=== PATIENT | female | born 1985 | race African-American/Black ===

== ENCOUNTER 2020-01-21 15:28 | Outpatient (CLI) | payer OTHER, SELFPAY ==
--- NOTE | ~2020-01-21 | US_ITS ---
EXAMINATION: US soft tissue chest DATE: 01/21/2020 16:19 INDICATION: Localized bowing, mass and lump at the trunk. TECHNIQUE: Multiple grayscale and Doppler ultrasound images were obtained of the region of concern at the anterior left chest wall inferior to the left breast. COMPARISON: None FINDINGS: Normal ultrasound appearance to the RIBS, intercostal musculature and overlying subcutaneous soft tis sues at the anterior left chest wall region of concern. No abnormal masses or fluid collections ident ified. IMPRESSION: 1. Unremarkable study. Reviewed, dictated and finalized at location A. ERWARE BUFFER IMPRESSION: 1. Unremarkable study.
== END 2020-01-21 15:29 | disposition home or self-care (01) ==
LOC: ANHIMG 15:33
PROVIDERS: PCP Family Medicine; Visit Provider Family Medicine
DX: R22.2 Localized swelling, mass and lump, trunk (principal)
CPT/HCPCS: 76604

== ENCOUNTER 2020-08-11 17:49 | Emergency (ER) | payer OTHER, SELFPAY ==
[2020-08-11 17:58] VITALS: BP 146/91; PULSE 84; RESP 18; TEMP 36.1; O2SAT 100
--- NOTE | 2020-08-11 18:17 | ED.BACK ---
HPI - Back Pain/Injury General Chief Complaint: Back Pain/Injury Stated Complaint: Fell Neck/Back pain Time Seen by Provider: 08/11/20 18:07 Source: patient and RN notes reviewed Mode of arrival: ambulatory Limitations: no limitations History of Present Illness HPI Narrative: Patient presents today complaining of neck pain extending to the mid back for the past 2 weeks. She was at home and fell off the back of a bench, striking her neck and upper back against the side of her home at that time. Since the injury she has had pain to her neck and upper back. Denies radiation of the pain. Denies numbness or tingling in the extremities. Denies weakness. She has been taking Tylenol and ibuprofen at home without relief. Pain increases with movement of the neck or with any lifting. This makes it difficult as she is a [employer]. She currently rates her pain 8/10. Patient had a similar injury approximately 2 years ago when she fell and hit her head. States she was out of work for 2 to 3 months before her symptoms improved. States these symptoms are similar. She does have a PCP, but could not get in for 2 to 3 weeks. MD elicited complaint: back injury and fall Related Data Home Medications Medication Instructions Recorded Confirmed sertraline [Zoloft] 50 mg PO BID 11/12/19 08/11/20 Allergies Allergy/AdvReac Type Severity Reaction Status Date / Time No Known Allergies Allergy Verified 11/12/19 19:09 Review of Systems Review of Systems: Narrative: CONSTITUTIONAL: Denies body aches, fever, chills, or sweats. EYES: Denies visual changes, redness, or discharge. ENT: Denies rhinorrhea, congestion, sore throat, or otalgia. CARDIOVASCULAR: Denies chest pain, palpitations, or edema. RESPIRATORY: Denies cough or dyspnea. GASTROINTESTINAL: Denies abdominal pain, nausea, vomiting, or diarrhea. GENITOURINARY: Denies dysuria or hematuria. SKIN: Denies rash, itching, or wounds. MUSCULOSKELETAL: Denies joint pain, or myalgia.+ Back pain, neck pain NEUROLOGIC: Denies headache, numbness, tingling, or weakness. PSYCH: Denies depression or anxiety. [facility] Past Medical History Medical History (Updated 08/11/20 @ 18:22 by Lashonda Valencia, [facility], ) Anxiety Depression Social History Social History Gender identity (if verbalized by the patient): Female Comments At time of signature, I have reviewed and agree with nursing past medical, surgical, social and family history unless otherwise noted. Please see nursing chart for further information. There is no relevant family history pertinent to the presenting complaint Exam Narrative: Exam Narrative: GENERAL: Well-appearing, well-nourished, and in moderate pain distress. Holding her neck very still sitting in chair. HEAD: Normocephalic, atraumatic. EYES: EOMI. No redness or drainage. Conjunctivae normal. ENT: Mucous membranes pink and moist. Nares clear. No rhinorrhea. TMs normal bilaterally. Throat normal. Uvula midline. NECK: Supple. No lymphadenopathy. Decreased AROM due to pain. Most painful with chin to chest and ear to shoulders bilaterally. No spine or tenderness of the cervical spine, but bilateral paraspinal muscle tenderness extending to the mid trapezius. CHEST: No respiratory distress. Clear to auscultation. HEART: Regular rate and rhythm. No murmur appreciated. Normal peripheral pulses. ABDOMEN: Soft, nontender, nondistended, normal active bowel sounds. MUSCULOSKELETAL: No bony tenderness of the spine. Bilateral thoracic paraspinal muscle tenderness extending to the lower thoracic area. No edema or step-off noted. EXTREMITIES: Normal range of motion. No edema. Handgrips normal. Foot push and pulls equal and strong. Full range of motion of the shoulders noted. SKIN: Warm, dry, no rash. Capillary refill normal. Normal skin turgor. NEURO: No focal deficits. Alert and oriented x3. Gait steady. PSYCH: Normal affect.
== END 2020-08-11 18:23 | disposition home or self-care (01) ==
PROVIDERS: Emergency Provider Nurse Practitioner; PCP Family Medicine
DX: S29.012A Strain of muscle and tendon of back wall of thorax, initial encounter (principal); S16.1XXA Strain of muscle, fascia and tendon at neck level, initial encounter; W17.89XA Other fall from one level to another, initial encounter; F41.9 Anxiety disorder, unspecified; F32.9 Major depressive disorder, single episode, unspecified
CPT/HCPCS: 99213; G0463

== ENCOUNTER 2021-03-30 11:41 | Observation (INO) | payer OTHER, SELFPAY ==
[2021-03-30] VITALS (34 sets, daily range): BP systolic 109–120; BP diastolic 64–76; PULSE 68–86; TEMP 36.4; O2SAT 95–100; BMI 26.5
--- NOTE | ~2021-03-30 | US_ITS ---
EXAMINATION: US OB BPP wo non-stress EXAM DATE: 03/30/2021 15:39 INDICATION: Failed BPP in office. 3rd trimester. TECHNIQUE: Pelvic obstetrical transabdominal sonogram was performed by a technologist. There are mu ltiple grayscale and Doppler images available for interpretation. There are no earlier studies of th is gestation for comparison. FINDINGS: There is a single fetus identified in vertex presentation with a heart rate of 131 beats pe r minute. The placenta is located in the fundal position. There is no sonographic evidence of retrop lacental hemorrhage identified. There is subjectively expected amount of amniotic fluid. BIOPHYSICAL PROFILE (performed by the technologist) breathing (30 sec sustained breathing in 30 minutes): 2 out of 2 movement (3 gross body movements in 30 minutes): 2 out of 2 tone (one episode of ihwhvaw-plrlcilqz-qfdffnh limb movement): 2 out of 2 Amniotic fluid pocket (2 cm): 2 out of 2 Total score: 8 out of 8 IMPRESSION: 1. Single fetus with heart rate of 131 bpm. 2. Normal biophysical profile score of 8 out of 8. Reviewed, dictated and finalized at location B.
--- NOTE | 2021-03-30 13:55 | OBADM ---
This patient, Macarena Rios, admitted to the OB room OB Post 112 for observation. Patient/family oriented to hospital policies and general routines including ID bracelet, bed and alarms, visiting hours, pain management, procedures, bathroom and other care routines, personal items, smoking policy, room service/diet, and visiting hours. Patient/Family are encouraged to report perceived risks to care and to ask questions if they do not understand what they are told or what they should do. Pt. presents from office with orders for monitoring X2 hours then BPP.
[2021-03-30] MEDS: SERTRALINE HCL 50 MG TABLET 100 MG PO (22:08)
[2021-03-31] MEDS: ONDANSETRON HCL ODT 4 MG TABLET PO (02:59)
[2021-03-31 07:06] VITALS: BP 96/59; PULSE 76; RESP 16; TEMP 36.7
[2021-03-31] MEDS: FAMOTIDINE 20 MG TABLET PO (09:22)
[2021-03-31] MEDS: MULTIVIT/MIN/PREN/FOL AC/IRON TABLET 1 TAB PO (09:22)
--- NOTE | 2021-03-31 10:35 | PC.NURSE ---
Dr. Pollock on unit. Overnight tracing reviewed. Orders to discharge to home.
--- NOTE | 2021-03-31 10:50 | PM.IMHP ---
H&P: HPI History of Present Illness Date/Time: 03/31/21 10:50 this patient is a 36-year-old female, multiparous, 33 weeks gestation who presented with contractions and unusual heart tones. She denies any loss of fluid or vaginal bleeding. She denies any nausea, vomiting, fever, chills. She reports good movement. She denies any chest pain or shortness of breath. Chief Complaint: heart tone concerns Review of Systems Constitutional: Constitutional: Reports no additional constitutional complaints, Denies fatigue, Denies headache(s), Denies lethargy and Denies weakness Eyes: Eyes: Reports no additional eye complaints, Denies blurry vision and Denies photophobia ENT: Reports as per HPI, Denies headache(s) and Denies neck pain Cardiovascular: Cardiovascular: Denies chest pain, Denies diaphoresis, Denies leg edema, Denies palpitations and Denies dyspnea Respiratory: Respiratory: Denies hemoptysis, Denies dyspnea and Denies wheezing Gastrointestinal: Gastrointestinal: Denies abdominal pain, Denies melena, Denies bloating, Denies hematochezia, Denies nausea and Denies vomiting Genitourinary: Genitourinary: Reports no additional female genitourinary complaints Musculoskeletal: Musculoskeletal: Denies joint swelling, Denies neck pain, Denies numbness and Denies stiffness Neurologic: Denies Abnormal speech present, Denies confusion, Denies headache(s), Denies numbness and Denies weakness Psychiatric: Psychiatric: Denies anxiety, Denies confusion, Denies depression, Denies homicidal ideation and Denies suicidal ideation Endocrine: Endocrine: Denies fatigue and Denies palpitations Allergic/Immunologic: Allergic/Immunologic: Denies wheezing [facility] Past Medical History Medical History (Updated 03/31/21 @ 10:51 by Ibeth Pollock MD) Anxiety Depression Social History Social History Gender identity (if verbalized by the patient): Female Meds Home Medications and Allergies Home Medications Medication Instructions Recorded Confirmed Type sertraline [Zoloft] 100 mg PO HS 11/12/19 03/30/21 History 1 tablet PO DAILY 03/30/21 03/30/21 History famotidine [Pepcid] 20 mg PO BID 03/30/21 03/30/21 History ferrous sulfate 143 mg PO DAILY 03/30/21 03/30/21 History ondansetron HCl [Zofran] 4 mg PO Q6H PRN 03/30/21 03/30/21 History Allergies Allergy/AdvReac Type Severity Reaction Status Date / Time No Known Allergies Allergy Verified 11/12/19 19:09 Vital Signs Vital Signs - 24 hr 03/30/21 11:53 03/30/21 12:00 03/30/21 12:15 Temperature Pulse Rate 79 86 81 Respiratory Rate Blood Pressure 117/71 112/72 111/73 Pulse Oximetry 03/30/21 12:30 03/30/21 12:34 03/30/21 12:45 Temperature Pulse Rate 83 83 83 Respiratory Rate Blood Pressure 110/66 110/66 109/71 Pulse Oximetry 03/30/21 13:02 03/30/21 13:07 03/30/21 13:12 Temperature Pulse Rate Respiratory Rate Blood Pressure Pulse Oximetry 95 99 97 03/30/21 13:17 03/30/21 13:22 03/30/21 13:27 Temperature Pulse Rate Respiratory Rate Blood Pressure Pulse Oximetry 95 100 100 03/30/21 13:32 03/30/21 13:37 03/30/21 13:42 Temperature Pulse Rate Respiratory Rate Blood Pressure Pulse Oximetry 100 100 100 03/30/21 13:47 03/30/21 13:52 03/30/21 13:57 Temperature Pulse Rate Respiratory Rate Blood Pressure Pulse Oximetry 99 98 98 03/30/21 14:02 03/30/21 14:07 03/30/21 14:12 Temperature Pulse Rate Respiratory Rate Blood Pressure Pulse Oximetry 97 99 100 03/30/21 14:17 03/30/21 14:22 03/30/21 14:27 Temperature Pulse Rate Respiratory Rate Blood Pressure Pulse Oximetry 100 98 100 03/30/21 14:32 03/30/21 14:37 03/30/21 14:42 Temperature Pulse Rate Respiratory Rate Blood Pressure Pulse Oximetry 99 100 100 03/30/21 14:47 03/30/21 16:11
== END 2021-03-31 11:15 | disposition home or self-care (01) ==
PROVIDERS: Admitting Provider Obstetrics & Gynecology; PCP Family Medicine; Visit Provider Obstetrics & Gynecology
DX: O36.8330 Maternal care for abnormalities of the fetal heart rate or rhythm, third trimester, not applicable or unspecified (principal); Z3A.33 33 weeks gestation of pregnancy
CPT/HCPCS: 76819; A9270; G0378; G0379

== ENCOUNTER 2021-05-01 13:35 | Inpatient (IN) | payer OTHER, SELFPAY ==
--- NOTE | 2021-04-27 14:09 | PC.NURSE ---
VERIFIED WITH WA SCHEDULE AND PATIENT--C/S ON 05/07/21 AT 1330 PATIENT GIVEN REQUISITION FOR LAB DRAW ON 05/05/21
[2021-05-01] VITALS (10 sets, daily range): BP systolic 112–131; BP diastolic 68–84; PULSE 67–85; RESP 16–18; TEMP 36.5–36.7; BMI 26.6
[2021-05-01] MEDS: LACTATED RINGERS 1,000 ML 125 ML IV CONT ×2 (15:48→23:20)
--- NOTE | 2021-05-01 16:36 | LDADM ---
This patient, Macarena Rios, was admitted to OB Post 113 on 05/01/21 at 13:35. Plans for section, pain management and were discussed with patient. Patient/family oriented to hospital policies and general routines including ID bracelet, bed and alarms, visiting hours, pain management, procedures, bathroom and other care routines, personal items, smoking policy, room service/diet and guest tray routines, security routines, and visiting hours. Patient/Family are encouraged to report perceived risks to care and to ask questions if they do not understand what they are told or what they should do. See OBIX for further documentation.
[2021-05-01 16:58] LABS: Basophils Percent Auto 0.3 % (0.2-1.2); Eosinophils Absolute Auto 0.1 K/mm3 (0-0.3); Eosinophils Percent Auto 0.7 % (0-4.4); Hematocrit 37.3 % (37.0-47.0); Immature Granulocyte Percent A 0.9 % (0-0.5); Lymphocytes Absolute Auto 2.03 K/mm3 (0.9-3.2); Lymphocytes Percent Auto 17.8 % (18.3-44.2); Mean Corpuscular HGB Conc 32.2 g/dl (32-36); Mean Corpuscular Hemoglobin 31.2 pg (26-34); Mean Corpuscular Volume 96.9 fl (80-100); Mean Platelet Volume 11.8 fl (7.4-10.4); Monocytes Absolute Auto 0.8 K/mm3 (0.1-0.6); Monocytes Percent Auto 6.9 % (2.6-8.5); Neutrophils Absolute Auto 8.4 K/mm3 (1.3-6.7); Neutrophils Percent Auto 73.4 % (45.5-73.1); Platelet Count Result 186 k/mm3 (150-375); Red Blood Count 3.85 M/mm3 (4.2-5.4); White Blood Count 11.4 K/mm3 (4.5-10.0)
[2021-05-01 18:23] LABS: Amphetamine Screen Urine Negative (Negative); Barbiturate Screen Urine Negative (Negative); Benzodiazepines Screen Urine Negative (Negative); Cannabinoid Screen Urine Positive (Negative); Cocaine Screen Urine Negative (Negative); Methadone Screen Urine Negative (Negative); Opiate Screen Urine Negative (Negative); Phencyclidine Screen Urine Negative (Negative)
[2021-05-01] MEDS: SERTRALINE HCL 50 MG TABLET 100 MG PO (21:38)
[2021-05-01] MEDS: ONDANSETRON INJ 4 MG/2 ML VIAL IV PUSH (23:28)
[2021-05-02] VITALS (49 sets, daily range): BP systolic 113–137; BP diastolic 57–79; PULSE 57–73; RESP 12–21; TEMP 36.4–37.2; O2SAT 98–100
[2021-05-02] MEDS: LACTATED RINGERS 1,000 ML 125 ML IV CONT (06:52)
--- NOTE | 2021-05-02 07:09 | WPDANESEPPF ---
Anes - Initial Pre Proc Eval Procedure: Operation Date: 05/02/21 07:30 Proposed Procedures p Primary Section - Ibeth Pollock MD Date/Time: 05/02/21 07:09 Surgeon: Ibeth Pollock MD Pre Op Diagnosis: ext monitoring Patient Data Age: 36 Gender: F Height: 5 ft 7 in Weight: 77 kg Last Vital Signs Temp 36.4 C 05/02/21 04:00 Pulse 70 05/02/21 04:11 Resp 16 05/02/21 04:00 BP 115/74 05/02/21 04:11 Allergies Allergy/AdvReac Type Severity Reaction Status Date / Time No Known Allergies Allergy Verified 05/01/21 16:39 Home Medications Medication Instructions Recorded Confirmed Type sertraline [Zoloft] 100 mg PO HS 11/12/19 05/01/21 History 1 tablet PO DAILY 03/30/21 05/01/21 History famotidine [Pepcid] 20 mg PO BID 03/30/21 05/01/21 History ferrous sulfate 143 mg PO DAILY 03/30/21 05/01/21 History ondansetron HCl [Zofran] 4 mg PO Q6H PRN 03/30/21 05/01/21 History Laboratory Tests 05/01/21 05/01/21 05/01/21 16:44 16:44 16:44 WBC 11.4 K/mm3 H K/mm3 (4.5-10.0) RBC 3.85 M/mm3 L M/mm3 (4.2-5.4) Hgb 12.0 g/dL g/dL (12.0-15.0) Hct 37.3 % % (37.0-47.0) MCV 96.9 fl fl (80-100) MCH 31.2 pg pg (26-34) MCHC 32.2 g/dl g/dl (32-36) RDW 15.0 % H % (11.5-14.5) Plt Count 186 k/mm3 k/mm3 (150-375) MPV 11.8 fl H fl (7.4-10.4) Immature Gran % (Auto) 0.9 % H % (0-0.5) Neut % (Auto) 73.4 % H % (45.5-73.1) Lymph % (Auto) 17.8 % L % (18.3-44.2) [place] % (Auto) 6.9 % % (2.6-8.5) Eos % (Auto) 0.7 % % (0-4.4) Baso % (Auto) 0.3 % % (0.2-1.2) Lymph # (Auto) 2.03 K/mm3 K/mm3 (0.9-3.2) [place] # (Auto) 0.8 K/mm3 H K/mm3 (0.1-0.6) Eos # (Auto) 0.1 K/mm3 K/mm3 (0-0.3) Baso # (Auto) 0.0 K/mm3 K/mm3 (0.0-0.1) Abs Immat Gran (auto) 0.10 K/mm3 H K/mm3 (0.00-0.031) Absolute Neuts (auto) 8.4 K/mm3 H K/mm3 (1.3-6.7) Absolute Nucleated RBC 0.0 K/mm3 K/mm3 (0.0-0.012) Nucleated RBC % 0.0 % % (0.0-0.2) Urine Opiates Screen Urine Methadone Screen Ur Barbiturates Screen Ur Phencyclidine Scrn Ur Amphetamine Screen U Benzodiazepines Scrn Urine Cocaine Screen U Cannabinoids Screen RPR Pending Blood Type O Positive Antibody Screen Negative 05/01/21 16:44 WBC RBC Hgb Hct MCV MCH MCHC RDW Plt Count MPV Immature Gran % (Auto) Neut % (Auto) Lymph % (Auto) [place] % (Auto) Eos % (Auto) Baso % (Auto) Lymph # (Auto) [place] # (Auto) Eos # (Auto) Baso # (Auto) Abs Immat Gran (auto) Absolute Neuts (auto) Absolute Nucleated RBC Nucleated RBC % Urine Opiates Screen Negative (Negative) Urine Methadone Screen Negative (Negative) Ur Barbiturates Screen Negative (Negative) Ur Phencyclidine Scrn Negative (Negative) Ur Amphetamine Screen Negative (Negative) U Benzodiazepines Scrn Negative (Negative) Urine Cocaine Screen Negative (Negative) U Cannabinoids Screen Positive A (Negative) RPR Blood Type Antibody Screen Patient hx anesthesia problems: none Family hx anesthesia problems: none PMFSH Past Medical History Medical History Anxiety Depression Pulmonary arteriovenous malformation Family History Family History Mother Chronic obstructive pulmonary disease Hypertension Grandparent Kidney failure Chronic obstructive pulmonary disease Hypertension Diabetes mellitus
--- NOTE | 2021-05-02 07:21 | WPDHPUPDATE1 ---
History and Physical Update Update Date/Time: 05/02/21 07:21 History and Physical has been reviewed, including an updated exam of the patient. There are NO changes in the patient's condition. Risks, benefits, and alternatives have been discussed and questions answered. Patient agrees to proceed with procedure.
--- NOTE | 2021-05-02 07:22 | PM.IMHP ---
H&P: HPI History of Present Illness Date/Time: 05/02/21 07:22 this patient is a 36-year-old multiparous female at 38 weeks gestation with a breech presentation and severe growth restriction in the 1st percentile. She had nonreassuring heart tones yesterday. We have agreed to perform delivery today. She understands the risks. She understands injuries may occur that result in hospitalization, more surgery, and severe illness. She understands the risk of hemorrhage and infection. She denies any chest pain, shortness of breath. She denies any nausea, vomiting, fever, chills. She denies any contractions, loss of fluid vaginal bleeding. Reports good movement. Chief Complaint: Term gestation Review of Systems Constitutional: Constitutional: Reports no additional constitutional complaints, Denies fatigue, Denies headache(s), Denies lethargy and Denies weakness Eyes: Eyes: Reports no additional eye complaints, Denies blurry vision and Denies photophobia ENT: Reports as per HPI, Denies headache(s) and Denies neck pain Cardiovascular: Cardiovascular: Denies chest pain, Denies diaphoresis, Denies leg edema, Denies palpitations and Denies dyspnea Respiratory: Respiratory: Denies hemoptysis, Denies dyspnea and Denies wheezing Gastrointestinal: Gastrointestinal: Denies abdominal pain, Denies melena, Denies bloating, Denies hematochezia, Denies nausea and Denies vomiting Genitourinary: Genitourinary: Reports no additional female genitourinary complaints Musculoskeletal: Musculoskeletal: Denies joint swelling, Denies neck pain, Denies numbness and Denies stiffness Neurologic: Denies Abnormal speech present, Denies confusion, Denies headache(s), Denies numbness and Denies weakness Psychiatric: Psychiatric: Denies anxiety, Denies confusion, Denies depression, Denies homicidal ideation and Denies suicidal ideation Endocrine: Endocrine: Denies fatigue and Denies palpitations Allergic/Immunologic: Allergic/Immunologic: Denies wheezing PMFSH Past Medical History Medical History Anxiety Depression Pulmonary arteriovenous malformation Family History Family History Mother Chronic obstructive pulmonary disease Hypertension Grandparent Kidney failure Chronic obstructive pulmonary disease Hypertension Diabetes mellitus Congestive heart failure Sibling Large cell carcinoma of lung, stage 3 Breast cancer in female Father Large cell carcinoma of lung, stage 3 Social History Social History Years smoked: 11 Smoking status: Current every day smoker Tobacco type: cigarettes and e-cigarettes/vaping Second hand tobacco smoke exposure: Yes Substance use: current Last use: 04/16/21 Gender identity (if verbalized by the patient): Female Spiritual care concerns: No Meds Home Medications and Allergies Home Medications Medication Instructions Recorded Confirmed Type sertraline [Zoloft] 100 mg PO HS 11/12/19 05/01/21 History 1 tablet PO DAILY 03/30/21 05/01/21 History famotidine [Pepcid] 20 mg PO BID 03/30/21 05/01/21 History ferrous sulfate 143 mg PO DAILY 03/30/21 05/01/21 History ondansetron HCl [Zofran] 4 mg PO Q6H PRN 03/30/21 05/01/21 History Allergies Allergy/AdvReac Type Severity Reaction Status Date / Time No Known Allergies Allergy Verified 05/01/21 16:39 Vital Signs Vital Signs - 24 hr 05/01/21 16:00 05/01/21 16:31 05/01/21 16:45 Temperature 98.1 F Pulse Rate 79 85 Respiratory Rate 16 Blood Pressure 119/79 112/76 05/01/21 17:40 05/01/21 18:30 05/01/21 18:31 Temperature 97.9 F Pulse Rate Respiratory Rate 18 18 Blood Pressure 05/01/21 18:38 05/01/21 21:19 05/01/21 21:30 Temperature 97.7 F Pulse Rate 74 Respiratory Rate 16 16 Blood Pressure 131/84 06
--- NOTE | 2021-05-02 07:25 | WPDHPUPDATE1 ---
History and Physical Update Update Date/Time: 05/02/21 07:25 History and Physical has been reviewed, including an updated exam of the patient. There are NO changes in the patient's condition. Risks, benefits, and alternatives have been discussed and questions answered. Patient agrees to proceed with procedure.
--- NOTE | 2021-05-02 08:23 | P.OP_ITS ---
Procedure Note - Detailed Date of Procedure 05/02/21 Pre-op Diagnosis growth restriction, breech, nonreassuring heart tones. Post-op Diagnosis same Procedure Performed Low-transverse section Surgeon Ibeth Pollock MD Anesthesia spinal Indications Thirty weeks gestation with severe growth restriction, nonreassuring heart tones, breech presentation. Findings Normal gestational maternal anatomy, small infant, normal Apgars. Breech presen tation Description of Procedure The patient was taken the operating room. She was prepped and draped in dorsal supine position with a leftward tilt. This was done after spinal anesthetic was applied. A low-transverse skin incision was made and carried down till of the fascia with the knife. The fascial incision was made with the knife. The fasc ial incision was extended laterally with Aaron scissors. The fascia was tented upward superiorly and inferiorly the rectus muscles were dissected off bluntly. The rectus muscles were the midline. The preperitoneal fat and peritoneum were dissected open bluntly at the superior aspect of the rectus muscles. The peritoneal incision was extended superior and inferior with good position of bladder. The uterine incision was made with a scalpel down to the level of the amniotic cavity. The amniotic cavity was entered bluntly. The was delivered. The cord was clamped and cut and the infant was handed off to waiting pediatric staff. Cord bloods were obtained. The placenta was removed manually. The uterus was exteriorized. The uterus was cleared of all clots, debris and membranes. The uterus was closed in 0 Vicryl running lock fashion. An imbricating over a was placed along the incision line as well. The uterus was returned to the abdomen. The gutters were cleared of all clots and debris. The fascia was closed with 0 Vicryl running fashion. The subcutaneous tissue was irrigated pinpoint bleeders were cauterized. The skin was closed with subcuticular absorbable ne. The skin incision line was covered with glue. The patient tolerated the procedure well. She has taken recovery room in stable condition. Sponge lap and needle counts were correct x2. Estimated Blood Loss 400 Complications No immediate complications Condition stable Disposition PACU
[2021-05-02] MEDS: OXYTOCIN 30 UNITS/NS 500 ML 30 UNITS/500 ML BAG 125 UNITS IV CONT (09:10)
[2021-05-02 09:48] LABS: Rapid Plasma Reagin Non-Reactive (NonReactive)
--- NOTE | 2021-05-02 11:27 | OBPPTRN ---
1053-Patient transferred to post room #288 via stretcher. Support person present. Oriented to unit, room, information board, rooming in, admission packet and security measures. Patient verbalizes understanding.
[2021-05-02] MEDS: KETOROLAC 30 MG/ML VIAL (*BKC) IV PUSH (11:39)
[2021-05-02] MEDS: HYDROcodone/acetaminophen (*CRX) 10-325 MG TABLET 1 TAB PO (14:31)
[2021-05-02] MEDS: DEXTROSE 5%/0.45% SOD CHL 1,000 ML 125 ML IV CONT (14:36)
[2021-05-02] MEDS: DOCUSATE SODIUM 100 MG CAPSULE PO (17:58)
[2021-05-02] MEDS: IBUPROFEN 600 MG TABLET PO (19:43)
[2021-05-02] MEDS: HYDROcodone/acetaminophen (*CRX) 5-325 MG TABLET 1 TAB PO (19:44)
[2021-05-03] MEDS: SERTRALINE HCL 50 MG TABLET 100 MG PO ×2 (00:28→21:55)
[2021-05-03] MEDS: HYDROcodone/acetaminophen (*CRX) 10-325 MG TABLET 1 TAB PO ×3 (00:28→21:55)
[2021-05-03 00:30] VITALS: BP 112/74; PULSE 74; RESP 16; TEMP 36.6; O2SAT 100
[2021-05-03 03:25] VITALS: BP 104/62; PULSE 64; RESP 14; TEMP 36.5; O2SAT 100
[2021-05-03] MEDS: IBUPROFEN 600 MG TABLET PO ×3 (03:35→21:55)
[2021-05-03] MEDS: HYDROcodone/acetaminophen (*CRX) 5-325 MG TABLET 1 TAB PO ×3 (03:36→11:08)
[2021-05-03 05:45] LABS: Basophils Absolute Auto 0.1 K/mm3 (0.0-0.1); Basophils Percent Auto 0.4 % (0.2-1.2); Eosinophils Absolute Auto 0.2 K/mm3 (0-0.3); Eosinophils Percent Auto 1.3 % (0-4.4); Hematocrit 29.1 % (37.0-47.0); Hemoglobin 9.8 g/dL (12.0-15.0); Immature Granulocyte Absolute 0.12 K/mm3 (0.00-0.031); Immature Granulocyte Percent A 0.8 % (0-0.5); Lymphocytes Absolute Auto 2.27 K/mm3 (0.9-3.2); Lymphocytes Percent Auto 15.9 % (18.3-44.2); Mean Corpuscular HGB Conc 33.7 g/dl (32-36); Mean Corpuscular Hemoglobin 31.7 pg (26-34); Mean Corpuscular Volume 94.2 fl (80-100); Mean Platelet Volume 11.7 fl (7.4-10.4); Monocytes Absolute Auto 1.2 K/mm3 (0.1-0.6); Monocytes Percent Auto 8.3 % (2.6-8.5); Neutrophils Absolute Auto 10.5 K/mm3 (1.3-6.7); Neutrophils Percent Auto 73.3 % (45.5-73.1); Platelet Count Result 170 k/mm3 (150-375); Red Blood Count 3.09 M/mm3 (4.2-5.4); Red Cell Distribution Width 14.5 % (11.5-14.5); White Blood Count 14.3 K/mm3 (4.5-10.0)
[2021-05-03] MEDS: LANOLIN (LANSINOH) 7.5 GM CREAM 1 APPLIC TOPICAL (07:26)
[2021-05-03] MEDS: POLYSACCHARIDE IRON COMPLEX 150 MG CAPSULE PO ×2 (07:28→16:14)
[2021-05-03] MEDS: SIMETHICONE 80 MG TAB.CHEW PO ×2 (07:29→16:14)
[2021-05-03] MEDS: DOCUSATE SODIUM 100 MG CAPSULE PO ×2 (07:29→16:13)
[2021-05-03] MEDS: MULTIVIT/MIN/PREN/FOL AC/IRON TABLET 1 TAB PO (07:29)
--- NOTE | 2021-05-03 07:36 | P.PNAN_ITS ---
Anes-Prog Note L&D Date/Time: 05/03/21 07:36 Comfortable throughout: section Neuraxial method: spinal Epidural/Spinal procedure site: clean & non-tender Neuro status: Neuro function grossly intact. Cardiovascular status: normal Respiratory status: normal Airway patency: baseline Mental status: baseline Post-Op hydration status: normal Vital Signs: Last Vital Signs Temp 97.7 F 05/03/21 03:25 Pulse 64 05/03/21 03:25 Resp 14 05/03/21 03:25 BP 104/62 05/03/21 03:25 Pulse Ox 100 05/03/21 03:25 Pain score (VAS): 01/31 I/O: Intake & Output 05/02/21 05/02/21 05/03/21 15:59 23:59 07:59 Intake Total 130 1161 Output Total [phone] [facility] [phone] Post-procedural complaints: none Patient feedback: Patient satisfied with anesthetic care.
--- NOTE | 2021-05-03 07:36 | WPDANLDNPN2 ---
Anes-Prog Note L&D-Neuraxial Date/Time: 05/03/21 07:36 Neuraxial medications: intrathecal PF morphine Opiod-related complaints: none Patient feedback: Patient satisfied with post-operative pain management.
[2021-05-03 08:00] VITALS: BP 116/79; PULSE 71; RESP 18; TEMP 36.1
--- NOTE | 2021-05-03 08:16 | P.PNOB_ITS ---
OB - PN: Subj Subjective Date/time seen: 05/03/21 08:16 Patient comments: no complaints, pain well controlled, tolerating diet and flatus present OB - PN: Obj Data Labs CBC & Chem 7: 05/03/21 03:32 Labs: Laboratory Results - last 24 hr 05/01/21 05/03/21 16:44 03:32 WBC 14.3 H RBC 3.09 L Hgb 9.8 L Hct 29.1 L MCV 94.2 MCH 31.7 MCHC 33.7 RDW 14.5 Plt Count 170 MPV 11.7 H Immature Gran % (Auto) 0.8 H Neut % (Auto) 73.3 H Lymph % (Auto) 15.9 L [place] % (Auto) 8.3 Eos % (Auto) 1.3 Baso % (Auto) 0.4 Lymph # (Auto) 2.27 [place] # (Auto) 1.2 H Eos # (Auto) 0.2 Baso # (Auto) 0.1 Abs Immat Gran (auto) 0.12 H Absolute Neuts (auto) 10.5 H Absolute Nucleated RBC 0.0 Nucleated RBC % 0.0 RPR Non-reactive OB - PN A/P Plan day: 1 Comments: Post Op LTCS - no problems, routine recovery Time Spent With Patient Time: Total time spent is greater than 50% in coordination of care (as documented) at patient's floor/unit and/or counseling patient: Exam Const: General: cooperative, healthy appearing, comfortable and no acute distress Resp: Auscultation: no crackles, no rales, no rhonchi and no wheezes Cardio: Rhythm: regular rhythm Heart sounds: no click and no murmurs GI: Inspection: non-distended Auscultation: normal bowel sounds Extrem: General: normal to inspection, no pedal edema and no calf tenderness
--- NOTE | 2021-05-03 10:30 | PC.NURSE ---
Consult with pt., mother reports other children. Mother states infant is eagerly latching without difficulties or discomfort. Reviewed infant feeding cues, frequencies, duration of feedings, feeding elimination flow sheet, and signs of adequate intake. Demonstrated stimulation techniques to wake for feeding. Nipple care reviewed. Requested mother to call out next feeding. Instructed feeding should be initiated three hours from start of last feeding or if feeding cues are noted before. Mother voiced understanding of information shared.
[2021-05-03 20:48] VITALS: BP 113/77; PULSE 87; RESP 16; TEMP 36.6
[2021-05-04] MEDS: HYDROcodone/acetaminophen (*CRX) 10-325 MG TABLET 1 TAB PO ×2 (05:40→14:16)
[2021-05-04] MEDS: IBUPROFEN 600 MG TABLET PO ×2 (05:40→14:16)
--- NOTE | 2021-05-04 07:29 | P.PNOB_ITS ---
OB - PN: Subj Subjective Date/time seen: 05/04/21 07:29 Patient comments: no complaints baby status: doing well OB - PN: Obj Data Labs CBC & Chem 7: 05/03/21 03:32 OB - PN A/P Plan day: 2 Plan: routine care and discharge home Time Spent With Patient Time: Total time spent is greater than 50% in coordination of care (as documented) at patient's floor/unit and/or counseling patient: Review of Systems Review of Systems: All systems reviewed & are unremarkable except as noted in HPI and below Constitutional: Constitutional: Reports as per HPI Exam 2 Narrative: Exam Narrative: incision CDI Const: General: cooperative
--- NOTE | 2021-05-04 07:32 | PM.OBDSVD ---
DS: Admitting Diagnosis Admitting Diagnosis Admitting Diagnosis: breech, iugr OB - DS: Summary OB Procedures : None OB Procedures Intrapartum: OB Procedures: : None Peripartum Data Procedures: Procedures Operation Date: 05/02/21 07:30 Actual Procedure Side Surgeon p Primary Section Bilateral Ibeth Pollock MD Time Spent with Patient Time attestation: Total time spent providing and/or coordinating discharge services: DS: Data Data Completed and Pending Pending studies at discharge: Pending at discharge 05/02/21 07:48 Surgical [PTH] Routine Discharge Plan Discharge Attending physician on discharge: Ibeth Pollock Discharging Clinician: Neeta Rubi Patient Disposition: Home, Self-Care Activity: pelvic rest Diet: regular Patient Instructions: Antibiotic Form Stand Alone Forms: General Discharge Information Follow-up/Referrals: Ibeth Pollock MD [Physician] - 1 Week Discharge Medications: New hydrocodone-acetaminophen 5-325 mg Tablet 1 tablet PO Q3H PRN (Reason: Moderate Pain (4-6)) Qty: 20 RF: 0 simethicone 80 mg Tablet,Chewable 80 mg PO Q2H PRN (Reason: Gas) Qty: 30 RF: 0 Continued sertraline [Zoloft] 50 mg Tablet 100 mg PO HS RF: 0 ferrous sulfate 47.5 mg iron Tablet Extended Release 143 mg PO DAILY RF: 0 28-800 mg-mcg Tablet 1 tablet PO DAILY RF: 0 Discontinued ondansetron HCl [Zofran] 4 mg Tablet 4 mg PO Q6H PRN (Reason: Nausea) RF: 0 famotidine [Pepcid] 20 mg Tablet 20 mg PO BID RF: 0 Date of admission: 05/01/21 13:35 Primary Care Provider: Cely,Rebeca Antunez Admitting Provider: Ibeth Pollock Attending physician on admission: Ibeth Pollock Condition: Stable
[2021-05-04 08:00] VITALS: BP 123/83; PULSE 77; RESP 16; RESP 18; TEMP 36.6; O2SAT 100
[2021-05-04] MEDS: MULTIVIT/MIN/PREN/FOL AC/IRON TABLET 1 TAB PO (08:43)
[2021-05-04] MEDS: POLYSACCHARIDE IRON COMPLEX 150 MG CAPSULE PO ×2 (08:43→17:32)
[2021-05-04] MEDS: SIMETHICONE 80 MG TAB.CHEW PO ×2 (08:43→17:32)
[2021-05-04] MEDS: DOCUSATE SODIUM 100 MG CAPSULE PO ×2 (08:43→17:32)
--- NOTE | 2021-05-04 09:00 | PC.NURSE ---
Patient was given the opportunity to view the discharge video Mother & Baby Care, The First Two Weeks and to ask questions. Patient declined viewing the video and has been given the mother/baby guide for home reference.
--- NOTE | 2021-05-04 10:09 | PC.NURSE ---
Self care and infant care discharge instructions given including follow up visit date and time. Mother verbalized understanding. No questions or concerns voiced. Very pleasant and cooperative. FOB at side.
--- NOTE | 2021-05-04 14:01 | PCCCNOTE ---
Addendum entered by DOMO Cervantes 05/04/21 16:01: 1600: Received email from [facility] that states: Your information has been reviewed and assessed by a Reception Agent and was also approved by a grounds supervisor. The information you provided did not meet one of the criteria for an investigation (eligible victim, eligible perpetrator, eligible event, or jurisdiction). The information as been documented and will be kept on file. Should you learn of further information or have additional concerns, please feel free to contact us. The final intake ID number for this report is [id number]. Original Note: Care Coordination: Seen patient due to pt. testing positive for THC upon urine drug screen. Baby girl's meconium is pending from 05/02. Pt. reports using THC for her anxiety, nausea, pain, and migraines. NAHOMY Locke at bedside. Pt. reports she, baby girl, 12 year old son, and 2 year old daughter will be living in [place]. Pt. reports she has support from both her and NAHOMY Locke's family. Pt. reports having all necessary baby supplies. Pt. reports being in process of setting up WIC and already set up with [employer]. Pt. denies prior DCFS involvement. resources provided to pt. Pt. reports she is hopeful to discharge today. Made [facility] report online: #[id number]. Updates given to YESENIA Dawson.
[2021-05-04] MEDS: TETANUS,DIPHTHERIA,AC PERTUSSIS ADULT (0.5 ML) BOOSTRIX IM (17:33)
[2021-05-05 09:42] VITALS: BP 128/80; PULSE 81; RESP 20; TEMP 36.8; O2SAT 100
== END 2021-05-04 19:15 | disposition home or self-care (01) | DRG 540 ==
LOC: ANHOBPP 15:12 → ANHOB2 05-02 11:01
PROVIDERS: Admitting Provider Obstetrics & Gynecology; PCP Family Medicine; Visit Provider Obstetrics & Gynecology
DX: O36.5930 Maternal care for other known or suspected poor fetal growth, third trimester, not applicable or unspecified (principal); Z37.0 Single live birth; Z3A.38 38 weeks gestation of pregnancy; O99.824 Streptococcus B carrier state complicating childbirth; O32.1XX0 Maternal care for breech presentation, not applicable or unspecified; O36.8330 Maternal care for abnormalities of the fetal heart rate or rhythm, third trimester, not applicable or unspecified; O99.344 Other mental disorders complicating childbirth; F41.9 Anxiety disorder, unspecified; F32.9 Major depressive disorder, single episode, unspecified; Q25 Congenital malformations of great arteries; O99.334 Smoking (tobacco) complicating childbirth; F17.210 Nicotine dependence, cigarettes, uncomplicated
CPT/HCPCS: 36415; 80307; 85025; 86592; 86850; 86900; 86901; 88307; 90715; A9270; J0131; J1200; J1885; J2274; J2405; J2590; J7120

== ENCOUNTER 2021-05-09 15:51 | Outpatient (CLI) | payer OTHER, SELFPAY ==
[2021-05-09 16:14] LABS: Basophils Percent Auto 0.4 % (0.2-1.2); Eosinophils Absolute Auto 0.1 K/mm3 (0-0.3); Eosinophils Percent Auto 1.2 % (0-4.4); Hematocrit 33.6 % (37.0-47.0); Hemoglobin 10.8 g/dL (12.0-15.0); Immature Granulocyte Absolute 0.05 K/mm3 (0.00-0.031); Immature Granulocyte Percent A 0.5 % (0-0.5); Lymphocytes Absolute Auto 2.43 K/mm3 (0.9-3.2); Lymphocytes Percent Auto 24.1 % (18.3-44.2); Mean Corpuscular HGB Conc 32.1 g/dl (32-36); Mean Corpuscular Hemoglobin 30.6 pg (26-34); Mean Corpuscular Volume 95.2 fl (80-100); Monocytes Absolute Auto 0.6 K/mm3 (0.1-0.6); Monocytes Percent Auto 5.5 % (2.6-8.5); Neutrophils Absolute Auto 6.9 K/mm3 (1.3-6.7); Neutrophils Percent Auto 68.3 % (45.5-73.1); Platelet Count Result 335 k/mm3 (150-375); Red Blood Count 3.53 M/mm3 (4.2-5.4); White Blood Count 10.1 K/mm3 (4.5-10.0)
[2021-05-09 16:16] VITALS: BP 130/88; PULSE 73
[2021-05-09 16:22] LABS: Alanine Aminotransferase 11 U/L (4-35); Albumin Level 3.4 g/dL (3.5-5.1); Alkaline Phosphatase 97 U/L (38-126); Anion Gap 8 mmol/L (8-16); Aspartate Amino Transferase 24 U/L (14-36); Bilirubin,Total 0.2 mg/dL (0.2-1.3); Blood Urea Nitrogen 7 mg/dL (7-17); Calcium 8.9 mg/dL (8.4-10.2); Carbon Dioxide 23 mmol/L (22-30); Chloride 108 mmol/L (98-107); Estimated Glomerular Filt Rate > 60; Glucose 77 mg/dL (65-105); Potassium 3.5 mmol/L (3.4-5.0); Sodium 139 mmol/L (137-145); Uric Acid 5.4 mg/dL (2.5-7.5)
[2021-05-09 16:31] VITALS: BP 143/90; PULSE 68
[2021-05-09 16:46] VITALS: BP 137/84; PULSE 67
--- NOTE | 2021-05-09 16:47 | PC.NURSE ---
Called Valentine Rubi CNM with lab results and BPs. March D/C home.
== END 2021-05-09 16:55 | disposition home or self-care (01) ==
LOC: ANHOBOP 15:56 → ANHOBPP 15:57
PROVIDERS: PCP Family Medicine; Visit Provider Obstetrics & Gynecology
DX: O13.9 Gestational [pregnancy-induced] hypertension without significant proteinuria, unspecified trimester (principal); Z3A.00 Weeks of gestation of pregnancy not specified
CPT/HCPCS: 36415; 80053; 84550; 85025; 99199

== ENCOUNTER 2023-04-07 06:30 | Emergency (ER) | payer OTHER, SELFPAY ==
--- NOTE | ~2023-04-07 | XR_ITS ---
Clinical Indication: Chest pain PA and lateral views of the chest: Comparison: None Findings: The lungs are clear, without evidence of focal consolidation or pleural effusion. Cardiome diastinal silhouette is within normal limits. Bones and soft tissues are unremarkable. Impression: Normal chest. Reviewed, dictated and finalized at location . Impression: Normal chest.
--- NOTE | 2023-04-07 06:32 | ECG_ITS ---
Measurements Intervals [place] Rate: 71 P: 74 OR: 189 QRS: 75 QRSD: 101 T: 64 QT: 391 QTc: 425 Interpretive Statements SINUS RHYTHM NORMAL ECG NO PREVIOUS ECG AVAILABLE FOR COMPARISON Electronically Signed On 04-07-2023 7:42:16 CDT by Sukhdeep Chopra D.O.
[2023-04-07 06:35] VITALS: PULSE 82; RESP 16; O2SAT 100
[2023-04-07] MEDS: ASPIRIN 81 MG CHEWABLE TABLET 324 MG PO (06:41)
[2023-04-07 06:43] VITALS: BP 158/94; PULSE 74; RESP 14; O2SAT 100
--- NOTE | 2023-04-07 06:43 | ED.CHESTPAIN ---
HPI - Chest Pain General Chief Complaint: Chest Pain <Oracio Mann MD - Last Filed: 04/07/23 06:49> Stated Complaint: Right sided Chest pain <Oracio Mann MD - Last Filed: 04/07/23 06:49> Time Seen by Provider: 04/07/23 06:36 <Oracio Mann MD - Last Filed: 04/07/23 06:49> History of Present Illness HPI narrative: This is a 38-year-old female with recent history of upper respiratory tract infection, who presents to the emergency department complaining of 1 weeks worth of right-sided chest pain. The pain is described as sharp, rated 8/10, primarily located in the right lower anterior chest wall, but does also appear in the left. The patient states is aggravated by cough, movement, lifting and exertion; its intermittently associated with nausea. <Oracio Mann MD - Last Filed: 04/07/23 06:49> Related Data Home Medications: Home Medications Medication Instructions Recorded Confirmed sertraline 50 mg tablet (Zoloft) 100 mg PO HS 11/12/19 05/01/21 ferrous sulfate 143 mg PO DAILY 03/30/21 05/01/21 vit no.133-ferrous 1 tablet PO DAILY 03/30/21 05/01/21 fumarate 28 mg-folic acid 800 mcg tablet () <Oracio Mann MD - Last Filed: 04/07/23 06:49> Allergies/Adverse Reactions: Allergies Allergy/AdvReac Type Severity Reaction Status Date / Time No Known Allergies Allergy Verified 04/07/23 06:45 <Oracio Mann MD - Last Filed: 04/07/23 06:49> Review of Systems Review of Systems: CONSTITUTIONAL: Denies fever, chills, or sweats. ENT: Denies rhinorrhea, congestion, sore throat, or otalgia. CARDIOVASCULAR: Chest pain denies palpitations, or edema. RESPIRATORY: Cough productive of white, nonbloody sputum denies dyspnea. GASTROINTESTINAL: Denies abdominal pain, nausea, vomiting, or diarrhea. GENITOURINARY: Denies dysuria or hematuria. SKIN: Denies rash or itching. MUSCULOSKELETAL: Denies back pain, joint pain, or myalgia. NEUROLOGIC: Denies headache, numbness, dizziness, or weakness. PSYCHIATRIC: Denies anxiety or depression. <Oracio Mann MD - Last Filed: 04/07/23 06:49> PMFSH Past Medical History Medical History: Medical History Anxiety Depression Pulmonary arteriovenous malformation <Oracio Mann MD - Last Filed: 04/07/23 06:49> Family History Family History: Family History Mother Chronic obstructive pulmonary disease Hypertension Grandparent Kidney failure Chronic obstructive pulmonary disease Hypertension Diabetes mellitus Congestive heart failure Sibling Large cell carcinoma of lung, stage 3 Breast cancer in female Father Large cell carcinoma of lung, stage 3 <Oracio Mann MD - Last Filed: 04/07/23 06:49> Social History Social History: Social History Years smoked: 11 Smoking status: Current every day smoker Tobacco type: cigarettes and e-cigarettes/vaping Second hand tobacco smoke exposure: Yes Substance use: current Last use: 04/16/21 Gender identity (if verbalized by the patient): Female Spiritual care concerns: No <Oracio Mann MD - Last Filed: 04/07/23 06:49> Exam Narrative: GENERAL: Well-developed, well-nourished, and in no acute distress. HEAD: Normocephalic, atraumatic. EYES: PERRLA and EOMI. ENT: Nares clear, no rhinorrhea or epistaxis. Mucous membranes moist. Oropharynx without tonsillar hypertrophy exudate or other lesions. CHEST: Clear to auscultation. No respiratory distress. No wheezes rales or rhonchi. Tender to palpation over the right anterior chest wall, in the midclavicular line and ribs T8-T9. HEART: Regular rate and rhythm. No murmur heard. Normal peripheral pulses. ABDOMEN: Soft, nontender, nondistended, normal active bowel sounds. EXTREMITIES:
[2023-04-07 06:50] LABS: Basophils Absolute Auto 0.1 K/mm3 (0.0-0.1); Basophils Percent Auto 0.7 % (0.2-1.2); Eosinophils Absolute Auto 0.2 K/mm3 (0-0.3); Eosinophils Percent Auto 1.6 % (0-4.4); Hemoglobin 11.7 g/dL (12.0-15.0); Immature Granulocyte Absolute 0.04 K/mm3 (0.00-0.031); Immature Granulocyte Percent A 0.3 % (0-0.5); Lymphocytes Absolute Auto 4.34 K/mm3 (0.9-3.2); Lymphocytes Percent Auto 35.5 % (18.3-44.2); Mean Corpuscular HGB Conc 32.5 g/dl (32-36); Mean Corpuscular Hemoglobin 30.9 pg (26-34); Mean Platelet Volume 9.7 fl (7.4-10.4); Monocytes Absolute Auto 0.9 K/mm3 (0.1-0.6); Monocytes Percent Auto 7.1 % (2.6-8.5); Neutrophils Absolute Auto 6.7 K/mm3 (1.3-6.7); Neutrophils Percent Auto 54.8 % (45.5-73.1); Platelet Count Result 316 k/mm3 (150-375); Red Blood Count 3.79 M/mm3 (4.2-5.4); Red Cell Distribution Width 14.7 % (11.5-14.5); White Blood Count 12.2 K/mm3 (4.5-10.0)
[2023-04-07] MEDS: LIDOCAINE 5% PATCH 1 PATCH TRANSDERM (06:54)
[2023-04-07] MEDS: ACETAMINOPHEN 500 MG TABLET 1000 MG PO (06:54)
[2023-04-07 06:58] LABS: Partial Thromboplastin Time 27.2 SECONDS (22.3-36.8); Prothrombin Time 13.7 Seconds (11.1-14.7)
[2023-04-07 06:59] LABS: Alanine Aminotransferase 17 U/L (6-35); Albumin Level 4.1 g/dL (3.5-5.1); Alkaline Phosphatase 66 U/L (38-126); Anion Gap 8 mmol/L (8-16); Aspartate Amino Transferase 22 U/L (14-36); Bilirubin,Total 0.3 mg/dL (0.2-1.3); Blood Urea Nitrogen 11 mg/dL (7-17); Calcium 8.4 mg/dL (8.4-10.2); Carbon Dioxide 25 mmol/L (22-30); Chloride 104 mmol/L (98-107); Estimated CRCL calculation 89 ml/min; Estimated Glomerular Filt Rate > 60; Glucose 113 mg/dL (65-110); Lipase 60 U/L (23-300); Potassium 3.4 mmol/L (3.4-5.0); Sodium 137 mmol/L (137-145)
[2023-04-07 07:10] LABS: Troponin I < 0.012 ng/mL (0.000-0.034)
== END 2023-04-07 09:06 | disposition home or self-care (01) ==
PROVIDERS: Emergency Provider Preventive Medicine Aerospace Medicine
DX: R07.89 Other chest pain (principal); F41.9 Anxiety disorder, unspecified; F32.A Depression, unspecified
CPT/HCPCS: 36415; 71046; 80053; 83690; 84484; 85025; 85610; 85730; 93005; 99284; A9270

== ENCOUNTER 2023-09-08 19:22 | Emergency (ER) | payer OTHER, SELFPAY ==
--- NOTE | ~2023-09-08 | XR_ITS ---
EXAMINATION: XR chest 1V portable DATE: 09/08/2023 21:30 INDICATION: Cough and fever. Nausea and vomiting. TECHNIQUE: A single frontal view of the chest was obtained. COMPARISON: Chest 2 views 04/07/2023 FINDINGS: There is no pneumonia, pleural effusion, or pneumothorax. The heart size is normal. IMPRESSION: 1. No acute cardiopulmonary disease. Reviewed, dictated and finalized at location E.
[2023-09-08 19:23] VITALS: BP 134/96; PULSE 83; RESP 16; TEMP 36.8; O2SAT 98
[2023-09-08 19:54] LABS: Basophils Percent Auto 0.2 % (0.2-1.2); Hematocrit 37.6 % (37.0-47.0); Hemoglobin 12.7 g/dL (12.0-15.0); Lymphocytes Absolute Auto 0.99 K/mm3 (0.9-3.2); Lymphocytes Percent Auto 23.3 % (18.3-44.2); Mean Corpuscular HGB Conc 33.8 g/dl (32-36); Mean Corpuscular Hemoglobin 31.6 pg (26-34); Mean Corpuscular Volume 93.5 fl (80-100); Mean Platelet Volume 9.7 fl (7.4-10.4); Monocytes Absolute Auto 0.6 K/mm3 (0.1-0.6); Monocytes Percent Auto 14.2 % (2.6-8.5); Neutrophils Absolute Auto 2.6 K/mm3 (1.3-6.7); Neutrophils Percent Auto 62.3 % (45.5-73.1); Platelet Count Result 219 k/mm3 (150-375); Red Blood Count 4.02 M/mm3 (4.2-5.4); Red Cell Distribution Width 14.6 % (11.5-14.5); White Blood Count 4.2 K/mm3 (4.5-10.0)
[2023-09-08 20:06] LABS: Alanine Aminotransferase 14 U/L (6-35); Albumin Level 3.9 g/dL (3.5-5.1); Alkaline Phosphatase 62 U/L (38-126); Anion Gap 6 mmol/L (8-16); Aspartate Amino Transferase 32 U/L (14-36); Bilirubin,Total 0.3 mg/dL (0.2-1.3); Blood Urea Nitrogen 8 mg/dL (7-17); Calcium 8.4 mg/dL (8.4-10.2); Carbon Dioxide 22 mmol/L (22-30); Chloride 105 mmol/L (98-107); Estimated CRCL calculation 71 ml/min; Estimated Glomerular Filt Rate > 60; Glucose 87 mg/dL (65-110); Lipase 48 U/L (23-300); Potassium 3.6 mmol/L (3.4-5.0); Sodium 133 mmol/L (137-145)
--- NOTE | 2023-09-08 21:34 | ED.GENADULT ---
HPI - General Adult General Chief complaint: Fever Stated complaint: Body aches fever Time Seen by Provider: 09/08/23 20:54 Source: patient Mode of arrival: ambulatory Limitations: no limitations History of Present Illness HPI narrative: This is a 30-year-old female who presents to the ED with chief complaint of URI symptoms for the past 3 days. Patient reports that this started with subjective fevers, body aches, rhinorrhea, sore throat. She reports a little bit of epigastric abdominal pain and occasional dry heaves. She also reports she has had occasional cough that is nonproductive. Denies shortness of breath, chest pain. 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 Related Data Home Medications Medication Instructions Recorded Confirmed sertraline 50 mg tablet (Zoloft) 100 mg PO HS 11/12/19 05/01/21 ferrous sulfate 143 mg PO DAILY 03/30/21 05/01/21 vit no.133-ferrous 1 tablet PO DAILY 03/30/21 05/01/21 fumarate 28 mg-folic acid 800 mcg tablet () Allergies Allergy/AdvReac Type Severity Reaction Status Date / Time No Known Allergies Allergy Verified 04/07/23 06:45 Review of Systems Review of Systems: All systems as dictated in HPI [facility] Past Medical History Medical History Anxiety Depression Pulmonary arteriovenous malformation Family History Family History Mother Chronic obstructive pulmonary disease Hypertension Grandparent Kidney failure Chronic obstructive pulmonary disease Hypertension Diabetes mellitus Congestive heart failure Sibling Large cell carcinoma of lung, stage 3 Breast cancer in female Father Large cell carcinoma of lung, stage 3 Social History Social History Years smoked: 11 Smoking status: Current every day smoker Tobacco type: cigarettes and e-cigarettes/vaping Second hand tobacco smoke exposure: Yes Substance use: current Last use: 04/16/21 Gender identity (if verbalized by the patient): Female Spiritual care concerns: No Exam Narrative: GENERAL: Well-appearing, well-nourished, and in no acute distress. HEAD: Normocephalic, atraumatic. EYES: PERRLA and EOMI. ENT: Nares clear, no rhinorrhea or epistaxis. Mucous membranes moist. Oropharynx without tonsillar hypertrophy exudate or other lesions. NECK: Supple. No adenopathy or masses. CHEST: No respiratory distress. Clear to auscultation. No wheezes rales or rhonchi HEART: Regular rate and rhythm. No murmur heard. Normal peripheral pulses. ABDOMEN: Soft, nontender, nondistended, normal active bowel sounds. MSK: Normal range of motion. No edema. SKIN: Warm, dry, no rash. NEURO: Alert and oriented x3. No focal deficits. PSYCH: Normal mood and affect. Course Vital Signs Vital signs: Vital Signs Temperature 98.2 F 09/08/23 19:23 Pulse Rate 83 09/08/23 19:23 Respiratory Rate 16 09/08/23 19:23 Blood Pressure 134/96 H 09/08/23 19:23 Pulse Oximetry 98 09/08/23 19:23 Oxygen Delivery Room Air 09/08/23 19:23 Temperature 98.2 F 09/08/23 19:23 Pulse Rate 83 09/08/23 19:23 Respiratory Rate 16 09/08/23 19:23 Blood Pressure 134/96 H 09/08/23 19:23 Pulse Oximetry 98 09/08/23 19:23 Oxygen Delivery Room Air 09/08/23 19:23 Medical Decision Making MDM Narrative Medical decision making narrative: This is a 38-year-old female with chief complaint of URI symptoms for the past 3 days. 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 Vitals are normal. Exam is overall benign. Viral swabs show evidence of positive COVID PCR. It is unclear whether this is reinfection or still positive from her previously having it a few months ago. 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 Lab work-up unremarkable otherwise. Chest x-ray negative.
[2023-09-08 21:45] LABS: Influenza A QL RT-PCR Negative (Negative); Influenza B QL RT-PCR Negative (Negative); RSV RNA, RT-PCR Negative (Negative); SARS-CoV-2 RNA PCR Positive (Negative)
[2023-09-08 21:51] LABS: Appearance Urine Clear (Clear); Bacteria Urine None Seen /hpf; Bilirubin Urine Negative (Negative); Blood Urine 3+ (Negative); Color Urine Yellow (Yellow); Glucose Urine UA Negative (Negative); Ketones Urine Trace mg/dL (Negative); Leukocyte Esterase Ur Negative LEU/UL (Negative); Nitrate Urine Negative (Negative); Non Pathogenic Casts 0-2; Protein Urine 2+ mg/dL (Negative); Specific Grav Ur 1.015 (1.001-1.035); Squamous Epithelial Cell Urine Occasional /hpf (Few); Urobilinogen Urine 0.2 mg/dL (<2.0); WBC Urine 0-5 /hpf; pH Urine 5.5 (5.0-9.0)
[2023-09-08 21:55] LABS: Add Urine Microscopic? YES
== END 2023-09-08 22:14 | disposition home or self-care (01) ==
PROVIDERS: Emergency Medicine; Emergency Provider Physician Assistant; PCP Physician Assistant
DX: B34.9 Viral infection, unspecified (principal); Z86.16 Personal history of COVID-19; F32.A Depression, unspecified; F41.9 Anxiety disorder, unspecified; F17.210 Nicotine dependence, cigarettes, uncomplicated; F17.290 Nicotine dependence, other tobacco product, uncomplicated
CPT/HCPCS: 36415; 71045; 80053; 81001; 81025; 83690; 85025; 87637; 99283

== ENCOUNTER 2024-01-23 18:06 | Emergency (ER) | payer OTHER, SELFPAY ==
--- NOTE | ~2024-01-23 | CT_ITS ---
EXAMINATION: CT abdomen pelvis w con INDICATION: Lower abdominal pain TECHNIQUE: Computed tomographic images of the abdomen and pelvis were obtained after the administrati on of 100 cc of Omnipaque 350 intravenous contrast. The dose-length product (DLP) was 201.17 mGy-cm. Automated exposure control and iterative reconstruction technique were employed. COMPARISON: None available FINDINGS: The lung bases are clear. The heart size is normal. The liver, spleen, pancreas, gallbladde r, and adrenal glands are normal. There is a 7 mm cyst of the right kidney. The left kidney is unrema rkable. No pathologically enlarged abdominal or pelvic lymph nodes are identified. No free intraperit samaniego gas or evidence of bowel obstruction. The appendix is normal. IMPRESSION: 1. No CT correlate for the patient's symptoms. Reviewed, dictated and finalized at location F. NET WORKER
[2024-01-23 18:43] VITALS: BP 152/98; PULSE 94; RESP 16; TEMP 36.6; O2SAT 100
--- NOTE | 2024-01-23 19:56 | ED.ABDPAIN ---
HPI - Abdominal Pain General Chief Complaint: Abdominal Pain Stated Complaint: abd pain Time Seen by Provider: 01/23/24 19:50 History of Present Illness HPI narrative: Patient is a 30-year-old female who presents ER with lower abdominal pain. Beginning over last day. Cramping. Worse with bending and moving and walking. No diarrhea. No urinary frequency urgency or dysuria. She has found no alleviating factors other than sitting stone. Related Data Home Medications Medication Instructions Recorded Confirmed sertraline 50 mg tablet (Zoloft) 100 mg PO HS 11/12/19 05/01/21 ferrous sulfate 143 mg PO DAILY 03/30/21 05/01/21 vit no.133-ferrous 1 tablet PO DAILY 03/30/21 05/01/21 fumarate 28 mg-folic acid 800 mcg tablet () Allergies Allergy/AdvReac Type Severity Reaction Status Date / Time No Known Allergies Allergy Verified 01/23/24 20:05 Review of Systems Review of Systems: All systems reviewed & are unremarkable except as noted in HPI and below Constitutional: Constitutional: Reports no additional constitutional complaints ENT: Reports system reviewed and no additional complaints, except as documented Cardiovascular: Cardiovascular: Reports no additional cardiovascular complaints Respiratory: Respiratory: Reports no additional respiratory complaints Gastrointestinal: Gastrointestinal: Reports abdominal pain, Denies diarrhea, Denies nausea and Denies vomiting Genitourinary: Genitourinary: Reports no additional female genitourinary complaints PMFSH Past Medical History Medical History Anxiety Depression Pulmonary arteriovenous malformation Family History Family History Mother Chronic obstructive pulmonary disease Hypertension Grandparent Kidney failure Chronic obstructive pulmonary disease Hypertension Diabetes mellitus Congestive heart failure Sibling Large cell carcinoma of lung, stage 3 Breast cancer in female Father Large cell carcinoma of lung, stage 3 Social History Social History Years smoked: 11 Smoking status: Current every day smoker Tobacco type: cigarettes and e-cigarettes/vaping Second hand tobacco smoke exposure: Yes Substance use: current Last use: 04/16/21 Gender identity (if verbalized by the patient): Female Spiritual care concerns: No Exam Narrative: GENERAL: Well-appearing, well-nourished, and in no acute distress. HEAD: Normocephalic, atraumatic. ENT: Mucous membranes moist. NECK: Supple. CHEST: Clear to auscultation. No respiratory distress. HEART: Regular rate and rhythm. No murmur heard. Normal peripheral pulses. ABDOMEN: Soft, Moderate discomfort with palpation bilateral lower quadrants the abdomen, nondistended. EXTREMITIES: Normal range of motion. No edema. SKIN: Warm, dry, no rash. NEURO: Alert and oriented x3. PSYCH: Normal mood and affect. Course Course Emergency Course: patient informed of results. Pain-free at this time. Discharge home with dicyclomine for crampy abdominal pain. Vital Signs Vital signs: Vital Signs Temperature 97.9 F 01/23/24 18:43 Pulse Rate 94 01/23/24 18:43 Respiratory Rate 16 01/23/24 18:43 Blood Pressure 152/98 H 01/23/24 18:43 Pulse Oximetry 100 01/23/24 18:43 Oxygen Delivery Room Air 01/23/24 18:43 Temperature 97.9 F 01/23/24 18:43 Pulse Rate 94 01/23/24 18:43 Respiratory Rate 16 01/23/24 18:43 Blood Pressure 152/98 H 01/23/24 18:43 Pulse Oximetry 100 01/23/24 18:43 Oxygen Delivery Room Air 01/23/24 18:43 MDM - Abdominal Pain Lab Data 01/23/24 20:12 01/23/24 20:16 Labs: Lab Results 01/23/24 01/23/24 Range/Units 20:12 20:16 WBC 10.0 (4.5-10.0) K/mm3 RBC 4.45 (4.2-5.4) M/mm3 Hgb 13.9 (12.0-15.0) g
[2024-01-23 20:18] LABS: Estimated CRCL calculation 99 ml/min; Estimated Glomerular Filt Rate > 60
[2024-01-23 20:25] LABS: Basophils Absolute Auto 0.1 K/mm3 (0.0-0.1); Basophils Percent Auto 0.6 % (0.2-1.2); Eosinophils Absolute Auto 0.1 K/mm3 (0-0.3); Eosinophils Percent Auto 1.1 % (0-4.4); Hematocrit 42.1 % (37.0-47.0); Hemoglobin 13.9 g/dL (12.0-15.0); Immature Granulocyte Absolute 0.03 K/mm3 (0.00-0.031); Immature Granulocyte Percent A 0.3 % (0-0.5); Lymphocytes Absolute Auto 3.49 K/mm3 (0.9-3.2); Lymphocytes Percent Auto 35.1 % (18.3-44.2); Mean Corpuscular Hemoglobin 31.2 pg (26-34); Mean Corpuscular Volume 94.6 fl (80-100); Mean Platelet Volume 10.2 fl (7.4-10.4); Monocytes Absolute Auto 0.6 K/mm3 (0.1-0.6); Monocytes Percent Auto 6.1 % (2.6-8.5); Neutrophils Absolute Auto 5.7 K/mm3 (1.3-6.7); Neutrophils Percent Auto 56.8 % (45.5-73.1); Platelet Count Result 294 k/mm3 (150-375); Red Blood Count 4.45 M/mm3 (4.2-5.4); Red Cell Distribution Width 13.9 % (11.5-14.5)
[2024-01-23 20:31] LABS: Appearance Urine Clear (Clear); Bacteria Urine None Seen /hpf; Bilirubin Urine Negative (Negative); Blood Urine 2+ (Negative); Color Urine Yellow (Yellow); Glucose Urine UA Negative (Negative); Ketones Urine Negative (Negative); Leukocyte Esterase Ur Negative LEU/UL (Negative); Nitrate Urine Negative (Negative); Non Pathogenic Casts 0-2; Protein Urine Negative (Negative); RBC Urine 0-2 /hpf (0-2); Specific Grav Ur 1.005 (1.001-1.035); Squamous Epithelial Cell Urine None seen /hpf (Few); Urobilinogen Urine 0.2 mg/dL (<2.0); WBC Urine 0-5 /hpf; pH Urine 5.5 (5.0-9.0)
[2024-01-23 20:37] LABS: Add Urine Microscopic? YES
[2024-01-23 20:39] LABS: Alanine Aminotransferase 17 U/L (6-35); Albumin Level 4.3 g/dL (3.5-5.1); Alkaline Phosphatase 83 U/L (38-126); Anion Gap 5 mmol/L (8-16); Aspartate Amino Transferase 33 U/L (14-36); Bilirubin,Total 0.3 mg/dL (0.2-1.3); Blood Urea Nitrogen 9 mg/dL (7-17); Calcium 9.4 mg/dL (8.4-10.2); Carbon Dioxide 27 mmol/L (22-30); Chloride 106 mmol/L (98-107); Estimated CRCL calculation 86 ml/min; Estimated Glomerular Filt Rate > 60; Glucose 87 mg/dL (65-110); Potassium 3.8 mmol/L (3.4-5.0); Sodium 138 mmol/L (137-145)
[2024-01-23 21:48] VITALS: BP 140/97; PULSE 84; RESP 16; O2SAT 98
== END 2024-01-23 21:57 | disposition home or self-care (01) ==
PROVIDERS: Emergency Provider Emergency Medicine; PCP Physician Assistant
DX: R10.30 Lower abdominal pain, unspecified (principal); F41.9 Anxiety disorder, unspecified; F32.A Depression, unspecified; F17.210 Nicotine dependence, cigarettes, uncomplicated; F17.290 Nicotine dependence, other tobacco product, uncomplicated
CPT/HCPCS: 74177; 80053; 81001; 81025; 85025; 99284; Q9967

== ENCOUNTER 2024-11-02 09:12 | Outpatient (CLI) | payer OTHER, SELFPAY ==
--- NOTE | ~2024-11-02 | XR_ITS ---
EXAMINATION: XR chest 2V 11/02/2024 09:29 INDICATION: Upper respiratory infection. Fever. PROCEDURE: 2 view chest COMPARISON: 04/07/2023 FINDINGS: The lungs are clear. The cardiomediastinal silhouette is within normal limits. There are no pleural effusions. There is no pneumothorax suspected. IMPRESSION: 1: NO ACUTE CARDIOPULMONARY DISEASE. Reviewed, dictated and finalized at location B. T TIRE REPAIRER
== END 2024-11-02 09:13 | disposition home or self-care (01) ==
PROVIDERS: PCP Physician Assistant
DX: J06.9 Acute upper respiratory infection, unspecified (principal)
CPT/HCPCS: 71046

== ENCOUNTER 2024-12-24 12:19 | Outpatient (CLI) | payer OTHER, SELFPAY ==
--- NOTE | ~2024-12-24 | MMUS_ITS ---
EXAMINATION: US breast LT complete, MM diagnostic vikki BI w dutch HISTORY: Left breast lump TECHNIQUE: Additional 3-D tomosynthesis images of the breasts were performed and synthetic 2-D images were generated. CAD analysis was submitted and interpreted. High resolution complete left breast ult rasound was performed. COMPARISON: No prior studies for comparison. BREAST PARENCHYMAL COMPOSITION: Dense: The breasts are heterogeneously dense, which may obscure small masses FINDINGS: MAMMOGRAPHIC FINDINGS: The right breast is stable without evidence for malignancy. There are no suspicious masses, calcifica tions or architectural distortion to suggest malignancy. In the left breast there are 3 new masses in volving the mid lateral aspect of the left breast posteriorly, upper outer quadrant of the left breas t, middle third in the lower inner quadrant of the left breast, middle third. ULTRASOUND: Complete US of all 4 quadrants of the left breast/s and retroareolar region was reviewed. At 1:00, 1 cm from the nipple there is a 4 mm cyst. At 3:00, 3 cm from the nipple there is a cluster of cyst or septated cyst measuring 11 mm maximum dimension, likely benign. At 3:00, 1 cm from the nipple there i s a 1.4 cm simple cyst. At 7:00, 3 cm from the nipple there is a cluster of microcysts measuring 9 mm , likely benign. IMPRESSION: 1. Multiple new left breast masses likely corresponding to simple and complicated cystic masses seen on ultrasound. These are likely benign. 2. Recommend 6 month follow-up diagnostic left mammogram and left breast ultrasound recommended. BI-RADS category 3, probably benign findings. Reviewed, dictated and finalized at location A. E ASSISTANT IMPRESSION: 1. Multiple new left breast masses likely corresponding to simple and complicat ed cystic masses seen on ultrasound. These are likely benign. 2. Recommend 6 month follow-up diagnostic left mammogram and left breast ultras ound recommended. BI-RADS category 3, probably benign findings.
--- OUTSIDE RECORDS SUMMARY | 2024-12-24 12:22 | XMS_ITS | Clinical Summary ---
Author Organization [facility] Address [address] [place] [address] Care Team Providers Care Mortgage Advisor Name Role Phone Tory Plata APRN-ENRICHMENT DIRECTOR Unavailable Unavailable Nell Ray PA-C Primary Care Provider [phone] Source Comments [facility],non-owned Affiliates and Associated Physician Practices is amultiple site organization consisting of ambulatory clinics and hospital sitesin [place], [place], [place] and [place]. This disclosure is being madepursuant to the Care Everywhere program and may not contain all information available regarding this patient. Last updated 18.[facility] Allergies No known active allergies Medications * Be aware that medications may not be up to date on this document. Alwaysverify current medications with the patient. Medication Sig Dispensed Refills Start Date End Date Status Vit-Fe Fumarate-FA ( PLUS) 27-1 MG tablet Take 1 tablet by mouth once daily 30 tablet 09/30/2018 Active labetalol (NORMODYNE; TRANDATE) 200 MG tablet Take 1 tablet by mouth 2 times daily 60 tablet 09/30/2018 Active sertraline (ZOLOFT) 50 MG tablet Take 50 mg by mouth 2 times daily Active labetalol (NORMODYNE; TRANDATE) 100 MG tablet Take 1 tablet by mouth 2 times daily 60 tablet 08/06/2019 Active Active Problems Problem Noted Date Diagnosed Date Encounter for supervision of multigravida with advanced maternal age 0302/08/2021 Small for gestational age fe tus affecting management of mother in lugo in second trimester 02/08/2021 AVM (arteriovenous malformation) 11/10/2017 Chest pain 11/10/2017 Family history of malignant neoplasm of breast 0 04/21/2015 Overview (04/21/2015): MGM Migraine 01/25/2015 HTN (hypertension) 01/25/2015 Resolved Problems Problem Noted Date Diagnosed Date Resolved Date Cigar smoker motivated to quit 04/19/2014 01/25/2015 Swelling, mass, or lump in head and neck 04/16/2013 04/19/2014 Immunizations Name Administration Dates Next Due INFLUENZA VACCINE 09/07/2017 Family History Medical History Relation Name Comments Cancer - Other Father lung Cancer - Breast Maternal Grandmother age unknown Hypertension Mother Cancer - Other Paternal Uncle lung Cancer - Prostate Paternal Uncle Cancer - Ovarian Neg Hx Relation Name Status Comments Father Maternal Grandmother Mother Paternal Uncle Social History Tobacco Use Types Packs/Day Years Used Date Smoking Tobacco: Every Day Cigarettes 0.5 10 Started: 2005; Last attempted to quit: 2015 Smokeless Tobacco: Never Tobacco Cessation:Ready to Q uit: Yes; Counseling Given: Yes Alcohol Use Standard Drinks/Week Comments No 0 (1 standard drink = 0.6 oz pur e alcohol) Sex and Gender Information Value Date Recorded Sex Assigned at Not on file Gender Identity Not on file Sexual Orientation Not on file Last Filed Vital Signs Vital Sign Reading Time Taken Comments Blood Pressure 132/94 08/06/2019 1:57 PM CDT Pulse 74 08/06/2019 1:57 PM CDT Temperature 36.2 ??C (97.2 ??F) 03/20/2021 9:07 AM CD T Respiratory Rate 17 08/06/2019 1:57 PM CDT Oxygen Saturation 99% 08/06/2019 1:57 PM CDT Inhaled Oxygen Concentration - - Weight 64.5 kg (142 lb 1.6 oz) 08/06/2019 8:12 A M CDT Height 170.2 cm (5' 7 ) 08/06/2019 8:12 AM CDT Body Mass Index 22.26 08/06/2019 8:12 AM CDT Plan of Treatment Health Maintenance Due Date Last Done Comments HIV SCREENING 2000 HEPATITIS C SCREENING 03/14/2003 DTAP/TDAP/TD VACCINES (1 - Tdap) 2004 HEPATITIS B VACCINE (1 of 3 - 19+ 3-dose series) 2004 PNEUMOCOCCAL VACCINE (1 of 2 - PCV) 2004 PAP with HPV 04/29/2022 04/29/2017 COVID-19 VACCINE (1 - 2023-2 5 season) 2024 INFLUENZA VACCINE (#1) 2024 09/07/2017 DEPRESSION SCREENING 11/24/2024 ZOSTER VACCINE (1 of 2) 2035 HIB VACCINE Aged Out No longer eligi ble based on patient's age to complete this topic HPV VACCINE Aged Out No longer eligi ble based on patient's age to complete this topic MENINGOCOCCAL (Group B) VACCINE Aged Out No longer eligible based on patient's age to complete this topic MENINGOCOCCAL VACCINE Aged Out No luis reinaldo eligible based on patient's age to complete this topic Procedures Procedure Name Priority Date/Time Associated Diagnosis Comments PAP LB CT+GC JUAN +HPV HR DNA Routine 04/29/2017 3:28 PM CDT Special screening examination for human papillomavirus (HPV) Routine gynecological examination from Last 3 Months or Most Recently Relevant to Health Maintenance Results * PAP LB CT+GC JUAN +HPV HR DNA (04/29/2017 3:28 PM CDT) Diagnosis [facility] INSURANCE BILL Comment:NEGATIVE FOR INTRAEP ITHELIAL LESION AND MALIGNANCY. Specimen Adequacy [facility] INSURANCE BILL Comment: Satisfactory for evaluation. ??Endocervical and/or squamous metaplastic cells (endocervical component) are present. Clinician Provided ICD10 [facility] INSURANCE BILL Comment: Z11.51 Z01.419 Performed by [facility] INSURANCE BILL Comment:Carmen Jackson [facility] [place] [facility] otechnologist (ASCP) Comment . [facility] INSURANCE BILL Note [facility] INSURANCE BILL Comment: The Pap smear is a screening test designed to aid in the detection of premalignant and malignant conditions of the uterine cervix. ??It is not a diagnostic procedure and should not be used as the sole means of detecting cervical cancer. ??Both false-positive and false-negative reports do occur. ? . Human papillomavirus High Risk NOT NEEDED [facility] INSURANCE BILL Comment: The quantity of specimen remaining in the vial after Pap slide preparation was less than the 4 mL minimum cell suspension required. Low sample cellularity may be the cause. ??See HPV, low volume rfx test result. This high-risk HPV test detects thirteen high-risk types (16/18/31/33/35/39/45/51/52/56/58/59/68) without differentiation. ?. Ancillary determined the test is not needed Chlamydia JUAN Thin Prep Negative Negative [facility] INSURANCE BILL GC DNA Probe Negative Negative [facility] INSURANCE BILL PART OF UTERINE CERVIX / Unknown 04/29/2017 3:28 PM CDT 04/30/2017 Narrative [facility] INSURANCE BILL - 05/07/2017 9:07 PM CDT Source.............Cervix LMP / Prev Treat...[id number] Other..............Oral Contraceptives No. of containers..01 CYTYC Thin Prep Vial Resulting Agency Comment [facility] ??Mook DIOP [phone] Tory Plata GROCERY CASHIER-ENRICHMENT DIRECTOR LAB - PATHOLOGY/CYTO LOGY ORDERABLES [facility] INSURANCE BILL [address] [place] [address] from Last 3 Months or Most Recently Relevant to Health Maintenance Advance Directives * Full Code (Latest Code Status on File) Date Activated Date Inactivated Comments 11/10/2017 10:01 PM 11/12/2017 4:26 PM Care Teams Mortgage Advisor Relationship Specialty Start Date End Date Nell Ray PA-C [address] [place] [address] PCP - General 08/13/19 Tory Plata APRN-ENRICHMENT DIRECTOR Nurse Practitioner 04/16/13
--- OUTSIDE RECORDS SUMMARY | 2024-12-24 12:22 | XMS_ITS | Clinical Summary ---
Author Organization [facility] Address [address] [place] [address]. [place], [place] [id number] [place] [id number] Care Team Providers Care Stitchdown Toe Former Name Role Phone Nell Ray PA-C Primary Care Provider [phone] Allergies No known active allergies Medications labetalol 200 MG tablet Take 1 tablet (200 mg total) by mouth 2 (two) times daily. 60 tablet 09/28/2018 Active Social History Tobacco Use Types Packs/Day Years Used Date Smoking Tobacco: Every Day Cigarettes Smokeless Tobacco: Current Alcohol Use Standard Drinks/Week Comments No 0 (1 standard drink = 0.6 oz pur e alcohol) AUDIT-C Answer Date Recorded Frequency of Alcohol Consumption Never 09/01/2018 Average Number of Drinks Not on file 018 Frequency of Binge Drinking Not on file 07/2018 Estimated Date of Delivery Comme nts Yes 06/06/2019 Sex and Gender Information Value Date Recorded Sex Assigned at Not on file Legal Sex Female 6:52 PM CDT Gender Identity Not on file Sexual Orientation Not on file Last Filed Vital Signs Vital Sign Reading Time Taken Comments Blood Pressure 129/86 09/28/2018 9:34 AM CARE TRANSITIONS NURSE Pulse 100 09/28/2018 9:34 AM CARE TRANSITIONS NURSE Temperature 36.9 ??C (98.5 ??F) 09/28/2018 9:34 AM CS T Respiratory Rate 16 09/28/2018 9:34 AM CARE TRANSITIONS NURSE Oxygen Saturation 100% 09/28/2018 9:34 AM CARE TRANSITIONS NURSE Inhaled Oxygen Concentration - - Weight 67.6 kg (149 lb) 09/28/2018 9:34 AM CARE TRANSITIONS NURSE Height 172.7 cm (5' 8 ) 09/28/2018 9:34 AM CARE TRANSITIONS NURSE Body Mass Index 22.66 09/28/2018 9:34 AM CARE TRANSITIONS NURSE Plan of Treatment Health Maintenance Due Date Last Done Comments Cervical Cancer Screening Pa p Smear (Age 30 to 64) Every 3 Years 1985 Annual Physical 1988 DTaP, Tdap and Td Vaccines ( 2 - Tdap) 03/08/2000 03/07/2000 Hepatitis C 2003 Cervical Cancer Screening Pa p with HPV Testing (Age 30 to 64) Every 5 Years 2015 Cervical Cancer Screening wi th HPV 2015 COVID-19 Vaccine (2023-2 5 season) 2024 Influenza Adult (#1) 2024 09/07/2017 RSV Immunization or 60+ Years (1 - 1-dose 75+ series) 2060 Hepatitis B Vaccines Completed 03/07/2000, 10/11/1999, 09/07/1999 HPV Vaccines Aged Out No longer eligi ble based on patient's age to complete this topic Meningococcal B Vaccine Aged Out No l onger eligible based on patient's age to complete this topic Meningococcal Vaccine Aged Out No ulis reinaldo eligible based on patient's age to complete this topic Pneumococcal Vaccine: Pediatrics (0 to 5 Years) and At-Risk Patients (6 to 64 Years) Aged Out No longer eligible b ased on patient's age to complete this topic RSV Immunizations Under 20 Months Aged Out No longer eligible b ased on patient's age to complete this topic Insurance JACKIE Care Teams Stitchdown Toe Former Relationship Specialty Start Date End Date RayNell han PA-C [address] [place] [address] PCP - General PHYSICIAN PULP OPERATOR 09/28/18
--- OUTSIDE RECORDS SUMMARY | 2024-12-24 12:23 | XMS_ITS | Referral Summary ---
Author Organization [facility] Address [address] [place] [address] Care Team Providers Care Lead Informatica Developer Name Role Phone Tory Plata APRN-BLOCK PLACER Unavailable Unavailable Nell Ray PA-C Primary Care Provider [phone] Source Comments [facility],non-owned Affiliates and Associated Physician Practices is amultiple site organization consisting of ambulatory clinics and hospital sitesin [place], [place], [place]. This disclosure is being madepursuant to the Care Everywhere program and may not contain all information available regarding this patient. Last updated 18.[facility] Allergies No known active allergies Medications [...] Administration Dates Next Due INFLUENZA VACCINE 09/07/2017 Social History Tobacco Use Types Packs/Day Years [...] Mass Index 22.26 08/06/2019 8:12 AM CDT Functional Status Functional Status Response Date of Assess ment Is person deaf or have serious hearing difficult y? No 11/12/2017 Is person blind or have serious difficulty seein g? No 11/12/2017 Does person have serious dif ficulty walking/climbing stairs? No 11/12/2017 Does person have difficulty dressing/bathing? No 11/12/2017 Does person have difficulty doing errands alone? No 11/12/2017 Cognitive Status Response Date of Assessm ent Does person have difficulty concentrating/remembering/making decisions? No 11/12/2017 Plan of Treatment Not on file Procedures Procedure Name Priority Date/Time Associated Diagnosis [...] ITHELIAL LESION AND MALIGNANCY. Specimen Adequacy [facility] INSURANCE BILL Comment: Satisfactory for evaluation. ??Endocervical and/or squamous metaplastic cells (endocervical component) are present. Clinician Provided ICD10 [facility] INSURANCE BILL Comment: Z11.51 Z01.419 Performed by [facility] INSURANCE BILL Comment:Carmen Jackson [facility] otechnologist (ASCP) Comment . [facility] INSURANCE BILL Note [facility] INSURANCE BILL Comment: The Pap smear is a screening test designed to aid in the detection of premalignant and malignant conditions of the uterine cervix. ??It is not a diagnostic procedure and should not be used as the sole means of detecting cervical cancer. ??Both false-positive and false-negative reports do occur. ? . Human papillomavirus High Risk NOT NEEDED [facility] INSURANCE BILL Comment: The quantity of specimen [...] 9:07 PM CDT Source.............Cervix LMP / Prev Treat...[id number] Other..............Oral Contraceptives No. of containers..01 CYTYC Thin Prep Vial Resulting Agency Comment [facility] [place] [address] [facility] ??[place] W [phone] Tory Plata APRN-GEGE LAB - PATHOLOGY/CYTO LOGY ORDERABLES [facility] INSURANCE BILL [address] [place] [address] from Last 3 Months or Most Recently Relevant to Health Maintenance Advance Directives * Full Code (Latest Code Status on File) Date Activated Date Inactivated Comments 11/10/2017 10:01 PM 11/12/2017 4:26 PM Care Teams Lead Informatica Developer Relationship Specialty Start Date End Date Nell Ray PA-C [address] [place] [address] PCP - General 08/13/19 Tory Plata APRN-BLOCK PLACER Nurse Practitioner 04/16/13
--- OUTSIDE RECORDS SUMMARY | 2024-12-24 12:23 | XMS_ITS | Patient Health Summary ---
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,non-owned Affiliates and Associated Physician Practices is amultiple site organization consisting of ambulatory clinics and hospital sitesin [place], [place], [place] and [place]. This disclosure is being madepursuant to the Care Everywhere program and may not contain all information available regarding this patient. Last updated 18.[facility] Allergies No known active allergies Medications * Be aware that medications may not be up to date on this document. Alwaysverify current medications with the patient. * Vit-Fe Fumarate-FA ( PLUS) 27-1 MG tablet(Started 09/30/2018) Take 1 tablet by mouth once daily * labetalol (NORMODYNE; TRANDATE) 200 MG tablet(Started 09/30/2018) Take 1 tablet by mouth 2 times daily * sertraline (ZOLOFT) 50 MG tablet Take 50 mg by mouth 2 times daily * labetalol (NORMODYNE; TRANDATE) 100 MG tablet(Started 08/06/2019) Take 1 tablet by mouth 2 times daily Active Problems Problem Noted Date Diagnosed Date Encounter for supervision of multigravida with advanced maternal age 0302/08/2021 Small for gestational age fe tus affecting management of mother in lugo in second trimester 02/08/2021 AVM (arteriovenous malformation) 11/10/2017 Chest pain 11/10/2017 Family history of malignant neoplasm of breast 0 04/21/2015 Migraine 01/25/2015 HTN (hypertension) 01/25/2015 Resolved Problems Problem Noted Date Diagnosed Date Resolved Date Cigar smoker motivated to quit 04/19/2014 01/25/2015 Swelling, mass, or lump in head and neck 04/16/2013 04/19/2014 Immunizations * INFLUENZA VACCINE(Given 09/07/2017) Social History Tobacco Use Types Packs/Day Years [...] Mass Index 22.26 08/06/2019 8:12 AM CDT Procedures * BIOPHYSICAL PROFILE W NST(Performed 03/20/2021) Performed for Encounter for supervision of multigravida with advanced maternal age (HCC), Small forgestational age fetus affecting management of mother in lugo in second trimester ([facility]LY [facility]) * SONOGRAM - COMPLETE(Performed 03/06/2021) Performed for Hypertension, unspecified type, Encounter for supervision of multigravida with advanced maternal age (HCC), Small for gestational age fetus affecting management of mother in lugo in second trimester ([facility]) * SONOGRAM - COMPLETE(Performed 02/13/2021) Performed for Hypertension, unspecified type, Encounter for supervision of multigravida with advanced maternal age (HCC), Small for gestational age fetus affecting management of mother in lugo in second trimester ([facility]) * CARDIAC EKG ORDER(Performed 08/10/2019) * URINE MICROSCOPIC ONLY REFLEX TO CULTURE(Performed 08/06/2019) * URINALYSIS REFLEX MICROSCOPIC REFLEX CULTURE(Performed 08/06/2019) * EKG 12-LEAD(Performed 08/06/2019) Performed for Hypertension, unspecified type * COMPREHENSIVE METABOLIC PANEL(Performed 08/06/2019) * CBC W AUTO DIFFERENTIAL(Performed 08/06/2019) * HCG BETA BLOOD QUANTITATIVE(Performed 09/30/2018) Performed for Missed menses * CARDIAC EKG ORDER(Performed 09/10/2018) * EKG 12-LEAD(Performed 09/09/2018) Performed for Chest pain at rest * XR CHEST 2VW(Performed 09/09/2018) Performed for Chest pain at rest * PTH INTACT+CALCIUM(Performed 09/09/2018) Performed for Hypercalcemia * MAGNESIUM BLOOD(Performed 09/09/2018) Performed for Chest pain at rest * TROPONIN I(Performed 09/09/2018) Performed for Chest pain at rest * TSH(Performed 09/09/2018) Performed for Chest pain at rest * CBC W AUTO DIFFERENTIAL(Performed 09/09/2018) Performed for Chest pain at rest * COMPREHENSIVE METABOLIC PANEL(Performed 09/09/2018) Performed for Essential hypertension, Chest pain at rest * BASIC METABOLIC PANEL (CALCIUM TOTAL)(Performed 06/04/2018) Performed for Hypokalemia * CARDIAC RHYTHM STRIP ORDER(Performed 04/28/2018) * CT HEAD WO CONTRAST(Performed 04/26/2018) Performed for Fall, initial encounter, Recent head trauma, initial encounter * CT CERVICAL SPINE WO CONTRAST(Performed 04/26/2018) Performed for Fall, initial encounter, Recent head trauma, initial encounter * URINE MICROSCOPIC ONLY REFLEX TO CULTURE(Performed 04/26/2018) * URINALYSIS REFLEX MICROSCOPIC REFLEX CULTURE(Performed 04/26/2018) * DIFFERENTIAL MANUAL(Performed 04/26/2018) * HCG BLOOD QUALITATIVE(Performed 04/26/2018) * COMPREHENSIVE METABOLIC PANEL(Performed 04/26/2018) * CBC W AUTO DIFFERENTIAL(Performed 04/26/2018) * URINE MICROSCOPIC ONLY(Performed 03/20/2018) Performed for Other microscopic hematuria * CULTURE MYCOPLASMA HOMINIS+UREAPLASMA CULTURE(Performed 03/20/2018) Performed for Other microscopic hematuria * URINALYSIS NO MICROSCOPIC NO CULTURE(Performed 02/20/2018) Performed for Other microscopic hematuria * CULTURE URINE(Performed 02/20/2018) Performed for Other microscopic hematuria * FL IVP INTRAVENOUS PYELOGRAM(Performed 02/04/2018) Performed for Hematuria, unspecified type * CT ABDOMEN PELVIS WWO CONTRAST(Performed 02/04/2018) Performed for Hematuria, unspecified type * URINALYSIS AUTO - POINT OF CARE (AMB) SMGS(Performed 01/26/2018) Performed for Hematuria, unspecified type * URINE MICROSCOPIC ONLY(Performed 01/26/2018) Performed for Hematuria, unspecified type * CULTURE MYCOPLASMA HOMINIS+UREAPLASMA CULTURE(Performed 01/26/2018) Performed for Hematuria, unspecified type * URINE MICROSCOPIC ONLY(Performed 01/19/2018) Performed for Abnormal urinalysis * CULTURE URINE(Performed 12/24/2017) Performed for Abnormal urinalysis * URINE MICROSCOPIC ONLY(Performed 12/24/2017) Performed for Hematuria, unspecified type * TYPE + SCREEN PANEL(Performed 11/20/2017) * EKG 12-LEAD(Performed 11/19/2017) Performed for Facial numbness * CT BRAIN STROKE(Performed 11/19/2017) Performed for Facial numbness * CBC W AUTO DIFFERENTIAL(Performed 11/19/2017) * PT-INR(Performed 11/19/2017) * COMPREHENSIVE METABOLIC PANEL(Performed 11/19/2017) * CARDIAC RHYTHM STRIP ORDER(Performed 11/13/2017) * EKG 12-LEAD(Performed 11/11/2017) Performed for Chest pain, unspecified type * TROPONIN I(Performed 11/11/2017) * CK + CKMB PANEL(Performed 11/11/2017) * COMPREHENSIVE METABOLIC PANEL(Performed 11/11/2017) * CBC W AUTO DIFFERENTIAL(Performed 11/11/2017) * ECHOCARDIOGRAM 2D WITH DOPPLER(Performed 11/11/2017) Performed for AVM (arteriovenous malformation) (HCC), Chest pain, unspecified type * CK + CKMB PANEL(Performed 11/10/2017) * TROPONIN I(Performed 11/10/2017) * TROPONIN I(Performed 11/10/2017) * CT ANGIO CHEST(Performed 11/10/2017) Performed for Chest pain, unspecified type * XR CHEST 2VW(Performed 11/10/2017) Performed for Chest pain, unspecified type * HCG BLOOD QUALITATIVE(Performed 11/10/2017) * COMPREHENSIVE METABOLIC PANEL(Performed 11/10/2017) * CBC W AUTO DIFFERENTIAL(Performed 11/10/2017) * TROPONIN I(Performed 11/10/2017) * EKG 12-LEAD(Performed 11/10/2017) Performed for Chest pain, unspecified type * URINE MICROSCOPIC ONLY(Performed 11/10/2017) Performed for Hematuria, unspecified type * CT ABDOMEN WO CONTRAST(Performed 11/06/2017) Performed for Idiopathic hematuria, unspecified whether glomerular morphologic changes present * URINE MICROSCOPIC ONLY(Performed 10/31/2017) Performed for Abnormal urinalysis * CULTURE URINE(Performed 10/22/2017) Performed for Abnormal urinalysis * URINALYSIS NO MICROSCOPIC NO CULTURE(Performed 10/22/2017) Performed for Essential hypertension, Increased frequency of urination * TSH(Performed 10/22/2017) Performed for Essential hypertension, Increased frequency of urination * CBC W AUTO DIFFERENTIAL(Performed 10/22/2017) Performed for Essential hypertension, Increased frequency of urination * HEMOGLOBIN A1C(Performed 10/22/2017) Performed for Essential hypertension, Increased frequency of urination * LIPID PROFILE(Performed 10/22/2017) Performed for Essential hypertension, Increased frequency of urination * COMPREHENSIVE METABOLIC PANEL(Performed 10/22/2017) Performed for Essential hypertension, Increased frequency of urination * CARDIAC RHYTHM STRIP ORDER(Performed 09/15/2017) * TROPONIN I(Performed 09/13/2017) * XR CHEST 2VW(Performed 09/13/2017) Performed for Chest pain, unspecified type * COMPREHENSIVE METABOLIC PANEL(Performed 09/13/2017) * CBC W AUTO DIFFERENTIAL(Performed 09/13/2017) * TROPONIN I(Performed 09/13/2017) * EKG 12-LEAD(Performed 09/13/2017) Performed for Chest pain, unspecified type * HCG URINE QUALITATIVE - POINT OF CARE (AMB) SMGS(Performed 06/25/2017) Performed for Missed period * REF LAB-REQUEST PROBLEM(Performed 04/29/2017) Performed for Special screening examination for human papillomavirus (HPV), Routine gynecological examination * PAP LB CT+GC JUAN +HPV HR DNA(Performed 04/29/2017) Performed for Special screening examination for human papillomavirus (HPV), Routine gynecological examination * HCG URINE QUALITATIVE - POINT OF CARE (AMB) SMGS(Performed 04/29/2017) Performed for Special screening examination for human papillomavirus (HPV), Routine gynecological examination * INFLUENZA A+B ANTIGEN RAPID(Performed 01/24/2017) * XR CHEST 2VW(Performed 01/24/2017) Performed for Chest pain, unspecified type * EKG 12-LEAD(Performed 01/24/2017) Performed for Chest pain, unspecified type * COMPREHENSIVE METABOLIC PANEL(Performed 01/24/2017) * CBC W AUTO DIFFERENTIAL(Performed 01/24/2017) * TROPONIN I(Performed 01/24/2017) * CULTURE URINE(Performed 07/09/2016) Performed for Abnormal urinalysis * URINALYSIS AUTO - POINT OF CARE (AMB) SMGS(Performed 07/09/2016) Performed for Dysuria * PAP IG RFLX HPV ASCU(Performed 04/26/2016) Performed for Well woman exam with routine gynecological exam * HEMOGLOBIN A1C(Performed 04/08/2016) Performed for Abnormal laboratory test result * COMPREHENSIVE METABOLIC PANEL(Performed 04/08/2016) Performed for Essential hypertension with goal blood pressure less than 130/80 * TSH(Performed 04/08/2016) Performed for Essential hypertension with goal blood pressure less than 130/80 * CBC W AUTO DIFFERENTIAL(Performed 04/08/2016) Performed for Essential hypertension with goal blood pressure less than 130/80 * LIPID PROFILE(Performed 04/08/2016) Performed for Essential hypertension with goal blood pressure less than 130/80 * US BREAST LEFT LTD(Performed 12/28/2015) Performed for Lump or mass in breast * MAMMO BILAT DIAGNOSTIC(Performed 12/28/2015) Performed for Lump or mass in breast * PAP IG RFLX HPV ASCU(Performed 04/21/2015) Performed for Routine gynecological examination * CT HEAD WO CONTRAST(Performed 01/20/2015) Performed for Headache(784.0) * EKG 12-LEAD(Performed 01/20/2015) * HCG BLOOD QUALITATIVE(Performed 01/20/2015) * BASIC METABOLIC PANEL (CALCIUM TOTAL)(Performed 01/20/2015) * CBC W AUTO DIFFERENTIAL(Performed 01/20/2015) * HEMOGLOBIN A1C(Performed 04/21/2014) Performed for Labile blood pressure * TSH(Performed 04/21/2014) Performed for Labile blood pressure * CBC W AUTO DIFFERENTIAL(Performed 04/21/2014) Performed for Labile blood pressure * COMPREHENSIVE METABOLIC PANEL(Performed 04/21/2014) Performed for Labile blood pressure * LIPID PROFILE(Performed 04/21/2014) Performed for Labile blood pressure * PAP IG RFLX HPV ASCU(Performed 04/19/2014) Performed for Routine gynecological examination * XR WRIST LEFT 3VW OR MORE(Performed 09/03/2013) Performed for Sprain * XR HAND LEFT 3VW OR MORE(Performed 09/03/2013) Performed for Sprain * PAP IG LB CT+GC RFLX HPV HR ASCU(Performed 04/16/2013) Performed for Surveillance of previously prescribed contraceptive pill Results * BIOPHYSICAL PROFILE W NST (03/20/2021 9:01 AM CDT) Anatomical Region Laterality Modality Other 03/20/2021 9:01 AM CDT Narrative 03/20/2021 9:58 AM CDT ? [facility] ? [facility] ?PHONE: ??FAX: Pat. Name: ?STEPHEN RIOS Pat. No: ?[id number] Study Date: ?? 03/20/2021 ??9:01am , Age: ? 1985, 36 Pregnancies: ?? 4, Para 2 Height: ? 65 in Weight: ? 150 lb LMP: ?Unknown GA by Base: ?? 32w2d ?? JASMEET: 05/13/2021 GA by US: ? 30w3d ?? JASMEET: 05/26/2021 GA Selected: ??32w2d (From [facility]) JASMEET: ?05/13/2021 Referring MD: Nando Pollock MD Circuit Designer: ??Krystyna Vides RDMS CPT4: ? 75279,[id number] BMI: ?24.96 Hist/Ind: ? 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 GROWTH EVALUATION Measurement ??GA ? Range ? Srce %for GA Ratios ----- ---- ------- BPD ??7.7 cm 30w6d ([id number]) Hadl BPD 8% FL/BPD 0.75 (0.71 - 0.87) HC ??29.4 cm 32w3d (60s4l-79t6z) Hadl HC ??17% FL/AC ??0.22 (0.20 - 0.24) AC ??25.8 cm 30w0d (63n6r-40o5z) Hadl AC ??3% HC/AC ??1.14 (0.95 - 1.14) FL ?? 5.8 cm 30w1d (33i9b-30q6z) Hadl FL ??2% CI ? 0.72 (0.70 - 0.86) HL ?? 5.2 cm 30w1d (02y6g-98d5d) Sj HL ??15% GA for sonogram 30w3d (56b3q-87e9u) ?? Weight Estimate: based on (BPD,HC,AC,FL) Hadlock ?Weight: 1556 gm (1329-1784gm) Had ? : 3lbs, 6oz ? Normal: 2013 gm (1510- 2516gm) Had ? Wt% ? 4% for 32w2d Heart Rate: 128 bpm Amniotic Fluid Index: 15.9cm (08.5-24.3) Q1: 2.9cm ??Q2: 3.0cm ??Q3: 4.7cm ??Q4: 5.3cm ?? Biophysical Profile: 09/02 Breathin ?? Tone: 2 ?? NST: 2 Movement: ??2 ?? AFV: ??2 EVAL, PLACENTA Presentation: breech Umbilical Cord: 3 Vessels Placenta: posterior Heart Rate: 128 bpm Amniotic Fluid Volume: normal DOPPLER Umbilical - Mid Cord S/D ??2.83(1.83 - 3.84) ? PI ?? 0.96 (0.65 - 1.24) ? Anatomy!Normal!Abnormal!Suboptimal!Prev. Seen!Comments Cranium ?! ?! ?! ?! ? x ?! Mdl (CSP/Thal! ?! ?! ?! ? x ?! Ventricles ?? ! ?! ?! ?! ? x ?! Choroid Plexu! ?! ?! ?! ? x ?! Cerebellum ?? ! ?! ?! ?! ? x ?! Cerebellar Ve! ?! ?! ?! ? x ?! Cisterna M. ??! ?! ?! ?! ? x ?! Orbits ? ! ?! ?! ?! ? x ?! Profile ?! ?! ?! ?! ? x ?! Nasal Bone ?? ! ?! ?! ?! ? x ?! Lip ?! ?! ?! ?! ? x ?! Maxilla ?! ?! ?! ?! ? x ?! Mandible ? ! ?! ?! ?! ? x ?! Spine ?! ?! ?! ? x ?! ?!Prior sagittal ?imaging, ?transaxial ?imaging is ?suboptimal Lungs ?! ?! ?! ?! ? x ?! 4 Chamber Hea! ?! ?! ?! ? x ?! LVOT ? ! ?! ?! ?! ? x ?! RVOT ? ! ?? x ??! ?! ?! ? x ?! 3 Vessel View! ?! ?! ?! ? x ?! 3 Vessel Trac! ?! ?! ?! ? x ?! Cross-over ?? ! ?! ?! ?! ? x ?! Ductal Arch ??! ?? x ??! ?! ?! ? x ?! Aortic Arch ??! ?! ?! ?! ? x ?! Caval View ?? ! ?! ?! ?! ? x ?! Situs ?! ?? x ??! ?! ?! ? x ?! Diaphragm ?! ?! ?! ?! ? x ?! Stomach ?! ?? x ??! ?! ?! ? x ?! Liver ?! ?? x ??! ?! ?! ?! Bowel ?! ?! ?! ?! ? x ?! Kidneys ?! ?! ?! ?! ? x ?! Bladder ?! ?? x ??! ?! ?! ? x ?! 3 Vessel Cord! ?? x ??! ?! ?! ? x ?! Cord In! ?! ?! ?! ? x ?! Upper Extremi! ?! ?! ?! ? x ?! Hands ?! ?! ?! ?! ? x ?! Lower Extremi! ?! ?! ?! ? x ?! Feet ? ! ?! ?! ?! ? x ?! External Nora! ?! ?! ?! ? x ?! Placental Cor! ?! ?! ?! ? x ?! CLINICAL SUMMARY Study Number: 3 ?? The FHR baseline ranged from 110 to 120 bpm during today's reactive NST. The FHR variability was moderate and no decelerations were detected. IMPRESSION: ?? 1) Lugo gestation, 32w2d 2) Today? s biometry (AC 3.4 centile, EFW 4th centile) is again consistent with a SGA growth pattern 3) The amniotic fluid volume is within normal limits 4) Umbilical Doppler waveforms reveal no evidence of increased arterial resistance 5) Reassuring biophysical profile (performed prior to review of today's growth assessment) 6) No abnormalities have been detected on anatomic survey 7) Transaxial imaging of the spine was again suboptimal, secondary to positioning NOTE: The patient was advised that ultrasound does not allow detection of all structural or chromosomal abnormalities. ?? RECOMMEND: ?? Follow up ultrasound in 2 weeks to reevaluate growth, with additional testing (Dopplers, BPP, etc.) at that time only if / as clinically indicated, based on that assessment. Given lack of evidence of pathologic growth restriction (EFW & AC at or above the 3rd %ile with normal Dopplers and AFV), no additional surveillance (other than routine maternal movement monitoring) is indicated in the interim. Thank you for allowing us the opportunity to care for your patient. China Cochran MD <Electronic Signature> ??03/20/2021 09:58am Adam Garcia MD [facility] ORDERABLES * SONOGRAM - COMPLETE (03/06/2021 9:19 AM CDT) Only the most recent of2 resultswithin the time period is included. Anatomical Region Laterality Modality Other 03/06/2021 9:19 AM CDT Narrative 03/06/2021 10:38 AM CDT ? [facility] ? [facility] ?PHONE: ??FAX: Pat. Name: ?STEPHEN RIOS Pat. No: ?[id number] Study Date: ?? 03/06/2021 ??9:19am , Age: ? 1985, 35 Pregnancies: ?? 4, Para 2 Height: ? 65 in Weight: ? 150 lb LMP: ?Unknown GA by Base: ?? 30w2d ?? JASMEET: 05/13/2021 GA by US: ? 28w6d ?? JASMEET: 05/23/2021 GA Selected: ??30w2d (From [facility]) JASMEET: ?05/13/2021 Referring MD: Nando Pollock MD Circuit Designer: ??Krystyna Vides RDMS CPT4: ? 50777,[id number] BMI: ?24.96 Hist/Ind: ? SGA ?Uterine Synechiae ?AMA, LR NIPT MEASUREMENTS & AGE ? GROWTH EVALUATION Measurement ??GA ? Range ? Srce %for GA Ratios ----- ---- ------- BPD ??7.4 cm 29w5d (03a4r-53p5d) Hadl BPD 21% FL/BPD 0.72 (0.71 - 0.87) HC ??27.8 cm 30w3d (33b6a-02x6f) Hadl HC ??17% FL/AC ??0.22 (0.20 - 0.24) AC ??24.4 cm 28w5d (45y6o-97a9u) Hadl AC ??7% HC/AC ??1.14 (0.97 - 1.16) FL ?? 5.3 cm 28w2d (10i9i-60p2j) Hadl FL ??2% CI ? 0.74 (0.70 - 0.86) HL ?? 4.9 cm 28w3d (11c8d-88f6g) Sj HL ??20% GA for sonogram 28w6d (33c2m-79e0p) ?? Weight Estimate: based on (BPD,HC,AC,FL) Hadlock ?Weight: 1281 gm (1094-1469gm) Had ? : 2lbs, 13oz ? Normal: 1614 gm (1210- 2018gm) Had ? Wt% ? 6% for 30w2d Heart Rate: 115 bpm Amniotic Fluid Index: 13.8cm (08.9-23.5) Q1: 2.5cm ??Q2: 3.9cm ??Q3: 4.7cm ??Q4: 2.8cm ?? Biophysical Profile: 07/01 Breathin ?? Tone: 2 ?? Movement: ??2 ?? AFV: ??2 EVAL, PLACENTA Presentation: cephalic Umbilical Cord: 3 Vessels Placenta: posterior Heart Rate: 115 bpm Amniotic Fluid Volume: normal DOPPLER Umbilical - Mid Cord S/D ??2.50(1.94 - 4.07) ? PI ?? 0.87 (0.69 - 1.28) ? Anatomy!Normal!Abnormal!Suboptimal!Prev. Seen!Comments Cranium ?! ?? x ??! ?! ?! ? x ?! Mdl (CSP/Thal! ?! ?! ?! ? x ?! Ventricles ?? ! ?! ?! ?! ? x ?! Choroid Plexu! ?! ?! ?! ? x ?! Cerebellum ?? ! ?! ?! ?! ? x ?! Cerebellar Ve! ?! ?! ?! ? x ?! Cisterna M. ??! ?! ?! ?! ? x ?! Orbits ? ! ?! ?! ?! ? x ?! Profile ?! ?? x ??! ?! ?! ?! Nasal Bone ?? ! ?? x ??! ?! ?! ?! Lip ?! ?! ?! ?! ? x ?! Maxilla ?! ?! ?! ?! ? x ?! Mandible ? ! ?! ?! ?! ? x ?! Neck ? ! ?! ?! ? x ?! ?! Spine ?! ?! ?! ? x ?! ?!unremarkable ?sagital spine, ?suboptimal ?transverse spine Lungs ?! ?! ?! ?! ? x ?! 4 Chamber Hea! ?! ?! ?! ? x ?! LVOT ? ! ?! ?! ?! ? x ?! RVOT ? ! ?! ?! ?! ? x ?! 3 Vessel View! ?! ?! ?! ? x ?! 3 Vessel Trac! ?! ?! ?! ? x ?! Cross-over ?? ! ?! ?! ?! ? x ?! Ductal Arch ??! ?! ?! ?! ? x ?! Aortic Arch ??! ?! ?! ?! ? x ?! Caval View ?? ! ?! ?! ?! ? x ?! Situs ?! ?! ?! ?! ? x ?! Diaphragm ?! ?! ?! ?! ? x ?! Stomach ?! ?! ?! ?! ? x ?! Liver ?! ?! ?! ? x ?! ?! Bowel ?! ?! ?! ?! ? x ?! Kidneys ?! ?! ?! ?! ? x ?! Bladder ?! ?! ?! ?! ? x ?! 3 Vessel Cord! ?! ?! ?! ? x ?! Cord In! ?! ?! ?! ? x ?! Upper Extremi! ?? x ??! ?! ?! ? x ?!left, right ?previously seen Hands ?! ?? x ??! ?! ?! ?!left, right ?previously seen Lower Extremi! ?! ?! ?! ? x ?! Feet ? ! ?! ?! ?! ? x ?! External Nora! ?? x ??! ?! ?! ?!Female Placental Cor! ?! ?! ?! ? x ?! CLINICAL SUMMARY Study Number: 2 ?? A single fetus is seen in cephalic presentation. ??The measurements today are consistent with appropriate interval growth. ??The JASMEET selected is based on a prior ultrasound. ??The amniotic fluid volume is within normal limits. ?? IMPRESSION: Single, live intrauterine at 30w2d ?? Amniotic fluid volume: Normal ?? size is less than expected ?? Biophysical profile: 07/01 Doppler studies: reveals no evidence of arterial reisitance ?? Uterine Synechia was not seen today. RECOMMEND: Continue twice weekly ??and weekly BPP, Doppler and DAMIAN with daily kick counts. Repeat growth in 2 weeks ?? Thank you for allowing us the opportunity to care for your patient. ?? Adam Garcia MD <Electronic Signature> ??03/06/2021 09:52am R Vickey Pollock MD [facility] ORDERABLES * CARDIAC EKG ORDER (08/10/2019 6:32 PM CDT) Only the most recent of2 resultswithin the time period is included. Narrative 08/10/2019 6:32 PM CDT Ordered by an unspecified provider. Scanned Document CARDIAC SERVICES ORD ERABLES * URINE MICROSCOPIC ONLY REFLEX TO CULTURE (08/06/2019 1:02 PM CDT) Only the most recent of2 resultswithin the time period is included. Reflex Status Culture not indicated 08/06/2019 1:32 PM CDT [facility] RBC UA 3-5 None Seen, 0-2, 3-5 # /hpf 08/06/2019 1:32 PM CDT [facility] WBC UA 0-5 None Seen, 0-5 # /hpf 08/06/2019 1:32 PM CDT [facility] Bacteria UA None Seen None Seen 08/06/2019 1:32 PM CDT [facility] Squamous Epithelial Cells 0-2 None Seen, 0-2, 3-5 /hpf 08/06/2019 1:32 PM [facility] Urine URINE SPECIMEN OBTAINED BY CLEAN CATCH PROCEDURE / Unknown Collection / Unknown 08/06/2019 1:02 PM CDT 08/06/2019 1:05 PM CDT Narrative [facility] - 08/06/2019 1:32 PM CDT Fabián Tejeda DO LAB - URINALYSIS ORD ERABLES [facility] [address] [address] * (ABNORMAL) URINALYSIS REFLEX MICROSCOPIC REFLEX CULTURE (08/06/2019 1:02 PM CDT) Only the most recent of2 resultswithin the time period is included. Color UA Straw Straw, Yellow 08/06/2019 1:23 PM [facility] Clarity UA Clear Clear 08/06/2019 1:23 PM [facility] Glucose UA Negative Negative 08/06/2019 1:23 PM [facility] Bilirubin UA Negative Negative 08/06/2019 1:23 PM [facility] Ketone UA Negative Negative 08/06/2019 1:23 PM [facility] Specific [place] UA 1.006 1.005 - 1.030 08/06/2019 1:23 PM [facility] Blood UA 2+(A) Negative 08/06/2019 1:23 PM [facility] pH UA 6.0 5.0 - 8.0 pH 08/06/2019 1:23 PM [facility] Protein UA Negative Negative 08/06/2019 1:23 PM [facility] Urobilinogen UA Negative Negative mg/dL 08/06/2019 1:23 PM [facility] Nitrite UA Negative Negative 08/06/2019 1:23 PM [facility] Leukocyte UA Negative Negative 08/06/2019 1:23 PM [facility] Urine Microscopy Urine microscopy to follow 08/06/2019 1:23 PM [facility] Reflex Status Culture not indicated 08/06/2019 1:23 PM [facility] Urine URINE SPECIMEN OBTAINED BY CLEAN CATCH PROCEDURE / Unknown Collection / Unknown 08/06/2019 1:02 PM CDT 08/06/2019 1:05 PM CDT Narrative [facility] - 08/06/2019 1:23 PM CDT Fabián Tejeda DO LAB - URINALYSIS ORD ERABLES Performing Organization Address City/[facility]/ZIP Co de Phone Number [facility] [address] [address] * EKG 12-LEAD (08/06/2019 10:16 AM CDT) Only the most recent of8 resultswithin the time period is included. Ventricular Rate 69 BPM [facility]USE Atrial Rate 69 BPM [facility] P-R Interval 174 ms [facility] QRS Duration ms 86 ms [facility] Q-T Interval ms 412 ms [facility] QTC Calculation (Bezet) 441 ms [facility] MUSE Calculated P [place] 70 degrees [facility] MUSE Calculated R [place] 64 degrees [facility] MUSE Calculated T [place] 63 degrees [facility] MUSE Interpretation EKG Normal sinus rhythm Possible Left atrial enlargement Borderline ECG No previous ECGs available Confirmed by MD MAYKEL, ELIZABETH Rivas ([id number]) on 08/07/2019 10:15:44 AM [facility] [facility] M[facility] 08/06/2019 10:1 6 AM CDT 08/07/2019 10:15 AM CDT Fabián Tejeda DO ECG ORDERABLES Performing Organization Address [facility] Co de Phone Number [facility] * (ABNORMAL) CBC W AUTO DIFFERENTIAL (08/06/2019 8:29 AM CDT) Only the most recent of12 resultswithin the time period is included. WBC 11.7(H) 4.4 - 10.7 x10E9/L 08/06/2019 8:39 AM CDT [facility] WBC Corrected 08/06/2019 8:39 AM CDT [facility] RBC 4.32 3.80 - 5.20 x10E12/L 08/06/2019 8:39 AM CDT [facility] Hemoglobin 13.5 12.0 - 15.6 gm/dL 08/06/2019 8:39 AM CDT [facility] Hematocrit 39.3 35.9 - 45.5 % 08/06/2019 8:39 AM [facility] MCV 91.0 80.7 - 98.3 fl 08/06/2019 8:39 AM [facility] MCH 31.3 26.7 - 34.0 pg 08/06/2019 8:39 AM [facility] MCHC 34.4 30.8 - 35.9 gm/dL 08/06/2019 8:39 AM [facility] Platelet Count 295 153 - 416 x10E9/L 08/06/2019 8:39 AM [facility] RDW-CV 13.7 12.1 - 14.9 % 08/06/2019 8:39 AM [facility] MPV 9.4 9.4 - 12.9 fl 08/06/2019 8:39 AM [facility] Neutrophils % 67.3 44.0 - 73.0 % 08/06/2019 8:39 AM [facility] Lymphocytes % 21.7 20.0 - 43.0 % 08/06/2019 8:39 AM [facility] Monocytes % 8.0 5.0 - 13.0 % 08/06/2019 8:39 AM [facility] Eosinophils % 2.1 0.0 - 6.0 % 08/06/2019 8:39 AM [facility] Basophils % 0.6 0.0 - 2.0 % 08/06/2019 8:39 AM [facility] Immature Granulocytes 0.3 0 - 1 % 08/06/2019 8:39 AM [facility] Neutrophil Absolute 7.87(H) 2.01 - 7.14 x10E9/L 08/06/2019 8:39 AM [facility] Lymphocytes Absolute 2.53 1.07 - 3.94 x10E9/L 08/06/2019 8:39 AM [facility] Monocytes Absolute 0.93 0.26 - 1.07 x10E9/L 08/06/2019 8:39 AM [facility] Eosinophils Absolute 0.24 0 - 0.47 x10E9/L 08/06/2019 8:39 AM [facility] Basophils Absolute 0.07 0 - 0.08 x10E9/L 08/06/2019 8:39 AM [facility] Immature Granulocytes Absolute 0.03 0.00 - 0.06 x10E9/L 08/06/2019 8:39 AM T [facility] nRBC Auto 0 /100 WBC 08/06/2019 8:39 AM [facility] Blood BLOOD SPECIMEN / Unknown Venipuncture / Unknown 08/06/2019 8:29 AM CDT 08/06/2019 8:33 AM CDT Fabián Tejeda DO LAB - HEMATOLOGY ORD ERABLES [facility] [address] [place] [address] * COMPREHENSIVE METABOLIC PANEL (08/06/2019 8:29 AM CDT) Only the most recent of11 resultswithin the time period is included. Glucose 82 74 - 106 mg/dL 08/06/2019 8:52 AM [facility] Sodium 138 136 - 145 mmol/L 08/06/2019 8:52 AM [facility] Potassium 4.2 3.5 - 5.1 mmol/L 08/06/2019 8:52 AM [facility] Chloride 102 98 - 107 mmol/L 08/06/2019 8:52 AM [facility] CO2 23 23 - 31 mmol/L 08/06/2019 8:52 AM [facility] Calcium 9.4 8.4 - 10.2 mg/dL 08/06/2019 8:52 AM [facility] Anion Gap 13 8 - 16 mmol/L 08/06/2019 8:52 AM [facility] BUN 9 7 - 18.7 mg/dL 08/06/2019 8:52 AM [facility] Creatinine 0.74 0.55 - 1.02 mg/dL 08/06/2019 8:52 AM [facility] Alkaline Phosphatase 110 40 - 150 U/L 08/06/2019 8:52 AM [facility] ALT 14 13 - 61 U/L 08/06/2019 8:52 AM [facility] AST 22 5 - 34 U/L 08/06/2019 8:52 AM [facility] Protein Total 7.7 6.4 - 8.3 gm/dL 08/06/2019 8:52 AM T [facility] Albumin 4.3 3.5 - 5.2 gm/dL 08/06/2019 8:52 AM CDT [facility] Bilirubin Total 0.3 0.2 - 1.0 mg/dL 08/06/2019 8:52 AM T [facility] eGFR by MDRD >60 >60 mL/min/1.7 2 08/06/2019 8:52 AM T [facility] eGFR by MDRD >60 >60 mL/min/1.7 3m2 08/06/2019 8:52 AM CDT [facility] Blood BLOOD SPECIMEN / Unknown Venipuncture / Unknown 08/06/2019 8:29 AM CDT 08/06/2019 8:33 AM CDT Fabián Tejeda DO LAB - CHEMISTRY [facility] Organization Address City/State/ZIP Co de Phone Number [facility] [address] [place] [address] * (ABNORMAL) HCG BETA BLOOD QUANTITATIVE (09/30/2018 11:25 AM SOLE SCRAPER) [facility] hCG Quantitative 23,473.69 (H) 0.0 - 5 mIU/mL 09/30/2018 8:21 PM SOLE SCRAPER [facility] Blood BLOOD SPECIMEN / Unknown Venipuncture / Unknown 09/30/2018 11:25 AM SOLE SCRAPER 09/30/2018 11:25 AM SOLE SCRAPER Narrative [facility] - 09/30/2018 8:21 PM SOLE SCRAPER ?? Interpretation Comment: Non- pre-menopausal........ < 5.0 mIU/mL ? Post-menopausal........ < 9.5 mIU/mL ?HCG LEVELS IN WEEKS FROM LAST MENSTRUAL PERIOD ?(GESTATIONAL AGE) ?3 Weeks LMP: 5-50 mIU/mL ?4 Weeks LMP: 5-426 mIU/mL ?5 Weeks LMP: 18-7,340 mIU/mL ?6 Weeks LMP: 1,080-56,500 mIU/mL ?7-8 Weeks LMP: 7,650-229,000 mIU/mL ? 9-12 Weeks LMP: 25,700-288,000 mIU/mL ?13-16 Weeks LMP: 13,300-254,000 mIU/mL ?17-24 Weeks LMP: 4,060-165,400 mIU/mL ?25-40 Weeks LMP: 3,640-117,000 mIU/mL ?Non- females: <5.0 mIU/mL ?Postmenopausal females: <9.5 mIU/mL Nell Ray PA-C LAB - CHEMISTRY [facility] Organization Address [facility]/State/[facility] Co de Phone Number [facility] [address] * XR CHEST 2VW (09/09/2018 2:16 PM CDT) Only the most recent of4 resultswithin the time period is included. Anatomical Region Laterality Modality Chest Radiographic [place] ging 09/09/2018 2:19 PM CDT Impressions 09/09/2018 2:20 PM CDT Normal chest, no acute pathology. Narrative 09/09/2018 2:20 PM CDT PROCEDURE: XR CHEST 2VW ??09/09/2018 2:17 PM HISTORY: Chest pain, unspecified. FINDINGS AND IMPRESSION: COMPARISON: November 10, 2017 FINDINGS: The lungs are well expanded and clear. The cardiomediastinal silhouette is normal. No pleural effusion or pneumothorax. No significant bony abnormalities. The upper abdominal soft tissue organs are normal. Procedure Note Eugenio Raya MD - 09/09/2018 PROCEDURE: XR CHEST 2VW 09/09/2018 2:17 PM HISTORY: Chest pain, unspecified. FINDINGS AND IMPRESSION: COMPARISON: November 10, 2017 FINDINGS: The lungs are well expanded and clear. The cardiomediastinal silhouette is normal. No pleural effusion or pneumothorax. No significant bony abnormalities. The upper abdominal soft tissue organs are normal. IMPRESSION Normal chest, no acute pathology. Nell Ray PA-C DIAGNOSTIC IMAGING O RDERABLES * TROPONIN I (09/09/2018 11:42 AM CDT) Only the most recent of8 resultswithin the time period is included. [facility] Troponin I <0.012 <=0.049 ng/mL 09/09/2018 1:24 PM CDT [facility] Blood BLOOD SPECIMEN / Unknown Venipuncture / Unknown 09/09/2018 11:42 AM CDT 09/09/2018 11:42 AM CDT Narrative [facility] - 09/09/2018 1:24 PM CDT Note: Diagnosis of myocardial infarction requires symptoms of ischemia or EKG changes of ischemia and Troponin I >99th percentile of normal with <10% coefficient of variation (CV) (0.05 ng/mL) Troponin should be drawn on initial assessment and 3-6 hours later as clinically indicated. Any condition resulting in myocardial cell damage can increase cardiac troponin levels. In addition to myocardial infarction, these include but are not limited to congestive heart failure, arrhythmia, myocarditis, and non-cardiac related causes such as pulmonary embolism, renal failure and sepsis. Nell Ray PA-C LAB - CHEMISTRY [facility] [place] Organization Address City/State/ZIP Co de Phone Number [facility] [address] * (ABNORMAL) PTH INTACT PANEL (09/09/2018 11:42 AM CDT) [facility] PTH Intact 23 15 - 65 pg/mL 09/12/2018 3:33 AM CDT [facility] ([facility]) Comment: ?+-------+-------+-------+-------+--------+ P ?? 400 + ??. . . . . . S ?P. . . . . + T ? + . . . . . . .S ? P. . . . . .+ H ?? 300 + ??. . . . . . S ?P. . . . . .P+ ?+ . . . . . . .S ? P. . . . . .P + I ?? 200 +. . . . . . . S ?P. . . . . ??P ??+ N ? + . . . . . . .S ?P . . . . P ?+ T ?? 100 +. . . . . . . S ? P . . . . P ? + A ? + . . . . . . .S ? P. . . .P ? + C ?75 +. . . . . . . SDDDDDDDDDDP . .P ? + T ? +S S S S S Q-I-W +P.P ? + ? 50 + ?+ ?? NORMAL ? + ?+ p ? + ?+ ?? Ca/PTH ? + ?+ g ?23 + + <*> ? + / ? +H H H H H H M!M M M M M M M + m ?10 +. . . . . .H H ?M!. . . . . . . + L ? + . . . . . . ??H ? M! . . . . . . .+ ?+. . . . . . . H ? M!. . . . . . . + ?0 ++---/--+-------+-------+-------+---/---++ ? 4 ?8 ? 9 ?10 ?11 ?15 ? Total Calcium (mg/dL) ?Box = Reference Interval ?<*> = Patient Result ?P = Primary Hyperparathyroidism ?S = Secondary Hyperparathyroidism ?D = Renal Insufficiency or ?Vitamin D Deficiency ?H = Hypoparathyroidism ?M = Hypercalcemia of Malignancy Calcium 10.3(H) 8.4 - 10.2 mg/dL 09/12/2018 3:33 AM CDT [facility] ([facility]) Comment: Performed by [facility], [address] [place] [address] [email or web address], Riley Orellana MD, Lab. Director Blood BLOOD SPECIMEN / Unknown Lab Venipuncture / Unknown 09/09/2018 11:42 AM CDT 09/09/2018 2:02 PM CDT Nell Ray PA-C LAB - CHEMISTRY BLOSSOM [facility] Performing Organization Address City/[facility]/ZIP Co de Phone Number [facility] ([facility]) [address], [place] [address] * MAGNESIUM BLOOD (09/09/2018 11:42 AM CDT) Magnesium 2.2 1.6 - 2.6 mg/dL 09/09/2018 1:29 PM CDT [facility] Blood BLOOD SPECIMEN / Unknown Venipuncture / Unknown 09/09/2018 11:42 AM CDT 09/09/2018 11:42 AM CDT Nell Ray PA-C LAB - CHEMISTRY [facility] [address] * TSH (09/09/2018 11:42 AM CDT) Only the most recent of4 resultswithin the time period is included. TSH 0.729 0.35 - 4.94 uIU/mL 09/09/2018 1:29 PM CDT [facility] Blood BLOOD SPECIMEN / Unknown Venipuncture / Unknown 09/09/2018 11:42 AM CDT 09/09/2018 11:42 AM CDT Nell Ray PA-C LAB - CHEMISTRY [facility]OSSOM [facility] Performing Organization Address [facility]/ZIP Co de Phone Number [facility] [address] * (ABNORMAL) BASIC METABOLIC PANEL (CALCIUM TOTAL) (06/04/2018 3:06 PM CDT) Only the most recent of2 resultswithin the time period is included. [facility] Glucose 106 70 - 125 mg/dL 06/04/2018 5:46 PM CDT [facility] Sodium 142 136 - 145 mmol/L 06/04/2018 5:46 PM CDT [facility] Potassium 3.4 3.4 - 4.5 mmol/L 06/04/2018 5:46 PM CDT [facility] Chloride 108(H) 98 - 107 mmol/L 06/04/2018 5:46 PM CDT [facility] CO2 23 22 - 29 mmol/L 06/04/2018 5:46 PM CDT [facility] Calcium 9.3 8.4 - 10.2 mg/dL 06/04/2018 5:46 PM CDT [facility] Anion Gap 14 10 - 20 mmol/L 06/04/2018 5:46 PM CDT [facility] BUN 6.5(L) 9.8 - 20.1 mg/dL 06/04/2018 5:46 PM CDT [facility] Creatinine 0.80 0.57 - 1.11 mg/dL 06/04/2018 5:46 PM CDT [facility] eGFR by MDRD >60 >60 mL/min/1.7 3m2 06/04/2018 5:46 PM CDT [facility] eGFR by MDRD >60 >60 mL/min/1.7 3m2 06/04/2018 5:46 PM CDT [facility] Blood BLOOD SPECIMEN / Unknown Venipuncture / Unknown 06/04/2018 3:06 PM CDT 06/04/2018 3:06 PM CDT Nell Ray PA-C LAB - CHEMISTRY BLOSSOM [facility] Performing Organization Address [facility]/ZIP Co de Phone Number [facility] [address] * CARDIAC RHYTHM STRIP ORDER (04/28/2018 1:03 PM CDT) Only the most recent of3 resultswithin the time period is included. Narrative 04/28/2018 1:03 PM CDT Ordered by an unspecified provider. Scanned Document CARDIAC SERVICES ORD ERABLES * CT BRAIN WO CONTRAST [id number] (04/26/2018 11:26 PM CDT) Only the most recent of2 resultswithin the time period is included. Anatomical Region Laterality Modality Head Computed Tomogra phy 04/27/2018 5:36 AM CDT Impressions 04/27/2018 5:[address] of brain without contrast. Narrative 04/27/2018 5:36 AM CDT PROCEDURE: CT HEAD WO CONTRAST ??04/26/2018 11:26 PM HISTORY: Unspecified fall, initial encounter. FINDINGS AND IMPRESSION: Radiation dose reduction technique was utilized. COMPARISON: No comparison. FINDINGS: There is no evidence of acute intracranial hemorrhage. There is no evidence of mass effect, edema, or midline shift. ??The ventricular system is unremarkable. There is no evidence of acute infarction. Procedure Note Eugenio Raya MD - 04/27/2018 PROCEDURE: CT HEAD WO CONTRAST 04/26/2018 11:26 PM HISTORY: Unspecified fall, initial encounter. FINDINGS AND IMPRESSION: Radiation dose reduction technique was utilized. COMPARISON: No comparison. FINDINGS: There is no evidence of acute intracranial hemorrhage. There is no evidence of mass effect, edema, or midline shift. The ventricular system is unremarkable. There is no evidence of acute infarction. IMPRESSION Unremarkable CT of brain without contrast. Leodan E Long DO CT ORDERABLES * CT CERVICAL SPINE WO CONTRAST [id number] (04/26/2018 11:26 PM CDT) Anatomical Region Laterality Modality Spine Computed Tomogra phy 04/27/2018 5:36 AM CDT Impressions 04/27/2018 5:37 AM CDT 1. ??No acute traumatic injury. Reversal of normal lordotic curvature. Narrative 04/27/2018 5:37 AM CDT PROCEDURE: CT CERVICAL SPINE WO CONTRAST ??04/26/2018 11:26 PM HISTORY: Unspecified fall, initial encounter. FINDINGS AND IMPRESSION: Radiation dose reduction technique was utilized. COMPARISON: No comparison. FINDINGS: The skull base is intact. Reversal of normal lordotic curvature.. The ring of C1 and C2 is intact. Disc spaces are well-preserved. The facets align anatomically There is no evidence of fracture. Prevertebral soft tissues are unremarkable as seen. Paracervical and anterior cervical soft tissues are normal. Procedure Note Eugenio Raya MD - 04/27/2018 PROCEDURE: CT CERVICAL SPINE WO CONTRAST 04/26/2018 11:26 PM HISTORY: Unspecified fall, initial encounter. FINDINGS AND IMPRESSION: Radiation dose reduction technique was utilized. COMPARISON: No comparison. FINDINGS: The skull base is intact. Reversal of normal lordotic curvature.. The ring of C1 and C2 is intact. Disc spaces are well-preserved. The facets align anatomically There is no evidence of fracture. Prevertebral soft tissues are unremarkable as seen. Paracervical and anterior cervical soft tissues are normal. IMPRESSION 1. No acute traumatic injury. Reversal of normal lordotic curvature. Leodan Donnelly DO CT ORDERABLES * (ABNORMAL) DIFFERENTIAL MANUAL (04/26/2018 8:39 PM CDT) WBC Auto 12.7(H) 4.0 - 10.0 x10E9/L 04/26/2018 10:21 PM CDT [facility] Neutrophils % Manual 56 40 - 75 % 04/26/2018 10:21 PM CDT [facility] Lymphocytes % Manual 32 19 - 53 % 04/26/2018 10:21 PM CDT [facility] Monocytes % Manual 10 5 - 13 % 04/26/2018 10:21 PM CDT [facility] Eosinophils % Manual 2 1 - 7 % 04/26/2018 10:21 PM CDT [facility] Neutrophils Absolute Manual 7.1(H) 1.6 - 6.1 x10E3/uL 04/26/2018 10:21 PM CDT [facility] Lymphocytes Absolute Manual 4.1(H) 1.2 - 3.7 x10E3/uL 04/26/2018 10:21 PM T [facility] Monocytes Absolute Manual 1.3(H) 0.2 - 0.9 x10E3/uL 04/26/2018 10:21 PM CDT [facility] Eosinophils Absolute Manual 0.3 0.0 - 0.5 x10E3/uL 04/26/2018 10:21 PM CDT [facility] Cells Counted 100 # cells 04/26/2018 10:21 PM CDT [facility] Platelet Estimation Adequate platelets Normal, Adequate platelets 04/26/2018 10:21 PM CDT [facility] RBC Morphology Normal 04/26/2018 10:21 PM CDT [facility] WBC Morph Normal 04/26/2018 10:21 PM CDT [facility] Blood BLOOD SPECIMEN / Unknown Lab Venipuncture / Unknown 04/26/2018 8:39 PM CDT 04/26/2018 8:43 PM CDT Leodan Donnelly DO LAB - HEMATOLOGY ORD ERABLES Performing Organization Address [facility] Co de Phone Number [facility] [address] [place] [address] * HCG BLOOD QUALITATIVE (04/26/2018 8:39 PM CDT) Only the most recent of3 resultswithin the time period is included. Pathologist [facility] HCG Qual Serum Negative Negative 04/26/2018 9:01 PM CDT [facility] Blood BLOOD SPECIMEN / Unknown Lab Venipuncture / Unknown 04/26/2018 8:39 PM CDT 04/26/2018 8:43 PM CDT Leodan Donnelly DO LAB - CHEMISTRY ORDE RABLES Performing Organization Address City/[facility]/ZIP Co de Phone Number [facility] [address] * CULTURE MYCOPLASMA HOMINIS+UREAPLASMA CULTURE (03/20/2018 9:00 AM CDT) Only the most recent of2 resultswithin the time period is included. Pathologist [facility] Prelim Report SEE NOTE 03/26/2018 3:[address] [facility] ([facility]) Comment: Specimen received and in progress. Performed by [facility], [address] [place] [address],[place] [address] [email or web address], Riley Orellana MD, Lab. Director Final Report SEE NOTE 03/26/2018 3:00 PM CDT [facility] [employer] ([facility]) Comment: Culture negative for Mycoplasma hominis Culture negative for Ureaplasma spp Performed by [facility], [address] [place] [address] [email or web address], Riley Orellana MD, Lab. Director Microbiology URINE / Unknown Collection / Unknown 03/20/2018 9:00 AM CDT 03/21/2018 3:21 PM CDT Escobar Nolan MD LAB - MICROBIOLOGY O RDERABLES [facility]) [address] [place], [place] [id number] [place] [address] * URINE MICROSCOPIC ONLY (03/20/2018 9:00 AM CDT) Only the most recent of6 resultswithin the time period is included. RBC UA 0-5 0-5, None Seen # /hpf 03/21/2018 3:32 PM CDT [facility] WBC UA 0-5 0-5, None Seen # /hpf 03/21/2018 3:32 PM CDT [facility] Bacteria UA None Seen None Seen 03/21/2018 3:32 PM CDT [facility] Squamous Epithelial Cells 0-2 None Seen, 0-2, 3-5 /hpf 03/21/2018 3:32 PM CDT [facility] Urine URINE SPECIMEN OBTAINED BY CLEAN CATCH PROCEDURE / Unknown Collection / Unknown 03/20/2018 9:00 AM CDT 03/21/2018 3:21 PM CDT Escobar Nolan MD LAB - URINALYSIS ORD ERABLES [facility] [address] [place] [address], [facility] * (ABNORMAL) URINALYSIS DIPSTICK AUTO (02/20/2018 2:29 PM CDT) Only the most recent of2 resultswithin the time period is included. Color UA Straw Straw, Yellow 02/20/2018 5:34 PM CDT [facility] Clarity UA Clear Clear 02/20/2018 5:34 PM CDT [facility] Glucose UA Negative Negative 02/20/2018 5:34 PM CDT [facility] Bilirubin UA Negative Negative 02/20/2018 5:34 PM CDT [facility] Ketone UA Negative Negative 02/20/2018 5:34 PM CDT [facility] Specific [place] UA 1.005 1.005 - 1.030 02/20/2018 5:34 PM CDT [facility] Blood UA 2+(A) Negative 02/20/2018 5:34 PM CDT [facility] pH UA 5.0 5.0 - 8.0 pH 02/20/2018 5:34 PM CDT [facility] Protein UA Negative Negative 02/20/2018 5:34 PM CDT [facility] Urobilinogen UA Negative Negative mg/dL 02/20/2018 5:34 PM CDT [facility] Nitrite UA Negative Negative 02/20/2018 5:34 PM CDT [facility] Leukocyte UA Trace(A) Negative 02/20/2018 5:34 PM CDT [facility] Urine URINE SPECIMEN OBTAINED BY CLEAN CATCH PROCEDURE / Unknown Collection / Unknown 02/20/2018 2:29 PM CDT 02/20/2018 2:29 PM CDT Narrative [facility] - 02/20/2018 5:34 PM CDT Kelly Trent [facility] LAB - URINALYSIS ORDERABLES Performing Organization Address [facility] Co de Phone Number [facility] [address] * CULTURE URINE (02/20/2018 2:29 PM CDT) Only the most recent of4 resultswithin the time period is included. Culture Urine Light growth normal skin/urogen ital fox DAVIAN 02/22/2018 6:13 AM CDT [facility] Urine URINE SPECIMEN OBTAINED BY CLEAN CATCH PROCEDURE / Unknown Collection / Unknown 02/20/2018 2:29 PM CDT 02/20/2018 2:29 PM CDT Kelly Trent LINER MACHINE OPERATORGROTON [facility] LAB - MICROBIOLOG Y ORDERABLES Performing Organization Address [facility] Co de Phone Number [facility] [address] [place], [place] [address] * [place] IVP [id number] (02/04/2018 3:16 PM CDT) Anatomical Region Laterality Modality Abdomen Radiographic [place] ging 02/04/2018 3:19 PM CDT Impressions 02/04/2018 3:24 PM CDT 1. Constipation. 2. Negative intravenous urogram. Edited by Karen Alexander on 02/04/2018 3:22 PM Narrative 02/04/2018 3:24 PM CDT PROCEDURE: FL IVP INTRAVENOUS PYELOGRAM ??02/04/2018 3:19 PM HISTORY: Hematuria, unspecified. FINDINGS AND IMPRESSION: COMPARISON: None. Moderate retained colonic stool. Unremarkable intestinal gas pattern. Normally functioning both kidneys. No evidence of hydronephrosis. Ureters are nondilated. Bladder is unremarkable. Postvoid study is normal. Procedure Note Charles Zavala MD - 02/04/2018 PROCEDURE: FL IVP INTRAVENOUS PYELOGRAM 02/04/2018 3:19 PM HISTORY: Hematuria, unspecified. FINDINGS AND IMPRESSION: COMPARISON: None. Moderate retained colonic stool. Unremarkable intestinal gas pattern. Normally functioning both kidneys. No evidence of hydronephrosis. Ureters are nondilated. Bladder is unremarkable. Postvoid study is normal. IMPRESSION 1. Constipation. 2. Negative intravenous urogram. Edited by Karen Alexander on 02/04/2018 3:22 PM Kelly Trent LINER MACHINE OPERATOR-[employer] DRILLING MACHINE OPERATOR FLUOROSCOPY ORDER MARK * CT ABDOMEN [place] PELVIS [place] IV CONT [id number] (02/04/2018 3:03 PM CDT) Anatomical Region Laterality Modality Abdomen, Pelvis Computed Tomogra phy 02/04/2018 3:06 PM CDT Impressions 02/04/2018 3:12 PM CDT No urologic lesion seen to explain hematuria. No acute surgical abnormality. Small amount of free fluid in the lower pelvis may be physiologic. Moderate amount of stool and minimal left basilar atelectatic changes incidentally noted. Narrative 02/04/2018 3:12 PM CDT PROCEDURE: CT ABDOMEN PELVIS WWO CONTRAST 02/04/2018 3:06 PM HISTORY: Hematuria, unspecified. Radiation dose reduction technique was utilized. TECHNIQUE: 95 cc Omnipaque 300 IV contrast. For dynamic phase imaging of the kidneys. COMPARISON: 11/06/2017 INDICATION: Hematuria Report: Minimal left basilar atelectatic appearing changes present. The remainder the lower chest appears normal. Bones appear intact. Anteflexed uterus appears normal in size and attenuation. A small amount of fluid is present in the lower pelvis. The adnexal regions appear normal. Adrenal glands kidneys visualized ureters and urinary bladder appear normal. No lesion seen to explain hematuria. A small amount of free fluid is present in the lower pelvis, borderline for physiologic amount. The bowel gas pattern is nonobstructive. No free air seen. Appendix is medial and inferior to the cecum and appears normal. Moderate amount of stool present extends to the cecum. The liver spleen pancreas gallbladder aorta and extraperitoneal soft tissues as well as bones appear normal. No suspicious lymphadenopathy or masses. Procedure Note Jonathan Negron MD - 02/04/2018 PROCEDURE: CT ABDOMEN PELVIS WWO CONTRAST 02/04/2018 3:06 PM HISTORY: Hematuria, unspecified. Radiation dose reduction technique was utilized. TECHNIQUE: 95 cc Omnipaque 300 IV contrast. For dynamic phase imaging of the kidneys. COMPARISON: 11/06/2017 INDICATION: Hematuria Report: Minimal left basilar atelectatic appearing changes present. The remainder the lower chest appears normal. Bones appear intact. Anteflexed uterus appears normal in size and attenuation. A small amount of fluid is present in the lower pelvis. The adnexal regions appear normal. Adrenal glands kidneys visualized ureters and urinary bladder appear normal. No lesion seen to explain hematuria. A small amount of free fluid is present in the lower pelvis, borderline for physiologic amount. The bowel gas pattern is nonobstructive. No free air seen. Appendix is medial and inferior to the cecum and appears normal. Moderate amount of stool present extends to the cecum. The liver spleen pancreas gallbladder aorta and extraperitoneal soft tissues as well as bones appear normal. No suspicious lymphadenopathy or masses. IMPRESSION No urologic lesion seen to explain hematuria. No acute surgical abnormality. Small amount of free fluid in the lower pelvis may be physiologic. Moderate amount of stool and minimal left basilar atelectatic changes incidentally noted. Kelly Trent LINER MACHINE OPERATOR-[employer] DRILLING MACHINE OPERATOR CT ORDERABLES * (ABNORMAL) URINALYSIS AUTO - POINT OF CARE (AMB) SMGS (01/26/2018 9:42 AM SOLE SCRAPER) Only the most recent of2 resultswithin the time period is included. Clarity UA POCT ----- Color UA POCT ----- Glucose UA Negative Negative Bilirubin UA POCT Negative Negative Ketone UA Negative Negative Specific [place] UA POCT <=1.005 1.002 - 1.030 Blood UA POCT Small(A) Negative pH UA 6.0 5.0 - 8.0 pH units Protein UA POCT Negative Negative Urobilinogen UA 0.2 0.1 - 1.0 Nitrite UA POCT Negative Negative Leukocyte UA Negative Negative QC Verified Yes Yes Urine URINE / Unknown 01/26/2018 9 :42 AM SOLE SCRAPER Kelly Trent APRN-[employer] GOODS DRILLING MACHINE OPERATOR LAB - POINT OF CA RE ORDERABLES * TYPE + SCREEN PANEL (11/20/2017 12:08 AM SOLE SCRAPER) ABO O 11/20/2017 1:06 AM SOLE SCRAPER [facility] Rh Type Positive 11/20/2017 1:06 AM SOLE SCRAPER [facility] Antibody Screen Negative 11/20/2017 1:06 AM SOLE SCRAPER [facility] Blood Bank BLOOD SPECIMEN / Unknown Lab Venipuncture / Unknown 11/20/2017 12:08 AM SOLE SCRAPER 11/20/2017 12:11 AM SOLE SCRAPER Leodan Donnelly DO LAB - BLOOD BANK ORD ERABLES Performing Organization Address City/State/[facility] Co de Phone Number [facility] [address] * CT BRAIN STROKE PROTOCOL (11/19/2017 11:45 PM SOLE SCRAPER) Anatomical Region Laterality Modality Head Computed Tomogra phy 11/20/2017 7:57 AM SOLE SCRAPER Impressions 11/20/2017 8:01 AM SOLE SCRAPER 1.No CT signs suggestive of acute intracranial bleed. 2.If an acute infarct is suspected and documentation is needed, or if symptoms persist, consider evaluation with MRI to further characterize. Preliminary report rendered by Dr. Guy Barber immediately after the examination was completed. Narrative 11/20/2017 8:01 AM SOLE SCRAPER IMAGING STUDIES: CT BRAIN STROKE PROTOCOL EXAM DATE/TIME: 11/19/2017 11:45 PM COMPARISON STUDIES: 01/20/2015 HISTORY: Anesthesia of skin. Acute stroke suspected TECHNIQUE: Thin axial sections were acquired from the base to the vertex of the skull. IV contrast was not administered. Radiation dose reduction technique was utilized. FINDINGS: Visualized paranasal sinuses are clear. Mastoids appear well-aerated. No obvious acute depressed skull fracture. No obvious intraorbital lesions. Intracranially, ventricles and cisterns demonstrate normal shape and configuration for the patient's age without evidence of lesions. Similar in appearance to the previous exam No evidence of edema, mass effect, midline shift, extra-axial fluid collection or intracranial bleed. CT signs of acute ischemia might not be visible or obvious during the initial hours. Procedure Note Mitul Wei MD - 11/20/2017 IMAGING STUDIES: CT BRAIN STROKE PROTOCOL EXAM DATE/TIME: 11/19/2017 11:45 PM COMPARISON STUDIES: 01/20/2015 HISTORY: Anesthesia of skin. Acute stroke suspected TECHNIQUE: Thin axial sections were acquired from the base to the vertex of the skull. IV contrast was not administered. Radiation dose reduction technique was utilized. FINDINGS: Visualized paranasal sinuses are clear. Mastoids appear well-aerated. No obvious acute depressed skull fracture. No obvious intraorbital lesions. Intracranially, ventricles and cisterns demonstrate normal shape and configuration for the patient's age without evidence of lesions. Similar in appearance to the previous exam No evidence of edema, mass effect, midline shift, extra-axial fluid collection or intracranial bleed. CT signs of acute ischemia might not be visible or obvious during the initial hours. IMPRESSION 1.No CT signs suggestive of acute intracranial bleed. 2.If an acute infarct is suspected and documentation is needed, or if symptoms persist, consider evaluation with MRI to further characterize. Preliminary report rendered by Dr. Guy Barber immediately after the examination was completed. Leodan E Long DO CT ORDERABLES * (ABNORMAL) PT-INR (11/19/2017 11:39 PM SOLE SCRAPER) PT 9.4(L) 9.6 - 11.5 sec 11/20/2017 12:06 AM [facility] INR 0.91(L) 2 - 3 11/20/2017 12:06 AM [facility] Blood BLOOD SPECIMEN / Unknown Lab Venipuncture / Unknown 11/19/2017 11:39 PM SOLE SCRAPER 11/19/2017 11:45 PM SOLE SCRAPER Narrative [facility] - 11/20/2017 12:06 AM [facility] Recommended therapeutic INR ranges for Oral Anticoagulant Therapy: ??2.0-3.0 For prevention of Thrombosis or Embolism and treatment of Venous Thrombosis. 2.5- 3.5 for prevention of Recurrent Embolism or treatment of patients with Mechanical Prosthetic Heart Valves. Leodan Donnelly DO LAB - COAGULATION OR DERABLES Performing Organization Address [facility] Co de Phone Number [facility] [address] [place] [address] * (ABNORMAL) CK + CKMB PANEL (11/11/2017 7:21 AM [facility]) Only the most recent of2 resultswithin the time period is included. CK 188(H) 29 - 168 U/L 11/11/2017 8:22 AM [facility] CK-MB 1.2 0.0 - 6.6 ng/mL 11/11/2017 8:22 AM [facility] CK Index % 0.6 0.0 - 4.9 % 11/11/2017 8:22 AM [facility] Blood BLOOD SPECIMEN / Unknown Lab Venipuncture / Unknown 11/11/2017 7:21 AM SOLE SCRAPER 11/11/2017 7:46 AM [facility] Rizwan Rhoades MD LAB - CHEMISTRY BLOSSOM EDWARDS Performing Organization Address City/[facility]/ZIP Co de Phone Number [facility] [address] [place] [address] * ECHOCARDIOGRAM 2D WITH DOPPLER (11/11/2017 12:00 AM SOLE SCRAPER) 11/11/2017 Narrative [facility] - 11/11/2017 10:38 [place] [address] Transthoracic Echocardiogram 2D, M-mode, Doppler, and Color Doppler Patient: STEPHEN RIOS MR #: [id number] : 1985 Age: 32 years Gender: Female Study date: 11-Nov-2017 Status: Inpatient Room: [facility] Height: 68 in Weight: 159.3 lb BSA: 1.86 m-sq Referring Physician: ??PAM Mast Ordering Physician: ??Karin Sanders MD Car Runner: ??Antonio Osorio MD, [facility] Circuit Designer: ??Iliana Rodriguez [facility] Car Runner: ??Donal Porter DO, ALFREDOE Summary: - ??Clinical question: R07.9 Chest Pain, Unspecified Type - ??Left ventricle: Systolic function was normal. Ejection fraction was estimated to be 65 %. There were no regional wall motion abnormalities. Left ventricular diastolic function parameters were normal. - ??Aortic valve: The valve was trileaflet. Leaflets exhibited normal thickness and normal cuspal separation. There was no stenosis. There was no aortic valve regurgitation. - ??Mitral valve: Valve structure was normal. There was no evidence for stenosis. There was no regurgitation. - ??Left atrium: The atrium was mildly dilated. - ??Atrial septum: There were a few bubles appeared late on the left atrium with buble study. There is no evidence of ASD, PFO or VSD. 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 - ??Right ventricle: The size was normal. Systolic pressure was within the normal range. Estimated peak pressure was 18.7 mmHg. - ??Pulmonic valve: There was mild regurgitation. - ??Tricuspid valve: The valve structure was normal. There was no evidence for tricuspid stenosis. There was trace regurgitation. - ??Right atrium: Size was normal. - ??Pericardium: There was no pericardial effusion. Clinical question: R07.9 Chest Pain, Unspecified Type History: Cardiovascular history: Hypertension, Shortness of Breath, Pulmonary Arteriovenous Malformation Procedure: The procedure was performed at the bedside. This was a routine study. The transthoracic approach was used. The study included complete 2D imaging, M-mode, complete spectral Doppler, and color Doppler. The heart rate was 70 bpm, at the start of the study. Systolic blood pressure was 124 mmHg, at the start of the study. Diastolic blood pressure was 80 mmHg, at the start of the study. Images were obtained from the parasternal, apical, subcostal, and suprasternal notch acoustic windows. Intravenous contrast (agitated saline) was administered to evaluate pulmonary arteriovenous malformation shunting. Image quality was good. Left ventricle: Size was normal. Systolic function was normal. Ejection fraction was estimated to be 65 %. There were no regional wall motion abnormalities. Wall thickness was normal. Doppler: Left ventricular diastolic function parameters were normal. Aortic valve: The valve was trileaflet. Leaflets exhibited normal thickness and normal cuspal separation. Doppler: Transaortic velocity was within the normal range. There was no stenosis. There was no aortic valve regurgitation. Aorta: The root exhibited normal size. The ascending aorta was normal in size. The aortic arch was normal in size. Mitral valve: Valve structure was normal. There was normal leaflet separation. Doppler: The transmitral velocity was within the normal range. There was no evidence for stenosis. There was no regurgitation. Left atrium: The atrium was mildly dilated. Atrial septum: There were a few bubles appeared late on the left atrium with buble study. There is no evidence of ASD, PFO or VSD. 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 Pulmonary veins: The pulmonary veins were normal sized. Doppler: Doppler flow pattern was normal in the pulmonary vein(s). Right ventricle: The size was normal. Systolic function was normal. Doppler: Systolic pressure was within the normal range. Estimated peak pressure was 18.7 mmHg. Pulmonic valve: Leaflets exhibited normal thickness, no calcification, and normal cuspal separation. Doppler: The transpulmonic velocity was within the normal range. There was mild regurgitation. Tricuspid valve: The valve structure was normal. There was normal leaflet separation. Doppler: The transtricuspid velocity was within the normal range. There was no evidence for tricuspid stenosis. There was trace regurgitation. Right atrium: Size was normal. Systemic veins: IVC: The inferior vena cava was normal in size and course. Respirophasic changes were normal. Pericardium: There was no pericardial effusion. The pericardium was normal in appearance. System measurement tables 2D EF(Cube): 76.5 % ESV(Cube): 20.4 ml LVEF MOD A4C: 66.5 % SV(Cube): 66.4 ml SV(Teich): 61.1 ml IVSd: 0.9 cm LVEDV MOD A4C: 79.8 ml LVESV MOD A4C: 26.7 ml LVIDd: 4.4 cm LVIDs: 2.7 cm LVOT Diam: 2 cm LVPWd: 1 cm RVIDd: 2.7 cm EF Biplane: 63.8 % LAAs A2C: 19.1 cm2 LAAs A4C: 21.7 cm2 LAESV A-L A2C: 61.4 ml LAESV A-L A4C: 71.4 ml LAESV Index (A-L): 37.5 ml/m2 LAESV MOD A2C: 60.8 ml LAESV MOD A4C: 64.2 ml LAESV(A-L): 69.7 ml LALs A2C: 5.1 cm LALs A4C: 5.6 cm LVEDV MOD A2C: 67.5 ml LVEDV MOD BP: 78 ml LVEF MOD A2C: 56.7 % LVESV MOD A2C: 29.2 ml LVESV MOD BP: 28.2 ml LVLd A2C: 6.8 cm LVLs A2C: 6 cm SV MOD A2C: 38.2 ml CW AV VTI: 24 cm AV Vmax: 1.2 m/s AV maxP.6 mmHg AV meanP.9 mmHg PV Vmax: 0.8 m/s PV maxP.7 mmHg TR Vmax: 1.9 m/s TR maxP.7 mmHg PRend P.7 mmHg PRend Vmax: 1 m/s PW JAYLEN (VTI): 2.8 cm2 JAYLEN Vmax: 2.6 cm2 LVCI Dopp: 2.5 l/minm2 LVCO Dopp: 4.6 L/min LVOT VTI: 22.2 cm LVOT Vmax: 1 m/s LVOT Vmean: 0.7 m/s LVOT maxP.3 mmHg LVOT meanP.4 mmHg LVSI Dopp: 36.1 ml/m2 LVSV Dopp: 67.2 ml MV A Favian: 0.5 m/s MV Dec Wharton: 3.2 m/s2 MV DecT: 264.6 ms MV E Favian: 0.8 m/s MV E/A Ratio: 1.5 MV PHT: 77.4 ms MVA By PHT: 2.8 cm2 RAP: 5 mmHg RVSP: 18.7 mmHg HR: 67.9 BPM PAEDP: 8.7 mmHg All images and data generated for this procedure were personally reviewed by me. Prepared and Electronically Authenticated Donal Porter DO, MSEE 11-Nov-2017 22:38:05 Procedure Note Unknown, Provider, MD - 11/11/[address] [address] Transthoracic Echocardiogram 2D, M-mode, Doppler, and Color Doppler Patient: STEPHEN RIOS MR #: [id number] : 1985 Age: 32 years Gender: Female Study date: 11-Nov-2017 Status: Inpatient Room: [facility] Height: 68 in Weight: 159.3 lb BSA: 1.86 m-sq Referring Physician: PAM Mast Ordering Physician: Karin Sanders MD Car Runner: Antonio Osorio MD, [facility] Circuit Designer: Iliana Rodriguez RDCS Car Runner: Donal Porter DO, MSEE Summary: - Clinical question: R07.9 Chest Pain, Unspecified Type - Left ventricle: Systolic function was normal. Ejection fraction was estimated to be 65 %. There were no regional wall motion abnormalities.Left ventricular diastolic function parameters were normal. - Aortic valve: The valve was trileaflet. Leaflets exhibited normalthickness and normal cuspal separation. There was no stenosis. There was no aorticvalve regurgitation. - Mitral valve: Valve structure was normal. There was no evidence for stenosis. There was no regurgitation. - Left atrium: The atrium was mildly dilated. - Atrial septum: There were a few bubles appeared late on the left atrium with buble study. There is no evidence of ASD, PFO or VSD. Therefore, thesebubles must have came from the pulmonary AV malformation. - Right ventricle: The size was normal. Systolic pressure was withinthe normal range. Estimated peak pressure was 18.7 mmHg. - Pulmonic valve: There was mild regurgitation. - Tricuspid valve: The valve structure was normal. There was no evidencefor tricuspid stenosis. There was trace regurgitation. - Right atrium: Size was normal. - Pericardium: There was no pericardial effusion. Clinical question: R07.9 Chest Pain, Unspecified Type History: Cardiovascular history: Hypertension, Shortness of Breath,Pulmonary Arteriovenous Malformation Procedure: The procedure was performed at the bedside. This was aroutine study. The transthoracic approach was used. The study included [id number] imaging, M-mode, complete spectral Doppler, and color Doppler. The heartrate was 70 bpm, at the start of the study. Systolic blood pressure was 124mmHg, at the start of the study. Diastolic blood pressure was 80 mmHg, at the startof the study. Images were obtained from the parasternal, apical, subcostal,and suprasternal notch acoustic windows. Intravenous contrast (agitatedsaline) was administered to evaluate pulmonary arteriovenous malformation shunting.Image quality was good. Left ventricle: Size was normal. Systolic function was normal. Ejection fraction was estimated to be 65 %. There were no regional wall motion abnormalities. Wall thickness was normal. Doppler: Left ventriculardiastolic function parameters were normal. Aortic valve: The valve was trileaflet. Leaflets exhibited normalthickness and normal cuspal separation. Doppler: Transaortic velocity was within thenormal range. There was no stenosis. There was no aortic valve regurgitation. Aorta: The root exhibited normal size. The ascending aorta was normal insize. The aortic arch was normal in size. Mitral valve: Valve structure was normal. There was normal leafletseparation. Doppler: The transmitral velocity was within the normal range. There wasno evidence for stenosis. There was no regurgitation. Left atrium: The atrium was mildly dilated. Atrial septum: There were a few bubles appeared late on the left atriumwith buble study. There is no evidence of ASD, PFO or VSD. Therefore, thesebubles must have came from the pulmonary AV malformation. Pulmonary veins: The pulmonary veins were normal sized. Doppler: Dopplerflow pattern was normal in the pulmonary vein(s). Right ventricle: The size was normal. Systolic function was normal.Doppler: Systolic pressure was within the normal range. Estimated peak pressure was 18.7 mmHg. Pulmonic valve: Leaflets exhibited normal thickness, no calcification,and normal cuspal separation. Doppler: The transpulmonic velocity was withinthe normal range. There was mild regurgitation. Tricuspid valve: The valve structure was normal. There was normalleaflet separation. Doppler: The transtricuspid velocity was within the normalrange. There was no evidence for tricuspid stenosis. There was traceregurgitation. Right atrium: Size was normal. Systemic veins: IVC: The inferior vena cava was normal in size andcourse. Respirophasic changes were normal. Pericardium: There was no pericardial effusion. The pericardium was normalin appearance. System measurement tables 2D EF(Cube): 76.5 % ESV(Cube): 20.4 ml LVEF MOD A4C: 66.5 % SV(Cube): 66.4 ml SV(Teich): 61.1 ml IVSd: 0.9 cm LVEDV MOD A4C: 79.8 ml LVESV MOD A4C: 26.7 ml LVIDd: 4.4 cm LVIDs: 2.7 cm LVOT Diam: 2 cm LVPWd: 1 cm RVIDd: 2.7 cm EF Biplane: 63.8 % LAAs A2C: 19.1 cm2 LAAs A4C: 21.7 cm2 LAESV A-L A2C: 61.4 ml LAESV A-L A4C: 71.4 ml LAESV Index (A-L): 37.5 ml/m2 LAESV MOD A2C: 60.8 ml LAESV MOD A4C: 64.2 ml LAESV(A-L): 69.7 ml LALs A2C: 5.1 cm LALs A4C: 5.6 cm LVEDV MOD A2C: 67.5 ml LVEDV MOD BP: 78 ml LVEF MOD A2C: 56.7 % LVESV MOD A2C: 29.2 ml LVESV MOD BP: 28.2 ml LVLd A2C: 6.8 cm LVLs A2C: 6 cm SV MOD A2C: 38.2 ml CW AV VTI: 24 cm AV Vmax: 1.2 m/s AV maxP.6 mmHg AV meanP.9 mmHg PV Vmax: 0.8 m/s PV maxP.7 mmHg TR Vmax: 1.9 m/s TR maxP.7 mmHg PRend P.7 mmHg PRend Vmax: 1 m/s PW JAYLEN (VTI): 2.8 cm2 JAYLEN Vmax: 2.6 cm2 LVCI Dopp: 2.5 l/minm2 LVCO Dopp: 4.6 L/min LVOT VTI: 22.2 cm LVOT Vmax: 1 m/s LVOT Vmean: 0.7 m/s LVOT maxP.3 mmHg LVOT meanP.4 mmHg LVSI Dopp: 36.1 ml/m2 LVSV Dopp: 67.2 ml MV A Favian: 0.5 m/s MV Dec Wharton: 3.2 m/s2 MV DecT: 264.6 ms MV E Favian: 0.8 m/s MV E/A Ratio: 1.5 MV PHT: 77.4 ms MVA By PHT: 2.8 cm2 RAP: 5 mmHg RVSP: 18.7 mmHg HR: 67.9 BPM PAEDP: 8.7 mmHg All images and data generated for this procedure were personally reviewedby me. Prepared and Electronically Authenticated Donal PorterDO markos, OSBALDO 11-Nov-2017 22:38:05 Karin Sanders MD ECHO ORDERABLES [facility] * CT ANGIO CHEST [id number] (11/10/2017 6:08 PM SOLE SCRAPER) Anatomical Region Laterality Modality Chest Computed Tomogra phy 11/10/2017 6:24 PM SOLE SCRAPER Narrative 11/10/2017 6:28 PM SOLE SCRAPER IMAGING STUDIES: CT ANGIO CHEST DATE: 11/10/2017 6:11 PM COMPARISON STUDIES: No previous available . CLINICAL HISTORY: Chest pain, unspecified. Hypertension TECHNIQUE: Axial images were acquired from the thoracic inlet to the upper abdomen after the administration of intravenous contrast. Also, thin sections of the pulmonary arterial tree, sagittal and coronal reconstructions were evaluated. Radiation dose reduction technique was utilized. CONTRAST: 95 mL Omnipaque 300 IV. FINDINGS AND IMPRESSION: 1.Trachea and airway: No endotracheal lesions. 2.Pleural space: No pleural effusion or pneumothorax. 3.Lung parenchyma: Lungs are clear, no airspace disease. 4.Pulmonary AVM: Left lower lobe pulmonary nodule, superior segment, image 48, appears to communicate with an artery and vein, lucent center, diameter of 8.4 mm. Correlate clinically. Consider contrast-enhanced cardiac echocardiogram to further characterize. 5.Mediastinum: Residual thymus. Borderline left hilar lymphadenopathy 6.Axillary and supraclavicular soft tissues: No obvious lymphadenopathy. 7.Great vessels: No aneurysmal dilation. 8.Cardiac configuration: No cardiomegaly. 9.Pulmonary arterial tree: No obvious endoluminal filling defects are identified to suggest the presence of acute pulmonary embolism. 10.Within the partially visualized upper abdomen: No obvious focal lesions. 11.Bones: No significant bony abnormalities. Procedure Note Mitul Wei MD - 11/10/2017 IMAGING STUDIES: CT ANGIO CHEST DATE: 11/10/2017 6:11 PM COMPARISON STUDIES: No previous available . CLINICAL HISTORY: Chest pain, unspecified. Hypertension TECHNIQUE: Axial images were acquired from the thoracic inlet to the upper abdomen after the administration of intravenous contrast. Also, thin sections of the pulmonary arterial tree, sagittal and coronal reconstructions were evaluated. Radiation dose reduction technique was utilized. CONTRAST: 95 mL Omnipaque 300 IV. FINDINGS AND IMPRESSION: 1.Trachea and airway: No endotracheal lesions. 2.Pleural space: No pleural effusion or pneumothorax. 3.Lung parenchyma: Lungs are clear, no airspace disease. 4.Pulmonary AVM: Left lower lobe pulmonary nodule, superior segment, image 48, appears to communicate with an artery and vein, lucent center, diameter of 8.4 mm. Correlate clinically. Consider contrast-enhanced cardiac echocardiogram to further characterize. 5.Mediastinum: Residual thymus. Borderline left hilar lymphadenopathy 6.Axillary and supraclavicular soft tissues: No obvious lymphadenopathy. 7.Great vessels: No aneurysmal dilation. 8.Cardiac configuration: No cardiomegaly. 9.Pulmonary arterial tree: No obvious endoluminal filling defects are identified to suggest the presence of acute pulmonary embolism. 10.Within the partially visualized upper abdomen: No obvious focal lesions. 11.Bones: No significant bony abnormalities. Rizwan Rhoades MD CT ORDERABLES * CT ABDOMEN WO IV CONTRAST [id number] (11/06/2017 8:27 PM SOLE SCRAPER) Anatomical Region Laterality Modality Abdomen Computed Tomogra phy 11/07/2017 6:52 AM SOLE SCRAPER Narrative 11/07/2017 6:54 AM SOLE SCRAPER PROCEDURE: CT ABDOMEN NON IV CONTRAST ??11/07/2017 6:52 AM HISTORY: Recurrent and persistent hematuria with unspecified morphologic changes. FINDINGS AND IMPRESSION: Radiation dose reduction technique was utilized. COMPARISON: None. Clear lung bases. No intrahepatic ductal consolidation or mass lesions. Unremarkable spleen. Adrenal glands are normal. No solid or cystic pancreatic mass lesion. No gallstones. No evidence of nephrolithiasis or hydronephrosis or obstruction. Constipation. Normal appendix. Uterus is unremarkable. Bladder is normal. No free fluid or lymphadenopathy. Unremarkable osseous structures. Procedure Note Charles Zavala MD - 11/07/2017 PROCEDURE: CT ABDOMEN NON IV CONTRAST 11/07/2017 6:52 AM HISTORY: Recurrent and persistent hematuria with unspecified morphologic changes. FINDINGS AND IMPRESSION: Radiation dose reduction technique was utilized. COMPARISON: None. Clear lung bases. No intrahepatic ductal consolidation or mass lesions. Unremarkable spleen. Adrenal glands are normal. No solid or cystic pancreatic mass lesion. No gallstones. No evidence of nephrolithiasis or hydronephrosis or obstruction. Constipation. Normal appendix. Uterus is unremarkable. Bladder is normal. No free fluid or lymphadenopathy. Unremarkable osseous structures. Nell Ray PA-C CT ORDERABLES * HEMOGLOBIN A1C (10/22/2017 8:32 AM [facility]) Only the most recent of3 resultswithin the time period is included. Hemoglobin A1c 5.3 4.2 - 5.6 % 10/22/2017 1:04 PM [facility] Estimated Average Glucose 105 mg/dL 10/22/2017 1:04 PM [facility] Whole Blood BLOOD SPECIMEN WITH EDTA / Unknown Venipuncture / Unknown 10/22/2017 8:32 AM SOLE SCRAPER 10/22/2017 8:32 AM [facility] Narrative [facility] - 10/22/2017 1:04 PM [facility] The following cutoff levels are recommended by [place] [employer]. ?? A1c ??> 6.5% : considered as diabetes if two separate tests >6.5% or in an appropriate clinical setting. A1c ??5.7% - 6.4% : considered as prediabetes (suggest increased risk for diabetes and cardiovascular disease) Control target level: ??Should be individualized. ??< 7 ??for general (non- ) , ??< 8% less stringent goal, ??< 6.5 ??more stringent goal. Hemoglobin A1c measurements are used as an aid in the diagnosis of diabetic mellitus, as an aid to identify patients who may be at the risk for developing diabetic mellitus, and for the monitoring long-term blood glucose control in individuals with diabetes mellitus. ??This test should not replace glucose testing for patients with Type 1 diabetes, pediatric patients, or women. ??Falsely low HbA1c results may be observed in patients with clinical conditions that shorten erythrocyte life span or decrease mean erythrocyte age such as the presence of unstable hemoglobin variants, elevated hemoglobin F level ??or other causes of hemolytic anemia . ??HbA1c may not accurately reflect glycemic control when clinical conditions that affect erythrocyte survival are present. ??Severe Iron deficiency anemia may yield falsely high results. ??Hemoglobin A1c assay should not be used to diagnose or monitor diabetes in patients with malignancy, recent blood transfusion, chronic kidney or liver disease and interpretation. ?? This method may yield falsely low results when hemoglobin (HbF) exceeds 5% in the specimen. Nell Ray PA-C LAB - CHEMISTRY BLOSSOM EDWARDS Performing Organization Address [facility] de Phone Number [facility] [address] * (ABNORMAL) LIPID PROFILE (10/22/2017 8:32 AM SOLE SCRAPER) Only the most recent of3 resultswithin the time period is included. Cholesterol 206(H) <200 mg/dL 10/22/2017 1:49 PM [facility] Triglycerides 103 <150 mg/dL 10/22/2017 1:49 PM [facility] HDL Cholesterol 57 >40 mg/dL 7 1:49 PM [facility] Chol HDL Ratio 3.6 1.0 - 6.0 10/22/2017 1:49 PM [facility] LDL Calculated 128 65 - 130 mg/dL 10/22/2017 1:49 PM [facility] VLDL Calculated 21 10 - 40 mg/dL 10/22/2017 1:49 PM [facility] Blood BLOOD SPECIMEN / Unknown Venipuncture / Unknown 10/22/2017 8:32 AM SOLE SCRAPER 10/22/2017 8:32 AM [facility] - 10/22/2017 1:49 PM [facility] Lipid Profile Comment: CHOLESTEROL LEVEL..................CLINICAL INTERPRETATION LESS THAN 200 MG/DL..............................DESIRABLE 200-239 MG/DL..............................BORDERLINE HIGH GREATER THAN 240 MG/DL................................HIGH LDL-CHOLESTEROL LEVEL..............CLINICAL INTERPRETATION LESS THAN 100 MG/DL................................OPTIMAL 100-129 MG/DL.................................NEAR OPTIMAL GREATER THAN 160 MG/DL...........................HIGH RISK HDL RISK LEVEL GREATER THEN 60 MG/DL............................DECREASED 40-60 MG/DL........................................AVERAGE LESS THAN 40 MG/DL...............................INCREASED TRIGLYCERIDE LEVEL..................CLINICAL INTERPRETATION LESS THAN 150 MG/DL...............................DESIRABLE 150-199 MG/DL...............................BORDERLINE HIGH 200-499 MG/DL..........................................HIGH GREATER THAN 500..................................VERY HIGH THE NATIONAL CHOLESTEROL EDUCATION PROGRAM HAS SET THE ABOVE GUIDELINES (REFERANCE VALUES) FOR CHOLESTEROL AND HDL. RISK ASSOCIATED WITH CHOLESTEROL/HDL RATIOS RISK....................MALE RATIO.............FEMALE RATIO 1/2 AVERAGE.................<3.4.......................<3.3 LOW RISK.................... 4.0 ...................... 3.8 AVERAGE..................... 5.0 ...................... 4.5 2X AVERAGE.................. 9.5 ...................... 7.0 3X AVERAGE...................>23........................>11 Nell Ray PA-C LAB - CHEMISTRY BLOSSOM EDWARDS [facility] Organization Address City/State/[facility] Co de Phone Number [facility] [address] * HCG URINE QUALITATIVE - POINT OF CARE (AMB) SMGS (06/25/2017 2:49 PM CDT) Only the most recent of2 resultswithin the time period is included. HCG Qual Urine Negative HCG Urine Internal Control Present Urine URINE / Unknown 06/25/2017 2 :49 PM CDT Tory ALEGRE LAB - POINT OF CARE ORDERABLES * REF LAB-REQUEST PROBLEM (04/29/2017 3:28 PM CDT) Human papillomavirus Low Volume Rfx Negative Negative [facility] INSURANCE BILL Comment: This test detects fourteen high-risk HPV types (16,18,31,33,35,39,45, 51,52,56,58,59,66,68) without differentiation. 04/29/2017 3:28 PM CDT 04/30/2017 Narrative [facility] INSURANCE BILL - 05/07/2017 9:07 PM CDT Source.............Cervix LMP / Prev Treat...[id number] Other..............Oral Contraceptives No. of containers..01 CYTYC Thin Prep Vial Resulting Agency Comment [facility] [address] ??[facility] [phone] Tory ALEGRE LAB - CHEMISTRY BLOSSOM EDWARDS [facility] INSURANCE BILL [address] [place] [address] * PAP LB CT+GC JUAN +HPV HR DNA (04/29/2017 3:28 PM CDT) Diagnosis [facility] INSURANCE BILL Comment:NEGATIVE FOR INTRAEP ITHELIAL LESION AND MALIGNANCY. Specimen Adequacy [facility] INSURANCE BILL Comment: Satisfactory for evaluation. ??Endocervical and/or squamous metaplastic cells (endocervical component) are present. Clinician Provided ICD10 [facility] INSURANCE BILL Comment: Z11.51 Z01.419 Performed by [facility] INSURANCE BILL Comment:Azam Leung otechnologist (ASCP) Comment . [facility] INSURANCE BILL [...] 9:07 PM CDT Source.............Cervix LMP / Prev Treat...[id number] Other..............Oral Contraceptives No. of containers..01 CYTYC Thin Prep Vial Resulting Agency Comment [facility] [place] [address] [facility] ??[place] [phone] Tory Plata APRN-[employer]ICAL GOODS DRILLING MACHINE OPERATOR LAB - PATHOLOGY/CYTO LOGY ORDERABLES [facility] INSURANCE BILL [address] [place] [address] * INFLUENZA A+B ANTIGEN RAPID (01/24/2017 7:24 PM SOLE SCRAPER) Influenza A Antigen Negative Negative 01/24/2017 8:06 PM SOLE SCRAPER [facility] Influenza B Antigen Negative Negative 01/24/2017 8:06 PM SOLE SCRAPER [facility] Microbiology NASOPHARYNGEAL SWAB / Unknown 01/24/2017 7:24 PM SOLE SCRAPER 01/24/2017 7:33 PM SOLE SCRAPER Zahira Almonte Lainez LINER MACHINE OPERATOR-OPTICAL GOODS DRILLING MACHINE OPERATOR LAB - MICROBIO LOGY ORDERABLES Performing Organization Address [facility]/State/[facility] Co de Phone Number [facility] [address] * PAP SMEAR IG RFLX HPV ASCU (PO REF LAB) (04/26/2016 4:45 PM CDT) Only the most recent of3 resultswithin the time period is included. Diagnosis [facility] INSURANCE BILL Comment:NEGATIVE FOR INTRAEP ITHELIAL LESION AND MALIGNANCY. Specimen Adequacy [facility] INSURANCE BILL Comment: Satisfactory for evaluation. ??Endocervical and/or squamous metaplastic cells (endocervical component) are present. Clinician Provided ICD10 [facility] INSURANCE BILL Comment: Z01.419 Z30.41 Performed by [id number] INSURANCE BILL Comment:Daria Conde, Cytot echnologist (ASCP) Comment . [facility] INSURANCE BILL Note [id number] INSURANCE BILL Comment: The Pap smear is a screening test designed to aid in the detection of premalignant and malignant conditions of the uterine cervix. ??It is not a diagnostic procedure and should not be used as the sole means of detecting cervical cancer. ??Both false-positive and false-negative reports do occur. ? . IGLBP CPT Code Automation [facility] INSURANCE BILL Comment: This liquid based ThinPrep(R) pap test was screened with the use of an image guided system. Note [facility] INSURANCE BILL Comment: The HPV DNA reflex criteria were not met with this specimen result therefore, no HPV testing was performed. ? . Miscellaneous samples (specimen) PART OF UTERINE CERVIX / Unknown 04/26/2016 4:45 PM CDT 04/30/2016 12:17 AM CDT Narrative [facility] INSURANCE BILL - 05/01/2016 3:18 PM CDT Source.............Cervical;Endocervical LMP / Prev Treat...[id number];None Other..............Oral Contraceptives No. of containers..01 CYTYC Thin Prep Vial Resulting Agency Comment [facility] [place] [address] [facility] [place] [phone] Tory Plata LINER MACHINE OPERATOR-OPTICAL GOODS DRILLING MACHINE OPERATOR LAB - PATHOLOGY/CYTO LOGY ORDERABLES Performing Organization Address City/State/[facility] Co de Phone Number [facility] INSURANCE BILL [address] [place] [address] * BREAST LEFT LTD (12/28/2015 10:28 AM SOLE SCRAPER) Anatomical Region Laterality Modality Breast Left Ultrasound 12/28/2015 10:5 0 AM SOLE SCRAPER Narrative 12/28/2015 12:37 PM SOLE SCRAPER ULTRASOUND LEFT BREAST (12/28/2015) FINDINGS AND IMPRESSION: Left breast axilla shows a 2 x 7 mm lymph node of indeterminate nature. Left breast at 3 o'clock location 8 cm from the nipple, there is a 5 mm cyst. Left breast at 3 o'clock location 6 cm from the nipple, there is a 13 mm complex cyst with fluid level. There is also a second septated compartment posterior or deep to that larger cystic component that measures 7 mm. Left breast at 4 to 5 o'clock location, there is an additional cyst measuring 5 x 5 mm. None have concerning features. I would continue surveillance. If the symptoms persist unexplained, then the patient may benefit from seeing a breast surgeon to have the cyst aspirated or the lymph node biopsied. By ultrasound today, none of those areas have any concerning features. Procedure Note Eugenio Raya MD - 12/28/2015 ULTRASOUND LEFT BREAST (12/28/2015) FINDINGS AND IMPRESSION: Left breast axilla shows a 2 x 7 mm lymph node of indeterminate nature. Left breast at 3 o'clock location 8 cm from the nipple, there is a 5 mm cyst. Left breast at 3 o'clock location 6 cm from the nipple, there is a 13 mm complex cyst with fluid level. There is also a second septated compartment posterior or deep to that larger cystic component that measures 7 mm. Left breast at 4 to 5 o'clock location, there is an additional cyst measuring 5 x 5 mm. None have concerning features. I would continue surveillance. If the symptoms persist unexplained, then the patient may benefit from seeing a breast surgeon to have the cyst aspirated or the lymph node biopsied. By ultrasound today, none of those areas have any concerning features. Tory Plata LINER MACHINE OPERATOR-OPTICAL GOODS DRILLING MACHINE OPERATOR US ORDERABLES * [facility] DI[facility]NOST[facility] BILATERAL DIGITAL [id number] (12/28/2015 9:57 AM SOLE SCRAPER) Anatomical Region Laterality Modality Bilateral Mammography 12/28/2015 11:1 4 AM SOLE SCRAPER Impressions 12/28/2015 12:36 PM SOLE SCRAPER 1. Three separate left breast masses most suggestive of complex cysts. 2. Left axillary nodes. 3. Continued clinical surveillance advised of both areas. If the nodes fail to resolve, then breast surgical opinion is advised. 4. Normal right breast. RECOMMENDATION: 1. Continued clinical surveillance. The patient can come back for a mammogram in 1 year or at the discretion of a breast surgeon. 2. BI-RADS category 2. Continued followup advised of the palpable areas and the left axillary lymph node. A) ??A negative report should not delay a biopsy if a dominant or clinically suspicious mass is present. B) Adenosis and dense breasts may obscure an underlying neoplasm. C) Study interpreted with computer aided detection. MQSA BI-RADS Categories: Category 0 - needs additional imaging evaluation. Category 1 - negative. Category 2 - benign findings. Category 3 - probably benign findings, but short interval follow-up is recommended. Category 4 - suspicious abnormality and biopsy should be considered though the lesion may well be benign. Category 5 - highly suggestive of malignancy and appropriate action should be taken. ? Narrative 12/28/2015 12:36 PM SOLE SCRAPER DIGITAL BILATERAL SCREENING MAMMOGRAM WITH COMPUTER AIDED DETECTION AND 3-D TOMOSYNTHESIS (12/28/2015) COMPARISON: Baseline. ?? FINDINGS: Digital breast tomosynthesis was performed of right and left breast in the MLO projection with review of slab and plain images. Right breast shows no masses or abnormal calcifications. The left breast shows mass densities, at least 3; one of them is palpable and marked with a marker. These conform to complex cysts, especially the large one on the left. Incidental note is made of some axillary nodes on the left of indeterminate nature. Sonographically, the lymph node is indeterminate and the cysts are complex but simple appearing. No dominant solid mass with color flow. Tory Plata APRN-OPTICAL GOODS DRILLING MACHINE OPERATOR MAMMO ORDERABLES * XR HAND 3+ VW LEFT (09/03/2013 1:54 PM CDT) Anatomical Region Laterality Modality Wrist / Hand Radiographic [place] ging 09/03/2013 1:56 PM CDT Narrative 09/03/2013 2:00 PM CDT LEFT HAND 09/03/2013 INDICATION: Injury and pain. FINDINGS: Three views of the left hand are normal. Procedure Note Kirill Zaldivar MD - 09/03/2013 LEFT HAND 09/03/2013 INDICATION: Injury and pain. FINDINGS: Three views of the left hand are normal. Karin Sanders MD DIAGNOSTIC IMAGING O RDERABLES * XR WRIST 3 VIEWS LEFT (09/03/2013 1:54 PM CDT) Anatomical Region Laterality Modality Wrist / Hand Radiographic [place] ging 09/03/2013 2:10 PM CDT Narrative 09/03/2013 3:31 PM CDT LEFT WRIST: (THREE VIEWS) 09/03/2013 INDICATION: Trauma, pain. Three views are normal. Procedure Note Kirill Zaldivar MD - 09/03/2013 LEFT WRIST: (THREE VIEWS) 09/03/2013 INDICATION: Trauma, pain. Three views are normal. Karin Sanders MD DIAGNOSTIC IMAGING O RDERABLES * PAP IG CT+GC RFLX HPV ASCU (PO REF LAB) (04/16/2013 10:29 AM CDT) Diagnosis [facility] INSURANCE BILL Comment:NEGATIVE FOR INTRAEP ITHELIAL LESION AND MALIGNANCY. Specimen Adequacy [facility] INSURANCE BILL Comment:Satisfactory for juan luation. No endocervical component is identified. Clinician Provided ICD9 [facility] INSURANCE BILL Comment: V25.41 ; Surveillance of previously prescribed contraceptive pill 784.2 ; Swelling, mass, or lump in head and neck V72.31 ; Routine gynecological examination V74.5 ; Screening examination for venereal disease Performed by [id number] INSURANCE BILL Comment:Saniya Brooks, Cyto technologist (ASCP) Comment . [id number] INSURANCE BILL Note [facility] INSURANCE BILL Comment: The Pap smear is a screening test designed to aid in the detection of premalignant and malignant conditions of the uterine cervix. ??It is not a diagnostic procedure and should not be used as the sole means of detecting cervical cancer. ??Both false-positive and false-negative reports do occur. ? . IGLBP CPT Code Automation [facility] INSURANCE BILL Comment: This liquid based ThinPrep(R) pap test was screened with the use of an image guided system. Note [id number] INSURANCE BILL Comment: The HPV DNA reflex criteria were not met with this specimen result therefore, no HPV testing was performed. ? . Chlamydia trachomatis JUAN Negative Negative [facility] INSURANCE BILL GC DNA Probe Negative Negative [facility] INSURANCE BILL MICROSCOPIC CYTOLOGIC EXAMINATION OF SMEAR OF SPECIMEN FROM FEMALE GENITAL TRACT PREPARED USING PAPANICOLAOU TECHNIQUE / Unknown 04/16/2013 10:29 AM CDT 04/17/2013 3:54 AM CDT Narrative [facility] INSURANCE BILL - 04/21/2013 10:37 AM CDT Source.............Cervical;Endocervical LMP / Prev Treat...[id number] No. of containers..01 CYTYC Thin Prep Vial Resulting Agency Comment [facility] [place] [address] [facility] ??[place] [phone] Tory ALEGRE LAB - PATHOLOGY/CYTO LOGY ORDERABLES [facility] INSURANCE BILL Care Teams Painter Set Relationship Specialty Start Date End Date Nell Ray PA-C [facility] [place] [address] PCP - General 08/13/19 Tory Plata APRN-CNP Nurse Practitioner 04/16/13
--- OUTSIDE RECORDS SUMMARY | 2024-12-24 12:23 | XMS_ITS | Data Portability ---
Author Organization [facility] [place] Address [address] [place] [address] [place] [address] Care Team Providers Care Rn Psychiatric Name Role Phone SACHIN BARRONSEY Primary Care Provider Assessment Encounter Date Assessment Date Assessment LastModified by Organization Details LastModified Time 12/09/2024 12/09/2024 Annual gynecological exam performed. Patient will come back in a year unless there are new symptoms. Not available 12/09/2024 15:56:55 Plan of Treatment Reminders Order Date Submit Date Provider Last Modified By Organization Details Last Modified Time Details Appointments None recorded. Lab prolactin, serum 2024 025 [facility] (Lab), [address] [facility], [place], [address], 5 06:44:00 Referral None recorded. Procedures None recorded. Surgeries None recorded. Imaging MAMMO, diagnostic, digital, bilateral 2024 025 [facility], [address], [place], [address], 5 06:44:00 US, breast, unilateral - left breast lump around 4 oclock 2024 025 [facility], [address], [place], [address], 5 06:44:00 Medication Orders labetalol 200 mg tablet 2020 021 [facility], [address] [place], [address], 12:47:52 labetalol 200 mg tablet 2020 021 [facility], [address] [place] [address], [address], 5 15:59:06 Zoloft 100 mg tablet 2020 021 [facility], [address] [place] [address], [address], 14:34:44 Zoloft 50 mg tablet 2020 021 [facility], [facility] [place], [address], 14:34:48 Patient TargetsNo targets recorded. Patient InstructionsNo instructions recorded. Reason for Referral None Reported. Results Created Date Observation Date Name Description Value Unit Range Abnormal Flag Note LastModifiedBy Organization Detail LastModifiedTime 12/09/1912/09/2024 IMAGE GUIDE D PAP AND HPV REGAR DLESS image guided Pap, HPV regardless of Pap result SEE RESULT S BELOW CASE REPOR T: Cytol ogy Gynec ologi alina Repor t Case: [id number] Autho maria del rosario g Provi claudio: Marry Sena, PATRICK Colle cted: 12/09 1717 Order ing Locat ion: [place] [facility] Recei louie: 12/10 0255 First Scree n: Strut z, Willi am, CT Speci men: Scree rosalba Pap - Image d, Cervi x STATE MENT OF ADEQU ACY: Satis facto ry for evalu ation Trans forma tion zone compo nent prese nt ----- ----- ----- ----- ----- ----- ----- ----- ----- ----- ----- ----- ----- ----- ----- ----- ----- ---- FINAL DIAGN OSIS: Negat sherin for Intra epith elial Lesio primitivo or Marcos collins (NIL) . 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 COMME NT: This speci men was revie wed by a Cytot echno logis t and/o r Patho logis t (as indic ated in this repor t) after evalu ation using the Thinp rep Imagi ng Syste m. CLINI ALINA INFOR MATIO N: Menst rual Statu s: LMP (if appli cable ): Clini alina Histo ry/Pr eviou s Pap: Type of Neopl charito (if appli cable ): Signi fican t Clini alina Findi ngs: Other Histo ry: Hormo karan (if appli cable ): PAP EDUCA NILSON L NOTE: The Pap Test is a scree rosalba test with an inher ent false negat sherin rate. Liqui d-bas ed sampl ing may decre ase, but will not elimi jefferson, false negat sherin resul ts. A negat sherin resul t does not precl ude the prese nce and/o r devel opmen t of disea se, since the prese nce of abnor mal cells in the sampl e depen ds on the locat ion of the lesio n and sampl ing techn ique. Kong nued regul ar scree rosalba is the best metho d of cance r preve ntion . If repor miguelangel cytol ogic findi ng do not corre late with physi alina and/o r histo rical findi ngs, furth er inves tigat ion is recom jessi d, as clini tiffanie brenner nted. Not Available [facility] (Lab) [address], [place], [address], 12/16/2024 09:27:59 Result Notes None recorded. Problems Name Problem SNOMED Code Status Onset Date Resolution Date Notes Provider Name and Address Organization Details Recorded Time Pregnanc y 97910474 Completed 201912/08/2020 Linnea hernández, [facility] 16:54:00 Transien t hyperten nimisha of pregnanc y - delivere d 266779183 Completed h/o pih Linnea hernández, [facility] 16:53:54 History of depressi on 262631324 Completed Depressi on/Anx. - zoloft Linnea hernández, [facility] 16:53:54 Past pregnanc y history of gestatio nal diabetes mellitus 641390767 Completed Linnea hernández, [facility] 16:53:54 Marginal insertio n of umbilica l cord 66313974 Completed Serial growth LII u/s 03/20 9am Linnea hernández, [facility] 16:53:54 Intraute rine synechia e 535554239 Completed SSM Level II U/S 03/20 9AM Linnea hernández, [facility] 16:53:54 Pregnanc y 30059084 Completed 202005/10/2021 Linnea hernández, [facility] 16:54:00 growth restrict ion 17605598 Completed no f/u w/ mfm - in house ante testing Linnea hernández, [facility] 16:53:54 Footling breech presenta tion 597811719 Completed 202004/20/2021 Jagruti Kingston MD [address], [place], [address], [facility] 11:24:36 Footling breech presenta tion 901804501 Completed 2020 will schedule CS for 39 weeks Linnea hernández, [facility] 16:53:53 Normal pregnanc y in multigra siobhan 8563826095 86399 Completed 201812/08/2020 Encounte r for suprvsn of normal pregnanc y, third trimeste r;Practi ce ID: 0001 Glenda hernández, [facility] 14:07:50 Gestatio nal diabetes mellitus 95550268 Completed 201812/08/2020 Gestatio nal diabetes mellitus in pregnanc y, diet controll ed;Pract ice ID: 0001 Glenda hernández, [facility] 14:07:45 Gestatio n period, 36 weeks 01593416 Completed 201812/08/2020 36 weeks gestatio n of pregnanc y;Practi ce ID: 0001 Glenda hernández, [facility] 14:07:39 Gestatio n period, 37 weeks 59314992 Completed 201812/08/2020 37 weeks gestatio n of pregnanc y;Practi ce ID: 0001 Glenda hernández, [facility] 14:07:40 finding Completed 201812/08/2020 Matern care for oth or susp poor fetl grth, third tri, unsp;Pra ctice ID: 0001 Glenda hernández, [facility] 14:07:19 Complica tion of pregnanc y, childbir th and/or puerperi 301962259 Completed 201812/08/2020 Oth diseases and conditio ns compl preg/chl dbrth;Pr actice ID: 0001 Glenda hernández, [facility] 14:08:06 Gestatio n period, 25 weeks 90619838 Completed 201812/08/2020 25 weeks gestatio n of pregnanc y;Practi ce ID: 0001 Glenda hernández [facility] 14:07:20 Gestatio n period, 30 weeks 79536032 Completed 201812/08/2020 30 weeks gestatio n of pregnanc y;Practi ce ID: 0001 Glenda hernández, [facility] 14:07:31 Diet educatio n Completed 201812/08/2020 Dietary counseli ng and surveill ance;Pra ctice ID: 0001 Glenda hernández [facility] 14:07:13 Dietary manageme nt surveill ance Completed 201812/08/2020 Dietary counseli ng and surveill ance;Pra ctice ID: 0001 Glenda hernández [facility] 14:07:15 Gestatio n period, 31 weeks 18855573 Completed 201812/08/2020 31 weeks gestatio n of pregnanc y;Practi ce ID: 0001 Glenda hernández, [facility] 14:07:[address] Concept Completed 201812/08/2020 Matern care for abnlt fetl hrt rate or rhym, 3rd tri, unsp;Pra ctice ID: 0001 Glenda hernández, [facility] 14:08:03 Gestatio n period, 32 weeks 5802076 Completed 201812/08/2020 32 weeks gestatio n of pregnanc y;Practi ce ID: 0001 Glenda hernández, [facility] 14:07:34 Antenata l screenin g for malforma tion Completed 201812/08/2020 Encounte r for antenata l screenin g for malforma tions;Pr actice ID: 0001 Glenda Combs betty, [facility] 14:07:10 Finding of pharynx Completed 201812/08/2020 Acute pharyngi tis, unspecif ied;Prac kyile ID: 0001 Glenda Narvaez betty, [facility] 14:07:51 Gestatio n period, 33 weeks 40552406 Completed 201812/08/2020 33 weeks gestatio n of pregnanc y;Practi ce ID: 0001 Glenda Narvaez betty, [facility] 14:07:35 Gestatio n period, 34 weeks [id number] Completed 201812/08/2020 34 weeks gestatio n of pregnanc y;Practi ce ID: 0001 Glenda Brice betty, [facility] 14:07:37 Pregnanc y, childbir th and puerperi um finding Completed 201812/08/2020 Encntr for suprvsn of normal first preg, third trimeste r;Practi ce ID: 0001 Glenda hernández [facility] 14:07:54 Gestatio n period, 35 weeks 04241222 Completed 201812/08/2020 35 weeks gestatio n of pregnanc y;Practi ce ID: 0001 Glenda hernández [facility] 14:07:38 Antenata l screenin g Completed 201812/08/2020 Encounte r for antenata l screenin g for nuchal transluc ency;Pra ctice ID: 0001 Glenda hernández [facility] 14:07:06 Pregnanc y detectio n examinat ion Completed 201712/08/2020 Encounte r for pregnanc y test, result positive ;Practic e ID: 0001 Glenda hernández [facility] 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 14:08:05 Gestatio n period, 38 weeks [id number] Completed 201812/08/2020 38 weeks gestatio n of pregnanc y;Record ed Elsewher e: No Locat ion: [facility] S ource: [address] Cutter tristen: N Practi ce ID: 0001 Kye lable Time: 03:00:00 PM Glenda hernández [facility] 14:07:42 Elevated blood-pr essure reading without diagnosi s of hyperten nimisha 797378872 Completed 201812/08/2020 Elevated blood-pr essure reading w/o diagnosi s of hyperten nimisha;Rec orded Elsewher e: No Locat ion: [facility] S ource: [address] Cutter tristen: N Practi ce ID: 0001 Kye lable Time: 11:00:00 AM Glenda hernández, [facility] 14:07:16 Cantrell's palsy 897667410 Completed 201812/08/2020 Cantrell's palsy;Re corded Elsewher e: No Locat ion: [facility] S ource: [address] Cutter tristen: N Practi ce ID: 0001 Kye lable Time: 02:00:00 PM Glenda hernández, [facility] 14:07:[address] Concept Completed 201812/08/2020 Anxiety; Recorded Elsewher e: No Locat ion: [facility] S ource: [address] Cutter tristen: N Practi ce ID: 0001 Kye lable Time: 10:00:00 AM Glenda ehrnández, [facility] 14:08:02 Infectio n screenin g Completed 201712/08/2020 Encounte r for screenin g for oth infec/pa rastc diseases ;Recorde d Elsewher e: No Locat ion: [facility] S ource: [address] Cutter tristen: N Practi ce ID: 0001 Kye lable Time: 02:00:00 PM Glenda hernández [facility] 14:07:47 Gestatio nal diabetes mellitus in [facility] [id number] Completed 201812/08/2020 Gestatio nal diabetes in [facility], insulin controll ed;Pract ice ID: 0001 Glenda hernández, [facility] 14:07:46 Single live [id number] Completed 201812/08/2020 Single live ;Pr actice ID: 0001 Glenda hernández, [facility] 14:08:01 Gestatio n period, 39 weeks [id number] Completed 201812/08/2020 39 weeks gestatio n of pregnanc y;Practi ce ID: 0001 Glenda hernández, [facility] 14:07:43 Lochia finding Completed 201812/08/2020 Encounte r for routine postpart um follow-u p;Practi ce ID: 0001 Glenda hernández, [facility] 14:07:49 Pregnanc y-induce d hyperten nimisha Completed 201812/08/2020 Gestatio nal hyperten nimisha w/o signific ant proteinu vikki;Jozef rded Elsewher e: No Locat ion: [facility] S ource: [address] Cutter tristen: N Belindati ce ID: 0001 Kye lable Time: 10:00:00 AM [facility] 14:07:55 Antenata l screenin g for growth retardat ion Completed 201812/08/2020 Intraute rine growth restrict ion (IUGR)/s mall-for -dates;R ecorded Elsewher e: No Locat ion: [facility] S ource: [address] Cutter tristen: N Practi ce ID: 0001 Kye lable Time: 02:00:00 PM Glenda hernández [facility] 14:07:08 Rubella screenin g status [id number] Completed 201712/08/2020 Encounte r for antenata l screenin g, unspecif ied;Jozef rded Elsewher e: No Locat ion: [facility] S ource: [address] Cutter tristen: N Practi ce ID: 0001 Kye lable Time: 02:00:00 PM Glenda hernández [facility] 14:07:59 Problem Notes None recorded. Procedures Surgical History Date Name Laterality Status Provider Name and Address Organization Details Recorded Time 1 section completed Gracy Russell [facility] 12/09/2024 16:04:33 1 NST completed Jagruti Kingston MD [address], [place], [address], [facility] 04/13/2021 11:48:20 1 NST completed Jagruti Kingston MD [address], [place], [address], [facility] 03/30/2021 12:14:04 0 Date of Last Pap Smear completed Emily Pickering [facility] 12/20/2020 17:38:59 3 Dilation and Curettage completed [facility] 12/09/2024 16:05:04 Imaging Results None recorded. Procedure Notes None recorded. Medical Equipment None Reported. Allergies No known drug allergies Medications Name Sig Start Date Stop Date Status Note LastModified by Organization Details LastModified Time cyclobenz aprine 10 mg tablet TAKE 1 TABLET BY MOUTH THREE TIMES DAILY NEEDED FOR MUSCLE SPASM 10/11 completed Not Available Not Available Not Available buspirone 5 mg tablet take 1 tablet by oral route 2 times every day 06/15 completed Prescrib ed Elsewher e: No Locat ion: [facility] M odify By: taylery Celsa hui DateTime : 12/18/19 04:08:50 PM Not Available Not Available Not Available neomycin- polymyxin -hydrocor t 3.5 mg/mL-10, 000 unit/mL-1 % ear solution INSTILL 3 DROPS INTO LEFT EAR THREE TIMES DAILY FOR 10 DAYS 10/11 completed Not Available Not Available Not Available labetalol 200 mg tablet Take 1 tablet twice a day by oral route. 12/09 completed Not Available Not Available Not Available cetirizin e 10 mg tablet TAKE 1 TABLET BY MOUTH ONCE DAILY 10/11 completed Not Available Not Available Not Available azithromy jerome 250 mg tablet TAKE 2 TABLETS BY MOUTH ON DAY 1, AND THEN TAKE 1 TABLET BY MOUTH ONCE A DAY ON DAY 2 THROUGH DAY 5 12/09 completed Not Available Not Available Not Available ibuprofen 800 mg tablet 12/09 completed Not Available Not Available Not Available valacyclo vir 1 gram tablet take 1 tablet by oral route every 12 hours 04/26 completed Prescrib ed Elsewher e: No Locat ion: [facility] odify By: ike juan DateTime : 04/23/20 02:00:00 PM Not Available Not Available Not Available hydrocodo ne 5 mg-acetam inophen 325 mg tablet 12/09 completed Not Available Not Available Not Available ondansetr on HCl 4 mg tablet TAKE 1 TABLET BY MOUTH EVERY 6 TO 8 HOURS 05/09 completed Not Available Not Available Not Available sertralin e 100 mg tablet TAKE 1 & 1/2 (ONE & ONE-HALF ) TABLETS BY MOUTH ONCE DAILY active Not Available Not Available No t Available acyclovir 400 mg tablet take 1 tablet by oral route every 12 hours 06/15 completed Prescrib ed Elsewher e: No Locat ion: [facility] odify By: cecily Steen r DateTime : 04/26/20 09:58:50 AM Not Available Not Available Not Available tretinoin 0.05 % topical cream APPLY CREAM TOPICALL Y ONCE DAILY AT BEDTIME FOR ACNE 12/09 completed Not Available Not Available Not Available amoxicill in 500 mg tablet 12/09 completed Not Available Not Available Not Available dicyclomi ne 20 mg tablet TAKE 1 TABLET BY MOUTH 4 TIMES DAILY 12/09 completed Not Available Not Available Not Available Flagyl 500 mg tablet take 4 tablets by oral route all at once 06/15 completed Prescrib ed Elsewher e: No Locat ion: [facility] odify By: cecily Steen r DateTime : 11/05/20 18 01:00:00 PM Not Available Not Available Not Available amlodipin e 10 mg tablet TAKE 1 TABLET BY MOUTH ONCE DAILY IN THE MORNING 12/09 completed Not Available Not Available Not Available benzonata te 100 mg capsule TAKE 1 CAPSULE BY MOUTH THREE TIMES DAILY NEEDED 12/09 completed Not Available Not Available Not Available prednison e 50 mg tablet TAKE 1 TABLET BY MOUTH ONCE DAILY FOR 5 DAYS 10/11 completed Not Available Not Available Not Available ibuprofen 600 mg tablet TAKE 1 TABLET BY MOUTH 4 TIMES DAILY NEEDED FOR PAIN 10/11 completed Not Available Not Available Not Available methylpre dnisolone 4 mg tablets in a dose pack per pack directio ns 06/15 completed Prescrib ed Elsewher e: No Locat ion: [facility] odify By: [email or web address] Encounte r DateTime : 04/23/20 02:00:00 PM Not Available Not Available Not Available albuterol sulfate HFA 90 mcg/actua tion aerosol inhaler INHALE 2 PUFFS BY MOUTH EVERY 4 TO 6 HOURS NEEDED 12/09 completed Not Available Not Available Not Available fluticaso ne propionat e 50 mcg/actua tion nasal spray,renzo pension USE 2 SPRAY(S) IN EACH NOSTRIL TWICE DAILY 10/11 completed Not Available Not Available Not Available sertralin e 50 mg tablet TAKE 1 TABLET BY MOUTH ONCE DAILY active Not Available Not Available No t Available loratadin e 10 mg tablet TAKE 1 TABLET BY MOUTH ONCE DAILY 10/11 completed Not Available Not Available Not Available amoxicill in 875 mg-potass ium clavulana te 125 mg tablet TAKE 1 TABLET BY MOUTH EVERY 12 HOURS 10/11 completed Not Available Not Available Not Available cyclobenz aprine 5 mg tablet TAKE 1 TABLET BY MOUTH TWICE DAILY NEEDED FOR 14 DAYS 12/09 completed Not Available Not Available Not Available 12/20 completed Not Available Not Available Not Available One A Day [facility] 12/09 completed Not Available Not Available Not Available 28 mg-800 mcg tablet 01/31 completed Prescrib ed Elsewher e: Yes Loca tion: [facility] odify By: Encount er DateTime : 07/30/20 11:00:00 AM Not Available Not Available Not Available ID NOW COVID-19 Test Kit USE DIRECTED 12/09 completed Not Available Not Available Not Available Vitals Date Recorded Body height Body mass index (BMI) Body weight Systolic blood pressure Diastolic blood pressure Systolic blood pressure Diastolic blood pressure Systolic blood pressure Diastolic blood pressure Systolic blood pressure Diastolic blood pressure Provider Name and Address Organization Details Last Updated DateTime 1 165.1 cm 23.8 kg/m2 59717.7 1 g 163 mm[Hg] 113 mm[Hg] 175 mm[Hg] 107 mm[Hg] 160 mm[Hg] 110 mm[Hg] 150 mm[Hg] 90 mm[Hg] [facility] 12:46:14 Date Recorded Body height Body mass index (BMI) Body weight Systolic blood pressure Diastolic blood pressure Systolic blood pressure Diastolic blood pressure Provider Name and Address Organization Details Last Updated DateTime 1 165.1 cm 23.8 kg/m2 61264.7 1 g 124 mm[Hg] 85 mm[Hg] 120 mm[Hg] 86 mm[Hg] [facility] 12:33:39 Date Recorded Body height Body mass index (BMI) Body weight Systolic blood pressure Diastolic blood pressure Systolic blood pressure Diastolic blood pressure Systolic blood pressure Diastolic blood pressure Provider Name and Address Organization Details Last Updated DateTime 1 165.1 cm 23.8 kg/m2 94274.7 1 g 164 mm[Hg] 109 mm[Hg] 171 mm[Hg] 112 mm[Hg] 150 mm[Hg] 100 mm[Hg] [facility] 14:16:44 Date Recorded Body height Body mass index (BMI) Body weight Systolic blood pressure Diastolic blood pressure Systolic blood pressure Diastolic blood pressure Provider Name and Address Organization Details Last Updated DateTime 1 165.1 cm 23.8 kg/m2 79871.7 1 g 147 mm[Hg] 89 mm[Hg] 140 mm[Hg] 90 mm[Hg] [facility] 14:18:00 Date Recorded Body height Body mass index (BMI) Body weight Systolic blood pressure Diastolic blood pressure Provider Name and Address Organization Details Last Updated DateTime 12/09/2024 165.1 cm 20.4 kg/m2 99492.42 g 127 mm[Hg] 85 mm[Hg] Gracy Russell [facility] 15:58:59 Social History Question Answer Notes LastModified by Organizat ion Details LastModified Time Tobacco Smoking Status Current Every Day Smoker Albert Callejas betty [facility] 03/16/2021 10:32:08 What Is Your Level Of Alcohol Consumption? Occasional [email or web address] Information not available 12/20/2020 If You Are , What Was Your Level Of Alcohol Consumption Prior To ? Occasional [email or web address] Information not available 03/16/2021 Are You Blind Or Do You Have Difficulty Seeing? No [email or web address] Information not available 03/16/2021 What Is Your Level Of Caffeine Consumption? Moderate [email or web address] Information not available 01/31/2021 In The 14 Days Before Symptom Onset, Have You Had Close Contact With A Laboratory-confir med COVID-19 While That Case Was Ill? No [email or web address] Information not available 03/16/2021 In The 14 Days Before Symptom Onset, Have You Had Close Contact With A Person Who Is Under Investigation For COVID-19 While That Person Was Ill? No [email or web address] Information not available 03/16/2021 Have You Been To An Area Known To Be High Risk For COVID-19? No [email or web address] Information not available 03/16/2021 Are You Deaf Or Do You Have Serious Difficulty Hearing? No [email or web address] Information not available 03/16/2021 What Type Of Diet Are You Following? REGULAR [email or web address] Information not available 03/16/2021 Do You Or Have You Ever Used E-cigarettes Or Vape? Never Used Electronic Cigarettes [email or web address] Information not available 03/16/2021 How Many Days Of Moderate To Strenuous Exercise, Like A Brisk Walk, Did You Do In The Last 7 Days? 2 [email or web address] Information not available 03/16/2021 On Those Days That You Engage In Moderate To Strenuous Exercise, How Many Minutes, On Average, Do You Exercise? 25 [email or web address] Information not available 03/16/2021 What Is Your Current Pack Years? [email or web address] ars [email or web address] Information not available 03/16/2021 Have You Ever Been Counseled For Unhealthy Alcohol Use? No Information not available 03/16/2021 Do You Use Your Seat Belt Or Car Seat Routinely? Yes [email or web address] Information not available 03/16/2021 Do You Have Smoke And Carbon Monoxide Detectors In Your Home? Yes [email or web address] Information not available 03/16/2021 At What Age Did You Start Smoking Tobacco? 21 [email or web address] Information not available 12/20/2020 How Much Tobacco Do You Smoke? 0.25 PPD [email or web address] Information not available 12/20/2020 Do You Feel Stressed (tense, Restless, Nervous, Or Anxious, Or Unable To Sleep At Night)? [id number] Information not available 03/16/2021 Do You Use Any Illicit Or Recreational Drugs? No [email or web address] Information not available 12/20/2020 Do You Use Sunscreen Routinely? Yes [email or web address] Information not available 03/16/2021 Has Tobacco Cessation Counseling Been Provided? No Information not available 03/16/2021 How Many Years Have You Smoked Tobacco? 14 [email or web address] Information not available 12/20/2020 Do You Or Have You Ever Used Any Other Forms Of Tobacco Or Nicotine? No [email or web address] Information not available 03/16/2021 Sex: Unknown Functional Status Question Answer Note LastModified by Organization D etails LastModified Time Are you able to walk? YESWOREST [email or web address] Information not available 03/16/2021 What is your exercise level? Moderate [email or web address] Information not available 12/20/2020 Mental Status None recorded. Family History Relationship Description Onset Age of this Age Resolved Age Notes LastModified by Organization Details LastModified Time Sister Malignant tumor of breast half sister [email or web address] Not available 12/09/2024 16:46:43 Medical History Condition Response Other N Blood Transfusion N Dermatologic Disorders N Gestational Diabetes N Anxiety Disorder N Autoimmune disease N Arthritis N Polyps N Infertility N Acid Reflux (GERD) N Cancer N Varicosities N Stroke N Neurologic/Epilepsy N Fibromyalgia N Headaches N Kidney Disease N Heart Problems N Kidney or Bladder Problems N Eating Disorder N Art (IVF or FET) N Hepatitis/Liver Disease N No Past Medical History N Urinary Tract Infection N Asthma N Trauma/Violence N Thrombophilias N Allergies (Food, seasonal, environmental ) N Breast Cancer N Drug/Latex Allergies/Reactions N Lung Disease N Defects or Inherited Disease N Breast Problem N Hematologic disorders N Anesthesia Complications N History of STI N Deep Vein Thrombosis N Polycystic ovary syndrome N History of abnormal pap N Endometriosis N High Cholesterol Y Thyroid Problems N GI Problems N Anemia N Psychiatric Illness N Ovarian Cancer N Diabetes N Pulmonary (TB, Asthma) N Eczema N Abuse/Domestic Violence N Depression/ depression N Heart Disease N Pre-Eclampsia N Hypertension Y Osteoporosis N Gynecological History Statement/Question Response Abnormal Pap N Date of Last Mammogram Flow Moderate Date of LMP 11/23/2024 Was last menstrual period normal Y STIs/STDs Y HPV Vaccine N Duration of Flow (days) 4 Current Control Method Condoms Age at First Child 23 Are cycles usually normal Y Date of Last Colonoscopy Frequency of Cycle (Q days) 28 Sexually Active? Y Menses Monthly Y Age of first menstrual cycle 11 Date of Last Pap Smear 10/11/2020 Sexual Problems? N Desired Control Method None LMP Approximate Obstetrics History GPAL:G 4 P 3 0 1 3 Type Value Full Term 3 Spontaneous 1 Living 3 Total 4 Past Encounters Encounter ID Performer Location Encounter Start Date Encounter Closed Date Diagnosis/Indication Diagnosis SNOMED-CT Code Diagnosis ICD10 Code Diagnosis Note [id number] Angelique Hamlin [facility] [address] [address] 10/11/2020 11:33:30 10/12/2020 16:01:32 Amenorrhea 34908350 N91.2 Gynecologi c examination 46070459 Z01.419 test positive 058379114 Z32.01 Risk factors addressed: Tobacco Cessation, Safe Sexual Practices, environmen coy, work hazards, travel restrictio ns, seat belt use. Pt is working on decreasing tobacco use. Very occasional mj use. Discussed risks and encouraged discontinu ation. Pt verbalized understand ing. Eat a health well balanced diet, avoid alcohol, tobacco, and street drugs. Engage in daily low impact exercise, avoid temperatur e extremes, and cat, rodent, and bird feces.Avoi d travel to areas where zika virus is a concern.Fi rst look offered to patient. Pt desires NIPT. Will do at 12 week visit. Sequential Screen handout given and discussed with patient. ildbirth classes recommende d.New OB sheet given. Will start baby aspirin daily d/t history of ghtn. Plan 1 hour gtt at 24 weeks d/t history of gdm. If previous , counseling .Pt verbalizes that she understand s the importance of above instructio ns.All questions were answered. Patient reminded to have annual well woman examinatio n and address [facility] . [id number] [facility] [address],[place] [address] 10/11/2020 11:33:58 10/12/2020 10:32:[id number] [facility] [address],[place] [address] 11/08/2020 14:29:25 11/08/2020 15:02:54 screening [id number] Z36.82 Z36.89 Z36.0 [id number] Nando Pollock MD [facility] [address],[place] [address] 11/09/2020 10:05:38 11/09/2020 11:15:26 Routine care 971183461 Z34.81 [id number] Neeta Rubi [facility] [address],[place] [address] 12/20/2020 17:01:58 12/20/2020 18:06:56 Routine care 564691907 Z34.92 [id number] [facility] [address],[place] [address] 12/22/2020 10:09:26 12/22/2020 11:33:09 screening for malformation 492705903 Z36.[id number] [facility] [address],[place] [address] 01/29/2021 14:05:21 01/29/2021 15:10:18 screening 382756396 Z36.2 O99.891 Z3A.25 [id number] Angelique Hamlin [facility] [address],[place] [address] 01/31/2021 15:19:30 01/31/2021 17:01:23 Routine care 208022077 Z34.92 [id number] Angelique Hamlin [facility] [address],[place] [address] 02/21/2021 09:49:06 02/21/2021 10:25:04 Routine care 059973049 Z34.92 [id number] Nando Pollock MD [facility] [address],[place] [address] 03/08/2021 15:40:34 03/08/2021 16:22:35 Routine care 302515860 Z34.81 [id number] Neeta Rubi [facility] [address],[place] [address] 03/16/2021 10:32:37 03/16/2021 12:20:25 Routine care 938972073 Z34.92 Anxiety 12126576 F41.9 Nausea 184484557 R11.0 [id number] Linnea Lima [facility] [address],[place] [address] 03/16/2021 10:31:56 03/16/2021 11:26:42 growth restriction 53997640 O35.8XX9 [id number] [facility] [address],[place] [address] 03/16/2021 10:32:18 03/16/2021 11:44:35 Small for gestational age fetus 942602561 O36.5930 Z3A.31 [id number] Linnea Lima [facility] [address],[place] [address] 03/23/2021 10:30:06 03/23/2021 11:46:03 growth restriction 82217020 O35.8XX9 [id number] Nando Pollock MD [facility] [address],[place] [address] 03/23/2021 10:30:40 03/23/2021 12:32:50 Routine care 335993722 Z34.81 [id number] [facility] [address],[place] [address] 03/27/2021 10:47:13 03/27/2021 12:05:25 Small for gestational age fetus 044112680 O36.5930 Z3A.33 [id number] [facility] [address],[place] [address] 03/27/2021 10:47:34 03/27/2021 11:50:21 growth restriction 02550260 O35.8XX9 [id number] [facility] [address],[place] [address] 03/30/2021 10:30:45 03/30/2021 11:34:46 growth restriction 81090312 O35.8XX9 [id number] Jagruti Kingston MD [facility] [address],[place] [address] 03/30/2021 10:31:05 03/30/2021 12:14:33 growth restriction 04944416 O35.8XX9 Reduced fe coy movement 190298173 O36.8199 [id number] Selina [facility] [address],[place] [address] 03/30/2021 11:16:52 03/30/2021 12:13:54 condition affecting obstetrical care of mother 157307352 O36.8330 [id number] [facility] [address],[place] [address] 04/03/2021 11:30:24 04/03/2021 15:35:12 growth restriction 36832424 O35.8XX9 [id number] Minerva Mccray [facility] [address],[place] [address] 04/03/2021 11:31:04 04/03/2021 14:40:23 Poor growth affecting management 122253922 O36.5930 Z3A.34 [id number] Nando Pollock MD [facility] [address],[place] [address] 04/03/2021 11:31:23 04/03/2021 14:39:31 Routine care 865105693 Z34.81 [id number] [facility] [address],[place] [address] 04/06/2021 10:26:06 04/06/2021 11:22:18 growth restriction 53430318 O35.8XX9 [id number] Minerva Mccray [facility] [address],[place] [address] 04/10/2021 10:43:16 04/10/2021 11:35:12 Poor growth affecting management 792507508 O36.5930 Z3A.35 [id number] [facility] [address],[place] [address] 04/10/2021 10:43:31 04/10/2021 12:48:00 growth restriction 32997861 O35.8XX9 [id number] Jagruti Kingston MD [facility] [address],[place] [address] 04/13/2021 10:46:27 04/13/2021 12:00:59 growth restriction 92145016 O35.8XX9 [id number] [facility] [address],[place] [address] 04/13/2021 10:47:10 04/13/2021 11:34:06 growth restriction 29781875 O35.8XX9 [id number] Jessica [facility] [address],[place] [address] 04/17/2021 11:12:50 04/17/2021 12:17:03 Small for gestational age fetus 002855626 O36.5930 Z3A.36 [id number] [facility] [address],[place] [address] 04/17/2021 11:13:06 04/17/2021 12:40:13 growth restriction 58235460 O35.8XX9 [id number] Nando Pollock MD [facility] [address],[place] [address] 04/17/2021 11:13:33 04/17/2021 17:23:10 Routine care 049992915 Z34.81 [id number] [facility] [address],[place] [address] 04/20/2021 10:09:30 04/20/2021 11:00:53 growth restriction 41306205 O35.8XX9 [id number] [facility] [address],[place] [address] 04/20/2021 10:10:20 04/20/2021 11:35:31 Small for gestational age fetus 790859189 O36.5930 Z3A.36 [id number] [facility] [address],[place] [address] 04/24/2021 11:44:14 04/24/2021 13:27:47 growth restriction 98871174 O35.8XX9 [id number] [facility] [address],[place] [address] 04/27/2021 10:45:46 04/27/2021 11:38:16 growth restriction [id number] O35.8XX9 [id number] Jagruti Kingston MD [facility] [address],[place] [address] 04/27/2021 10:46:22 04/27/2021 12:11:14 growth restriction 65468398 O35.8XX9 Footling b reech presentation [id number] O32.8XX9 [id number] [facility] [address],[place] [address] 04/27/2021 10:46:33 04/27/2021 12:10:52 Poor growth affecting management 635821551 O36.5930 Z3A.37 [id number] [facility] [address],[place] [address] 05/01/2021 10:44:30 05/01/2021 15:31:22 growth restriction 05226120 O35.8XX9 [id number] [facility] [address],[place] [address] 05/01/2021 10:44:59 05/01/2021 12:21:25 Small for gestational age fetus 917160765 O36.5930 Z3A.38 [id number] Nando Pollock MD [facility] [address],[place] [address] 05/01/2021 12:00:59 05/01/2021 13:18:57 Routine care 883763007 Z34.81 [id number] Nando Pollock MD [facility] [address],[place] [address] 05/03/2021 09:47:18 05/03/2021 09:51:04 [id number] Nando Pollock MD [facility] [address],[place] [address] 05/09/2021 16:05:50 05/09/2021 16:46:13 -induced hypertension 50201117 O13.9 This patient is a 36-year-ol d female presents for postop follow-up. She is 1 week postop from a delivery. Patient has headache. Is a throbbing unilateral headache. She has elevated blood pressures. We have agreed to send her to Labor and delivery for monitoring . She has an incision that is clean dry and intact. That has some numbness. She denies any nausea, vomiting, fever, chills. She denies any vision changes or epigastric pain. She denied worsening swelling. [id number] MD Magaly Duran [address],[place] [address] 05/16/2021 15:09:58 05/16/2021 16:33:47 care 678279601 Z39.2 This patient is a 36-year-ol d female who presents for postop follow-up. She is 1 week postop from a delivery. Her incision is clean dry and intact. She has no complaints . Her bleeding is minimal. She denies any nausea, vomiting, fever, chills. She denies any chest pain or shortness of breath. Her baby is doing well. Her mood is good. [id number] MD Magaly Duran [address],[place] [address] 06/07/2021 12:02:46 06/07/2021 12:48:39 care 544988103 Z39.2 This patient is a 36-year-ol d who presents for post follow-up. She is 4 weeks from a delivery. She is breast feeding, she has not had sex, she is still bleeding, her baby is doing well. Patient's mood is of a little concern. She does have some anxiety. She was asked to contact us if it persists or worsens. Blood pressure is elevated. Considerin g treatment. -induced hypertension [id number] 9100 O13.9 [id number] Nando Pollock MD [facility] [address],[place] [address] 06/15/2021 12:23:45 06/15/2021 14:41:49 -induced hypertension 40611506 O13.9 This patient is a 36-year-ol d female presents for follow-up on blood pressure. Her blood pressures were well controlled . She follows that at home. She is on 200 of labetalol t.i.d.. We agreed to change that to 100 mg b.i.d.. She will follow her blood pressures and if they persist in being normal she will discontinu e the 100 mg of labetalol. She is going to check in with her primary care doctor . [id number] Nando Pollock MD [facility] [address],[place] [address] 07/05/2021 14:10:06 07/05/2021 14:46:53 Mixed anxiety and depressive disorder 994300310 F41.8 this patient is a 36-year-ol d female who presents for follow-up on blood pressure concerns and depression . She continues to have problems with anxiety and depression . She scored highly on her E PDS. She states that anxiety is become more of a problem. She feels overwhelme d. Talked about medication s and breast-fee ding. She has been taking sertraline . Is not recommende d at a 2nd agent breast-fee ding. We agreed to increase sertraline to 150. we are going to increase her labetalol back to to are mg with. We spent more than 15 minutes face-to-fa ce discussing various aspects of the treatment of anxiety and - induced hypertensi on. She will follow-up in 1 month. - induced hypertension 45225241 O13.9 [id number] Nando Pollock MD [facility] [address] [address] 08/24/2021 14:10:25 08/24/2021 14:39:36 Mixed anxiety and depressive disorder 021724592 F41.8 This is a 36-year-ol d female with anxiety depression . She is being treated with 150 of Zoloft daily. She was not taking the Zoloft as instructed . She discontinu ed while she was sick with COVID. And then she was taking it twice a day. She was instructed to take Zoloft only 1 today. She feels like she is doing well. Despite her scoring on the EDPS survey she states she is doing very well. She was to continue on the current dose of medication . She denies any side effects. She reports significan t improvemen t in her mood and her coping. She will return in 3 months. [id number] RAMO Darnell [facility] [address] [address] 12/09/2024 15:46:34 12/09/2024 17:05:45 Gynecologic examination 00563440 Z01.419 [facility] - condomsPap - done todaySTI screen - declinedRo utine labs - UTD/PCPsmo swati cessation encouraged RTC in 1 yr or sooner if needed It is strongly advised to have an annual flu shot and up can obtain at most pharmacies . If you have not had a TDap shot in the last 10 years you should obtain one as well. Discussed with patient & provided with informatio n regarding the HPV vaccine if applicable . Encourage safe sexual practices, to use condoms and limit partners if not already in a monogamous relationsh ip. Do monthly self breast exams. BRCA testing is now available for patients with strong genetic history of female cancer. If interested contact the office. Engage in regular exercise. Avoid tobacco and illicit drugs. This lifestyle behavior pattern will lead to less health conditions and longer life span. If BMI greater than 25 dietary consult advised. Questions answered. Breast lump 13535219 N63 .0 bilateral diagnostic mammogram with left breast u/s orderedenc ouraged to schedulege netic testing discussed , handout given [facility] 135262 N64.52 Health Concerns Section Related Observation LastModified by Organization Detai ls LastModified Time None Recorded Concern Status LastModified by Organization Details LastModified Time None Recorded Advance Directives Directive None Recorded Payers Encounter Date Sequence Insurance Name Policy Number Policy Ennis Covered Member ID Ennis Member ID Guarantor Name 06/07/2021 1 [facility] ON OR AFTER 05/24/21 (MEDICAID REPLACEMENT - HMO) Macarena Lawsonnes [id number] 06/15/2021 1 [facility] ON OR AFTER 05/24/21 (MEDICAID REPLACEMENT - HMO) Macarena Blanca [id number] 07/05/2021 1 [facility] ON OR AFTER 05/24/21 (MEDICAID REPLACEMENT - HMO) Macarena Blanca [id number] 08/24/2021 1 [facility] ON OR AFTER 05/24/21 (MEDICAID REPLACEMENT - HMO) Macarena Blanca [id number] 12/09/2024 1 [facility] ON OR AFTER 05/24/21 (MEDICAID REPLACEMENT - HMO) Macarena Blanca [id number] Notes Date Note Type Note Provider Name and Address Organization Details Recorded Time 06/07/2021 text/html VisitReported bypatient.Quality:pr imary C/S Context:feeding choice: breast Associated Symptoms:no mastitis;abnormal bleeding Contraception Plan:declines contraception Nando Pollock MD [address], [place], [address], [facility] 06/07/2021 12:48:04 06/15/2021 text/html This patient is a 36-year-old female presents for follow-up on blood pressure. Her blood pressures were well controlled. She follows that at home. She is on 200 of labetalol t.i.d.. We agreed to change that to 100 mg b.i.d.. She will follow her blood pressures and if they persist in being normal she will discontinue the 100 mg of labetalol. She is going to check in with her primary care doctor . Nando Pollock MD [address], [place], [address], [facility] 06/15/2021 14:35:20 07/05/2021 text/html this patient is a 36-year-old female who presents for follow-up on blood pressure concerns and depression. She continues to have problems with anxiety and depression. She scored highly on her E PDS. She states that anxiety is become more of a problem. She feels overwhelmed. Talked about medications and breast-feeding. She has been taking sertraline. Is not recommended at a 2nd agent breast-feeding. We agreed to increase sertraline to 150. we are going to increase her labetalol back to to are mg with. We spent more than 15 minutes [id number] discussing various aspects of the treatment of anxiety and -induced hypertension. She will follow-up in 1 month. Nando Pollock MD [address], [place], [address], [facility] 07/05/2021 14:41:39 08/24/2021 text/html This is a 36-year-old female with anxiety depression. She is being treated with 150 of Zoloft daily. She was not taking the Zoloft as instructed. She discontinued while she was sick with COVID. And then she was taking it twice a day. She was instructed to take Zoloft only 1 today. She feels like she is doing well. Despite her scoring on the EDPS survey she states she is doing very well. She was to continue on the current dose of medication. She denies any side effects. She reports significant improvement in her mood and her coping. She will return in 3 months. Nando Pollock MD [address], [place], [address], [facility] 08/24/2021 14:32:52 12/09/2024 text/html Annual GYNReport ed bypatient.Menstrual cycle:Normal menses Urinary symptoms:No hematuria; No incontinence Vulva:No genital lesion Vagina:Normal vaginal discharge Breast:Breast pain;Breast lump;Nipple discharge Current Contraception:Satisf ied with current contraception; Condoms Sexual complaints:No sexual complaints; No pain during intercourse; Normal libido Menopausal Symptoms:No menopausal symptoms; Normal vaginal lubrication Psychological symptoms:No depression; No anxiety; No PMDD Preventive measures:Encourage self breast examination; Encourage regular exercise; Encourage no tobacco use; Encourage regular mammograms starting age 40Notes:39yo wweno h/o abnormal papslast pap 2020BC - condomstobacco smokerleft breast lump, noticed 2-3 weeks ago. Tender at times. Nipple discharge clear/milky with breast expression since last breastfed 2 yrs ago.half sister with BC diagnosed at age 46 Marry Sena, [facility] [address], [place], [address], [facility] 12/09/2024 16:46:48 OBGyn Episode Ob Episode Information Episode Created Date Number of Fetuses Patient Bloodtype Patient rh Status Prepregnancy Weight lbs Domestic Partner Domestic Partner Phone Father Name Fuel Operator Status 10/11/20 20 1 CLOSED Fetus Data First Name Last Name Admitted to NICU Weight (g) Sex Living Outcome Pediatric Complications Fetus ID Race Codes Race Delivery Type 3288.54 [id number] Vaginal Delivery Dank Calculation Initial Dank Date Initial Exam Date Initial Exam Provider Initial Ultrasound Date Last Menstrual Period Date Ultra Sound Weeks Gestation 0 Eighteen To Twenty Week Dank Update Ultra Sound Date Fundal Height At Umbil Quickening Date Ultra Sound Latest Weeks Gestation Final Dank Confirmed By Final Dank Confirmed Date Final Dank Date Ultra Sound Latest Days Gestation 0 0 Menstrual History Last Menstrual Date Menses Monthly On Bcp Conception Prior Menses Frequency Hcg Plus Date Menarche Onset Age Delivery Information Delivery Date Delivery Type Labor Anesthesia Weeks Gestation Incision Type Labor Labor Length Hrs Delivered By Post Complications Tubal Sterilization Discharge Date Comments 9 40 Greg Discharge Information Feeding Method Contraceptive Method Maternal HG B and HCT Levels Ob Episode Information Episode Created Date Number of Fetuses Patient Bloodtype Patient rh Status Prepregnancy Weight lbs Domestic Partner Domestic Partner Phone Father Name Fuel Operator Status 10/11/20 20 1 CLOSED Fetus Data First Name Last Name Admitted to NICU Weight (g) Sex Living Outcome Pediatric Complications Fetus ID Race Codes Race Delivery Type 2778.25 [id number] Vaginal Delivery Dank Calculation Initial Dank Date Initial Exam Date Initial Exam Provider Initial Ultrasound Date Last Menstrual Period Date Ultra Sound Weeks Gestation 0 Eighteen To Twenty Week Dank Update Ultra Sound Date Fundal Height At Umbil Quickening Date Ultra Sound Latest Weeks Gestation Final Dank Confirmed By Final Dank Confirmed Date Final Dank Date Ultra Sound Latest Days Gestation 0 0 Menstrual History Last Menstrual Date Menses Monthly On Bcp Conception Prior Menses Frequency Hcg Plus Date Menarche Onset Age Delivery Information Delivery Date Delivery Type Labor Anesthesia Weeks Gestation Incision Type Labor Labor Length Hrs Delivered By Post Complications Tubal Sterilization Discharge Date Comments 9 39 GDM, GHT N Discharge Information Feeding Method Contraceptive Method Maternal HG B and HCT Levels Ob Episode Information Episode Created Date Number of Fetuses Patient Bloodtype Patient rh Status Prepregnancy Weight lbs Domestic Partner Domestic Partner Phone Father Name Fuel Operator Status 11/09/20 20 1 CLOSED Fetus Data First Name Last Name Admitted to NICU Weight (g) Sex Living Outcome Pediatric Complications Fetus ID Race Codes Race Delivery Type , Spontane ous [id number] Dank Calculation Initial Dank Date Initial Exam Date Initial Exam Provider Initial Ultrasound Date Last Menstrual Period Date Ultra Sound Weeks Gestation 0 Eighteen To Twenty Week Dank Update Ultra Sound Date Fundal Height At Umbil Quickening Date Ultra Sound Latest Weeks Gestation Final Dank Confirmed By Final Dank Confirmed Date Final Dank Date Ultra Sound Latest Days Gestation 0 0 Menstrual History Last Menstrual Date Menses Monthly On Bcp Conception Prior Menses Frequency Hcg Plus Date Menarche Onset Age Delivery Information Delivery Date Delivery Type Labor Anesthesia Weeks Gestation Incision Type Labor Labor Length Hrs Delivered By Post Complications Tubal Sterilization Discharge Date Comments 3 Discharge Information Feeding Method Contraceptive Method Maternal HG B and HCT Levels Ob Episode Information Episode Created Date Number of Fetuses Patient Bloodtype Patient rh Status Prepregnancy Weight lbs Domestic Partner Domestic Partner Phone Father Name Fuel Operator Status 11/09/20 20 1 O Positive 150 CLOSED Fetus Data First Name Last Name Admitted to NICU Weight (g) Sex Living Outcome Pediatric Complications Fetus ID Race Codes Race Delivery Type 2353.00 85 F true Full Term Breech Presentation [id number] Primary Problems Problem 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 SSM Level II U/S 03/20 9AM Marginal insertion of umbilical cord [id number] Serial growth LII u/s 03/20 9am Footling breech presentation 04/27/2021 [id number] will schedule C S for 39 weeks growth restriction [id number] no f/u w/ mfm - in house ante testing Dank Calculation Initial Dank Date Initial Exam Date Initial Exam Provider Initial Ultrasound Date Last Menstrual Period Date Ultra Sound Weeks Gestation 05/08/2021 11/09/2020 10/11/2020 08/01/2020 9 Eighteen To Twenty Week Dank Update Ultra Sound Date Fundal Height At Umbil Quickening Date Ultra Sound Latest Weeks Gestation Final Dank Confirmed By Final Dank Confirmed Date Final Dank Date Ultra Sound Latest Days Gestation 0 [email or web address] 11/09/2020 05/13/20 21 0 Pre-patrick Flowsheet Flowsheet Date 10/11/2020 Lewis Score Blood Edema Fundus Height Fundus Units Glucose Ketones Leukocytes Nitrite Labor Signs Protein Cervic Dilation Cervic Effacement Cervic Station Type Weight in lbs Pre/Post Dialysis Refused BP Diastolic BP Location Tested BP Systolic BP Type Fetus Heart Rate Present Fetus Movement Comments Flowsheet Date 11/09/2020 Lewis Score Blood Edema Fundus Height Fundus Units Glucose Ketones Leukocytes Nitrite Labor Signs Protein Cervic Dilation Cervic Effacement Cervic Station Type Weight in lbs Pre/Post Dialysis Refused Weight 155.88623549341 BP Diastolic BP Location Tested BP Systolic BP Type 80 R arm 115 sitting Fetus Heart Rate Present Fetus Movement Comments this patient is a 4 para 2011 at 13 weeks gestation who presents for initial care. She has a history of gestational hypertension and gestational diabetes. She may actually be a chronic hypertension patient. She was recently taken off her blood pressure medication. we will begin routine care. She will have early diabetes screening. She had niPS. Flowsheet Date 12/20/2020 Lewis Score Blood Edema Fundus Height Fundus Units Glucose Ketones Leukocytes Nitrite Labor Signs Protein Cervic Dilation Cervic Effacement Cervic Station neg none trace Type Weight in lbs Pre/Post Dialysis Refused Weight 158.465722092835 BP Diastolic BP Location Tested BP Systolic BP Type 73 112 Fetus Heart Rate Present A 150 Present Fetus Movement A Yes Comments patient states that having B HB contractions, swelling, nausea and vomiting, plan anatomy scan amadeo, afp order given, reviewed precautions Flowsheet Date 12/22/2020 Lewis Score Blood Edema Fundus Height Fundus Units Glucose Ketones Leukocytes Nitrite Labor Signs Protein Cervic Dilation Cervic Effacement Cervic Station Type Weight in lbs Pre/Post Dialysis Refused BP Diastolic BP Location Tested BP Systolic BP Type Fetus Heart Rate Present Fetus Movement Comments Flowsheet Date 01/29/2021 Lewis Score Blood Edema Fundus Height Fundus Units Glucose Ketones Leukocytes Nitrite Labor Signs Protein Cervic Dilation Cervic Effacement Cervic Station Type Weight in lbs Pre/Post Dialysis Refused BP Diastolic BP Location Tested BP Systolic BP Type Fetus Heart Rate Present Fetus Movement Comments Flowsheet Date 01/31/2021 Lewis Score Blood Edema Fundus Height Fundus Units Glucose Ketones Leukocytes Nitrite Labor Signs Protein Cervic Dilation Cervic Effacement Cervic Station none 25 trace Type Weight in lbs Pre/Post Dialysis Refused Weight 160.122896684238 BP Diastolic BP Location Tested BP Systolic BP Type 86 132 Fetus Heart Rate Present A 145 Fetus Movement A Yes Comments Doing well. Informed of u/s and that she would need mfm consult & u/s. Pt verbalized understanding. RTC in 3 weeks for routine visit and 1 hour gtt. Flowsheet Date 02/21/2021 Lewis Score Blood Edema Fundus Height Fundus Units Glucose Ketones Leukocytes Nitrite Labor Signs Protein Cervic Dilation Cervic Effacement Cervic Station none 26 trace Type Weight in lbs Pre/Post Dialysis Refused Weight 164.38026877380 BP Diastolic BP Location Tested BP Systolic BP Type 86 122 Fetus Heart Rate Present A 148 Fetus Movement A Yes Comments Doing well. Did have some lo wer abdominal discomfort yesterday but has resolved today. Normal movement. Happy with zoloft and feels it is working well for her. MFM follow up scheduled next week. Having a girl Winter . Flowsheet Date 03/08/2021 Lewis Score Blood Edema Fundus Height Fundus Units Glucose Ketones Leukocytes Nitrite Labor Signs Protein Cervic Dilation Cervic Effacement Cervic Station 30 1+ Type Weight in lbs Pre/Post Dialysis Refused Weight 159.189161476250 BP Diastolic BP Location Tested BP Systolic BP Type 74 R arm 111 sitting Fetus Heart Rate Present A 145 Fetus Movement A Yes Comments Patient has weekly follow-up with MFM, is not currently able appointment, patient was strongly encouraged to follow-up next week, she is aware of the growth concern Flowsheet Date 03/16/2021 Lewis Score Blood Edema Fundus Height Fundus Units Glucose Ketones Leukocytes Nitrite Labor Signs Protein Cervic Dilation Cervic Effacement Cervic Station Type Weight in lbs Pre/Post Dialysis Refused BP Diastolic BP Location Tested BP Systolic BP Type Fetus Heart Rate Present Fetus Movement Comments Flowsheet Date 03/16/2021 Lewis Score Blood Edema Fundus Height Fundus Units Glucose Ketones Leukocytes Nitrite Labor Signs Protein Cervic Dilation Cervic Effacement Cervic Station Type Weight in lbs Pre/Post Dialysis Refused BP Diastolic BP Location Tested BP Systolic BP Type Fetus Heart Rate Present Fetus Movement Comments Flowsheet Date 03/16/2021 Lweis Score Blood Edema Fundus Height Fundus Units Glucose Ketones Leukocytes Nitrite Labor Signs Protein Cervic Dilation Cervic Effacement Cervic Station neg trace trace Type Weight in lbs Pre/Post Dialysis Refused Weight 162.113369613469 BP Diastolic BP Location Tested BP Systolic BP Type 80 113 Fetus Heart Rate Present Fetus Movement A Yes Comments patient is having contractio ns, discharge, swelling, nausea and vomiting, NST NS bpp 8/8, nausea and vomiting still bothersome taking pepcid, will try zofran, also needs rf on zoloft working well f/u as scheduled Flowsheet Date 03/23/2021 Lewis Score Blood Edema Fundus Height Fundus Units Glucose Ketones Leukocytes Nitrite Labor Signs Protein Cervic Dilation Cervic Effacement Cervic Station Type Weight in lbs Pre/Post Dialysis Refused BP Diastolic BP Location Tested BP Systolic BP Type Fetus Heart Rate Present Fetus Movement Comments Flowsheet Date 03/23/2021 Lewis Score Blood Edema Fundus Height Fundus Units Glucose Ketones Leukocytes Nitrite Labor Signs Protein Cervic Dilation Cervic Effacement Cervic Station 33 trace Type Weight in lbs Pre/Post Dialysis Refused Weight 164.31534734971 BP Diastolic BP Location Tested BP Systolic BP Type 81 R arm 130 sitting Fetus Heart Rate Present A 145 Fetus Movement Comments Patient has IUGR. MFM sugges miguelangel that this Dopplers and BPP is not required for the next 2 weeks. The patient feels more comfortable with Dopplers and BPP is a testing. Growth is in the 3rd percentile. We agreed to continue testing Flowsheet Date 03/27/2021 Lewis Score Blood Edema Fundus Height Fundus Units Glucose Ketones Leukocytes Nitrite Labor Signs Protein Cervic Dilation Cervic Effacement Cervic Station Type Weight in lbs Pre/Post Dialysis Refused BP Diastolic BP Location Tested BP Systolic BP Type Fetus Heart Rate Present Fetus Movement Comments Flowsheet Date 03/27/2021 Lewis Score Blood Edema Fundus Height Fundus Units Glucose Ketones Leukocytes Nitrite Labor Signs Protein Cervic Dilation Cervic Effacement Cervic Station Type Weight in lbs Pre/Post Dialysis Refused BP Diastolic BP Location Tested BP Systolic BP Type Fetus Heart Rate Present Fetus Movement Comments Flowsheet Date 03/30/2021 Lewis Score Blood Edema Fundus Height Fundus Units Glucose Ketones Leukocytes Nitrite Labor Signs Protein Cervic Dilation Cervic Effacement Cervic Station Type Weight in lbs Pre/Post Dialysis Refused BP Diastolic BP Location Tested BP Systolic BP Type Fetus Heart Rate Present Fetus Movement Comments Flowsheet Date 03/30/2021 Lewis Score Blood Edema Fundus Height Fundus Units Glucose Ketones Leukocytes Nitrite Labor Signs Protein Cervic Dilation Cervic Effacement Cervic Station Type Weight in lbs Pre/Post Dialysis Refused BP Diastolic BP Location Tested BP Systolic BP Type Fetus Heart Rate Present Fetus Movement Comments Flowsheet Date 03/30/2021 Lewis Score Blood Edema Fundus Height Fundus Units Glucose Ketones Leukocytes Nitrite Labor Signs Protein Cervic Dilation Cervic Effacement Cervic Station neg trace trace Type Weight in lbs Pre/Post Dialysis Refused Weight 164.70316779233 BP Diastolic BP Location Tested BP Systolic BP Type 68 100 Fetus Heart Rate Present A 140 Fetus Movement A Decreased Comments Decreased FM today, a few li ttle movements. NST nonreactive, no decels. BPP /8 for total of 05/03. Will send to [facility] for extended monitoring and repeat BPP. Discussed with pt and SO. Flowsheet Date 04/03/2021 Lewis Score Blood Edema Fundus Height Fundus Units Glucose Ketones Leukocytes Nitrite Labor Signs Protein Cervic Dilation Cervic Effacement Cervic Station Type Weight in lbs Pre/Post Dialysis Refused BP Diastolic BP Location Tested BP Systolic BP Type Fetus Heart Rate Present Fetus Movement Comments Flowsheet Date 04/03/2021 Lewis Score Blood Edema Fundus Height Fundus Units Glucose Ketones Leukocytes Nitrite Labor Signs Protein Cervic Dilation Cervic Effacement Cervic Station Type Weight in lbs Pre/Post Dialysis Refused BP Diastolic BP Location Tested BP Systolic BP Type Fetus Heart Rate Present Fetus Movement Comments Flowsheet Date 04/03/2021 Lewis Score Blood Edema Fundus Height Fundus Units Glucose Ketones Leukocytes Nitrite Labor Signs Protein Cervic Dilation Cervic Effacement Cervic Station 32 trace Type Weight in lbs Pre/Post Dialysis Refused Weight 167.813223469243 BP Diastolic BP Location Tested BP Systolic BP Type 72 R arm 112 sitting Fetus Heart Rate Present A 140 Fetus Movement A Yes Comments BPP of 8/8, growth ultrasoun d 2 weeks ago in the 4th percentile, repeat growth next week. Flowsheet Date 04/06/2021 Lewis Score Blood Edema Fundus Height Fundus Units Glucose Ketones Leukocytes Nitrite Labor Signs Protein Cervic Dilation Cervic Effacement Cervic Station Type Weight in lbs Pre/Post Dialysis Refused BP Diastolic BP Location Tested BP Systolic BP Type Fetus Heart Rate Present Fetus Movement Comments Flowsheet Date 04/10/2021 Lewis Score Blood Edema Fundus Height Fundus Units Glucose Ketones Leukocytes Nitrite Labor Signs Protein Cervic Dilation Cervic Effacement Cervic Station Type Weight in lbs Pre/Post Dialysis Refused BP Diastolic BP Location Tested BP Systolic BP Type Fetus Heart Rate Present Fetus Movement Comments Flowsheet Date 04/10/2021 Lewis Score Blood Edema Fundus Height Fundus Units Glucose Ketones Leukocytes Nitrite Labor Signs Protein Cervic Dilation Cervic Effacement Cervic Station Type Weight in lbs Pre/Post Dialysis Refused BP Diastolic BP Location Tested BP Systolic BP Type Fetus Heart Rate Present Fetus Movement Comments Flowsheet Date 04/13/2021 Lewis Score Blood Edema Fundus Height Fundus Units Glucose Ketones Leukocytes Nitrite Labor Signs Protein Cervic Dilation Cervic Effacement Cervic Station Type Weight in lbs Pre/Post Dialysis Refused BP Diastolic BP Location Tested BP Systolic BP Type Fetus Heart Rate Present Fetus Movement Comments Flowsheet Date 04/13/2021 Lewis Score Blood Edema Fundus Height Fundus Units Glucose Ketones Leukocytes Nitrite Labor Signs Protein Cervic Dilation Cervic Effacement Cervic Station neg none 33 trace Type Weight in lbs Pre/Post Dialysis Refused Weight 162.743065493194 BP Diastolic BP Location Tested BP Systolic BP Type 75 111 Fetus Heart Rate Present A 130 Fetus Movement A Yes Comments Doing well. Good FM. Nst dontrell ctive. US this week EFW 2.8%. Discussed delivery at 39 weeks or before if indicated by testing. GBS next week. Precautions given. Flowsheet Date 04/17/2021 Lewis Score Blood Edema Fundus Height Fundus Units Glucose Ketones Leukocytes Nitrite Labor Signs Protein Cervic Dilation Cervic Effacement Cervic Station Type Weight in lbs Pre/Post Dialysis Refused BP Diastolic BP Location Tested BP Systolic BP Type Fetus Heart Rate Present Fetus Movement Comments Flowsheet Date 04/17/2021 Lewis Score Blood Edema Fundus Height Fundus Units Glucose Ketones Leukocytes Nitrite Labor Signs Protein Cervic Dilation Cervic Effacement Cervic Station Type Weight in lbs Pre/Post Dialysis Refused BP Diastolic BP Location Tested BP Systolic BP Type Fetus Heart Rate Present Fetus Movement Comments Flowsheet Date 04/17/2021 Lewis Score Blood Edema Fundus Height Fundus Units Glucose Ketones Leukocytes Nitrite Labor Signs Protein Cervic Dilation Cervic Effacement Cervic Station 37 trace Type Weight in lbs Pre/Post Dialysis Refused Weight 165.894835571045 BP Diastolic BP Location Tested BP Systolic BP Type 73 R arm 109 sitting Fetus Heart Rate Present A 145 Fetus Movement A Yes Comments Reactive NST, normal BPP, no rmal Doppler flow study Flowsheet Date 04/20/2021 Lewis Score Blood Edema Fundus Height Fundus Units Glucose Ketones Leukocytes Nitrite Labor Signs Protein Cervic Dilation Cervic Effacement Cervic Station Type Weight in lbs Pre/Post Dialysis Refused BP Diastolic BP Location Tested BP Systolic BP Type Fetus Heart Rate Present Fetus Movement Comments Flowsheet Date 04/20/2021 Lewis Score Blood Edema Fundus Height Fundus Units Glucose Ketones Leukocytes Nitrite Labor Signs Protein Cervic Dilation Cervic Effacement Cervic Station Type Weight in lbs Pre/Post Dialysis Refused BP Diastolic BP Location Tested BP Systolic BP Type 68 R arm 100 sitting Fetus Heart Rate Present Fetus Movement Comments Flowsheet Date 04/24/2021 Lewis Score Blood Edema Fundus Height Fundus Units Glucose Ketones Leukocytes Nitrite Labor Signs Protein Cervic Dilation Cervic Effacement Cervic Station Type Weight in lbs Pre/Post Dialysis Refused BP Diastolic BP Location Tested BP Systolic BP Type 73 111 Fetus Heart Rate Present Fetus Movement Comments Flowsheet Date 04/27/2021 Lewis Score Blood Edema Fundus Height Fundus Units Glucose Ketones Leukocytes Nitrite Labor Signs Protein Cervic Dilation Cervic Effacement Cervic Station Type Weight in lbs Pre/Post Dialysis Refused BP Diastolic BP Location Tested BP Systolic BP Type Fetus Heart Rate Present Fetus Movement Comments Flowsheet Date 04/27/2021 Lewis Score Blood Edema Fundus Height Fundus Units Glucose Ketones Leukocytes Nitrite Labor Signs Protein Cervic Dilation Cervic Effacement Cervic Station neg none trace 1cm 10% -3 Type Weight in lbs Pre/Post Dialysis Refused Weight 167.433283278935 BP Diastolic BP Location Tested BP Systolic BP Type 70 114 Fetus Heart Rate Present A 145 Fetus Movement A Decreased Comments Great FM yesterday, but decr eased this am. NSt 145 and nonreactive, but no decels. BPP 8/8 and feeling lots of movement now. GBS pos. Doing well on zoloft. Footling breech on US today- will schedule CS at 39 weeks. Flowsheet Date 04/27/2021 Lewis Score Blood Edema Fundus Height Fundus Units Glucose Ketones Leukocytes Nitrite Labor Signs Protein Cervic Dilation Cervic Effacement Cervic Station Type Weight in lbs Pre/Post Dialysis Refused BP Diastolic BP Location Tested BP Systolic BP Type Fetus Heart Rate Present Fetus Movement Comments Flowsheet Date 05/01/2021 Lewis Score Blood Edema Fundus Height Fundus Units Glucose Ketones Leukocytes Nitrite Labor Signs Protein Cervic Dilation Cervic Effacement Cervic Station Type Weight in lbs Pre/Post Dialysis Refused BP Diastolic BP Location Tested BP Systolic BP Type Fetus Heart Rate Present Fetus Movement Comments Flowsheet Date 05/01/2021 Lewis Score Blood Edema Fundus Height Fundus Units Glucose Ketones Leukocytes Nitrite Labor Signs Protein Cervic Dilation Cervic Effacement Cervic Station Type Weight in lbs Pre/Post Dialysis Refused BP Diastolic BP Location Tested BP Systolic BP Type Fetus Heart Rate Present Fetus Movement Comments Flowsheet Date 05/01/2021 Lewis Score Blood Edema Fundus Height Fundus Units Glucose Ketones Leukocytes Nitrite Labor Signs Protein Cervic Dilation Cervic Effacement Cervic Station 34 trace Type Weight in lbs Pre/Post Dialysis Refused Weight 168.783629593266 BP Diastolic BP Location Tested BP Systolic BP Type 78 R arm 116 sitting Fetus Heart Rate Present A 100 Fetus Movement Comments Patient had ultrasound today . Her growth restriction appears to be worse. BPP was 8/8 on ultrasound, Doppler flow studies of the umbilical artery appear normal. She has a an unusual NST, in that the baseline had times is around 100 and it is reactive with good long and short-term variability. She was sent to Labor and delivery for some prolonged monitoring. We are definitely going to deliver her tomorrow and possibly today. Flowsheet Date 05/02/2021 Lewis Score Blood Edema Fundus Height Fundus Units Glucose Ketones Leukocytes Nitrite Labor Signs Protein Cervic Dilation Cervic Effacement Cervic Station Type Weight in lbs Pre/Post Dialysis Refused BP Diastolic BP Location Tested BP Systolic BP Type Fetus Heart Rate Present Fetus Movement Comments Flowsheet Date 05/09/2021 Lewis Score Blood Edema Fundus Height Fundus Units Glucose Ketones Leukocytes Nitrite Labor Signs Protein Cervic Dilation Cervic Effacement Cervic Station Type Weight in lbs Pre/Post Dialysis Refused Weight 153.481156136640 BP Diastolic BP Location Tested BP Systolic BP Type 92 R arm 146 sitting 98 L arm 150 sitting 90 R arm 130 sitting Fetus Heart Rate Present Fetus Movement Comments Menstrual History Last Menstrual Date Menses Monthly On Bcp Conception Prior Menses Frequency Hcg Plus Date Menarche Onset Age 0908/01/2020 Genetic Screening And Infection History Question Response Note Mental Retardation/Autism false Patient's Age Will Be 35 Years Or Older At Estim ated Date of Delivery false Thalassemia (Egyptian, Armenian, Mediterranean, Or Background): MCV < 80 false Neural Tube Defect (Meningomyelocele, Spina Bifi da, Or Anencephaly) false Congenital Heart Defect false Down Syndrome false Bill-Sachs (eg, Hinduism, Cajun, Afghan-B[place]) f alse Pauline Disease false Sickle Cell Disease Or Trait () false Hemophilia Or Other Blood Disorders false Muscular Dystrophy false Cystic Fibrosis false Exline's Chorea false Intellectual Disability/Autism false If Yes, Was Person Tested For Fragile X? false Other Inherited Genetic Or Chromosomal Disorder false Maternal Metabolic Disorder (eg, Type 1 Diabetes , PKU) false Patient Or Baby's Father Had A Child With Defects Not Listed Above false Recurrent Loss, Or A Stillbirth false Medications (including Suppl ements, Vitamins, Herbs, OTC Drugs), Illicit/Recreational Drugs, Alcohol false If Yes, Agent(s) And Strength/Dosage false Any Other Genetic History false Live With Someone With TB Or Exposed To TB false Patient Or Partner Has History Of Genital Herpes false Rash Or Viral Illness Since Last Menstrual Perio d false History Of STD, Gonorrhea, Chlamydia, HPV, Syphi lis false Other Infection History false History of HIV false History of Hepatitis false Prior GBS-infected child false Hemoglobinopathy Or Carrier false Other Structural Defect false Recent Travel History Outside of Country false Delivery Information Delivery Date Delivery Type Labor Anesthesia Weeks Gestation Incision Type Labor Labor Length Hrs Delivered By Post Complications Tubal Sterilization Discharge Date Comments 1 None [facility] in[facility] 38.3 Low Transvers e false Nando Pollock MD IUGR & Gbs+ Discharge Information Feeding Method Contraceptive Method Maternal HG B and HCT Levels
--- OUTSIDE RECORDS SUMMARY | 2024-12-24 12:23 | XMS_ITS | Data Portability ---
Author Organization 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 Plan of Treatment Reminders Order Date Submit Date Provider Last Modified By Organization Details Last Modified Time Details Appointments None recorded. Lab urinalysis, dipstick 2023 024 OKAY In-Office Order, Internal Use Only DO Not Attach Compendium DO Not Attach Compendium, Do Not Delete/merge, [id number] 11:41:37 influenza virus A + B + SARS-CoV-2 (COVID19) Ag panel, rapid IA, upper respiratory specimen 2023 024 [email or web address] In-Office Order, Internal Use Only DO Not Attach Compendium DO Not Attach Compendium, Do Not Delete/merge, [id number] 4 15:00:54 Referral None recorded. Procedures None recorded. Surgeries None recorded. Imaging XR, chest, 2 view 2023 024 [facility], [address] [place] [address] [address], [address], [place], [address], 4 16:38:49 Medication Orders ondansetron HCl 4 mg tablet 2022 023 [facility], [address] [facility], [place], [address], 4 12:36:26 albuterol sulfate HFA 90 mcg/actuati on aerosol inhaler 2022 023 [facility], [address] [place], [address], 3 13:09:24 cyclobenzap rine 5 mg tablet 2023 024 [facility], [address] [place] [address], [address], 4 14:30:40 amlodipine 10 mg tablet 2023 024 [facility], [address] [place] [address], [address], 4 11:26:37 tretinoin 0.05 % topical cream 2023 024 [email or web address] [facility] [address], [address] [place] [address], [address], 4 16:56:34 Zithromax Z-Marvin 250 mg tablet 2023 024 [facility] [address], [address] [place] [address], [address], 4 15:01:05 benzonatate 100 mg capsule 2023 024 [facility] [address], [address] [place] [address], [address], 4 15:01:03 Patient TargetsNo targets recorded. Patient Instructions Encounter Date Encounter Id Patient Instructions Last Modified By Organization Details Last Modified Time 09/17/2023 [id number] Reviewed the following recommendations: -Stay home and separate from others as much as possible. -Monitor your symptoms and seek medical attention for trouble breathing, persistent chest pain, confusion, or bluish lips or face. -Wear a mask if you must be around other people. -Wash your hands often for 20 seconds with soap and water and clean high-touch surfaces daily -You may discontinue home isolation if your symptoms are improving and it has been 10 days since symptoms started. [email or web address] Not available 09/17/2023 15:21:26 09/22/2023 [id number] Reviewed the following recommendations: -Stay home and separate from others as much as possible. -Monitor your symptoms and seek medical attention for trouble breathing, persistent chest pain, confusion, or bluish lips or face. -Wear a mask if you must be around other people. -Wash your hands often for 20 seconds with soap and water and clean high-touch surfaces daily -You may discontinue home isolation if your symptoms are improving and it has been 10 days since symptoms started. [email or web address] Not available 09/22/2023 22:02:52 Reason for Referral None Reported. Results Created Date Observation Date Name Description Value Unit Range Abnormal Flag Note LastModifiedBy Organization Detail LastModifiedTime 01/28/2001/28/2024 urina lysis , dipst ick Leukocytes Negati ve Not Available In-Office Order Internal Use Only DO Not Attach Compendium DO Not Attach Compendium, Do Not Delete/merge, 01/28/2024 11:27:33 01/28/20 24 01/28/2024 urina lysis , dipst ick Nitrite negati ve Not Available In-Office Order Internal Use Only DO Not Attach Compendium DO Not Attach Compendium, Do Not Delete/merge, 01/28/2024 11:27:33 01/28/20 24 01/28/2024 urina lysis , dipst ick Urobilinogen .2 Not Available In-Of fice Order Internal Use Only DO Not Attach Compendium DO Not Attach Compendium, Do Not Delete/merge, 01/28/2024 11:27:33 01/28/20 24 01/28/2024 urina lysis , dipst ick Protein Negati ve Not Available In-Office Order Internal Use Only DO Not Attach Compendium DO Not Attach Compendium, Do Not Delete/merge, 01/28/2024 11:27:33 01/28/20 24 01/28/2024 urina lysis , dipst ick pH 5.0 Not Available In-Office Order Internal Use Only DO Not Attach Compendium DO Not Attach Compendium, Do Not Delete/merge, 01/28/2024 11:27:33 01/28/20 24 01/28/2024 urina lysis , dipst ick Blood Small Not Available In-Office Order Internal Use Only DO Not Attach Compendium DO Not Attach Compendium, Do Not Delete/merge, 01/28/2024 11:27:33 01/28/20 24 01/28/2024 urina lysis , dipst ick Specific [place] 1.005 Not Available In-Off ice Order Internal Use Only DO Not Attach Compendium DO Not Attach Compendium, Do Not Delete/merge, 01/28/2024 11:27:33 01/28/20 24 01/28/2024 urina lysis , dipst ick Ketone Negati ve Not Available In-Office Order Internal Use Only DO Not Attach Compendium DO Not Attach Compendium, Do Not Delete/merge, 01/28/2024 11:27:33 01/28/20 24 01/28/2024 urina lysis , dipst ick Bilirubin Negati ve Not Available In-Office Order Internal Use Only DO Not Attach Compendium DO Not Attach Compendium, Do Not Delete/merge, 01/28/2024 11:27:33 01/28/20 24 01/28/2024 urina lysis , dipst ick Glucose Negati ve Not Available In-Office Order Internal Use Only DO Not Attach Compendium DO Not Attach Compendium, Do Not Delete/merge, 01/28/2024 11:27:33 01/28/20 24 01/28/2024 urina lysis , dipst ick Appearance Clear Not Available In-Offi ce Order Internal Use Only DO Not Attach Compendium DO Not Attach Compendium, Do Not Delete/merge, 01/28/2024 11:27:33 01/28/20 24 01/28/2024 urina lysis , dipst ick Color Yellow Not Available In-Office Order Internal Use Only DO Not Attach Compendium DO Not Attach Compendium, Do Not Delete/merge, 01/28/2024 11:27:33 11/01/20 24 11/01/2024 influ lucretia virus A + B + SARS- CoV-2 (COVI D19) Ag panel , rapid IA, upper respi rator y speci men Flu A negati ve Not Available In-Office Order Internal Use Only DO Not Attach Compendium DO Not Attach Compendium, Do Not Delete/merge, [id number] 11/01/2024 15:00:40 11/01/20 24 11/01/2024 influ lucretia virus A + B + SARS- CoV-2 (COVI D19) Ag panel , rapid IA, upper respi rator y speci men Flu B negati ve Not Available In-Office Order Internal Use Only DO Not Attach Compendium DO Not Attach Compendium, Do Not Delete/merge, [id number] 11/01/2024 15:00:40 11/01/20 24 11/01/2024 influ lucretia virus A + B + SARS- CoV-2 (COVI D19) Ag panel , rapid IA, upper respi rator y speci men Rapid SARS CoV 2 Ag, QL IA, respiratory specimen negati ve Not Available In-Office Order Internal Use Only DO Not Attach Compendium DO Not Attach Compendium, Do Not Delete/merge, [id number] 11/01/2024 15:00:40 09/09/20 23 09/08/2023 XR, chest , 2 view No observ ation record ed. [address] [place] [address], [address], 09/09/2023 16:32:20 01/24/20 24 01/23/2024 CT, abdom en + pelvi s, w/ contr ast No observ ation record ed. [address], [place], [address], 01/26/2024 16:47:03 11/02/20 24 11/02/2024 XR, chest , 2 view No observ ation record ed. [address], [place], [address], 11/02/2024 16:44:35 Result Notes None recorded. Problems Name Problem SNOMED Code Status Onset Date Resolution Date Notes Provider Name and Address Organization Details Recorded Time Mixed anxiety and depressive disorder 979308221 Active 2018 PAM GANN Attn: Emil olivo,[address] [facility], [place], [address], [place] - [facility] 9 16:48:32 Essential hypertension 37422473 Active 2018 PAM RG Attn: Emil olivo,[address] [facility], [place], [address], [place] [facility] 3 12:56:28 Major depressive disorder 306314797 Active 2022 PAM RG Attn: Emil olivo,[address] [facility], [place], [address], [place] - [facility] 3 12:56:40 Generalized anxiety disorder 21325169 Active 2022 PAM RG Attn: Emil olivo,[address] [facility], [place], [address], [place] - [facility] 3 12:56:42 Smoker 71417682 Active 2022 PAM RG Attn: Emil olivo,[address] [facility], [place], [address], [place] [facility] 3 12:56:44 Family history of malignant neoplasm of breast in first degree relative 025945697 Active 2022 PAM RG Attn: Emil olivo,[address] [facility], [place], [address], [place] [facility] 3 12:56:38 Cannabis dependence 57995697 Active 2022 PAM RG Attn: Emil olivo,[address] [facility], [place], [address], [place] [facility] 3 22:02:01 Problem Notes None recorded. Procedures Surgical History Date Name Laterality Status Provider Name and Address Organization Details Recorded Time 1 section completed Jessica Hall [place] [facility] 01/03/2022 14:20:20 1 Date of Last Pap Smear completed PAM RG Attn: Accounting,[address] [facility], [place], [address], [place] - [facility] 05/13/2023 10:11:21 Imaging Results Imaging Date Name Status LastModified by Organiz ation Details LastModified Time 09/08/2023 XR, chest, 2 view completed [address], [place], [address], 09/09/2023 16:32:20 01/23/2024 CT, abdomen + pelvis, w/ contrast completed [address], [place], [address], 01/26/2024 16:47:03 11/02/2024 XR, chest, 2 view [address], [place], [address], 11/02/2024 16:44:35 Procedure Notes None recorded. Medical Equipment None Reported. Allergies No known drug allergies Medications Name Sig Start Date Stop Date Status Note LastModified by Organization Details LastModified Time nystatin 100,000 unit/mL oral suspension SWISH 5 ML IN MOUTH 4 TIMES A DAY x5 DAYS 11/22 completed Not Available Not Available Not Available labetalol 200 mg tablet Take 1 tablet twice a day by oral route for 30 days. 01/03 completed Not Available Not Available Not Available azithromyci n 250 mg tablet TAKE 2 TABLETS (500 MG) BY ORAL ROUTE ONCE DAILY FOR 1 DAY THEN 1 TABLET (250 MG) BY ORAL ROUTE ONCE DAILY FOR 4 DAYS active Not Available Not Available No t Available ibuprofen 800 mg tablet active Not Available Not Available Not Available hydrocodone 5 mg-acetamin ophen 325 mg tablet TAKE 1 TABLET BY MOUTH EVERY 3 HOURS NEEDED 01/03 completed Not Available Not Available Not Available ondansetron HCl 4 mg tablet TAKE 1 TABLET BY MOUTH ONCE DAILY NEEDED FOR 14 DAYS 04/21 completed Not Available Not Available Not Available sertraline 100 mg tablet TAKE 1 & 1/2 (ONE & ONE-HALF) TABLETS BY MOUTH ONCE DAILY 2024 active Not Available Not Available Not Avai lable tretinoin 0.05 % topical cream APPLY CREAM TOPICALLY ONCE DAILY AT BEDTIME FOR ACNE active Not Available Not Available No t Available amoxicillin 500 mg tablet active Not Available Not Available Not Available dicyclomine 20 mg tablet TAKE 1 TABLET BY MOUTH 4 TIMES DAILY 01/27 completed Not Available Not Available Not Available amlodipine 10 mg tablet TAKE 1 TABLET BY MOUTH ONCE DAILY IN THE MORNING active Not Available Not Available No t Available benzonatate 100 mg capsule Take 1 capsule 3 times a day by oral route as needed. 2023 active Not Available Not Available Not Avai lable buspirone 7.5 mg tablet TAKE 1 TABLET BY MOUTH TWICE DAILY DIRECTED 03/12 completed Not Available Not Available Not Available hydroxyzine HCl 25 mg tablet TAKE 1 TABLET BY MOUTH THREE TIMES DAILY NEEDED 04/21 completed Not Available Not Available Not Available albuterol sulfate HFA 90 mcg/actuati on aerosol inhaler Inhale 2 puffs every 4-6 hours by inhalatio n route as needed. active Not Available Not Available No t Available sertraline 50 mg tablet TAKE 1 TABLET BY MOUTH ONCE DAILY 01/03 completed Not Available Not Available Not Available loratadine 10 mg tablet Take 1 tablet every day by oral route. 01/03 completed Not Available Not Available Not Available amoxicillin 875 mg-potassiu m clavulanate 125 mg tablet Take 1 tablet every 12 hours by oral route. 01/03 completed Not Available Not Available Not Available cyclobenzap rine 5 mg tablet Take 1 tablet twice a day by oral route as needed for 14 days. 04/21 completed Not Available Not Available Not Available ID NOW COVID-19 Test Kit TEST DIRECTED TODAY 07/24 completed Not Available Not Available Not Available Vitals Date Recorded Body height Body mass index (BMI) Body weight Oxygen saturation Oxygen saturation in Arterial blood by Pulse oximetry Heart rate Respiratory rate Body temperature Provider Name and Address Organization Details Last Updated DateTime 3 172.72 cm 17.8 kg/m2 46666.3 1 g 98 % 98 % 88 /min 18 /min 98.9 [degF] Elizabeth Mcqueen CMA [place] - [facility] 3 12:59:26 Date Recorded Systolic blood pressure Diastolic blood pressure Provider Name and Address Organization Details Last Updated DateTime 09/17/2023 172 mm[Hg] 115 mm[Hg] PAM RG Attn: Accounting,[address] [place], [address], [place] - [facility] 09/17/2023 13:07:12 Date Recorded Body height Body mass index (BMI) Body weight Oxygen saturation Oxygen saturation in Arterial blood by Pulse oximetry Heart rate Respiratory rate Body temperature Systolic blood pressure Diastolic blood pressure Provider Name and Address Organization Details Last Updated DateTime 3 172.72 cm 17 kg/m2 12638.3 5 g 98 % 98 % 109 /min 16 /min 97.6 [degF] 155 mm[Hg] 103 mm[Hg] Elizabeth Mcqueen CMA [place] - [facility] 3 15:09:48 Date Recorded Body height Body mass index (BMI) Body weight Oxygen saturation Oxygen saturation in Arterial blood by Pulse oximetry Heart rate Respiratory rate Systolic blood pressure Diastolic blood pressure Provider Name and Address Organization Details Last Updated DateTime 4 172.72 cm 19.3 kg/m2 82624.2 3 g 97 % 97 % 89 /min 16 /min 140 mm[Hg] 92 mm[Hg] Charlene Healy MA [place] [facility] 4 11:18:48 Date Recorded Systolic blood pressure Diastolic blood pressure Provider Name and Address Organization Details Last Updated DateTime 01/28/2024 126 mm[Hg] 80 mm[Hg] PAM RG Attn: Accounting,[address] [place], [address], [place] [facility] 01/28/2024 11:33:21 Date Recorded Body height Body mass index (BMI) Body weight Oxygen saturation Oxygen saturation in Arterial blood by Pulse oximetry Heart rate Respiratory rate Systolic blood pressure Diastolic blood pressure Provider Name and Address Organization Details Last Updated DateTime 4 172.72 cm 19.2 kg/m2 32409.6 4 g 96 % 96 % 85 /min 16 /min 132 mm[Hg] 91 mm[Hg] Charlene Healy MA [place] - [facility] 4 12:33:45 Date Recorded Systolic blood pressure Diastolic blood pressure Provider Name and Address Organization Details Last Updated DateTime 04/21/2024 120 mm[Hg] 80 mm[Hg] PAM RG Attn: Accounting,[address] [facility] [place], [address], [facility] 04/21/2024 17:00:43 Date Recorded Body height Body mass index (BMI) Body weight Oxygen saturation Oxygen saturation in Arterial blood by Pulse oximetry Heart rate Respiratory rate Body temperature Systolic blood pressure Diastolic blood pressure Provider Name and Address Organization Details Last Updated DateTime 4 172.72 cm 18.1 kg/m2 96136.1 9 g 95 % 95 % 109 /min 17 /min 98.8 [degF] 129 mm[Hg] 96 mm[Hg] Mariely Ly MA [place] - [facility] 4 14:37:04 Social History Question Answer Notes LastModified by Organizat ion Details LastModified Time Tobacco Smoking Status Current Every Day Smoker Kelly Ocasiomichael hernández, [place] - [facility] 10/19/2019 16:36:20 Do You Have An Advance Directive? No Information not available 01/19/2020 What Is Your Level Of Alcohol Consumption? None Information not available 01/19/2020 Are You Blind Or Do You Have Difficulty Seeing? No [email or web address] Information not available 01/03/2022 What Is Your Level Of Caffeine Consumption? Moderate Information not available 01/03/2022 In The 14 Days Before Symptom Onset, Have You Had Close Contact With A Laboratory-confi rmed COVID-19 While That Case Was Ill? No [email or web address] Information not available 01/03/2022 In The 14 Days Before Symptom Onset, Have You Had Close Contact With A Person Who Is Under Investigation For COVID-19 While That Person Was Ill? No [email or web address] Information not available 01/03/2022 Have You Been To An Area Known To Be High Risk For COVID-19? No [email or web address] Information not available 01/03/2022 Are You Currently Employed? Yes [email or web address] Information not available 01/03/2022 Are You Deaf Or Do You Have Serious Difficulty Hearing? No [email or web address] Information not available 01/03/2022 What Type Of Diet Are You Following? REGULAR Information not available 01/19/2020 Do You Or Have You Ever Used E-cigarettes Or Vape? Never Used Electronic Cigarettes Information not available 01/19/2020 What Is Your Occupation? [employer] [email or web address] Information not available 01/03/2022 Are There Any Guns Present In Your Home? No Information not available 03/12/2022 Hard Of Hearing Or Deaf In One Or Both Ears? No Information not available 01/19/2020 Legally Blind In One Or Both Eyes? No Information not available 01/19/2020 Live Alone Or With Others? With Others Information not available 01/19/2020 What Was The Date Of Your Most Recent Tobacco Screening? 11/01/2024 Information not available 11/01/2024 How Many Children Do You Have? 2 Information not available 01/19/2020 Do You Use Your Seat Belt Or Car Seat Routinely? Yes [email or web address] Information not available 01/03/2022 Do You Have Smoke And Carbon Monoxide Detectors In Your Home? Yes Information not available 03/12/2022 Are You Passively Exposed To Smoke? Yes Information not available 01/19/2020 Do You Or Have You Ever Used Smokeless Tobacco? Never Used Smokeless Tobacco Information not available 01/19/2020 How Much Tobacco Do You Smoke? 1 PPD 5 Or 6 Cigarettes A Day Information not available 07/24/2022 General Stress Level Medium Information not available 01/19/2020 Do You Feel Stressed (tense, Restless, Nervous, Or Anxious, Or Unable To Sleep At Night)? [id number] [email or web address] Information not available 01/03/2022 Do You Use Any Illicit Or Recreational Drugs? No [email or web address] Information not available 01/03/2022 Do You Use Sunscreen Routinely? No Information not available 03/12/2022 On What Date Was Tobacco Cessation Counseling Provided? 11/01/2024 Information not available 11/01/2024 How Many Years Have You Smoked Tobacco? 14 Information not available 10/19/2019 Do You Or Have You Ever Used Any Other Forms Of Tobacco Or Nicotine? No [email or web address] Information not available 01/03/2022 Sex: Female Functional Status Question Answer Note LastModified by Organization D etails LastModified Time Are you able to care for yourself? Yes Information not available 01/19/2020 What is your exercise level? Moderate Information not available 01/19/2020 Mental Status None recorded. Family History Relationship Description Onset Age of this Age Resolved Age Notes LastModified by Organization Details LastModified Time Father Family history of malignant neoplasm [email or web address] Not available 2018 16:34:07 Paternal Uncle Family history of malignant neoplasm all have form of cancer Not available 10/19/2019 16:34:31 Brother Family history of malignant neoplasm [email or web address] Not available 2018 16:34:37 Brother Hypertensive disorder x 4 [email or web address] Not available 2018 16:35:45 Brother Diabetes mellitus [email or web address] Not available 2018 16:36:11 Maternal Grandmother Heart disease [email or web address] Not available 2018 16:35:00 Maternal Grandmother Hypertensive disorder [email or web address] Not available 2018 16:35:27 Maternal Grandmother Diabetes mellitus [email or web address] Not available 2018 16:36:04 Mother Heart disease [email or web address] Not available 2018 16:35:05 Mother Hypertensive disorder [email or web address] Not available 2018 16:35:19 Medical History Condition Response Coronary Artery Disease N Other N High Blood Pressure Y Atrial Fibrillation N Thyroid Problems N Kidney or Bladder Problems N GI Problems N Depression Y COPD N Blood Clots N Skin Problems N Anemia Y Heart Attack ([place]) N Anxiety Disorder Y Diabetes N Muscle, Joint, or Bone Problems N Seizures/Epilepsy N Acid Reflux (GERD) Y Cancer N Stroke N Asthma N Allergies Y ADHD N Substance Abuse N High Cholesterol N Hepatitis N Liver Disease N Schizophrenia N Headaches Y Heart Failure N Osteoporosis N Gynecological History Statement/Question Response Flow Heavy Date of LMP 10/30/2024 Frequency of Cycle (Q days) 28 Menses Monthly Y Date of Last Pap Smear 11/24/2020 Duration of Flow (days) 5 Age at Menarche 11 Current Control Method None Age at First Child 24 LMP Approximate Obstetrics History GPAL:G 3 P 2 1 0 3 Type Value Multiple Births 0 Full Term 2 Induced 0 Spontaneous 0 Premature 1 Living 3 Ectopics 0 Total 3 Past Encounters Encounter ID Performer Location Encounter Start Date Encounter Closed Date Diagnosis/Indication Diagnosis SNOMED-CT Code Diagnosis ICD10 Code Diagnosis Note [id number] PAM GANN [facility] [address] [place] [address] 10/19/2019 16:10:28 10/22/2019 14:19:46 Mixed anxiety and depressive disorder 232503655 F41.8 patient on zoloft and would like to continue on this. she is happy at current dose. Symptoms of worry and depression currently under control. Essential hypertension 42923046 I10 patient happy on labetalol, no side effects. She takes 200mg 2x day. - checking kidney function- f/u in one monthAdvis ed to check BP regularly with a goal of <140/90, if BP consistent ly >140/90, advised to contact clinic Discussed DASH diet Advised 30 minutes of exercise minimum daily Advised tobacco, alcohol, caffeine all increase BP Advised goal for BP is <140/90 Prediabetes 716494115 R7 3.03 Hypercholesterolemia 136 42556 E78.00 checking lipid panel Anemia 519665144 D64.9 patient has history of anemia. checking cbc [id number] Rebeca Mariee MD [facility] [address] [place] [address] 12/16/2019 15:16:55 12/20/2019 10:48:10 Acute sinusitis 21831711 J01.90 Pityriasis rosea 7286070 4 L42 will observe; should resolve spontaneou sly. [id number] Rebeca Mariee MD [facility] [address] [place] [address] 01/19/2020 12:02:56 01/24/2020 08:56:55 Essential hypertension 22763292 I10 Mass of chest wall 66410 4000 R22.2 Mixed anxi ety and depressive disorder 354008031 F41.8 [id number] PAM RG [facility] [address] [place] [address] 01/03/2022 14:14:02 01/04/2022 07:20:31 Temporomandibular txzop-niki-pvrwcpgliu n syndrome 479982669 M26.629 x4 monthschro tristen teeth grinding d enies tooth painPEx- nl movement of TMJ bilaterall y, non-TTPdis cussed TMJ dysfunctio n and treatment with ptdo not attribute kick to jaw cause of chronic jaw paincan trial muscle relaxer for TMJ muscle spasmshort course of steroidsma y need to be fitted for mouth guard if no relief with medication sgave Dentist contacts Generalize d anxiety disorder 38338451 F41.1 VIVI 20- severe anxietychr onic, constant, everydayre lief with buspar in the pastno relief with zoloftpt would like to have anxiety more under control before taking anxiety medication offered hydroxyzin e PRN and she is amendablet rial buspar low dose BID, advised pt of ADRDenies SI/HIf/u in 1 mo Depression screening 171 413249 Z13.31 PHQ 8 [id number] PAM RG [facility] [address] [place] [address] 03/12/2022 15:35:12 03/13/2022 10:52:02 Generalized anxiety disorder 52507306 F41.1 03/12/22: no improvemen t with buspar and hydroxyzin estates that depression has worsened and would like to re-start sertraline 01/03/22:GA D 20- severe anxietychr onic, constant, everydayre lief with buspar in the pastno relief with zoloftpt would like to have anxiety more under control before taking anxiety medication offered hydroxyzin e PRN and she is amendablet rial buspar low dose BID, advised pt of ADRDenies SI/HIf/u in 1 mo Depression screening 171 147111 Z13.31 PHQ 26depressi on previously controlled on zoloftat previous visit, pt wanted to stop zoloft and trial anxiety medsno relief with anxiety medsc/o worsening depression states she is stressed out, all over the place, can't get my mind right admi ts to suicidal ideations of driving car off the road, no plans, denies HI-re-star t zoloft 100 mg -Go to ER or call 911 for crisis (e.g., suicidal behaviors, suicidal ideations, intent or plan emerge). Additional ly, patient has suicide hotline #. - f/u in 2 wks- counseling referral Elevated blood-pressure reading without diagnosis of hypertension [id number] R03.0 BP today 152/102, 150/100pre vious visit controlled was on labetalol during pregnancyf /u in 2 wks for repeat BP check [id number] PAM RG [facility] [address] [place] [place] [address] 07/24/2022 15:16:56 07/24/2022 16:04:18 Depression screening [id number] Z13.31 07/24/22:PH Q 16mild improvemen t with depression pt states I'm not there yet taking 200 mg of zoloft made her feel weirdtrial 150 mgf/u if no improvemen t with 150, pt reluctant to try new medication sdenies SI/HI 03/08/22:PH Q 26depressi on previously controlled on zoloftat previous visit, pt wanted to stop zoloft and trial anxiety medsno relief with anxiety medsc/o worsening depression states she is stressed out, all over the place, can't get my mind right admi ts to suicidal ideations of driving car off the road, no plans, denies HI-re-star t zoloft 100 mg-Go to ER or call 911 for crisis (e.g., suicidal behaviors, suicidal ideations, intent or plan emerge). Additional ly, patient has suicide hotline #.- f/u in 2 wks- counseling referral Generalize d anxiety disorder [id number] F41.1 07/24/22:wo uld like to try hydroxyzin e to take PRNmind racing, can't shut her brain offdid not like taking hydroxyzin e with buspirone 03/12/22: no improvemen t with buspar and hydroxyzin estates that depression has worsened and would like to re-start sertraline 01/03/22:GA D 20- severe anxietychr onic, constant, everydayre lief with buspar in the pastno relief with zoloftpt would like to have anxiety more under control before taking anxiety medication offered hydroxyzin e PRN and she is amendablet rial buspar low dose BID, advised pt of ADRDenies SI/HIf/u in 1 mo Elevated blood-pressure reading without diagnosis of hypertension [id number] R03.0 07/24/22:BP 138/82 03/12/22:BP today 152/102, 150/100pre vious visit controlled was on labetalol during pregnancyf /u in 2 wks for repeat BP check Candidiasis of mouth [id number] B37.0 starting drinking juices since she had COVID 2 wks agoc/o burning sensation to tonguePEx- white coating to tonguetria l nystatin rinse [id number] PAM RG [facility] [address] [place] [facility] [place] [place] [address] 04/10/2023 12:17:46 04/10/2023 13:02:43 Generalized anxiety disorder [id number] F41.1 04/10/23:co ntrolledre fill 07/24/22:wo uld like to try hydroxyzin e to take PRNmind racing, can't shut her brain offdid not like taking hydroxyzin e with buspirone 03/12/22: no improvemen t with buspar and hydroxyzin estates that depression has worsened and would like to re-start sertraline 01/03/22:GA D 20- severe anxietychr onic, constant, everydayre lief with buspar in the pastno relief with zoloftpt would like to have anxiety more under control before taking anxiety medication offered hydroxyzin e PRN and she is amendablet rial buspar low dose BID, advised pt of ADRDenies SI/HIf/u in 1 mo Smoker [id number] F17.200 smokes 1 ppdnot amendable to quitting at this time Unintentio nal weight loss [id number] R63.4 >5% weight loss in 6-12 debptv31 lbs in 2 months per patienta/w night sweats, decreased appetiteCX R 4 days ago normalno other concerning sxPEx- nlcould be due to malnutriti oncheck labsrecord weight for 1 mof/u in 1 mo if normal, can order HIV, Hepatitis, stool hemoccult, ESR/CRP Essential hypertension [id number] I10 04/09/23:BP 140/80, 150/90BP at [place] 157/96re-s tart amlodipine 10 mgadvised to check BP at home, goal BP <130/80, f/u with BP log in 1 wkf/u in 1 mo 07/24/22:BP 138/82 03/12/22:BP today 152/102, 150/100pre vious visit controlled was on labetalol during pregnancyf /u in 2 wks for repeat BP check Family his tory of malignant neoplasm of breast in first degree relative [id number] Z80.3 sister diagnosed with stage 4 breast cancer last year, age 46ordered Mammo Major depr essive disorder [id number] F32.9 04/09/23:PH Q 3controlle drefill today 07/24/22:PH Q 16mild improvemen t with depression pt states I'm not there yet taking 200 mg of zoloft made her feel weirdtrial 150 mgf/u if no improvemen t with 150, pt reluctant to try new medication sdenies SI/HI 03/08/22:PH Q 26depressi on previously controlled on zoloftat previous visit, pt wanted to stop zoloft and trial anxiety medsno relief with anxiety medsc/o worsening depression states she is stressed out, all over the place, can't get my mind right admi ts to suicidal ideations of driving car off the road, no plans, denies HI-re-star t zoloft 100 mg-Go to ER or call 911 for crisis (e.g., suicidal behaviors, suicidal ideations, intent or plan emerge). Additional ly, patient has suicide hotline #.- f/u in 2 wks- counseling referral Rib pain [id number] R07.8 1 noticed R sided lump 1 wk agoCXR at [place] normalno h/o rib fracturesP Ex- 1 cm x 1 cm bony projection to R 8th rib, mildly TTPreassur ed pt, CXR normalmost likely noticed nodule due to weight losswill continue to monitor [id number] PAM RG [facility] [address] [place] [facility] [place] [address] 05/13/2023 10:02:35 05/13/2023 10:41:56 Unintentional weight loss [id number] R63.4 05/13/23:ga ined 4 lbs in the past month stuf fing herself but she feels goodre-archie ck CBC, CMP, lipid, add on HIV, hepatitis, ESR/CRP 04/10/23:>5 % weight loss in 6-12 [id number] lbs in 2 months per patienta/w night sweats, decreased appetiteCX R 4 days ago normalno other concerning sxPEx- nlcould be due to malnutriti oncheck labsrecord weight for 1 mof/u in 1 mo if normal, can order HIV, Hepatitis, stool hemoccult, ESR/CRP Essential hypertension [id number] I10 05/13/23:BP 134/90did not take amlodipine yet today 04/09/23:BP 140/80, 150/90BP at [place] 157/96re-s tart amlodipine 10 mgadvised to check BP at home, goal BP <130/80, f/u with BP log in 1 wkf/u in 1 mo 07/24/22:BP 138/82 03/12/22:BP today 152/102, 150/100pre vious visit controlled was on labetalol during pregnancyf /u in 2 wks for repeat BP check Family his tory of malignant neoplasm of breast in first degree relative [id number] Z80.3 05/13/23:ma mmogram nl 04/09/23:si ster diagnosed with stage 4 breast cancer last year, age 46ordered Mammo Major depr essive disorder [id number] F32.9 05/13/23:PH Q 0 04/09/23:PH Q 3controlle drefill today 07/24/22:PH Q 16mild improvemen t with depression pt states I'm not there yet taking 200 mg of zoloft made her feel weirdtrial 150 mgf/u if no improvemen t with 150, pt reluctant to try new medication sdenies SI/HI 03/08/22:PH Q 26depressi on previously controlled on zoloftat previous visit, pt wanted to stop zoloft and trial anxiety medsno relief with anxiety medsc/o worsening depression states she is stressed out, all over the place, can't get my mind right admi ts to suicidal ideations of driving car off the road, no plans, denies HI-re-star t zoloft 100 mg-Go to ER or call 911 for crisis (e.g., suicidal behaviors, suicidal ideations, intent or plan emerge). Additional ly, patient has suicide hotline #.- f/u in 2 wks- counseling referral Smoker [id number] F17.200 smokes 1 ppdnot amendable to quitting at this time [id number] PAM RG [facility] [address] [place] [address] 09/17/2023 12:48:04 09/17/2023 16:02:48 Essential hypertension [id number] I10 09/17/23:B P 172/115did not take BP meds this morning 05/13/23:BP 134/90did not take amlodipine yet today 04/09/23:BP 140/80, 150/90BP at [place] 157/96re-s tart amlodipine 10 mgadvised to check BP at home, goal BP <130/80, f/u with BP log in 1 wkf/u in 1 mo 07/24/22:BP 138/82 03/12/22:BP today 152/102, 150/100pre vious visit controlled was on labetalol during pregnancyf /u in 2 wks for repeat BP check Nausea and vomiting [id number] [id number] R11.2 trial zofran - 30 minutes after taking nausea medicine, begin with sips of clear liquids. If able to hold down 2 ? 4 ounces for 30 minutes, begin drinking more.- Increase your fluid intake to replace losses.- Clear liquids only for 24 hours (water, tea, sport drinks, clear flat bereket jyoti or cola and juices, broth, jello, popsicles, ect).- Advance to bland foods, applesauce , rice, baked or boiled chicken, ect.- Avoid milk, greasy foods and anything that doesn? t agree with you.- If vomiting persists and you are unable to hold fluids, return here or go to the ER.- If diarrhea persists more than 4 days, or becomes bloody, or if you develop high fever or abdominal pain, return here, see your doctor or go to the ER.-If symptoms worsen or do not improve seek immediate re-evaluat ion COVID-19 [id number] U07.1 diagnosed 10 days agopt is vaccinated x3CXR normal 09/08/23a/ w productive cough, nausea, vomiting, diarrhea, decreased appetiteno feversPEx- nltrial delsym/cor icidin HBPtrial anti-diarr healtrial albuterol inhaler for chest tightnessc /w increasing fluid intake, eat bland foodskeep f/u appt in 5 daysPatien t was advised to go to the ED for worsening signs or symptoms including chest pain, SOB, fever, or unable to keep down food or liquids. Depression screening [id number] Z13.31 09/17/23:P HQ 0 07/24/22:PH Q 16mild improvemen t with depression pt states I'm not there yet taking 200 mg of zoloft made her feel weirdtrial 150 mgf/u if no improvemen t with 150, pt reluctant to try new medication sdenies SI/HI 03/08/22:PH Q 26depressi on previously controlled on zoloftat previous visit, pt wanted to stop zoloft and trial anxiety medsno relief with anxiety medsc/o worsening depression states she is stressed out, all over the place, can't get my mind right admi ts to suicidal ideations of driving car off the road, no plans, denies HI-re-star t zoloft 100 mg-Go to ER or call 911 for crisis (e.g., suicidal behaviors, suicidal ideations, intent or plan emerge). Additional ly, patient has suicide hotline #.- f/u in 2 wks- counseling referral [phone] P[facility] RG [facility] [address] [place] [address] 09/22/2023 15:05:12 09/23/2023 12:58:01 COVID-19 [id number] U07.1 09/22/23:i mprovement in diarrhea, cough and congestion drinking fluidsPEx- nlc/w OTC medsRTW 09/29/23 09/17/23:d iagnosed 10 days agopt is vaccinated x3CXR normal 09/08/23a/ w productive cough, nausea, vomiting, diarrhea, decreased appetiteno feversPEx- nltrial delsym/cor icidin HBPtrial anti-diarr healtrial albuterol inhaler for chest tightnessc /w increasing fluid intake, eat bland foodskeep f/u appt in 5 daysPatien t was advised to go to the ED for worsening signs or symptoms including chest pain, SOB, fever, or unable to keep down food or liquids. Essential hypertension 58284523 I10 09/22/23:B P 155/103did not take BP meds yet 09/17/23:B P 172/115did not take BP meds this morning 05/13/23:BP 134/90did not take amlodipine yet today 04/09/23:BP 140/80, 150/90BP at [place] 157/96re-s tart amlodipine 10 mgadvised to check BP at home, goal BP <130/80, f/u with BP log in 1 wkf/u in 1 mo 07/24/22:BP 138/82 03/12/22:BP today 152/102, 150/100pre vious visit controlled was on labetalol during pregnancyf /u in 2 wks for repeat BP check Depression screening 171 [id number] Z13.31 09/17/23:P HQ 0 07/24/22:PH Q 16mild improvemen t with depression pt states I'm not there yet taking 200 mg of zoloft made her feel weirdtrial 150 mgf/u if no improvemen t with 150, pt reluctant to try new medication sdenies SI/HI 03/08/22:PH Q 26depressi on previously controlled on zoloftat previous visit, pt wanted to stop zoloft and trial anxiety medsno relief with anxiety medsc/o worsening depression states she is stressed out, all over the place, can't get my mind right admi ts to suicidal ideations of driving car off the road, no plans, denies HI-re-star t zoloft 100 mg-Go to ER or call 911 for crisis (e.g., suicidal behaviors, suicidal ideations, intent or plan emerge). Additional ly, patient has suicide hotline #.- f/u in 2 wks- counseling referral Cannabis dependence [phone] F12.20 uses marijuana vape 3-4x/day for the past 2 yrsc/o nausea and decreased appetite x3 monthsmost likely due to cannabis userec'd pt decreased cannabis to see if sx improve [id number] P[facility] RG [facility] [address] [place] [address] 01/28/2024 11:14:02 01/28/2024 11:45:57 Essential hypertension [id number] I10 01/27/24: BP 140/92, 126/80took BP med this morning 09/22/23:B P 155/103did not take BP meds yet 09/17/23:B P 172/115did not take BP meds this morning 05/13/23:BP 134/90did not take amlodipine yet today 04/09/23:BP 140/80, 150/90BP at [place] 157/96re-s tart amlodipine 10 mgadvised to check BP at home, goal BP <130/80, f/u with BP log in 1 wkf/u in 1 mo 07/24/22:BP 138/82 03/12/22:BP today 152/102, 150/100pre vious visit controlled was on labetalol during pregnancyf /u in 2 wks for repeat BP check Abdominal pain [id number] R10.9 x4 dayslower abd- cramping, achy, burning sensationc hronic nauseano other sxwent to [facility] ED 01/23/24: CT abd pelvis normalpt is eating wellimprov ement in sx with dicyclomin ec/o R flank painPEx- mild R CVATurine dip nl, pt had vaginal spotting 4 days ago (small blood on dip)reassu red ptf/u with any new or worsening sx Spasm of back muscles 20 [id number] M62.830 x2 daysR sided upper back painno trauma or injurystat es that it feels tight has been using heating padurine dip nltrial low dose flexeril x14 days [id number] P[facility] RG [facility] [address] [place] [address] 04/21/2024 12:30:19 04/21/2024 12:45:07 Cystic acne [id number] L70.0 Open comedone [id number] L70.0 x6 monthstrie d OTC treatments w/o reliefPEx- 3 mm open comedones to bilateral cheeks, nose, and foreheadtr ial tretinoin daily at bed time (sent under cystic acne for insurance to cover), rec'd cetaphil face wash and cera ve lotion for dry skin [id number] PAM BILLINGS [facility] [address] [place] [address] 11/01/2024 14:06:43 11/04/2024 10:36:14 Upper respiratory infection 26199139 J06.9 -Temp normal, however, pt is sweaty and clammy on exam. Lung sounds decreased with mild wheezing in lower law.-CO VID, flu (-)-Rx azithromyc in and benzonatat e-Chest xray ordered-re commend continued OTC medication s. Encouraged adequate fluid intake and rest.-F/u if symptoms are not improving Health Concerns Section Related Observation LastModified by Organization Detai ls LastModified Time None Recorded Concern Status LastModified by Organization Details LastModified Time None Recorded Advance Directives Directive N: Payers Encounter Date Sequence Insurance Name Policy Number Policy Ennis Covered Member ID Ennis Member ID Guarantor Name 09/17/[address] [facility] ON OR AFTER 05/24/21 (MEDICAID REPLACEMENT - HMO) Macarena Rios [id number] Macarena Blanca 09/22/[address] [facility] ON OR AFTER 05/24/21 (MEDICAID REPLACEMENT - HMO) Macarena Blanca [id number] Macarena Blanca 01/28/2024 1 [facility] ON OR AFTER 05/24/21 (MEDICAID REPLACEMENT - HMO) Macarena Blanca [id number] Macarena Blanca 04/21/2024 1 [facility] ON OR AFTER 05/24/21 (MEDICAID REPLACEMENT - HMO) Macarena Blanca [id number] Macarena Blanca 11/01/[address] [facility] ON OR AFTER 05/24/21 (MEDICAID REPLACEMENT - HMO) Macarena Rios [id number] Macarena Rios Notes Date Note Type Note Provider Name and Address Organization Details Recorded Time 09/17/2023 text/html Pt presents with COVID-19 symptoms. Diagnosed with COVID-19 ten days ago. 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 States that this is the 5th time she has been diagnosed with COVID and had COVID 1 month ago. Reports that current COVID infection is the worse I've ever had. C/o productive cough with yellow sputum, diarrhea, nausea, vomiting, poor appetite, hot flashes, back and neck pain. Pt has diarrhea 6-7x/day, describes as watery w/o blood. She is drinking water and gatorade. Pt has been taking cough and cold tablets and alternating between ibuprofen and tylenol. Endorses that her chest is sore and tight from coughing. PAM RG Attn: [address] [place], [address], [place] [facility] 09/17/2023 15:25:08 09/22/2023 text/html Pt presents for 5 day f/u and work note. States that her diarrhea subsided 4 days ago. Improvement in cough and congestion with coricidin HBP. Still c/o nausea and decreased appetite despite taking zofran. She has been drinking water and gatorade. Requesting RTW note 09/29/23. PAM RG Attn: [address] [place], [address], [place] [facility] 09/22/2023 22:04:03 01/28/2024 text/html Pt presents with abd pain f/u. Reports she developed lower abd pain 4 days ago. Describes as crampy, achy, burning sensation. C/o chronic nausea when she wakes up in the morning. Denies fevers, chills, vomiting, diarrhea, or constipation. She has daily, formed soft BMs. No new foods or medications. Pt went to ED due to symptoms. She was given dicyclomine with improvement of sx. States that she has a good appetite and has increased her fluid intake. PAM RG Attn: [address] [place], [address], [facility] 01/30/2024 14:56:36 04/21/2024 text/html Pt presents with black heads x6 months. Reports it started as small black dot on her cheek that has increased in size, very deep and is connecting with other black heads. She now has spots on both cheeks, nose, and forehead. Pt has tried cleansing acne wash, face scrubs, and fade cream w/o relief. Endorses to have oily skin, but certain products dry out her face. PAM RG Attn: Accounting[address] [facility], [place], [address], [facility] 04/21/2024 17:01:27 11/01/2024 text/html 39 yo F presents for ear pain and upper respiratory symptoms. Pt c/o L ear pain x 2 weeks. Describes pain as an intermittent stabbing sensation. Endorses difficulty hearing in that ear. Reports pain is improving. Denies R ear pain. reports onset of upper respiratory symptoms including cough, congestion, SOB, rhinorrhea, fatigue, sinus pressure, and mild sore throat starting Friday. Has been taking OTC medication with no improvement. Feels symptoms are worsening. Has not taken her temperature but has felt feverish. Denies chest pain. PAM BILLINGS Attn: Accounting[address] [facility], [place], [address], [facility] 11/01/2024 18:35:27 OBGyn Episode No OBEpisode recorded.
== END 2024-12-24 12:20 | disposition home or self-care (01) ==
PROVIDERS: PCP Physician Assistant; Visit Provider Nurse Practitioner
DX: N63.20 Unspecified lump in the left breast, unspecified quadrant (principal)
CPT/HCPCS: 76641; 77062; 77066; G0279

== ENCOUNTER 2025-03-22 12:55 | Outpatient (CLI) | payer OTHER, SELFPAY ==
--- NOTE | ~2025-03-22 | MR_ITS ---
MR breast BI wo/w con 03/23/2025 9:13 CDT INDICATION: Left breast mass TECHNIQUE: MRI of the breasts perform using standard protocol pre-and post IV contrast with the follo wing sequences: Axial T2 STIR, axial T1, axial vibrant T1 with fat suppression precontrast and multip hasic postcontrast. COMPARISON: Comparison to multiple prior studies sequentially, with oldest reviewed study dated 04/2023. FINDINGS: The breast are composed of heterogeneous fibroglandular content. Right breast: There is mild background parenchymal enhancement. There are scattered nodular enhanceme nt, likely benign background enhancement. No evidence of signal abnormalities in the axillary or inte rnal mammary node distributions. LEFT BREAST: No signal abnormalities on precontrast sequences. There is mild background parenchymal enhancement. There is scattered nodular enhancement, likely background enhancement. There are multipl e cysts of the left breast some of which appear mildly complicated, likely corresponding to the jaquan s seen on recent ultrasound. No evidence of signal abnormalities in the axillary or internal mammary node distributions.] IMPRESSION: 1: Probable benign left breast masses. Probable benign bilateral nodular enhancement, likely backgrou nd enhancement. Recommendation: Recommend 6 month follow-up diagnostic bilateral mammogram and left breast ultrasound . BI-RADS CATEGORY 3-PROBABLY BENIGN FINDING Reviewed, dictated and finalized at location A. IMPRESSION: 1: Probable benign left breast masses. Probable benign bilateral nodular enhanc ement, likely background enhancement. Recommendation: Recommend 6 month follow-up diagnostic bilateral mammogram and left breast ultrasound. BI-RADS CATEGORY 3-PROBABLY BENIGN FINDING
--- OUTSIDE RECORDS SUMMARY | 2025-03-22 14:12 | XMS_ITS | Data Portability ---
Author Organization [facility] Address [address] [place] [address] Care Team Providers Care Cyber Operator Name Role Phone JESENIA DURHAM Primary Care Provider Assessment No assessment recorded. Plan of Treatment Reminders Order Date Submit Date Provider Last Modified By Organization Details Last Modified Time Details Appointments None recorded. Lab CMP, serum or plasma 2024 025 CORRIE Henriquez, 2022 [address]ne, [address], [place], [address], 5 22:09:32 lipid panel, serum or plasma 2024 025 CORRIE Henriquez, 2022 Shameka Lynne, [address], [place], [address], 5 10:24:19 CBC w/ auto diff 2024 025 CORRIE Henriquez, 2022 Shameka Lynne, [address], [place], [address], 5 22:09:34 TSH + free T4, serum 2024 025 CORRIE Henriquez, 2022 Shameka Lynne, [address], [place], [address], 5 08:26:14 HbA1c (hemoglobin A1c), blood 2024 025 CORRIE Henriquez, 2022 Shameka Lynne, [address], [place], [address], 5 08:26:15 influenza virus A + B + SARS-CoV-2 (COVID19) Ag panel, rapid IA, upper respiratory specimen 2023 024 [email or web address] [id number] In-Office Order, Internal Use Only DO Not Attach Compendium DO Not Attach Compendium, Do Not Delete/merge, [id number] 4 15:00:54 urinalysis, dipstick 2023 024 [place] In-Office Order, Internal Use Only DO Not Attach Compendium DO Not Attach Compendium, Do Not Delete/merge, [id number] 4 11:41:37 Referral None recorded. Procedures None recorded. Surgeries None recorded. Imaging XR, chest, 2 view 2023 024 [facility], [address] [place] [address] [address], [place], [address], 4 16:38:49 Medication Orders sertraline 100 mg tablet 2024 025 [facility] [place], [address], 5 10:19:50 hydroxyzine HCl 25 mg tablet 2024 025 [facility], [address] [place], [address], 5 10:19:53 amlodipine 10 mg tablet 2024 025 [facility], [address] [place], [address], 5 10:19:52 Zithromax Z-Marvin 250 mg tablet 2023 025 [facility], [address] [place], [address], 5 10:21:04 benzonatate 100 mg capsule 2023 025 [facility], [address] [facility], [place], [address], 5 10:21:06 tretinoin 0.05 % topical cream 2023 024 [email or web address], [address] [facility], [place], [address], 4 16:56:34 cyclobenzap rine 5 mg tablet 2023 024 [facility], [address] [facility], [place], [address], 4 14:30:40 amlodipine 10 mg tablet 2023 024 [facility], [address] [facility], [place], [address], 11:26:37 Patient TargetsNo targets recorded. Patient Instructions Encounter Date Encounter Id Patient Instructions Last Modified By Organization Details Last Modified Time 09/22/2023 [id number] Reviewed the following recommendations: -Stay home and [...] DO Not Attach Compendium, Do Not Delete/merge, [id number] 01/28/2024 11:27:33 01/28/20 24 01/28/2024 urina lysis [...] 01/28/2024 urina lysis , dipst ick Specific [place] 1.005 Not Available In-Off ice Order Internal [...] DO Not Attach Compendium, Do Not Delete/merge, [id number] 01/28/2024 11:27:33 01/28/20 24 01/28/2024 urina lysis , dipst ick Appearance Clear Not Available In-Offi ce Order Internal Use Only DO Not Attach Compendium DO Not Attach Compendium, Do Not Delete/merge, [id number] 01/28/2024 11:27:33 01/28/20 24 01/28/2024 urina lysis , dipst ick Color Yellow Not Available In-Office Order Internal Use Only DO Not Attach Compendium DO Not Attach Compendium, Do Not Delete/merge, [id number] 01/28/2024 11:27:33 11/01/20 24 11/01/2024 influ lucretia virus A + B + SARS- CoV-2 (COVI D19) Ag panel , rapid IA, upper respi rator y speci men Flu A negati ve Not Available In-Office Order Internal Use Only DO Not Attach Compendium DO Not Attach Compendium, Do Not Delete/merge, [id number] 11/01/2024 15:00:40 11/01/20 24 11/01/2024 influ lucretia virus A + B + SARS- CoV-2 (COVI D19) Ag panel , rapid IA, upper respi rator y speci men Flu B negati ve Not Available In-Office Order Internal Use Only DO Not Attach Compendium DO Not Attach Compendium, Do Not Delete/merge, [id number] 11/01/2024 15:00:40 11/01/20 24 11/01/2024 influ lucretia virus A + B + SARS- CoV-2 (COVI D19) Ag panel , rapid IA, upper respi rator y speci men Rapid SARS CoV 2 Ag, QL IA, respiratory specimen negati ve Not Available In-Office Order Internal Use Only DO Not Attach Compendium DO Not Attach Compendium, Do Not Delete/merge, [id number] 11/01/2024 15:00:40 12/09/19 25 12/09/2024 pap, IG + HR HPV Pap,thinprep ,HPV negati ve Not Available Not Available 15:03:21 01/14/20 25 01/14/2025 LIPID PANEL WITH LDL/H DL RATIO cholesterol, total 198 mg/dL 100-19 9 Not Available [facility] [address] [place], [address], 01/14/2025 22:09:32 01/14/20 25 01/14/2025 LIPID PANEL WITH LDL/H DL RATIO triglyceride s 61 mg/dL 0-149 Not Available [facility] [address] [place], [address], 01/14/2025 22:09:32 01/14/20 25 01/14/2025 LIPID PANEL WITH LDL/H DL RATIO HDL cholesterol 63 mg/dL 40-999 Not Available [facility] Department [address] [place], [address], 01/14/2025 22:09:32 01/14/20 25 01/14/2025 LIPID PANEL WITH LDL/H DL RATIO VLDL cholesterol alina 12 mg/dL 5-40 Not Available [facility] [address] [place], [address], 01/14/2025 22:09:32 01/14/20 25 01/14/2025 LIPID PANEL WITH LDL/H DL RATIO LDL chol calc ([facility]) 132 mg/dL 0-99 above high normal Not Available [facility] [address] [place], [address], 01/14/2025 22:09:32 01/14/20 25 01/14/2025 LIPID PANEL WITH LDL/H DL RATIO LDL/HDL ratio 2.1 0-3.2 Not Available [facility] [address] [place], [address], 01/14/2025 22:09:32 01/14/20 25 01/14/2025 COMP. METAB OLIC PANEL (14) glucose 69 mg/dL 70-99 below low normal Not Available [facility] [address] [place], [address], 01/14/2025 22:09:32 01/14/20 25 01/14/2025 COMP. METAB OLIC PANEL (14) BUN 8 mg/dL 6-20 Not Available [facility] [address] [place] [address], [address], 01/14/2025 22:09:32 01/14/20 25 01/14/2025 COMP. METAB OLIC PANEL (14) creatinine 0.62 mg/dL 0.76-1 .27 below low normal Not Available [facility] [address] [place] [address], [address], 01/14/2025 22:09:32 01/14/20 25 01/14/2025 COMP. METAB OLIC PANEL (14) eGFR 116 >=60 Units for eGFR value s are mL/mi n/1.7 3 The eGFR Calcu latio n has not been valid ated for patie nts under the age of 18. If test resul ts are displ ayed for a patie nt under the age of 18, disre sienna that value . Not Available [facility] [address] [place] [address], [address], 01/14/2025 22:09:32 01/14/20 25 01/14/2025 COMP. METAB OLIC PANEL (14) BUN/creatini ne ratio 13 9-23 Not Available [facility] [address] [place], [address], 01/14/2025 22:09:32 01/14/20 25 01/14/2025 COMP. METAB OLIC PANEL (14) sodium 141 mmol/ L 134-14 4 Not Available [facility] [address] [place], [address], 01/14/2025 22:09:32 01/14/20 25 01/14/2025 COMP. METAB OLIC PANEL (14) potassium 4.1 mmol/ L 3.5-5. 2 Not Available [facility] [address] [place], [address], 01/14/2025 22:09:32 01/14/20 25 01/14/2025 COMP. METAB OLIC PANEL (14) chloride 103 mmol/ L 96-106 Not Available [facility] [address] [place], [address], 01/14/2025 22:09:32 01/14/20 25 01/14/2025 COMP. METAB OLIC PANEL (14) carbon dioxide, total 27 mmol/ L 20-29 Not Available [facility] [address] [place], [address], 01/14/2025 22:09:32 01/14/20 25 01/14/2025 COMP. METAB OLIC PANEL (14) calcium 9.2 mg/dL 8.7-10 .2 Not Available [facility] [address] [place], [address], 01/14/2025 22:09:32 01/14/20 25 01/14/2025 COMP. METAB OLIC PANEL (14) protein, total 6.8 g/dL 6.0-8. 5 Not Available [facility] [address] [place], [address], 01/14/2025 22:09:32 01/14/20 25 01/14/2025 COMP. METAB OLIC PANEL (14) albumin 4.2 g/dL 3.9-4. 9 Not Available [facility] [address] [place], [address], 01/14/2025 22:09:32 01/14/20 25 01/14/2025 COMP. METAB OLIC PANEL (14) globulin, total 2.6 g/dL 1.5-4. 5 Not Available [facility] [address] [place], [address], 01/14/2025 22:09:32 01/14/20 25 01/14/2025 COMP. METAB OLIC PANEL (14) A/G ratio 2.0 1.2-2. 2 Not Available [facility] [address] [place], [address], 01/14/2025 22:09:32 01/14/20 25 01/14/2025 COMP. METAB OLIC PANEL (14) bilirubin, total 0.3 mg/dL 0.0-1. 2 Not Available [facility] [address] [place], [address], 01/14/2025 22:09:32 01/14/20 25 01/14/2025 COMP. METAB OLIC PANEL (14) alkaline phosphatase 74 IU/L 44-121 Not Available [facility] Department [address] [place], [address], 01/14/2025 22:09:32 01/14/20 25 01/14/2025 COMP. METAB OLIC PANEL (14) AST (SGOT) 20 IU/L 0-40 Not Available [facility] Department [address] [place], [address], 01/14/2025 22:09:32 01/14/20 25 01/14/2025 COMP. METAB OLIC PANEL (14) ALT (SGPT) 9 IU/L 0-32 Not Available [facility] [address] [place], [address], 01/14/2025 22:09:32 01/14/20 25 01/14/2025 CBC WITH DIFFE RENTI AL/PL ATELE T WBC 11.2 x10e3 /uL 3.4-10 .8 above high normal Not Available [facility] [address] [place], [address], 01/14/2025 22:09:34 01/14/20 25 01/14/2025 CBC WITH DIFFE RENTI AL/PL ATELE T RBC 4.03 x10e6 /uL 3.77-5 .28 Not Available [facility] [address] [place], [address], 01/14/2025 22:09:34 01/14/20 25 01/14/2025 CBC WITH DIFFE RENTI AL/PL ATELE T hemoglobin 12.5 g/dL 11.1-1 5.9 Not Available [facility] [address] [place], [address], 01/14/2025 22:09:34 01/14/20 25 01/14/2025 CBC WITH DIFFE RENTI AL/PL ATELE T hematocrit 38.1 % 34.0-4 6.6 Not Available [facility] [address] [place], [address], 01/14/2025 22:09:34 01/14/20 25 01/14/2025 CBC WITH DIFFE RENTI AL/PL ATELE T MCV 95 fL 79-97 Not Available [facility] [address] [place], [address], 01/14/2025 22:09:34 01/14/20 25 01/14/2025 CBC WITH DIFFE RENTI AL/PL ATELE T MCH 31.0 pg 26.6-3 3.0 Not Available [facility] [address] [place], [address], 01/14/2025 22:09:34 01/14/20 25 01/14/2025 CBC WITH DIFFE RENTI AL/PL ATELE T MCHC 32.8 g/dL 31.5-3 5.7 Not Available [facility] [address] [place], [address], 01/14/2025 22:09:34 01/14/20 25 01/14/2025 CBC WITH DIFFE RENTI AL/PL ATELE T RDW 14.9 % 11.5-1 4.5 above high normal Not Available [facility] [address] [place], [address], 01/14/2025 22:09:34 01/14/20 25 01/14/2025 CBC WITH DIFFE RENTI AL/PL ATELE T platelets 336 x10e3 /uL 150-45 0 Not Available [facility] [address] [place], [address], 01/14/2025 22:09:34 01/14/20 25 01/14/2025 CBC WITH DIFFE RENTI AL/PL ATELE T neutrophils 74 % notest b. Not Available [facility] [address] [place], [address], 01/14/2025 22:09:34 01/14/20 25 01/14/2025 CBC WITH DIFFE RENTI AL/PL ATELE T lymphs 18 % notest b. Not Available [facility] [address] [place], [address], 01/14/2025 22:09:34 01/14/20 25 01/14/2025 CBC WITH DIFFE RENTI AL/PL ATELE T monocytes 6 % notest b. Not Available [facility] [address] [place], [address], 01/14/2025 22:09:34 01/14/20 25 01/14/2025 CBC WITH DIFFE RENTI AL/PL ATELE T eos 2 % notest b. Not Available [facility] [address] [place], [address], 01/14/2025 22:09:34 01/14/20 25 01/14/2025 CBC WITH DIFFE RENTI AL/PL ATELE T basos 1 % notest b. Not Available [facility] [address] [place], [address], 01/14/2025 22:09:34 01/14/20 25 01/14/2025 CBC WITH DIFFE RENTI AL/PL ATELE T neutrophils (absolute) 8.2 x10e3 /uL 1.4-7. 0 above high normal Not Available [facility] [address] [place], [address], 01/14/2025 22:09:34 01/14/20 25 01/14/2025 CBC WITH DIFFE RENTI AL/PL ATELE T lymphs (absolute) 2.0 x10e3 /uL 0.7-3. 1 Not Available [facility] [address] [place], [address], 01/14/2025 22:09:34 01/14/20 25 01/14/2025 CBC WITH DIFFE RENTI AL/PL ATELE T monocytes(ab solute) 0.6 x10e3 /uL 0.1-0. 9 Not Available [facility] [address] [place], [address], 01/14/2025 22:09:34 01/14/20 25 01/14/2025 CBC WITH DIFFE RENTI AL/PL ATELE T eos (absolute) 0.2 x10e3 /uL 0.0-0. 4 Not Available [facility] [address] [place], [address], 01/14/2025 22:09:34 01/14/20 25 01/14/2025 CBC WITH DIFFE RENTI AL/PL ATELE T baso (absolute) 0.1 x10e3 /uL 0.0-0. 2 Not Available [facility] [address] [place], [address], 01/14/2025 22:09:34 01/14/20 25 01/14/2025 CBC WITH DIFFE RENTI AL/PL ATELE T immature granulocytes 0.4 % notest b. Not Available [facility] [address] [place], [address], 01/14/2025 22:09:34 01/14/20 01/14/2025 CBC WITH DIFFE RENTI AL/PL ATELE T immature grans (abs) 0.1 x10e3 /uL 0.0-0. 1 Not Available [facility] [address] [place], [address], 01/14/2025 22:09:34 01/14/20 25 01/14/2025 CBC WITH DIFFE RENTI AL/PL ATELE T NRBC 0 % 0-0 Not Available [facility] [address], [place], [address], 01/14/2025 22:09:34 01/14/20 25 01/15/2025 TSH+F REE T4 TSH 0.789 uIU/m L 0.450- 4.500 Not Available [facility] ([facility]) [address] [facility], [place], [address], 01/15/2025 08:26:14 01/14/20 25 01/15/2025 TSH+F REE T4 T4,free(dire ct) 0.93 NG/dL 0.82-1 .77 Not Available [facility] ([facility]) [address] [facility], [place], [address], 01/15/2025 08:26:14 01/14/20 25 01/15/2025 HEMOG LOBIN A1C hemoglobin A1C 5.9 % 4.8-5. 6 above high normal Predi abete s: 5.7 - 6.4 Diabe drea: >6.4 Glyce carmine contr ol for adult s with diabe drea: <7.0 Not Available [facility] ([facility]) [address] [facility], [place], [address], 01/15/2025 08:26:15 09/09/20 23 09/08/2023 XR, chest , 2 view No observ ation record ed. [facility] [address], [place], [address], 09/09/2023 16:32:20 01/24/20 24 01/23/2024 CT, abdom en + pelvi s, w/ contr ast No observ ation record ed. [facility] [address], [place], [address], 01/26/2024 16:47:03 11/02/20 24 11/02/2024 XR, chest , 2 view No observ ation record ed. [facility] [address], [place], [address], 11/02/2024 16:44:35 01/14/20 25 12/24/2024 MAMMO , diagn ostic , unila teral No observ ation record ed. [facility] [address] [facility] [address], [place], [address], 01/25/2025 09:16:29 Result Notes None recorded. Problems Name Problem SNOMED Code Status Onset Date Resolution Date Notes Provider Name and Address Organization Details Recorded Time Mixed anxiety and depressive disorder 601009925 Active 2018 PAM GANN Attn: Emil olivo,[address] [facility], [place], [address], [place] [facility] 9 16:48:32 Essential hypertension 97748373 Active 2018 PAM GR Attn: Emil g,[address] [facility], [place], [address], [place] [facility] 3 12:56:28 Major depressive disorder 808463259 Active 2022 PAM RG Attn: Rubenin g,[address] [facility], [place], [address], [place] [facility] 3 12:56:40 Generalized anxiety disorder 74461991 Active 2022 PAM RG Attn: Emil g,[address] [facility], [place], [address], [place] [facility] 3 12:56:42 Smoker 17174593 Active 2022 PAM RG Attn: Emil g,[address] [place], [address], [facility] - [facility] 3 12:56:44 Family history of malignant neoplasm of breast in first degree relative 556394417 Active 2022 PAM RG Attn: Emil olvio,[address] [facility], [place], [address], [facility] - [facility] 3 12:56:38 Cannabis dependence 15705213 Active 2022 PAM RG Attn: Emil olivo,[address] [facility], [place], [address], [facility] - [facility] 3 22:02:01 Problem Notes None recorded. Procedures Surgical History Date Name Laterality Status Provider Name and Address Organization Details Recorded Time 1 section completed Jessica Rafael [place] - [facility] 01/03/2022 14:20:20 1 Date of Last Pap Smear completed PAM RG Attn: Accounting,[address] [facility], [place], [address], [facility] 05/13/2023 10:11:21 Imaging Results Imaging Date Name Status LastModified by [facility] Details LastModified Time 09/08/2023 XR, chest, 2 view completed [address], [address], 09/09/2023 16:32:20 01/23/2024 CT, abdomen + pelvis, w/ contrast completed [address], [address], 01/26/2024 16:47:03 11/02/2024 XR, chest, 2 view completed [address], [address], 11/02/2024 16:44:35 12/24/2024 MAMMO, diagnostic, unilateral completed [address], [address], 01/25/2025 09:16:29 Procedure Notes None recorded. Medical Equipment None [...] ORAL ROUTE ONCE DAILY FOR 4 DAYS 01/14 completed Not Available Not Available Not Available ibuprofen 800 mg tablet active Not [...] & ONE-HALF) TABLETS BY MOUTH ONCE DAILY AT BEDTIME active Not Available Not Available No t Available tretinoin 0.05 % topical cream APPLY CREAM TOPICALLY ONCE DAILY AT BEDTIME FOR ACNE active Not Available Not Available No t Available amoxicillin 500 mg tablet 01/14 completed Not Available Not Available Not Available dicyclomine 20 mg tablet TAKE 1 TABLET BY MOUTH 4 TIMES DAILY 01/27 completed Not Available Not Available Not Available amlodipine 10 mg tablet TAKE 1 TABLET BY MOUTH ONCE DAILY IN THE MORNING FOR HIGH BLOOD PRESSURE active Not Available Not Available No t Available benzonatate 100 mg capsule Take 1 capsule 3 times a day by oral route as needed. 01/14 completed Not Available Not Available Not Available buspirone 7.5 mg tablet TAKE 1 TABLET BY MOUTH TWICE DAILY DIRECTED 03/12 completed Not Available Not Available Not Available hydroxyzine HCl 25 mg tablet TAKE 1 TABLET BY MOUTH THREE TIMES DAILY NEEDED active Not Available Not Available No t Available albuterol sulfate HFA 90 mcg/actuati on [...] Available Not Available Not Available amoxicillin 875 mg-neliau m clavulanate 125 mg tablet Take 1 [...] Updated DateTime 3 172.72 cm 17 kg/m2 20813.3 5 g 98 % 98 % 109 /min 16 /min 97.6 [degF] 155 mm[Hg] 103 mm[Hg] Elizabeth Mcqueen CMA [facility] 3 15:09:48 Date Recorded Body height Body mass index (BMI) Body weight Oxygen saturation Oxygen saturation in Arterial blood by Pulse oximetry Heart rate Respiratory rate Systolic blood pressure Diastolic blood pressure Provider Name and Address Organization Details Last Updated DateTime 4 172.72 cm 19.3 kg/m2 98980.2 3 g 97 % 97 % 89 /min 16 /min 140 mm[Hg] 92 mm[Hg] Charlene Healy MA [facility] 4 11:18:48 Date Recorded Systolic blood pressure Diastolic blood pressure Provider Name and Address Organization Details Last Updated DateTime 01/28/2024 126 mm[Hg] 80 mm[Hg] PAM RG Attn: Accounting,[address] [place], [address], [facility] 01/28/2024 11:33:21 Date Recorded Body height Body mass index (BMI) Body weight Oxygen saturation Oxygen saturation in Arterial blood by Pulse oximetry Heart rate Respiratory rate Systolic blood pressure Diastolic blood pressure Provider Name and Address Organization Details Last Updated DateTime 4 172.72 cm 19.2 kg/m2 23160.6 4 g 96 % 96 % 85 /min 16 /min 132 mm[Hg] 91 mm[Hg] Charlene Healy MA [facility] 4 12:33:45 Date Recorded Systolic blood pressure Diastolic blood pressure Provider Name and Address Organization Details Last Updated DateTime 04/21/2024 120 mm[Hg] 80 mm[Hg] PAM RG Attn: Accounting,[address] [place], [address], [facility] 04/21/2024 17:00:43 Date Recorded Body height Body mass index (BMI) Body weight Oxygen saturation Oxygen saturation in Arterial blood by Pulse oximetry Heart rate Respiratory rate Body temperature Systolic blood pressure Diastolic blood pressure Provider Name and Address Organization Details Last Updated DateTime 4 172.72 cm 18.1 kg/m2 03183.1 9 g 95 % 95 % 109 /min 17 /min 98.8 [degF] 129 mm[Hg] 96 mm[Hg] Mariely Ly MA [facility] 4 14:37:04 Date Recorded Body height Body mass index (BMI) Body weight Oxygen saturation Oxygen saturation in Arterial blood by Pulse oximetry Heart rate Respiratory rate Systolic blood pressure Diastolic blood pressure Provider Name and Address Organization Details Last Updated DateTime 5 172.72 cm 18.4 kg/m2 64110.6 8 g 96 % 96 % 79 /min 18 /min 159 mm[Hg] 94 mm[Hg] Charlene Healy MA [facility] 5 09:55:15 Date Recorded Systolic blood pressure Diastolic blood pressure Provider Name and Address Organization Details Last Updated DateTime 01/14/2025 160 mm[Hg] 100 mm[Hg] PAM RG Attn: Accounting,[address] [place], [address], [facility] 01/14/2025 10:23:23 Social History Question Answer Notes LastModified by Organizat ion Details LastModified Time Tobacco Smoking Status Current Every Day Smoker Kelly [email or web address], [place] [facility] 10/19/2019 16:36:20 Do You Have An Advance Directive? No Information not available 01/19/2020 What Is Your Level Of Alcohol Consumption? None Information not available 01/19/2020 Are You Blind Or Do You Have Difficulty Seeing? No [email or web address] Information not available 01/03/2022 What Is Your Level Of Caffeine Consumption? Moderate [email or web address] Information not available 01/03/2022 In The 14 Days Before Symptom Onset, Have You Had Close Contact With A Laboratory-confi rmed COVID-19 While That Case Was Ill? No [email or web address] Information not available 01/03/2022 In The 14 Days Before Symptom Onset, Have You Had Close Contact With A Person Who Is Under Investigation For COVID-19 While That Person Was Ill? No [email or web address] Information not available 01/03/2022 Have You Been To An Area Known To Be High Risk For COVID-19? No [email or web address] Information not available 01/03/2022 Are You Currently Employed? Yes [email or web address] Information not available 01/03/2022 Are You Deaf Or Do You Have Serious Difficulty Hearing? No Information not available 01/03/2022 What Type Of Diet Are You Following? REGULAR Information not available 01/19/2020 Do You Or Have You Ever Used E-cigarettes Or Vape? Never Used Electronic Cigarettes Information not available 01/19/2020 What Is Your Occupation? [employer] [email or web address] Information not available 01/03/2022 Are There Any [...] Date Of Your Most Recent Tobacco Screening? 01/14/2025 [email or web address] Information not available 01/14/2025 How Many Children Do You Have? 2 Information not available 01/19/2020 Do You Use Your Seat Belt Or Car Seat Routinely? Yes Information not available 01/03/2022 Do You Have [...] Anxious, Or Unable To Sleep At Night)? [id number] [email or web address] Information not available 01/03/2022 Do You Use Any Illicit Or Recreational Drugs? No Information not available 01/03/2022 Do You Use Sunscreen Routinely? No Information not available 03/12/2022 On What Date Was Tobacco Cessation Counseling Provided? 01/14/2025 Information not available 01/14/2025 How Many Years Have You Smoked Tobacco? 14 Information not available 10/19/2019 Do You Or Have You Ever Used Any Other Forms Of Tobacco Or Nicotine? No [email or web address] Information not available 01/03/2022 Sex: Female Functional [...] High Blood Pressure Y Atrial Fibrillation N Kidney or Bladder Problems N Thyroid Problems N Blood Clots N COPD N Depression Y GI Problems N Skin Problems N Anemia Y Heart Attack ([place]) N Anxiety Disorder Y Diabetes N Muscle, [...] SNOMED-CT Code Diagnosis ICD10 Code Diagnosis Note [id number] [facility] [address] [place] [address] 10/19/2019 16:10:28 10/22/2019 14:19:46 Mixed anxiety and depressive disorder [id number] F41.8 patient on zoloft and would like to continue on this. she is happy at current dose. Symptoms of worry and depression currently under control. Essential hypertension 35088435 I10 patient happy on labetalol, no side [...] Advised goal for BP is <140/90 Prediabetes 670566316 R7 3.03 Hypercholesterolemia 136 46272 E78.00 checking lipid panel Anemia 877413946 D64.9 patient has history of anemia. checking cbc [id number] Rebeca Mariee MD [facility] [address] [place] [address] 12/16/2019 15:16:55 12/20/2019 10:48:10 Acute sinusitis 34403725 J01.90 Pityriasis rosea 8938885 4 L42 will observe; should resolve spontaneou sly. 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.629 x4 monthschro tristen teeth grinding d [...] sgave Dentist contacts Generalize d anxiety disorder 88268519 F41.1 VIVI 20- severe anxietychr onic, constant, everydayre lief with buspar in the pastno relief with zoloftpt would like to have anxiety more under control before taking anxiety medication offered hydroxyzin e PRN and she is amendablet rial buspar low dose BID, advised pt of ADRDenies SI/HIf/u in 1 mo Depression screening 171 233856 Z13.31 PHQ 8 [id number] PAM RG [facility] [address] [place] [address] 03/12/2022 15:35:12 03/13/2022 10:52:02 Generalized anxiety disorder 92978778 F41.1 03/12/22: no improvemen t with buspar [...] SI/HIf/u in 1 mo Depression screening 171 672555 Z13.31 PHQ 26depressi on previously controlled on [...] Elevated blood-pressure reading without diagnosis of hypertension 024218296 R03.0 BP today 152/102, 150/100pre vious visit controlled was on labetalol during pregnancyf /u in 2 wks for repeat BP check [id number] PAM RG [facility] [address] [place] [address] 07/24/2022 15:16:56 07/24/2022 16:04:18 Depression screening 515141104 Z13.31 07/24/22:PH Q 16mild improvemen t with [...] wks- counseling referral Generalize d anxiety disorder 48715625 F41.1 07/24/22:wo uld like to try hydroxyzin [...] Elevated blood-pressure reading without diagnosis of hypertension 401657088 R03.0 07/24/22:BP 138/82 03/12/22:BP today 152/102, 150/100pre vious visit controlled was on labetalol during pregnancyf /u in 2 wks for repeat BP check Candidiasis of mouth 797 31917 B37.0 starting drinking juices since she had COVID 2 wks agoc/o burning sensation to tonguePEx- white coating to tonguetria l nystatin rinse [id number] PAM RG [facility] [address] [place] [address] 04/10/2023 12:17:46 04/10/2023 13:02:43 Generalized anxiety disorder 95173471 F41.1 04/10/23:co ntrolledre fill 07/24/22:wo uld like [...] of ADRDenies SI/HIf/u in 1 mo Smoker 08613618 F17.200 smokes 1 ppdnot amendable to quitting at this time Unintentio nal weight loss 613221702 R63.4 >5% weight loss in 6-12 [id number] lbs in 2 months per patienta/w night sweats, decreased appetiteCX R 4 days ago normalno other concerning sxPEx- nlcould be due to malnutriti oncheck labsrecord weight for 1 mof/u in 1 mo if normal, can order HIV, Hepatitis, stool hemoccult, ESR/CRP Essential hypertension 56170591 I10 04/09/23:BP 140/80, 150/90BP at [place] 157/96re-s tart amlodipine 10 mgadvised to check BP at home, goal BP <130/80, f/u with BP log in 1 wkf/u in 1 mo 07/24/22:BP 138/82 03/12/22:BP today 152/102, 150/100pre vious visit controlled was on labetalol during pregnancyf /u in 2 wks for repeat BP check Family his tory of malignant neoplasm of breast in first degree relative 601374173 Z80.3 sister diagnosed with stage 4 breast cancer last year, age 46ordered Mammo Major depr essive disorder 096090212 F32.9 04/09/23:PH Q 3controlle drefill today 07/24/22:PH [...] in 2 wks- counseling referral Rib pain 026510378 R07.8 1 noticed R sided lump 1 wk agoCXR at [place] normalno h/o rib fracturesP Ex- 1 cm x 1 cm bony projection to R 8th rib, mildly TTPreassur ed pt, CXR normalmost likely noticed nodule due to weight losswill continue to monitor [id number] PAM RG [facility] [address] [place] [address] 05/13/2023 10:02:35 05/13/2023 10:41:56 Unintentional weight loss 526045301 R63.4 05/13/23:ga ined 4 lbs in the past month stuf fing herself but she feels goodre-archie ck CBC, CMP, lipid, add on HIV, hepatitis, ESR/CRP 04/10/23:>5 % weight loss in 6-12 [id number] lbs in 2 months per patienta/w night sweats, decreased appetiteCX R 4 days ago normalno other concerning sxPEx- nlcould be due to malnutriti oncheck labsrecord weight for 1 mof/u in 1 mo if normal, can order HIV, Hepatitis, stool hemoccult, ESR/CRP Essential hypertension 40905746 I10 05/13/23:BP 134/90did not take amlodipine yet today 04/09/23:BP 140/80, 150/90BP at [place] 157/96re-s tart amlodipine 10 mgadvised to check BP at home, goal BP <130/80, f/u with BP log in 1 wkf/u in 1 mo 07/24/22:BP 138/82 03/12/22:BP today 152/102, 150/100pre vious visit controlled was on labetalol during pregnancyf /u in 2 wks for repeat BP check Family his tory of malignant neoplasm of breast in first degree relative 432788048 Z80.3 05/13/23:ma mmogram nl 04/09/23:si ster diagnosed with stage 4 breast cancer last year, age 46ordered Mammo Major depr essive disorder 665495004 F32.9 05/13/23:PH Q 0 04/09/23:PH Q 3controlle [...] f/u in 2 wks- counseling referral Smoker 83727524 F17.200 smokes 1 ppdnot amendable to quitting at this time [id number] PAM RG [facility] [address] [place] [address] 09/17/2023 12:48:04 09/17/2023 16:02:48 Essential hypertension 71101777 I10 09/17/23:B P 172/115did not take BP meds this morning 05/13/23:BP 134/90did not take amlodipine yet today 04/09/23:BP 140/80, 150/90BP at [place] 157/96re-s tart amlodipine 10 mgadvised to check BP at home, goal BP <130/80, f/u with BP log in 1 wkf/u in 1 mo 07/24/22:BP 138/82 03/12/22:BP today 152/102, 150/100pre vious visit controlled was on labetalol during pregnancyf /u in 2 wks for repeat BP check Nausea and vomiting 1693 1999 R11.2 trial zofran - 30 minutes after taking nausea medicine, begin with sips of clear liquids. If able to hold down 2 4 ounces for 30 minutes, begin drinking more.- Increase your fluid intake to replace losses.- Clear liquids only for 24 hours (water, tea, sport drinks, clear flat bereket jyoti or cola and juices, broth, jello, popsicles, ect).- Advance to bland foods, applesauce , rice, baked or boiled chicken, ect.- Avoid milk, greasy foods and anything that doesn t agree with you.- If vomiting persists and you are unable to hold fluids, return here or go to the ER.- If diarrhea persists more than 4 days, or becomes bloody, or if you develop high fever or abdominal pain, return here, see your doctor or go to the ER.-If symptoms worsen or do not improve seek immediate re-evaluat ion COVID-19 032792760 U07.1 diagnosed 10 days agopt is vaccinated [...] down food or liquids. Depression screening 171 774660 Z13.31 09/17/23:P HQ 0 07/24/22:PH Q 16mild [...] #.- f/u in 2 wks- counseling referral [id number] PAM RG [facility] [address] [place] [address] 09/22/2023 15:05:12 09/23/2023 12:58:01 COVID-19 654137326 U07.1 09/22/23:i mprovement in diarrhea, cough and [...] keep down food or liquids. Essential hypertension 59724551 I10 09/22/23:B P 155/103did not take BP meds yet 09/17/23:B P 172/115did not take BP meds this morning 05/13/23:BP 134/90did not take amlodipine yet today 04/09/23:BP 140/80, 150/90BP at [place] 157/96re-s tart amlodipine 10 mgadvised to check BP at home, goal BP <130/80, f/u with BP log in 1 wkf/u in 1 mo 07/24/22:BP 138/82 03/12/22:BP today 152/102, 150/100pre vious visit controlled was on labetalol during pregnancyf /u in 2 wks for repeat BP check Depression screening 171 430608 Z13.31 09/17/23:P HQ 0 07/24/22:PH Q 16mild [...] in 2 wks- counseling referral Cannabis dependence 9950 3893 F12.20 uses marijuana vape 3-4x/day for the past 2 yrsc/o nausea and decreased appetite x3 monthsmost likely due to cannabis userec'd pt decreased cannabis to see if sx improve [id number] PAM RG [facility] [address] [place] [address] 01/28/2024 11:14:02 01/28/2024 11:45:57 Essential hypertension 66428591 I10 01/27/24: BP 140/92, 126/80took BP med this morning 09/22/23:B P 155/103did not take BP meds yet 09/17/23:B P 172/115did not take BP meds this morning 05/13/23:BP 134/90did not take amlodipine yet today 04/09/23:BP 140/80, 150/90BP at [place] 157/96re-s tart amlodipine 10 mgadvised to check BP at home, goal BP <130/80, f/u with BP log in 1 wkf/u in 1 mo 07/24/22:BP 138/82 03/12/22:BP today 152/102, 150/100pre vious visit controlled was on labetalol during pregnancyf /u in 2 wks for repeat BP check Abdominal pain 20731486 R10.9 x4 dayslower abd- cramping, achy, burning sensationc hronic nauseano other sxwent to [place] ED 01/23/24: CT abd pelvis normalpt is eating wellimprov ement in sx with dicyclomin ec/o R flank painPEx- mild R CVATurine dip nl, pt had vaginal spotting 4 days ago (small blood on dip)reassu red ptf/u with any new or worsening sx Spasm of back muscles 20 6375403 M62.830 x2 daysR sided upper back painno trauma or injurystat es that it feels tight has been using heating padurine dip nltrial low dose flexeril x14 days [id number] PAM RG [facility] [address] [place] [address] 04/21/2024 12:30:19 04/21/2024 12:45:07 Cystic acne 78683539 L70.0 Open comedone 014296366 L70.0 x6 monthstrie d OTC treatments w/o reliefPEx- 3 mm open comedones to bilateral cheeks, nose, and foreheadtr ial tretinoin daily at bed time (sent under cystic acne for insurance to cover), rec'd cetaphil face wash and cera ve lotion for dry skin [id number] PAM BILLINGS [facility] [address] [place] [address] 11/01/2024 14:06:43 11/04/2024 10:36:14 Upper respiratory infection 62253459 J06.9 -Temp normal, however, pt is sweaty and clammy on exam. Lung sounds decreased with mild wheezing in lower law.-CO VID, flu (-)-Rx azithromyc in and benzonatat e-Chest xray ordered-re commend continued OTC medication s. Encouraged adequate fluid intake and rest.-F/u if symptoms are not improving [id number] PAM RG [facility] [address] [address] 01/14/2025 09:49:43 01/14/2025 10:25:31 Essential hypertension 35066064 I10 01/14/25: BP 159/94, 160/100out of BP meds, sent refills 01/27/24: BP 140/92, 126/80took BP med this morning 09/22/23:B P 155/103did not take BP meds yet 09/17/23:B P 172/115did not take BP meds this morning 05/13/23:BP 134/90did not take amlodipine yet today 04/09/23:BP 140/80, 150/90BP at [place] 157/96re-s tart amlodipine 10 mgadvised to check BP at home, goal BP <130/80, f/u with BP log in 1 wkf/u in 1 mo 07/24/22:BP 138/82 03/12/22:BP today 152/102, 150/100pre vious visit controlled was on labetalol during pregnancyf /u in 2 wks for repeat BP check Major depr essive disorder 817736888 F32.9 01/14/25: PHQ 5refill zoloft, requesting hydroxyzin e refill due to increased stress/anx iety 05/13/23:PH Q 0 04/09/23:PH Q 3controlle drefill [...] #.- f/u in 2 wks- counseling referral Adult heal th examination 346613445 Z00.00 routine labs Mass of left breast 1224 367404 5186726 N63.20 12/24/24: multiple new left breast masses likely correspond ing to simple and complicate d cystic masses seen on US, likely benign, rec'd 6 mo f/u diagnostic left mammogram and left breast US, BI-RADS category 3- probably benign findings per patient, [facility] to discuss results Health Concerns Section Related Observation LastModified by Organization Detai ls LastModified Time None Recorded Concern Status LastModified by Organization Details LastModified Time None Recorded Advance Directives Directive N: Payers Encounter Date Sequence Insurance Name Policy Number Policy Ennis Covered Member ID Ennis Member ID Guarantor Name 09/22/2023 1 [facility] ON OR AFTER 05/24/21 (MEDICAID REPLACEMENT - HMO) Macarena Blanca [id number] Macarena Blanca 01/28/2024 1 [facility] ON OR AFTER 05/24/21 (MEDICAID REPLACEMENT - HMO) Macarena Blanca [id number] Macarena Blanca 04/21/2024 1 [facility] - [place] ON OR AFTER 21 (MEDICAID REPLACEMENT - HMO) Macarena Blanca [id number] Macarena Blanca 11/01/2024 1 [facility] - [place] ON OR AFTER 21 (MEDICAID REPLACEMENT - HMO) Macarena Blanca [id number] Macarena Blanca 01/14/2025 1 [facility] - [place] ON OR AFTER 21 (MEDICAID REPLACEMENT - HMO) Macarena Blanca [id number] Macarena Riso Notes Date Note Type Note Provider Name and Address Organization Details Recorded Time 09/22/2023 text/html Pt presents for 5 day f/u and work note. States that her diarrhea subsided 4 days ago. Improvement in cough and congestion with coricidin HBP. Still c/o nausea and decreased appetite despite taking zofran. She has been drinking water and gatorade. Requesting RTW note 09/29/23. PAM RG Attn: Accounting,[address] [facility], [place], [address], [facility] 09/22/2023 22:04:03 01/28/2024 text/html Pt presents with [...] fluid intake. PAM RG Attn: Accounting[address] [facility], [place], [address], [facility] 01/30/2024 14:56:36 04/21/2024 text/html Pt presents with [...] her face. PAM RG Attn: Accounting[address] [facility], [place], [address], [facility] 04/21/2024 17:01:27 11/01/2024 text/html 39 yo F [...] chest pain. PAM BILLINGS Attn: Accounting,[address] [facility], [place], [address], [facility] 11/01/2024 18:35:27 01/14/2025 text/html Pt presents for med refills. States that she is following with specialist at [facility] [place] for masses in my L breast. Endorses to have increased anxiety due to results of mammogram. Pt's sister was diagnosed with breast cancer 4 yrs ago. PAM RG Attn: Accounting[address] [facility], [place], [address], [facility] 01/14/2025 13:57:27 OBGyn Episode No OBEpisode recorded.
--- OUTSIDE RECORDS SUMMARY | 2025-03-22 14:12 | XMS_ITS | Clinical Summary ---
Author Organization [facility] Address [address] [place] [address] Care Team Providers Care Program Host Name Role Phone Tory Plata APRN-TIP PRINTER Unavailable Unavailable Nell Ray PA-C Primary Care Provider [phone] Source Comments [facility],non-owned Affiliates and Associated Physician Practices is amultiple site organization consisting of ambulatory clinics and hospital sitesin [place], [place], [place] and [place]. This disclosure is being madepursuant to the Care Everywhere program and may not contain all information available regarding this patient. Last updated 18.[facility] Allergies No known active allergies Medications * This document contains information received from the source organization and may not represent a complete record from that organization. * Be aware that medications may not be up to date on this document. Alwaysverify current medications with the patient. 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 Gender Identity Not on file Sexual Orientation Not on file Last Filed Vital Signs Vital Sign Reading Time Taken Comments Blood Pressure 132/94 08/06/2019 1:57 PM CDT Pulse 74 08/06/2019 1:57 PM CDT Temperature 36.2 C (97.2 F) 03/20/2021 9:07 AM CDT Respiratory Rate 17 08/06/2019 1:57 PM CDT Oxygen Saturation 99% 08/06/2019 1:57 PM CDT Inhaled Oxygen Concentration - - Weight 64.5 kg (142 lb 1.6 oz) 08/06/2019 8:12 A M CDT Height 170.2 cm (5' 7 ) 08/06/2019 8:12 AM CDT Body Mass Index 22.26 08/06/2019 8:12 AM CDT Plan of Treatment Health Maintenance Due Date Last Done Comments HEPATITIS C SCREENING 03/14/2003 DTAP/TDAP/TD VACCINES (1 - Tdap) 2004 HEPATITIS B VACCINE (1 of 3 - 19+ 3-dose series) 2004 PNEUMOCOCCAL VACCINE (1 of 2 - PCV) 2004 MAMMOGRAM 12/28/2017 12/28/2015 PAP with HPV 04/29/2022 04/29/2017 LIPID TESTING 10/22/2022 10/22/2017, 04/08/2016, 04/21/2014 COVID-19 VACCINE (1 - 2023-2 5 season) 2024 DEPRESSION SCREENING 11/24/2024 INFLUENZA VACCINE (Season Ended) 2025 09/07/2017 ZOSTER VACCINE (1 of 2) 2035 HIV SCREENING Completed 02/21/2021 HIB VACCINE Aged Out No longer eligi ble based on patient's age to complete this topic HPV VACCINE Aged Out No longer eligi ble based on patient's age to complete this topic MENINGOCOCCAL (Group B) VACCINE SHARED DECISION-MAKING Aged Out No longer eligible based on patient's age to complete this topic MENINGOCOCCAL GROUPS A/C/Y/W VACCINE Aged Out No longer eligible b ased on patient's age to complete this topic Procedures Procedure Name Priority Date/Time Associated Diagnosis Comments LIPID PROFILE Routine 10/22/2017 8:32 AM BIOLOGICAL SCIENCES PROFESSOR Essential hypertension Increased frequency of urination PAP LB CT+GC JUAN +HPV HR DNA Routine 04/29/2017 3:28 PM CDT Special screening examination for human papillomavirus (HPV) Routine gynecological examination MAMMO BILAT DIAGNOSTIC Routine 12/28/2015 9:57 AM BIOLOGICAL SCIENCES PROFESSOR Lump or mass in breast from Last 3 Months or Most Recently Relevant to Health Maintenance Results * (ABNORMAL) LIPID PROFILE (10/22/2017 8:32 AM BIOLOGICAL SCIENCES PROFESSOR) Cholesterol 206(H) <200 mg/dL 10/22/2017 1:[address] [facility] Triglycerides 103 <150 mg/dL 10/22/2017 1:[address] [facility] HDL Cholesterol 57 >40 mg/dL 7 1:[address] [facility] Chol HDL Ratio 3.6 1.0 - 6.0 10/22/2017 1:[address] [facility] LDL Calculated 128 65 - 130 mg/dL 10/22/2017 1:[address] [facility] VLDL Calculated 21 10 - 40 mg/dL 10/22/2017 1:[address] [facility] Blood BLOOD SPECIMEN / Unknown Venipuncture / Unknown 10/22/2017 8:32 AM [facility] 10/22/2017 8:32 AM [facility] - 10/22/2017 1:49 PM [facility] Lipid Profile Comment: CHOLESTEROL LEVEL..................CLINICAL INTERPRETATION LESS [...] 2X AVERAGE.................. 9.5 ...................... 7.0 3X AVERAGE...................>23........................>11 us Nell Ray PA-C LAB - CHEMISTRY ORDERABLES Fin al Result [facility] [address] [place] [address], [facility] * PAP LB CT+GC JUAN +HPV HR DNA (04/29/2017 3:28 PM CDT) Diagnosis [facility] INSURANCE BILL Comment:NEGATIVE FOR INTRAEP ITHELIAL LESION AND MALIGNANCY. Specimen Adequacy [facility] INSURANCE BILL Comment: Satisfactory for evaluation. Endocervical and/or squamous metaplastic cells (endocervical component) are present. Clinician Provided ICD10 [facility] INSURANCE BILL Comment: Z11.51 Z01.419 Performed by [facility] INSURANCE BILL Comment:Carmen Jackson, [facility] otechnologist (ASCP) Comment . [facility] INSURANCE BILL Note [facility] INSURANCE BILL Comment: The Pap smear is a screening test designed to aid in the detection of premalignant and malignant conditions of the uterine cervix. It is not a diagnostic procedure and should not be used as the sole means of detecting cervical cancer. Both false-positive and false-negative reports do occur. . Human papillomavirus High Risk NOT NEEDED [facility] INSURANCE BILL Comment: The quantity of specimen remaining in the vial after Pap slide preparation was less than the 4 mL minimum cell suspension required. Low sample cellularity may be the cause. See HPV, low volume rfx test result. This high-risk HPV test detects thirteen high-risk types (16/18/31/33/35/39/45/51/52/56/58/59/68) without differentiation. . Ancillary determined the test is not needed Chlamydia JUAN Thin Prep Negative Negative [facility] INSURANCE BILL GC DNA Probe Negative Negative [facility] INSURANCE BILL PART OF UTERINE CERVIX / Unknown 04/29/2017 3:28 PM CDT 04/30/2017 Narrative [facility] INSURANCE BILL - 05/07/2017 9:07 PM CDT Source.............Cervix LMP / Prev Treat...KRG=[id number] Other..............Oral Contraceptives No. of containers..01 CYTYC Thin Prep Vial Resulting Agency Comment [facility] [address] [phone] Tory Boni [employer]-TIP PRINTER LAB - PATHOLOGY/CYTOLOGY ORD ERABLES Final Result [facility] INSURANCE BILL [address] [place] [address] * TOM DIAGNOSTIC BILATERAL DIGITAL G0204 (12/28/2015 9:57 AM BIOLOGICAL SCIENCES PROFESSOR) Anatomical Region Laterality Modality Bilateral Mammography 12/28/2015 11:1 4 AM BIOLOGICAL SCIENCES PROFESSOR Impressions 12/28/2015 12:36 PM BIOLOGICAL SCIENCES PROFESSOR 1. Three separate left breast masses most [...] and the left axillary lymph node. A) A negative report should not delay a biopsy [...] malignancy and appropriate action should be taken. Narrative 12/28/2015 12:36 PM BIOLOGICAL SCIENCES PROFESSOR DIGITAL BILATERAL SCREENING MAMMOGRAM WITH COMPUTER AIDED DETECTION AND 3-D TOMOSYNTHESIS (12/28/2015) COMPARISON: Baseline. FINDINGS: Digital breast tomosynthesis was performed of [...] dominant solid mass with color flow. Tory Walshjan [employer]-TIP PRINTER MAMMO ORDERABLES Final Resul t from Last 3 Months or Most Recently Relevant to Health Maintenance Insurance [facility] [employer] [facility] [employer] [employer] Advance Directives * Full Code (Latest Code Status on File) Date Activated Date Inactivated Comments 11/10/2017 10:01 PM 11/12/2017 4:26 PM Care Teams Program Host Relationship Specialty Start Date End Date Nell Ray PA-C [address] [place] [id number] PCP - General 08/13/19 Tory Plata APRN-TIP PRINTER Nurse Practitioner 04/16/13
--- OUTSIDE RECORDS SUMMARY | 2025-03-22 14:12 | XMS_ITS | Clinical Summary ---
Author Organization [facility] Address Formerly [facility], [facility] [place] [address] Care Team Providers Care Investigator Internal Affairs Name Role Phone Nell Ray PA-C Primary Care Provider [phone] Allergies No known active allergies Medications labetalol [...] Comments Blood Pressure 129/86 09/28/2018 9:34 AM LUDLOW MACHINE OPERATOR Pulse 100 09/28/2018 9:34 AM LUDLOW MACHINE OPERATOR Temperature 36.9 C (98.5 F) 09/28/2018 9:34 AM LUDLOW MACHINE OPERATOR Respiratory Rate 16 09/28/2018 9:34 AM LUDLOW MACHINE OPERATOR Oxygen Saturation 100% 09/28/2018 9:34 AM LUDLOW MACHINE OPERATOR Inhaled Oxygen Concentration - - Weight 67.6 kg (149 lb) 09/28/2018 9:34 AM LUDLOW MACHINE OPERATOR Height 172.7 cm (5' 8 ) 09/28/2018 9:34 AM LUDLOW MACHINE OPERATOR Body Mass Index 22.66 09/28/2018 9:34 AM LUDLOW MACHINE OPERATOR Plan of Treatment Health Maintenance Due Date [...] Screening wi th HPV 2015 COVID-19 Vaccine (1 - 2023-2 5 season) 2024 Mammogram Screening 2025 RSV Immunization or 60+ Years (1 - 1-dose 75+ series) 2060 Hepatitis B Vaccines Completed 03/07/2000, 10/11/1999, 09/07/1999 HPV Vaccines Aged Out No longer eligi ble based on patient's age to complete this topic Meningococcal B Vaccine Aged Out No l onger eligible based on patient's age to complete this topic Meningococcal Vaccine Aged Out No luis reinaldo eligible based on patient's age to complete this topic Pneumococcal Vaccine: Pediatrics (0 to 5 Years) and At-Risk Patients (6 to 49 Years) Aged Out No longer eligible b ased on patient's age to complete this topic RSV Immunizations Under 20 Months Aged Out No longer eligible b ased on patient's age to complete this topic Insurance [id number] Care Teams Investigator Internal Affairs Relationship Specialty Start Date End Date Nell Ray, SAAD [address] [place] [phone] PCP - General PHYSICIAN AIRLINE MANAGERIAL SUPERVISOR 09/28/18
--- OUTSIDE RECORDS SUMMARY | 2025-03-22 14:13 | XMS_ITS | Data Portability ---
Author Organization [facility] [place] Address [address] [place] [address] [address] Care Team Providers Care Agricultural Sciences Professor Name Role Phone SACHIN BARRONSEY Primary Care Provider [phone] Assessment Encounter Date Assessment Date Assessment LastModified by Organization Details LastModified Time 12/09/2024 12/09/2024 Annual gynecological exam performed. Patient will come back in a year unless there are new symptoms. [email or web address] Not available 12/09/2024 15:56:55 Plan of Treatment Reminders Order Date Submit Date Provider Last Modified By Organization Details Last Modified Time Details Appointments None recorded. Lab prolactin, serum [address] (Lab), [address] [facility], [place], [address], 11:25:49 Referral None recorded. Procedures None recorded. Surgeries None recorded. Imaging MAMMO, diagnostic, digital, bilateral [facility]24 [facility] [address], [place], [address], 5 14:58:35 US, breast, unilateral - left breast lump around 4 oclock [address] [facility], [address], [place], [address], 5 11:25:54 Medication Orders labetalol 200 mg tablet 2020 021 [email or web address] [facility], [address] [place], [address], 5 15:59:06 Zoloft 100 mg tablet 2020 021 [facility], [address] [place], [address], 14:34:44 Zoloft 50 mg tablet 2020 021 [facility], [facility] [place], [address], 14:34:48 labetalol 200 mg tablet 2020 021 [facility], [address] [place], [address], 12:47:52 Patient TargetsNo targets recorded. Patient InstructionsNo instructions [...] Repor t Case: [id number] Autho rieduard g Provi claudio: Marry Sena, PATRICK Colle [...] Mehrdad boo, CT on 2024 at 0823 DATA SOLUTIONS ARCHITECT ----- ----- ----- ----- ----- ----- ----- [...] as clini tiffanie brenner nted. Not Available [facility] (Lab) [address], [place], [address], 12/16/2024 09:27:59 12/24/1912/24/2024 MAMMO , diagn ostic , digit al, bilat eral No observ ation record ed. [address], [place], [address], 01/06/2025 14:17:39 12/28/1912/24/2024 imagi ng/di agnos tic resul t No observ ation record ed. [address], [place], [address], 01/06/2025 14:17:27 Result Notes None recorded. Problems Name Problem SNOMED Code Status Onset Date Resolution Date Notes Provider Name and Address Organization Details Recorded Time Pregnanc y 33288770 Completed 201912/08/2020 Linnea hernández, [facility] 1 16:54:00 Transien t hyperten nimisha of pregnanc y - delivere d 934212058 Completed h/o pih Linnea hernández, [facility] 1 16:53:54 History of depressi on 467400725 Completed Depressi on/Anx. - zoloft Linnea hernández, [facility] 1 16:53:54 Past pregnanc y history of gestatio nal diabetes mellitus 875946472 Completed Linnea hernández, [facility] 1 16:53:54 Marginal insertio n of umbilica l cord 51580493 Completed Serial growth LII u/s 03/20 9[facility] 16:53:54 Intraute rine synechia e 139231033 Completed [facility] Level II U/S 03/20 9AM Linnea hernández [facility] 16:53:54 Pregnanc y 84218473 Completed 202005/10/2021 Linnea hurt [facility] 16:54:00 growth restrict ion 93849951 Completed no f/u w/ mfm - in house ante testing Linnea hernández [facility] 16:53:54 Footling breech presenta tion 419435956 Completed 202004/20/2021 Jagruti Kingston MD [address], [place], [address], [facility] 11:24:36 Footling breech presenta tion 213448611 Completed 2020 will schedule CS for 39 weeks Linnea hurt [facility] 16:53:53 Normal pregnanc y in multigra siobhan 6509497018 89889 Completed 201812/08/2020 Encounte r for suprvsn of normal pregnanc y, third trimeste r;Practi ce ID: 0001 Glenda hernández, [facility] 14:07:50 Gestatio nal diabetes mellitus 06151746 Completed 201812/08/2020 Gestatio nal diabetes mellitus in pregnanc y, diet controll ed;Pract ice ID: 0001 Glenda Narvaez [facility], [facility] 14:07:45 Gestatio n period, 36 weeks 33029124 Completed 201812/08/2020 36 weeks gestatio n of pregnanc y;Practi ce ID: 0001 Glenda hernández, [facility] 14:07:39 Gestatio n period, 37 weeks 05223873 Completed 201812/08/2020 37 weeks gestatio n of pregnanc y;Practi ce ID: 0001 Glenda hernández, [facility] 14:07:40 finding Completed 201812/08/2020 Matern care for oth or susp poor fetl grth, third tri, unsp;Pra ctice ID: 0001 Glenda hernández, [facility] 14:07:19 Complica tion of pregnanc y, childbir th and/or puerperi 906017963 Completed 201812/08/2020 Oth diseases and conditio ns compl preg/chl dbrth;Pr actice ID: 0001 Glenda hernández, [facility] 14:08:06 Gestatio n period, 25 weeks 39317549 Completed 201812/08/2020 25 weeks gestatio n of pregnanc y;Practi ce ID: 0001 Glenda hernández, [facility] 14:07:20 Gestatio n period, 30 weeks 83035438 Completed 201812/08/2020 30 weeks gestatio n of pregnanc y;Practi ce ID: 0001 Glenda hernández, [facility] 14:07:31 Diet educatio n Completed 201812/08/2020 Dietary counseli ng and surveill ance;Pra ctice ID: 0001 Glenda hernández, [facility] 14:07:13 Dietary manageme nt surveill ance Completed 201812/08/2020 Dietary counseli ng and surveill ance;Pra ctice ID: 0001 Glenda hernández [facility] 14:07:15 Gestatio n period, 31 weeks 92489834 Completed 201812/08/2020 31 weeks gestatio n of pregnanc y;Practi ce ID: 0001 Glenda hernández [facility] 14:07:[address] Concept Completed 201812/08/2020 Matern care for abnlt fetl hrt rate or rhym, 3rd tri, unsp;Pra ctice ID: 0001 Glenda Narvaez [facility] 14:08:03 Gestatio n period, 32 weeks 7726269 Completed 201812/08/2020 32 weeks gestatio n of pregnanc y;Practi ce ID: 0001 Glenda hernández [facility] 14:07:34 Antenata l screenin g for malforma tion Completed 201812/08/2020 Encounte r for antenata l screenin g for malforma tions;Pr actice ID: 0001 Glenda hernández [facility] 14:07:10 Finding of pharynx Completed 201812/08/2020 Acute pharyngi tis, unspecif ied;Prac kylie ID: 0001 Glenda hernández [facility] 14:07:51 Gestatio n period, 33 weeks 48129310 Completed 201812/08/2020 33 weeks gestatio n of pregnanc y;Practi ce ID: 0001 Glenda hernández, [facility] 14:07:35 Gestatio n period, 34 weeks 32069634 Completed 201812/08/2020 34 weeks gestatio n of pregnanc y;Practi ce ID: 0001 Glenda hernández [facility] 14:07:37 Pregnanc y, childbir th and puerperi um finding Completed 201812/08/2020 Encntr for suprvsn of normal first preg, third trimeste r;Practi ce ID: 0001 Glenda hernández, [facility] 14:07:54 Gestatio n period, 35 weeks 70886553 Completed 201812/08/2020 35 weeks gestatio n of pregnanc y;Practi ce ID: 0001 Glenda hernández [facility] 14:07:38 Antenata l screenin g Completed 201812/08/2020 Encounte r for antenata l screenin g for nuchal transluc ency;Pra ctice ID: 0001 [facility] 14:07:06 Pregnanc y detectio n examinat ion Completed 201712/08/2020 Encounte r for pregnanc y test, result positive ;Practic e ID: 0001 Glenda hernández [facility] 14:07:[address] Concept Completed 201712/08/2020 Encntr for cupola repairer exam (general ) (routine ) w/o abn findings ;Practic e ID: 0001 Glenda hernández [facility] 14:08:05 Gestatio n period, 38 weeks 36736023 Completed 201812/08/2020 38 weeks gestatio n of pregnanc y;Record ed Elsewher e: No Locat ion: [facility] S ource: EHR Import Coordination And Production Head tristen: N Practi ce ID: 0001 Kye lable Time: 03:00:00 PM Glenda hernández [facility] 14:07:42 Elevated blood-pr essure reading without diagnosi s of hyperten nimisha 080573372 Completed 201812/08/2020 Elevated blood-pr essure reading w/o diagnosi s of hyperten nimisha;Rec orded Elsewher e: No Locat ion: [facility] S ource: EHR Import Coordination And Production Head tristen: N Practi ce ID: 0001 Kye lable Time: 11:00:00 AM Glenda hernández [facility] 14:07:16 Cantrell's palsy 995923096 Completed 201812/08/2020 Cantrell's palsy;Re corded Elsewher e: No [facility]: EHR Import Coordination And Production Head tristen: N Practi ce ID: 0001 Kye lable Time: 02:00:00 PM Glenda hernández [facility] 14:07:[address] Concept Completed 201812/08/2020 Anxiety; Recorded Elsewher e: No [facility]: EHR Import Coordination And Production Head tristen: N Belindati ce ID: 0001 Kye lable Time: 10:00:00 AM Glenda hernández [facility] 14:08:02 Infectio n screenin g Completed 201712/08/2020 Encounte r for screenin g for oth infec/pa rastc diseases ;Recorde d Elsewher e: No Locat ion: [facility] S ource: EHR Import Coordination And Production Head tristen: N Practi ce ID: 0001 Kye lable Time: 02:00:00 PM Glenda hernández [facility] 14:07:47 Gestatio nal diabetes mellitus in brigid [id number] 5504489 Completed 201812/08/2020 Gestatio nal diabetes in brigid , insulin controll ed;Pract ice ID: 0001 Glenda hernández, [facility] 14:07:46 Single live from singleto n pregnanc y 217883754 Completed 201812/08/2020 Single live ;Pr actice ID: 0001 Glenda hernández, [facility] 14:08:01 Gestatio n period, 39 weeks 94384209 Completed 201812/08/2020 39 weeks gestatio n of pregnanc y;Practi ce ID: 0001 Glenda hernández, [facility] 14:07:43 Lochia finding Completed 201812/08/2020 Encounte r for routine postpart um follow-u p;Practi ce ID: 0001 Glenda hernández, [facility] 14:07:49 Pregnanc y-induce d hyperten nimisha Completed 201812/08/2020 Gestatio nal hyperten nimisha w/o signific ant proteinu vikki;Jozef rded Elsewher e: No Locat ion: [facility] S ource: EHR Import Coordination And Production Head tristen: N Practi ce ID: 0001 Kye lable Time: 10:00:00 AM Glenda hernández, [facility] 14:07:55 Antenata l screenin g for growth retardat ion Completed 201812/08/2020 Intraute rine growth restrict ion (IUGR)/s mall-for -dates;R ecorded Elsewher e: No Locat ion: [facility] S ource: EHR Import Coordination And Production Head tristen: N Practi ce ID: 0001 Kye lable Time: 02:00:00 PM Glenda hernández, [facility] 1 14:07:08 Rubella screenin g status 255373357 Completed 201712/08/2020 Encounte r for antenata l screenin g, unspecif ied;Jozef rded Elsewher e: No Locat ion: [facility] S ource: EHR Import Coordination And Production Head tristen: N Practi ce ID: 0001 Kye lable Time: 02:00:00 PM Glenda hernández, [facility] 1 14:07:59 Problem Notes None recorded. Procedures Surgical History Date Name Laterality Status Provider Name and Address Organization Details Recorded Time 1 section [facility] 12/09/2024 16:04:33 1 NST completed Jagruti Kingston MD [address], [place], [address], [facility] 04/13/2021 11:48:20 1 NST completed Jagruti Kingston MD [address], [place], [address], [facility] 03/30/2021 12:14:04 0 Date of Last Pap Smear completed Emily Pickering [facility] 12/20/2020 17:38:59 3 Dilation and Curettage completed Gracy Russell [facility] 12/09/2024 16:05:04 Imaging Results Imaging Date Name Status LastModified by Organiz ation Details LastModified Time 12/24/2024 MAMMO, diagnostic, digital, bilateral completed [address] [place] [address], [address], 01/06/2025 14:17:39 12/24/2024 imaging/diagno stic result completed [address], [place], [address], 01/06/2025 14:17:27 Procedure Notes None recorded. Medical Equipment None [...] Prescrib ed Elsewher e: No Locat ion: [facility] odify By: cecily hui DateTime : 12/18/19 04:08:50 PM Not [...] Prescrib ed Elsewher e: No Locat ion: [facility] odify By: ike juan DateTime : 04/23/20 [...] Prescrib ed Elsewher e: No [facility] By: cecily Steen r DateTime : [...] Prescrib ed Elsewher e: No [facility] By: cecily Steen r DateTime : [...] Prescrib ed Elsewher e: No Locat ion: [facility] odify By: cecily Steen r DateTime : 04/23/20 19 02:00:00 PM Not Available Not Available Not [...] Prescrib ed Elsewher e: Yes Loca tion: [facility] M odify By: [email or web address] Encount er DateTime : 07/30/20 11:00:00 AM [...] Updated DateTime 1 165.1 cm 23.8 kg/m2 50990.7 1 g 163 mm[Hg] 113 mm[Hg] 175 mm[Hg] 107 mm[Hg] 160 mm[Hg] 110 mm[Hg] 150 mm[Hg] 90 mm[Hg] [facility] 1 12:46:14 Date Recorded Body height Body mass index (BMI) Body weight Systolic blood pressure Diastolic blood pressure Systolic blood pressure Diastolic blood pressure Provider Name and Address Organization Details Last Updated DateTime 1 165.1 cm 23.8 kg/m2 04505.7 1 g 124 mm[Hg] 85 mm[Hg] 120 mm[Hg] 86 mm[Hg] [facility] 12:33:39 Date Recorded Body height Body mass index (BMI) Body weight Systolic blood pressure Diastolic blood pressure Systolic blood pressure Diastolic blood pressure Systolic blood pressure Diastolic blood pressure Provider Name and Address Organization Details Last Updated DateTime 1 165.1 cm 23.8 kg/m2 72727.7 1 g 164 mm[Hg] 109 mm[Hg] 171 mm[Hg] 112 mm[Hg] 150 mm[Hg] 100 mm[Hg] [facility] 14:16:44 Date Recorded Body height Body mass index (BMI) Body weight Systolic blood pressure Diastolic blood pressure Systolic blood pressure Diastolic blood pressure Provider Name and Address Organization Details Last Updated DateTime 165.1 cm 23.8 kg/m2 47114.7 1 g 147 mm[Hg] 89 mm[Hg] 140 mm[Hg] 90 mm[Hg] [facility] 14:18:00 Date Recorded Body height Body mass index (BMI) Body weight Systolic blood pressure Diastolic blood pressure Provider Name and Address Organization Details Last Updated DateTime 12/09/2024 165.1 cm 20.4 kg/m2 92669.42 g 127 mm[Hg] 85 mm[Hg] Gracy Russell [facility] 5 15:58:59 Social History Question Answer Notes LastModified by Organizat ion Details LastModified Time Tobacco Smoking Status Current Every Day Smoker [facility] 03/16/2021 10:32:08 What Is Your Level Of Alcohol Consumption? Occasional [email or web address] Information not available 12/20/2020 If You Are , What Was Your Level Of Alcohol Consumption Prior To ? Occasional [email or web address] Information not available 03/16/2021 Are You Blind Or Do You Have Difficulty Seeing? No [email or web address] Information not available 03/16/2021 What Is Your Level Of Caffeine Consumption? Moderate [email or web address] Information not available 01/31/2021 In The 14 Days Before Symptom Onset, Have You Had Close Contact With A Laboratory-confir med COVID-19 While That Case Was Ill? No [email or web address] Information not available 03/16/2021 In The 14 Days Before Symptom Onset, Have You Had Close Contact With A Person Who Is Under Investigation For COVID-19 While That Person Was Ill? No [email or web address] Information not available 03/16/2021 Have You Been To An Area Known To Be High Risk For COVID-19? No [email or web address] Information not available 03/16/2021 Are You Deaf Or Do You Have Serious Difficulty Hearing? No [email or web address] Information not available 03/16/2021 What Type Of Diet Are You Following? REGULAR [email or web address] Information not available 03/16/2021 Do You Or Have You Ever Used E-cigarettes Or Vape? Never Used Electronic Cigarettes Information not available 03/16/2021 How Many Days Of Moderate To Strenuous Exercise, Like A Brisk Walk, Did You Do In The Last 7 Days? 2 [email or web address] Information not available 03/16/2021 On Those Days That You Engage In Moderate To Strenuous Exercise, How Many Minutes, On Average, Do You Exercise? 25 [email or web address] Information not available 03/16/2021 What Is Your Current Pack Years? 30ormorepackye ars [email or web address] Information not available 03/16/2021 Have You Ever Been Counseled For Unhealthy Alcohol Use? No [email or web address] Information not available 03/16/2021 Do You Use Your Seat Belt Or Car Seat Routinely? Yes [email or web address] Information not available 03/16/2021 Do You Have Smoke And Carbon Monoxide Detectors In Your Home? Yes Information not available 03/16/2021 At What Age Did You Start Smoking Tobacco? 21 [email or web address] Information not available 12/20/2020 How Much Tobacco Do You Smoke? 0.25 PPD [email or web address] Information not available 12/20/2020 Do You Feel Stressed (tense, Restless, Nervous, Or Anxious, Or Unable To Sleep At Night)? [id number] [email or web address] Information not available 03/16/2021 Do You Use Any Illicit Or Recreational Drugs? No [email or web address] Information not available 12/20/2020 Do You Use Sunscreen Routinely? Yes [email or web address] Information not available 03/16/2021 Has Tobacco Cessation Counseling Been Provided? No [email or web address] Information not available 03/16/2021 How Many Years Have You Smoked Tobacco? 14 [email or web address] Information not available 12/20/2020 Do You Or Have You Ever Used Any Other Forms Of Tobacco Or Nicotine? No [email or web address] Information not available 03/16/2021 Sex: Unknown Functional Status Question Answer Note LastModified by Organization D etails LastModified Time Are you able to walk? YESWOREST [email or web address] Information not available 03/16/2021 What is your exercise level? Moderate [email or web address] Information not available 12/20/2020 Mental Status None recorded. Family History Relationship Description Onset Age of this Age Resolved Age Notes LastModified by Organization Details LastModified Time Sister Malignant tumor of breast half sister [email or web address] Not available 12/09/2024 16:46:43 Medical History Condition Response Allergies (Food, seasonal, environmental ) N Other N Drug/Latex Allergies/Reactions N Blood Transfusion N Breast Cancer N Dermatologic Disorders N Lung Disease N Defects or Inherited Disease N Breast Problem N Gestational Diabetes N Hematologic disorders N Anesthesia Complications N History of STI N Deep Vein Thrombosis N Polycystic ovary syndrome N Anxiety Disorder N Autoimmune disease N Arthritis N Polyps N Infertility N Acid Reflux (GERD) N History of abnormal pap N Cancer N Varicosities N Stroke N Neurologic/Epilepsy N Endometriosis N High Cholesterol Y Fibromyalgia N Headaches N Kidney Disease N Heart Problems N Thyroid Problems N Kidney or Bladder Problems N GI Problems N Eating Disorder N Anemia N Art (IVF or FET) N Psychiatric Illness N Ovarian Cancer N Diabetes N Pulmonary (TB, Asthma) N Hepatitis/Liver Disease N No Past Medical History N Eczema N Urinary Tract Infection N Abuse/Domestic Violence N Asthma N Trauma/Violence N Depression/ depression N Heart Disease N Pre-Eclampsia N Hypertension Y Osteoporosis N Thrombophilias N Gynecological History Statement/Question Response Abnormal Pap [...] SNOMED-CT Code Diagnosis ICD10 Code Diagnosis Note [id number] Angelique Hamlin [place] [address],[place] [address] 10/11/2020 11:33:30 10/12/2020 16:01:32 Amenorrhea 74376612 N91.2 Gynecologi c examination 10527325 Z01.419 test positive 389584495 Z32.01 Risk factors addressed: Tobacco Cessation, Safe [...] Sequential Screen handout given and discussed with patient.Ch ildbirth classes recommende d.New OB sheet given. Will start baby aspirin daily d/t history of ghtn. Plan 1 hour gtt at 24 weeks d/t history of gdm. If previous , counseling .Pt verbalizes that she understand s the importance of above instructio ns.All questions were answered. Patient reminded to have annual well woman examinatio n and address [facility] . [id number] Jessica Rodriguez [place] [address],[place] [address] 10/11/2020 11:33:58 10/12/2020 10:32:29 [id number] Minerva Mccray [place] [address],[place] [address] 11/08/2020 14:29:25 11/08/2020 15:02:54 screening 128971947 Z36.82 Z36.89 Z36.0 [id number] Nando Pollock MD [place] [address],[place] [address] 11/09/2020 10:05:38 11/09/2020 11:15:26 Routine care 801497574 Z34.81 [id number] Neeta Rubi [facility] [address],[place] [address] 12/20/2020 17:01:58 12/20/2020 18:06:56 Routine care 382992613 Z34.92 [id number] [facility] [address],[place] [address] 12/22/2020 10:09:26 12/22/2020 11:33:09 screening for malformation 440274288 Z36.3 [id number] Minerva Mccray [place] [address],[place] [address] 01/29/2021 14:05:21 01/29/2021 15:10:18 screening 923916850 Z36.2 O99.891 Z3A.25 [id number] [facility] [address],[place] [address] 01/31/2021 15:19:30 01/31/2021 17:01:23 Routine care 469992269 Z34.92 [id number] [facility] [address],[place] [address] 02/21/2021 09:49:06 02/21/2021 10:25:04 Routine care 213754966 Z34.92 [id number] Nando Pollock MD [place] [address],[place] [address] 03/08/2021 15:40:34 03/08/2021 16:22:35 Routine care 718684609 Z34.81 [id number] [facility] [address],[place] [address] 03/16/2021 10:32:37 03/16/2021 12:20:25 Routine care 029935143 Z34.92 [facility] [id number] F41.9 [facility] 293087073 R11.0 [id number] Linnea Lima [facility] [address],[place] [address] 03/16/2021 10:31:56 03/16/2021 11:26:42 growth restriction 12357490 O35.8XX9 [id number] [facility] [address],[place] [address] 03/16/2021 10:32:18 03/16/2021 11:44:35 Small for gestational age fetus 923115373 O36.5930 Z3A.31 [id number] Linnea Lima [facility] [address],[place] [address] 03/23/2021 10:30:06 03/23/2021 11:46:03 growth restriction 46882424 O35.8XX9 [id number] Nando Pollock MD [place] [address],[place] [address] 03/23/2021 10:30:40 03/23/2021 12:32:50 Routine care 773655494 Z34.81 [id number] [facility] [address],[place] [address] 03/27/2021 10:47:13 03/27/2021 12:05:25 Small for gestational age fetus 684051706 O36.5930 Z3A.33 [id number] [facility] [address],[place] [address] 03/27/2021 10:47:34 03/27/2021 11:50:21 growth restriction 02179472 O35.8XX9 [id number] [facility] [address],[place] [address] 03/30/2021 10:30:45 03/30/2021 11:34:46 growth restriction 89048096 O35.8XX9 [id number] Jagruti Kingston MD [place] [address],[place] [address] 03/30/2021 10:31:05 03/30/2021 12:14:33 growth restriction 20418703 O35.8XX9 Reduced fe coy movement 563091541 O36.8199 [id number] Selina West [place] [address],[place] [address] 03/30/2021 11:16:52 03/30/2021 12:13:54 condition affecting obstetrical care of mother 397782218 O36.8330 [id number] [facility] [address],[place] [address] 04/03/2021 11:30:24 04/03/2021 15:35:12 growth restriction 91183644 O35.8XX9 [id number] [facility] [address],[place] [address] 04/03/2021 11:31:04 04/03/2021 14:40:23 Poor growth affecting management [id number] O36.5930 Z3A.34 [id number] Nando Pollock MD [place] [address],[place] [address] 04/03/2021 11:31:23 04/03/2021 14:39:31 Routine care [id number] Z34.81 [id number] [facility] [address],[place] [address] 04/06/2021 10:26:06 04/06/2021 11:22:18 growth restriction 86375515 O35.8XX9 [id number] [facility] [address],[place] [address] 04/10/2021 10:43:16 04/10/2021 11:35:12 Poor growth affecting management 892118647 O36.5930 Z3A.35 [id number] [facility] [address],[place] [address] 04/10/2021 10:43:31 04/10/2021 12:48:00 growth restriction 43334355 O35.8XX9 [id number] Jagruti Kingston MD [place] [address] [place] [address] 04/13/2021 10:46:27 04/13/2021 12:00:59 growth restriction 67875301 O35.8XX9 [id number] [facility] [address],[place] [address] 04/13/2021 10:47:10 04/13/2021 11:34:06 growth restriction 87454757 O35.8XX9 [id number] [facility] [address],[place] [address] 04/17/2021 11:12:50 04/17/2021 12:17:03 Small for gestational age fetus 621005547 O36.5930 Z3A.36 [id number] [facility] [address],[place] [address] 04/17/2021 11:13:06 04/17/2021 12:40:13 growth restriction 14940175 O35.8XX9 [id number] Nando Pollock MD [place] [address],[place] [address] 04/17/2021 11:13:33 04/17/2021 17:23:10 Routine care 094945650 Z34.81 75592 [facility] [address],[place] [address] 04/20/2021 10:09:30 04/20/2021 11:00:53 growth restriction 10824837 O35.8XX9 20715 [facility] [address],[place] [address] 04/20/2021 10:10:20 04/20/2021 11:35:31 Small for gestational age fetus 905751348 O36.5930 Z3A.36 37566 [facility] [address],[place] [address] 04/24/2021 11:44:14 04/24/2021 13:27:47 growth restriction 49265860 O35.8XX9 43143 [facility] [address],[place] [address] 04/27/2021 10:45:46 04/27/2021 11:38:16 growth restriction 96911406 O35.8XX9 17336 Jagruti Kingston MD [place] [address],[place] [address] 04/27/2021 10:46:22 04/27/2021 12:11:14 growth restriction 04014016 O35.8XX9 [facility] b reech presentation [id number] O32.8XX9 [id number] Minerva Mccray [facility] [address],[place] [address] 04/27/2021 10:46:33 04/27/2021 12:10:52 Poor growth affecting management 359105152 O36.5930 Z3A.37 [id number] [facility] [address],[place] [address] 05/01/2021 10:44:30 05/01/2021 15:31:22 growth restriction 89884143 O35.8XX9 [id number] Jessica [facility] [address],[place] [address] 05/01/2021 10:44:59 05/01/2021 12:21:25 Small for gestational age fetus 058271639 O36.5930 Z3A.38 64753 Nando Pollock MD [place] [address],[place] [address] 05/01/2021 12:00:59 05/01/2021 13:18:57 Routine care 261324621 Z34.81 [id number] Nando Pollock MD [place] [address],[place] [address] 05/03/2021 09:47:18 05/03/2021 09:51:04 [id number] Nando Pollock MD [place] [address],[place] [address] 05/09/2021 16:05:50 05/09/2021 16:46:13 -induced hypertension 56399171 O13.9 This patient is a 36-year-ol d [...] or epigastric pain. She denied worsening swelling. [id number] Nando Pollock MD [place] [address],[facility] [place] [address] 05/16/2021 15:09:58 05/16/2021 16:33:47 care 650512516 Z39.2 This patient is a 36-year-ol d female who presents for postop follow-up. She is 1 week postop from a delivery. Her incision is clean dry and intact. She has no complaints . Her bleeding is minimal. She denies any nausea, vomiting, fever, chills. She denies any chest pain or shortness of breath. Her baby is doing well. Her mood is good. [id number] Nando Pollock MD [place] [address],[facility] [place] [address] 06/07/2021 12:02:46 06/07/2021 12:48:39 care 766377871 Z39.2 This patient is a 36-year-ol d [...] is elevated. Considerin g treatment. -induced hypertension [id number] 9100 O13.9 [id number] Nando Pollock MD [place] [address],[facility] [place] [address] 06/15/2021 12:23:45 06/15/2021 14:41:49 -induced hypertension 87538802 O13.9 This patient is a 36-year-ol d [...] in with her primary care doctor . [id number] Nando Pollock MD [place] [address],[facility] [place] [address] 07/05/2021 14:10:06 07/05/2021 14:46:53 Mixed anxiety and depressive disorder 166802631 F41.8 this patient is a 36-year-ol d [...] follow-up in 1 month. - induced hypertension 36814407 O13.9 [id number] Nando Pollock MD [place] [address],[facility] [place] [address] 08/24/2021 14:10:25 08/24/2021 14:39:36 Mixed anxiety and depressive disorder 910681958 F41.8 This is a 36-year-ol d female [...] coping. She will return in 3 months. [id number] RAMO Darnell [place] [address],[place] [address] 12/09/2024 15:46:34 12/09/2024 17:05:45 Gynecologic examination 32722585 Z01.419 WWEBC - condomsPap - done todaySTI screen - [...] dietary consult advised. Questions answered. Breast lump 04727091 N63 .0 bilateral diagnostic mammogram with left breast u/s orderedenc ouraged to schedulege netic testing discussed , handout given Discharge from nipple 54 252064 N64.52 Health Concerns Section Related Observation LastModified by Organization Detai ls LastModified Time None Recorded Concern Status LastModified by Organization Details LastModified Time None Recorded Advance Directives Directive None Recorded Payers Encounter Date Sequence Insurance Name Policy Number Policy Ennis Covered Member ID Ennis Member ID Guarantor Name 06/07/2021 1 [facility] ON OR AFTER 05/24/21 (MEDICAID REPLACEMENT - HMO) Macarena Rios [id number] 06/15/2021 1 [facility] - DOS ON OR AFTER 21 (MEDICAID REPLACEMENT - HMO) Macarena Rios [id number] 07/05/2021 1 [facility] - DOS ON OR AFTER 21 (MEDICAID REPLACEMENT - HMO) Macarena Rios [id number] 08/24/2021 1 [facility] - DOS ON OR AFTER 21 (MEDICAID REPLACEMENT - HMO) Macarena Rios [id number] 12/09/2024 1 [facility] - DOS ON OR AFTER 21 (MEDICAID REPLACEMENT - HMO) Mcaarena Rios [id number] Notes Date Note Type Note Provider Name and Address Organization Details Recorded Time 06/07/2021 text/html VisitReported bypatient.Quality:pr imary C/S Context:feeding choice: breast Associated Symptoms:no mastitis;abnormal bleeding Contraception Plan:declines contraception Nando Pollock MD [address], [place], [address], [facility] 06/07/2021 12:48:04 06/15/2021 text/html This [...] . Nando Pollock MD [address], [place], [address], [facility] 06/15/2021 14:35:20 07/05/2021 text/html this [...] with. We spent more than 15 minutes [id number] discussing various aspects of the treatment of anxiety and -induced hypertension. She will follow-up in 1 month. Nando Pollock MD [address], [place], [address], [facility] 07/05/2021 14:41:39 08/24/2021 text/html This [...] months. Nando Pollock MD [address], [place], [address], [facility] 08/24/2021 14:32:52 12/09/2024 text/html Annual [...] sister with BC diagnosed at age 46 RAMO Darnell [address], [place], [address], [facility] 12/09/2024 16:46:48 OBGyn Episode Ob Episode Information Episode Created Date Number of Fetuses Patient Bloodtype Patient rh Status Prepregnancy Weight lbs Domestic Partner Domestic Partner Phone Father Name Smoking Pipe Maker Status 10/11/20 20 1 CLOSED Fetus Data [...] Domestic Partner Domestic Partner Phone Father Name Smoking Pipe Maker Status 10/11/20 20 1 CLOSED Fetus Data [...] Domestic Partner Domestic Partner Phone Father Name Smoking Pipe Maker Status 11/09/20 20 1 CLOSED Fetus Data [...] Domestic Partner Domestic Partner Phone Father Name Smoking Pipe Maker Status 11/09/20 20 1 O Positive 150 [...] Not e Transient hypertension of - delivered [id number] h/o pih History of depression MEDICATION [id number] 08 Depression/Anx. 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 [facility] Level II U/S 03/20 9AM Marginal insertion of umbilical cord 77903872 Serial growth LII u/s 03/20 9am Footling breech presentation 04/27/2021 [id number] will schedule C S for 39 weeks growth restriction 66368715 no f/u w/ mfm - in house [...] Weight in lbs Pre/Post Dialysis Refused Weight 155.06445597274 BP Diastolic BP Location Tested BP Systolic [...] Weight in lbs Pre/Post Dialysis Refused Weight 158.985668499894 BP Diastolic BP Location Tested BP Systolic [...] Weight in lbs Pre/Post Dialysis Refused Weight 160.262584856537 BP Diastolic BP Location Tested BP Systolic [...] Weight in lbs Pre/Post Dialysis Refused Weight 164.22643096128 BP Diastolic BP Location Tested BP Systolic [...] Weight in lbs Pre/Post Dialysis Refused Weight 159.892494309796 BP Diastolic BP Location Tested BP Systolic [...] Weight in lbs Pre/Post Dialysis Refused Weight 162.636622323230 BP Diastolic BP Location Tested BP Systolic [...] Weight in lbs Pre/Post Dialysis Refused Weight 164.65971643609 BP Diastolic BP Location Tested BP Systolic [...] Weight in lbs Pre/Post Dialysis Refused Weight 164.21451495721 BP Diastolic BP Location Tested BP Systolic BP Type 68 100 Fetus Heart Rate Present A 140 Fetus Movement A Decreased Comments Decreased FM today, a few li ttle movements. NST nonreactive, no decels. BPP 05/01 for total of 05/03. Will send to [...] Weight in lbs Pre/Post Dialysis Refused Weight 167.776022507170 BP Diastolic BP Location Tested BP Systolic BP Type 72 R arm 112 sitting Fetus Heart Rate Present A 140 Fetus Movement A Yes Comments BPP of 07/01, growth ultrasoun d 2 weeks ago in [...] Weight in lbs Pre/Post Dialysis Refused Weight 162.092801679270 BP Diastolic BP Location Tested BP Systolic [...] Weight in lbs Pre/Post Dialysis Refused Weight 165.345925196848 BP Diastolic BP Location Tested BP Systolic [...] Weight in lbs Pre/Post Dialysis Refused Weight 167.109334026754 BP Diastolic BP Location Tested BP Systolic [...] Weight in lbs Pre/Post Dialysis Refused Weight 168.923289607759 BP Diastolic BP Location Tested BP Systolic [...] Weight in lbs Pre/Post Dialysis Refused Weight 153.300203808688 BP Diastolic BP Location Tested BP Systolic [...] Estim ated Date of Delivery false Thalassemia (Divehi, Maltese, Mediterranean, Or Background): MCV < 80 false Neural Tube Defect (Meningomyelocele, Spina Bifi da, Or Anencephaly) false Congenital Heart Defect false Down Syndrome false Bill-Sachs (eg, Congregation, Cajun, Indonesian-Greek) f alse Pauline Disease false Sickle Cell Disease Or Trait () false Hemophilia Or Other Blood Disorders false Muscular Dystrophy false Cystic Fibrosis false Sharkey's Chorea false Intellectual Disability/Autism false If Yes, [...]
== END 2025-03-22 12:56 | disposition home or self-care (01) ==
PROVIDERS: PCP Physician Assistant; Visit Provider Surgery
DX: N63.25 Unspecified lump in the left breast, overlapping quadrants (principal); N63.24 Unspecified lump in the left breast, lower inner quadrant; R92.333 Mammographic heterogeneous density, bilateral breasts; R92.8 Other abnormal and inconclusive findings on diagnostic imaging of breast
CPT/HCPCS: 77049; A9579; C8908

== ENCOUNTER 2025-11-10 11:28 | Outpatient (CLI) | payer OTHER, SELFPAY ==
--- NOTE | ~2025-11-10 | MMUS_ITS ---
EXAMINATION: MM diagnostic vikki BI w dutch, US breast BI limited INDICATION: 40-year old female; BI-RADS 3, delayed annual follow-up left breast masses. Screening right breast. COMPARISON: 12/24/2024, 04/29/2023 TECHNIQUE: Digital breast tomosynthesis True lateral and CC and MLO views of BILATERAL breast were obtained with computer-aided detection to assist in interpretation of the study. FINDINGS: There are scattered areas of fibroglandular density. The masses of concern in the outer central left breast redemonstrated has not significantly changed in the interval. There is a new mass seen in the inferior medial anterior depth within the right breast. No other suspicious masses, areas of architectural distortion or abnormal calcification seen in either breast. RIGHT BREAST ULTRASOUND FINDINGS: Targeted evaluation of the area of concern was completed. There is a 0.5 x 0.5 x 0.3 cm anechoic mass at 4:00 location 1 cm from the nipple in the RIGHT breast that correlates to the area of Mammographic finding. This is compatible with a simple cyst. Additional cysts is identified at 5:00, 1 cm FN that measure 0.4 x 0.5 x 0.3 cm in size. LEFT BREAST ULTRASOUND FINDINGS: Targeted evaluation of the areas of concern was completed. 0.6 cm anechoic mass at 1:00, 1 cm FN compatible with a cyst redemonstrated is unchanged. 1.2 x 1.0 x 0.7 cm septated cyst at 3:00, 3 cm FN redemonstrated is unchanged. 1.2 x 1.8 x 1.2 cm anechoic mass compatible with a cyst at 3:00, 1 cm FN redemonstrated is unchanged. Previously reported microcysts at 7:00, 3 cm FN has resolved in the interval. IMPRESSION: Benign BILATERAL breast cysts correlates to mammographic finding. No further investigation necessary. RECOMMENDATION: ANNUAL SCREENING BILATERAL MAMMOGRAPHY IN 12 MONTHS BI-RADS 2, BENIGN Reviewed, dictated and finalized at location A. [employer] IMPRESSION: Benign BILATERAL breast cysts correlates to mammographic finding. No further in vestigation necessary. RECOMMENDATION: ANNUAL SCREENING BILATERAL MAMMOGRAPHY IN 12 MONTHS BI-RADS 2, BENIGN
--- OUTSIDE RECORDS SUMMARY | 2025-11-10 12:43 | XMS_ITS | Data Portability ---
Author Organization [facility] [place] Address [address] [place] [address] [place] [address] Care Team Providers Care Counter Installer Name Role Phone ANGI BARRON Primary Care Provider Assessment Encounter Date Assessment Date Assessment LastModified by Organization Details LastModified Time 12/09/2024 12/09/2024 Annual gynecological exam performed. Patient will come back in a year unless there are new symptoms. [email or web address] Not available 12/09/2024 15:56:55 Plan of Treatment Reminders Order Date Submit Date Provider Last Modified By Organization Details Last Modified Time Details Appointments None recorded. Lab prolactin, serum [address] (Lab), [address] [facility], [place], [address], 11:25:49 Referral None recorded. Procedures None recorded. Surgeries None recorded. Imaging MAMMO, diagnostic, digital, bilateral 2024 025 [facility], [address], [place], [address], 5 14:58:35 US, breast, unilateral - left breast lump around 4 oclock [address] Imaging, [address], [place], [address], 5 11:25:54 Medication Orders labetalol 200 mg tablet 2020 021 [email or web address] [facility] [place], [address], 5 15:59:06 Zoloft 100 mg tablet 2020 021 [facility] [address], [address] [place], [address], 14:34:44 Zoloft 50 mg tablet 2020 021 [facility] [address], [address] [place], [address], 14:34:48 labetalol 200 mg tablet 2020 021 [facility] [address], [address] [place], [address], 12:47:52 Patient TargetsNo targets recorded. Patient InstructionsNo instructions recorded. Reason for Referral None Reported. 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 CLINI LATRICE INFOR MATIO N: Menst rual Statu s: LMP (if appli cable ): Clini latrice Histo ry/Pr eviou s Pap: Type of Neopl charito (if appli cable ): Signi fican t Clini latrice Findi ngs: Other Histo ry: Hormo karan [...] ng do not corre late with physi latrice and/o r histo rical findi ngs, furth er inves tigat ion is recom jessi d, as clini tiffanie brenner nted. Not Available [facility] (Lab) [address], [place], [address], 12/16/2024 09:27:59 12/24/1912/24/2024 MAMMO , diagn ostic , digit al, bilat eral No observ ation record ed. [address] [facility], [place], [address], 01/06/2025 14:17:39 12/28/19 25 12/24/2024 imagi ng/di agnos tic resul t No observ ation record ed. [address] [facility], [place], [address], 01/06/2025 14:17:27 Result Notes None recorded. Problems Name Problem SNOMED Code Status Onset Date Resolution Date Notes Provider Name and Address Organization Details Recorded Time Transien t hyperten nimisha of pregnanc y - delivere d 571338578 Completed [facility] 16:53:54 History of depressi on 564254280 Completed Depressi on/Anx. - zoloft Linnea hurt [facility] 1 16:53:54 Past pregnanc y history of gestatio nal diabetes mellitus 001579444 Completed Linnea hurt [facility] 1 16:53:54 Marginal insertio n of umbilica l cord 19256330 Completed Serial growth LII u/s 03/20 9am [facility] 1 16:53:54 Intraute rine synechia e 161015129 Completed [facility] Level II U/S 03/20 9AM Linnea hurt [facility] 16:53:54 growth restrict ion 29495355 Completed no f/u w/ mfm - in house ante testing Linnea hernández [facility] 1 16:53:54 Pregnanc y detectio n examinat ion Completed 201712/08/2020 Encounte r for pregnanc y test, result positive ;Practic e ID: 0001 Glenda hernández [facility] 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 14:08:05 Infectio n screenin g Completed 201712/08/2020 Encounte r for screenin g for oth infec/pa rastc diseases ;Recorde d Elsewher e: No Locat ion: [facility] S ource: [employer] Supervisor tristen: N Practi ce ID: 0001 Kye lable Time: 02:00:00 PM Glenda hernández [facility] 14:07:47 Rubella screenin g status 651603388 Completed 201712/08/2020 Encounte r for antenata l screenin g, unspecif ied;Jozef rded Elsewher e: No Locat ion: [facility] S ource: [employer] Supervisor tristen: N Practi ce ID: 0001 Kye lable Time: 02:00:00 PM Glenda hernández [facility] 14:07:59 Antenata l screenin g Completed 201812/08/2020 Encounte r for antenata l screenin g for nuchal transluc ency;Pra ctice ID: 0001 Glenda hernández, [facility] 14:07:06 Antenata l screenin g for malforma tion Completed 201812/08/2020 Encounte r for antenata l screenin g for malforma tions;Pr actice ID: 0001 Glenda hernández, [facility] 14:07:10 Finding of trunk structur e Completed 201812/08/2020 Oth diseases and conditio ns compl preg/chl dbrth;Pr actice ID: 0001 Glenda hernández, [facility] 14:08:06 Gestatio n period, 25 weeks 50801073 Completed 201812/08/2020 25 weeks gestatio n of pregnanc y;Practi ce ID: 0001 Glenda hernández, [facility] 14:07:20 Finding of pharynx Completed 201812/08/2020 Acute pharyngi tis, unspecif ied;Prac kylie ID: 0001 Glenda hernández, [facility] 14:07:51 Gestatio n period, 30 weeks 19715545 Completed 201812/08/2020 30 weeks gestatio n of pregnanc y;Practi ce ID: 0001 Glenda hernández, [facility] 14:07:31 Diet educatio n Completed 201812/08/2020 Dietary counseli ng and surveill ance;Pra ctice ID: 0001 Glenda hernández, [facility] 14:07:13 Dietary manageme nt surveill ance Completed 201812/08/2020 Dietary counseli ng and surveill ance;Pra ctice ID: 0001 Glenda hernández, [facility] 14:07:15 Gestatio n period, 31 weeks 41713304 Completed 201812/08/2020 31 weeks gestatio n of pregnanc y;Practi ce ID: 0001 Glenda hrenández, [facility] 14:07:[address] Concept Completed 201812/08/2020 Matern care for abnlt fetl hrt rate or rhym, 3rd tri, unsp;Pra ctice ID: 0001 Glenda hernández, [facility] 14:08:03 Gestatio n period, 32 weeks 3934515 Completed 201812/08/2020 32 weeks gestatio n of pregnanc y;Practi ce ID: 0001 Glenda Narvaez betty, [facility] 14:07:34 Gestatio n period, 33 weeks 08628712 Completed 201812/08/2020 33 weeks gestatio n of pregnanc y;Practi ce ID: 0001 Glenda hernández, [facility] 14:07:35 Gestatio n period, 34 weeks 54091495 Completed 201812/08/2020 34 weeks gestatio n of pregnanc y;Practi ce ID: 0001 Glenda hernández, [facility] 14:07:37 Pregnanc y, childbir th and puerperi um finding Completed 201812/08/2020 Encntr for suprvsn of normal first preg, third trimeste r;Practi ce ID: 0001 Glenda Brice hernández, [facility] 14:07:54 Gestatio n period, 35 weeks 21809000 Completed 201812/08/2020 35 weeks gestatio n of pregnanc y;Practi ce ID: 0001 Glenda hernández, [facility] 14:07:38 Cantrell's palsy 813556605 Completed 201812/08/2020 Cantrell's palsy;Re corded Elsewher e: No Locat ion: [facility] S ource: [employer] Supervisor tristen: N Practi ce ID: 0001 Kye lable Time: 02:00:00 PM Glenda hernández, [facility] 14:07:11 Antenata l screenin g for growth retardat ion Completed 201812/08/2020 Intraute rine growth restrict ion (IUGR)/s mall-for -dates;R ecorded Elsewher e: No Locat ion: [facility] S ource: [employer] Supervisor tristen: N Practi ce ID: 0001 Kye lable Time: 02:00:00 PM Glenda hernández, [facility] 14:07:08 Normal pregnanc y in multigra siobhan [id number] 45772 Completed 201812/08/2020 Encounte r for suprvsn of normal pregnanc y, third trimeste r;Practi ce ID: 0001 Glenda Narvaez betty, [facility] 14:07:50 Gestatio nal diabetes mellitus 48721951 Completed 201812/08/2020 Gestatio nal diabetes mellitus in pregnanc y, diet controll ed;Pract ice ID: 0001 Glenda hernández [facility] 14:07:45 Gestatio n period, 36 weeks 58087433 Completed 201812/08/2020 36 weeks gestatio n of pregnanc y;Practi ce ID: 0001 Glenda Brice hernández, [facility] 14:07:39 Gestatio n period, 37 weeks 55623974 Completed 201812/08/2020 37 weeks gestatio n of pregnanc y;Practi ce ID: 0001 Glenda hernández, [facility] 14:07:40 finding Completed 201812/08/2020 Matern care for oth or susp poor fetl grth, third tri, unsp;Pra ctice ID: 0001 Glenda hernández, [facility] 14:07:19 Gestatio n period, 38 weeks 73751669 Completed 201812/08/2020 38 weeks gestatio n of pregnanc y;Record ed Elsewher e: No Locat ion: [facility] S ource: [employer] Supervisor tristen: N Practi ce ID: 0001 Kye lable Time: 03:00:00 PM Glenda hernández, [facility] 14:07:42 [facility] [id number] Completed 201812/08/2020 [facility], insulin controll ed;Pract ice ID: 0001 Glenda hernández, [facility] 14:07:46 Single live from singleto n pregnanc y 309374219 Completed 201812/08/2020 Single live ;Pr actice ID: 0001 Glenda hernández, [facility] 14:08:01 Gestatio n period, 39 weeks 02155667 Completed 201812/08/2020 39 weeks gestatio n of pregnanc y;Practi ce ID: 0001 Glenda hernández, [facility] 14:07:[address] Concept Completed 201812/08/2020 Anxiety; Recorded Elsewher e: No [facility] S ource: [employer] Supervisor tristen: N Misa ce ID: 0001 Kye lable Time: 10:00:00 AM Glenda hernández, [facility] 14:08:02 Lochia finding Completed 201812/08/2020 Encounte r for routine postpart um follow-u p;Misa ce ID: 0001 Glenda hernández, [facility] 14:07:49 Pregnanc y-induce d hyperten nimisha Completed 201812/08/2020 Gestatio nal hyperten nimisha w/o signific ant proteinu vikki;Jozef rded Elsewher e: No Locat ion: [facility] S ource: [employer] Supervisor tristen: N Misa ce ID: 0001 Kye lable Time: 10:00:00 AM Glenda hernández, [facility] 14:07:55 Elevated blood-pr essure reading without diagnosi s of hyperten nimisha 862514480 Completed 201812/08/2020 Elevated blood-pr essure reading w/o diagnosi s of hyperten nimisha;Rec orded Elsewher e: No Locat ion: [facility] S ource: [employer] Supervisor tristen: N Misa ce ID: 0001 Kye lable Time: 11:00:00 AM Glenda hernández, [facility] 14:07:16 Pregnanc y 28638857 Completed 201912/08/2020 Linnea hurt betty, [facility] 16:54:00 Pregnanc y 11552504 Completed 202005/10/2021 Linnea hernández [facility] 16:54:00 Footling breech presenta tion 403777581 Completed 202004/20/2021 Jagruti Kingston MD [address], [place], [address], [facility] 1 11:24:36 Footling breech presenta tion 914800495 Completed 2020 will schedule CS for 39 weeks Linnea hernández [facility] 1 16:53:53 Problem Notes None recorded. Procedures Surgical History Date Name Laterality Status Provider Name and Address Organization Details Recorded Time 1 section completed [facility] 12/09/2024 16:04:33 1 NST completed Jagruti Kingston MD [address], [place], [address], [facility] 04/13/2021 11:48:20 1 NST completed Jagruti Kingston MD [address], [place], [address], [facility] 03/30/2021 12:14:04 0 Date of Last Pap Smear completed Emily Pickering [facility] 12/20/2020 17:38:59 3 Dilation and Curettage completed [facility] 12/09/2024 16:05:04 Imaging Results None [...] Elsewher e: No Locat ion: She mart[facility] Albert odify By: cecily Armentazo r DateTime : 12/18/19 04:08:50 PM Not Available [...] Prescrib ed Elsewher e: No Locat ion: [facility] odify By: [email or web address] juan DateTime : 04/23/20 02:00:00 PM Not [...] Prescrib ed Elsewher e: No Locat ion: [facility] odify By: [email or web address] Celsa r DateTime : 04/26/20 09:58:50 AM Not [...] Prescrib ed Elsewher e: No Locat ion: [facility] odify By: cecily Steen r DateTime : 11/05/20 01:00:00 PM Not Available Not Available Not [...] Prescrib ed Elsewher e: No Locat ion: [facility] odify By: cecily Steen r DateTime : 04/23/20 02:00:00 PM Not [...] mg-800 mcg tablet 01/31 [facility] L[facility] M odify By: [email or web address] Encount er DateTime : 07/30/20 11:00:00 AM Not Available Not Available Not Available ID NOW COVID-19 Test Kit USE DIRECTED 12/09 completed Not Available Not Available Not Available Vitals Date Recorded Body height Body mass index (BMI) Body weight Systolic And Diastolic Provider Name and Address Organization Details Last Updated DateTime 12/09/2024 165.1 cm 20.4 kg/m2 19763.42 g 127/85 mm[Hg] Gracymecca Kamney [facility] 12/09/2024 15:58:59 Date Recorded Body height Body mass index (BMI) Body weight Systolic And Diastolic Systolic And Diastolic Systolic And Diastolic Systolic And Diastolic Provider Name and Address Organization Details Last Updated DateTime 1 165.1 cm 23.8 kg/m2 52778.7 1 g 163/113 mm[Hg] 175/107 mm[Hg] 160/110 mm[Hg] 150/90 mm[Hg] [facility] 12:46:14 Date Recorded Body height Body mass index (BMI) Body weight Systolic And Diastolic Systolic And Diastolic Provider Name and Address Organization Details Last Updated DateTime 06/15/2021 165.1 cm 23.8 kg/m2 68861.71 g 124/85 mm[Hg] 120/86 mm[Hg] [facility] 12:33:39 Date Recorded Body height Body mass index (BMI) Body weight Systolic And Diastolic Systolic And Diastolic Systolic And Diastolic Provider Name and Address Organization Details Last Updated DateTime 165.1 cm 23.8 kg/m2 50867.7 1 g 164/109 mm[Hg] 171/112 mm[Hg] 150/100 mm[Hg] [facility] 14:16:44 Date Recorded Body height Body mass index (BMI) Body weight Systolic And Diastolic Systolic And Diastolic Provider Name and Address Organization Details Last Updated DateTime 08/24/2021 165.1 cm 23.8 kg/m2 87476.71 g 147/89 mm[Hg] 140/90 mm[Hg] [facility] [facility] 14:18:00 Social History Question Answer Notes LastModified by Organizat ion Details LastModified Time Tobacco Smoking Status Current Every Day Smoker Albert Callejas betty [facility] 03/16/2021 10:32:08 If You Are , What Was Your Level Of Alcohol Consumption Prior To ? Occasional [email or web address] Information not available 03/16/2021 Are You Blind Or Do You Have Difficulty Seeing? No [email or web address] Information not available 03/16/2021 What Is Your Level Of Caffeine Consumption? Moderate [email or web address] Information not available 01/31/2021 In The 14 Days Before Symptom Onset, Have You Had Close Contact With A Laboratory-confir med COVID-19 While That Case Was Ill? No [email or web address] Information not available 03/16/2021 In The 14 Days Before Symptom Onset, Have You Had Close Contact With A Person Who Is Under Investigation For COVID-19 While That Person Was Ill? No Information not available 03/16/2021 Have You Been To An Area Known To Be High Risk For COVID-19? No [email or web address] Information not available 03/16/2021 Are You Deaf Or Do You Have Serious Difficulty Hearing? No [email or web address] Information not available 03/16/2021 What Type Of Diet Are You Following? REGULAR [email or web address] Information not available 03/16/2021 How Many Days Of Moderate To Strenuous Exercise, Like A Brisk Walk, Did You Do In The Last 7 Days? 2 [email or web address] Information not available 03/16/2021 On Those Days That You Engage In Moderate To Strenuous Exercise, How Many Minutes, On Average, Do You Exercise? 25 [email or web address] Information not available 03/16/2021 What Is Your Current Pack Years? 30ormorepaayesha aguero [email or web address] Information not available 03/16/2021 Have You Ever Been Counseled For Unhealthy Alcohol Use? No [email or web address] Information not available 03/16/2021 Do You Use Your Seat Belt Or Car Seat Routinely? Yes [email or web address] Information not available 03/16/2021 Do You Have Smoke And Carbon Monoxide Detectors In Your Home? Yes [email or web address] Information not available 03/16/2021 At What Age Did You Start Smoking Tobacco? 21 [email or web address] Information not available 12/20/2020 How Much Tobacco Do You Smoke? 0.25 PPD [email or web address] Information not available 12/20/2020 Do You Use Sunscreen Routinely? Yes [email or web address] Information not available 03/16/2021 Has Tobacco Cessation Counseling Been Provided? No [email or web address] Information not available 03/16/2021 How Many Years Have You Smoked Tobacco? 14 [email or web address] Information not available 12/20/2020 Sex: Unknown Functional Status Question Answer Note LastModified by Organizat ion Details LastModified Time Do you use any illicit or recreational drugs? No Information not available 12/20/2020 Do you or have you ever used any other forms of tobacco or nicotine? No Information not available 03/16/2021 What is your level of alcohol consumption? Occasional Information not available 12/20/2020 Are you able to walk independently without assistance or assistive devices? YESWOREST [email or web address] Information not available 03/16/2021 Do you or have you ever used e-cigarettes or vape? Never used electronic cigarettes [email or web address] Information not available 03/16/2021 What is your exercise level? Moderate [email or web address] Information not available 12/20/2020 Mental Status Question Answer Note LastModified by Organization D etails LastModified Time Do you feel stressed (tense, restless, nervous, or anxious, or unable to sleep at night)? [id number] [email or web address] Information not available 03/16/2021 Family History Relationship Description Onset Age of this Age Resolved Age Notes LastModified by Organization Details LastModified Time Sister Malignant neoplasm of breast half sister [email or web address] Not available 12/09/2024 16:46:43 Medical History Condition Response Allergies (Food, seasonal, environmental ) N Other N Breast Cancer N Drug/Latex Allergies/Reactions N Blood Transfusion N Dermatologic Disorders N Lung Disease N Defects or Inherited Disease N Breast Problem N Gestational Diabetes N Hematologic disorders N Anesthesia Complications N History of STI N Deep Vein Thrombosis N Polycystic ovary syndrome N Anxiety Disorder N Autoimmune disease N Arthritis N Infertility N Polyps N Acid Reflux (GERD) N History of abnormal pap N Cancer N Stroke N Varicosities N Neurologic/Epilepsy N Endometriosis N High Cholesterol Y Headaches N Fibromyalgia N Kidney Disease N Heart Problems N Kidney or Bladder Problems N Thyroid Problems N GI Problems N Eating Disorder [...] Diagnosis SNOMED-CT Code Diagnosis ICD10 Code Diagnosis IMO Codes Diagnosis Note [id number] [facility] [address] [address] 10/11/2020 11:33:30 10/12/2020 16:01:32 Amenorrhea 80828272 N91.2 Gynecologi c examination 08180079 Z01.419 test positive 278026205 Z32.01 Risk factors addressed: Tobacco Cessation, Safe [...] e extremes, and cat, rodent, and bird feces.Avbryant d travel to areas where zika virus [...] annual well woman examinatio n and address [facility] . [id number] Nando Pollock MD [place] [address],[place] [address] 10/11/2020 11:33:58 10/12/2020 10:32:29 [id number] Nando Pollock MD [place] [address],[place] [address] 11/08/2020 14:29:25 11/08/2020 15:02:54 screening 830374278 Z36.82 Z36.89 Z36.0 [id number] Nando Pollock MD [place] [address],[place] [address] 11/09/2020 10:05:38 11/09/2020 11:15:26 Routine care 621617057 Z34.81 [id number] Neeta Rubi [facility] [address],[place] [address] 12/20/2020 17:01:58 12/20/2020 18:06:56 Routine care 891613843 Z34.92 [id number] Nando Pollock MD [place] [address],[place] [address] 12/22/2020 10:09:26 12/22/2020 11:33:09 screening for malformation 891662906 Z36.3 [id number] Nando Pollock MD [place] [address],[place] [address] 01/29/2021 14:05:21 01/29/2021 15:10:18 screening 857455079 Z36.2 O99.891 Z3A.25 [id number] [facility] [address] [address] 01/31/2021 15:19:30 01/31/2021 17:01:23 Routine care 494084639 Z34.92 [id number] [facility] [address] [address] 02/21/2021 09:49:06 02/21/2021 10:25:04 Routine care 921252547 Z34.92 [id number] Nando Pollock MD [place] [address] [address] 03/08/2021 15:40:34 03/08/2021 16:22:35 Routine care 156730907 Z34.81 [id number] Neeta Rubi [facility] [address],[place] [address] 03/16/2021 10:32:37 03/16/2021 12:20:25 Routine care 756508168 Z34.92 Anxiety 82378506 F41.9 Nausea 683081203 R11.0 [id number] Nando Pollock MD [place] [address] [address] 03/16/2021 10:31:56 03/16/2021 11:26:42 growth restriction 96364402 O35.8XX9 [id number] MD Magaly Duran [address] [address] 03/16/2021 10:32:18 03/16/2021 11:44:35 Small for gestational age fetus 634266438 O36.5930 Z3A.31 [id number] Nando Pollock MD [place] [address] [address] 03/23/2021 10:30:06 03/23/2021 11:46:03 growth restriction 63537087 O35.8XX9 [id number] MD Magaly Duran [address],[place] [address] 03/23/2021 10:30:40 03/23/2021 12:32:50 Routine care 126064427 Z34.81 [id number] MD Magaly Duran [address],[place] [address] 03/27/2021 10:47:13 03/27/2021 12:05:25 Small for gestational age fetus 603365934 O36.5930 Z3A.33 [id number] Nando Pollock MD [place] [address],[place] [address] 03/27/2021 10:47:34 03/27/2021 11:50:21 growth restriction 57893569 O35.8XX9 [id number] Jagruti Kingston MD [place] [address],[place] [address] 03/30/2021 10:30:45 03/30/2021 11:34:46 growth restriction 47091407 O35.8XX9 [id number] Jagruti Kingston MD [place] [address],[place] [address] 03/30/2021 10:31:05 03/30/2021 12:14:33 growth restriction 22213549 O35.8XX9 Reduced fe coy movement 388100961 O36.8199 [id number] Nando Pollock MD [place] [address] [address] 03/30/2021 11:16:52 03/30/2021 12:13:54 condition affecting obstetrical care of mother 773975296 O36.8330 [id number] MD Magaly Duran [address] [address] 04/03/2021 11:30:24 04/03/2021 15:35:12 growth restriction 72416242 O35.8XX9 [id number] Nando Pollock MD [place] [address],[place] [address] 04/03/2021 11:31:04 04/03/2021 14:40:23 Poor growth affecting management 877675445 O36.5930 Z3A.34 [id number] MD Magaly Duran [address] [address] 04/03/2021 11:31:23 04/03/2021 14:39:31 Routine care 715098583 Z34.81 [id number] MD Magaly Duran [address] [address] 04/06/2021 10:26:06 04/06/2021 11:22:18 growth restriction 17667661 O35.8XX9 [id number] MD Magaly Baez [address],[place] [address] 04/10/2021 10:43:16 04/10/2021 11:35:12 Poor growth affecting management 288078456 O36.5930 Z3A.35 [id number] Nando Pollock MD [place] [address],[place] [address] 04/10/2021 10:43:31 04/10/2021 12:48:00 growth restriction 45696489 O35.8XX9 [id number] MD Magaly Baez [address],[place] [address] 04/13/2021 10:46:27 04/13/2021 12:00:59 growth restriction 12867992 O35.8XX9 [id number] MD Magaly Baez [address],[place] [address] 04/13/2021 10:47:10 04/13/2021 11:34:06 growth restriction 68896633 O35.8XX9 [id number] MD Magaly Duran [address],[place] [address] 04/17/2021 11:12:50 04/17/2021 12:17:03 Small for gestational age fetus 599944905 O36.5930 Z3A.36 [id number] MD Magaly Duran [address],[place] [address] 04/17/2021 11:13:06 04/17/2021 12:40:13 growth restriction 71501334 O35.8XX9 [id number] MD Magaly Duran [address],[place] [address] 04/17/2021 11:13:33 04/17/2021 17:23:10 Routine care 379855586 Z34.81 [id number] MD Magaly Duran [address],[place] [address] 04/20/2021 10:09:30 04/20/2021 11:00:53 growth restriction 19228748 O35.8XX9 [id number] MD Magaly Duran [address],[place] [address] 04/20/2021 10:10:20 04/20/2021 11:35:31 Small for gestational age fetus 901812500 O36.5930 Z3A.36 94855 MD Magaly Duran [address],[place] [address] 04/24/2021 11:44:14 04/24/2021 13:27:47 growth restriction 85437226 O35.8XX9 [id number] MD Magaly Duran [address],[place] [address] 04/27/2021 10:45:46 04/27/2021 11:38:16 growth restriction 42160006 O35.8XX9 [id number] Jagruti Kingston MD [place] [address],[place] [address] 04/27/2021 10:46:22 04/27/2021 12:11:14 growth restriction 39976473 O35.8XX9 Footling b reech presentation 726463273 O32.8XX9 38539 Jagruti Kingston MD [place] [address],[place] [address] 04/27/2021 10:46:33 04/27/2021 12:10:52 Poor growth affecting management 315514054 O36.5930 Z3A.37 [id number] Nando Pollock MD [place] [address],[place] [address] 05/01/2021 10:44:30 05/01/2021 15:31:22 growth restriction 43044245 O35.8XX9 [id number] Nando Pollock MD [place] [address],[place] [address] 05/01/2021 10:44:59 05/01/2021 12:21:25 Small for gestational age fetus 546563313 O36.5930 Z3A.38 09939 Nando Pollock MD [place] [address],[place] [address] 05/01/2021 12:00:59 05/01/2021 13:18:57 Routine care 472913869 Z34.81 [id number] Nando Pollock MD [place] [address],[place] [address] 05/03/2021 09:47:18 05/03/2021 09:51:04 [id number] Nando Pollock MD [place] [address],[place] [address] 05/09/2021 16:05:50 05/09/2021 16:46:13 -induced hypertension 72418797 O13.9 This patient is a 36-year-ol d [...] or epigastric pain. She denied worsening swelling. [id number] Nando Pollock MD [place] [address],[place] [address] 05/16/2021 15:09:58 05/16/2021 16:33:47 care 702455918 Z39.2 This patient is a 36-year-ol d female who presents for postop follow-up. She is 1 week postop from a delivery. Her incision is clean dry and intact. She has no complaints . Her bleeding is minimal. She denies any nausea, vomiting, fever, chills. She denies any chest pain or shortness of breath. Her baby is doing well. Her mood is good. 73653 Nando Pollock MD [place] [address],[place] [address] 06/07/2021 12:02:46 06/07/2021 12:48:39 care 190624492 Z39.2 This patient is a 36-year-ol d [...] is elevated. Considerin g treatment. -induced hypertension 1329377358 9100 O13.9 [id number] Nando Pollock MD [place] [address],[place] [address] 06/15/2021 12:23:45 06/15/2021 14:41:49 -induced hypertension 60430036 O13.9 This patient is a 36-year-ol d [...] in with her primary care doctor . [id number] Nando Pollock MD [place] [address],[facility] [place] [place] [address] 07/05/2021 14:10:06 07/05/2021 14:46:53 Mixed anxiety and depressive disorder 185904109 F41.8 this patient is a 36-year-ol d [...] follow-up in 1 month. - induced hypertension 54084007 O13.9 [id number] Nando Pollock MD [place] [address],[place] [address] 08/24/2021 14:10:25 08/24/2021 14:39:36 Mixed anxiety and depressive disorder 093233006 F41.8 This is a 36-year-ol d female [...] coping. She will return in 3 months. [id number] RAMO Darnell [place] [address] [address] 12/09/2024 15:46:34 12/09/2024 17:05:45 Gynecologic examination 66932045 Z01.419 [facility] - condomsPap - done todaySTI screen - [...] dietary consult advised. Questions answered. Breast lump 97105745 N63 .0 bilateral diagnostic mammogram with left breast u/s orderedenc ouraged to schedulege netic testing discussed , handout given Discharge from nipple 54 685794 N64.52 Health Concerns Section Related Observation LastModified by Organization Detai ls LastModified Time None Recorded Concern Status LastModified by Organization Details LastModified Time None Recorded Advance Directives Directive None Recorded Payers Insurance Date Sequence Insurance Name Policy Number Policy Ennis Covered Member ID Ennis Member ID Guarantor Name 12/09/2024 1 [facility] PRIOR TO 05/24/2021 (MEDICAID REPLACEMENT - HMO) Macarena Rios [id number] 12/13/2024 1 [facility] ON OR AFTER 05/24/21 (MEDICAID REPLACEMENT - HMO) Macarena Rios [id number] Notes Date Note Type Note Provider Name and Address Organization Details Recorded Time 1 text/html VisitReported by PatientHPIFor associated symptoms, patient reportsabnormal bleedingbut reportsno mastitis. For quality, patient reportsprimary c/s. For context, patient reportsfeeding choice: breast. For contraception plan, patient reportsdeclines contraception. Nando Pollock MD [address], [place], [address], [place] [facility] 06/07/2021 12:48:04 1 text/html This patient is a 36-year-old female [...] care doctor . Nando Pollock MD [address], [place], [address], [facility] 06/15/2021 14:35:20 1 text/html this patient is a 36-year-old female [...] with. We spent more than 15 minutes [id number] discussing various aspects of the treatment of anxiety and -induced hypertension. She will follow-up in 1 month. Nando Pollock MD [address], [place], [address], [facility] 07/05/2021 14:41:39 1 text/html This is a 36-year-old female with [...] in 3 months. Nando Pollock MD [address], [place], [address], [place] [facility] 08/24/2021 14:32:52 5 text/html Annual GYNReported by PatientGenitourinary symptomsFor menstrual cycle, patient reportsnormal menses. For urinary symptoms, patient reportsno hematuriaandno incontinence. For vulva, patient reportsno genital lesion. For vagina, patient reportsnormal vaginal discharge.Breast symptomsFor breast, patient reportsbreast pain,breast lump, andnipple discharge.ContraceptionFo r current contraception, patient reportssatisfied with current contraceptionandcondoms.E ndocrine symptomsFor sexual complaints, patient reportsno sexual complaints,no pain during intercourse, andnormal libido. For menopausal symptoms, patient reportsno menopausal symptomsandnormal vaginal lubrication.Psychological symptomsFor psychological symptoms, patient reportsno depression,no anxiety, andno pmdd.Preventative measuresFor preventive measures, patient reportsencourage self breast examination,encourage regular exercise,encourage no tobacco use, andencourage regular mammograms starting age 40.39yo wweno h/o abnormal papslast pap 2020BC - condomstobacco smokerleft breast lump, noticed 2-3 weeks ago. Tender at times. Nipple discharge clear/milky with breast expression since last breastfed 2 yrs ago.half sister with BC diagnosed at age 46 RAMO Darnell [address], [place], [address], [place] [facility] 12/09/2024 16:46:48 OBGyn Episode Ob Episode Information Episode Created Date Number of Fetuses Patient Bloodtype Patient rh Status Prepregnancy Weight lbs Domestic Partner Domestic Partner Phone Father Name National Sales Status 10/11/20 20 1 CLOSED Fetus Data [...] Domestic Partner Domestic Partner Phone Father Name National Sales Status 10/11/20 20 1 CLOSED Fetus Data [...] Domestic Partner Domestic Partner Phone Father Name National Sales Status 11/09/20 20 1 CLOSED Fetus Data [...] Domestic Partner Domestic Partner Phone Father Name National Sales Status 11/09/20 20 1 O Positive 150 [...] Not e Transient hypertension of - delivered [id number] h/o pih History of depression MEDICATION 1280492 08 Depression/Anx. 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 SSM Level II U/S 03/20 9AM Marginal insertion of umbilical cord 52524403 Serial growth LII u/s 03/20 9am Footling breech presentation 04/27/2021 922326260 will schedule C S for 39 weeks growth restriction 90481440 no f/u w/ mfm - in house [...] Weight in lbs Pre/Post Dialysis Refused Weight 155.94897755636 BP Diastolic BP Location Tested BP Systolic BP Type 80 R arm 115 sitting Fetus Heart Rate Present Fetus Movement Comments this patient is a 4 para 2012 at 13 weeks gestation who presents for [...] Weight in lbs Pre/Post Dialysis Refused Weight 158.786854644890 BP Diastolic BP Location Tested BP Systolic [...] Weight in lbs Pre/Post Dialysis Refused Weight 160.418811016465 BP Diastolic BP Location Tested BP Systolic [...] Weight in lbs Pre/Post Dialysis Refused Weight 164.86195671057 BP Diastolic BP Location Tested BP Systolic BP Type 86 122 Fetus Heart Rate Present A 148 Fetus Movement A Yes Comments Doing well. Did have some lo wer abdominal discomfort yesterday but has resolved today. Normal movement. Happy with zoloft and feels it is working well for her. MFM follow up scheduled next week. Having a girl Winter. Flowsheet Date 03/08/2021 Lewis Score Blood Edema Fundus Height Fundus Units Glucose Ketones Leukocytes Nitrite Labor Signs Protein Cervic Dilation Cervic Effacement Cervic Station 30 1+ Type Weight in lbs Pre/Post Dialysis Refused Weight 159.945806245303 BP Diastolic BP Location Tested BP Systolic [...] Weight in lbs Pre/Post Dialysis Refused Weight 162.842265667407 BP Diastolic BP Location Tested BP Systolic [...] Weight in lbs Pre/Post Dialysis Refused Weight 164.20325706358 BP Diastolic BP Location Tested BP Systolic [...] Weight in lbs Pre/Post Dialysis Refused Weight 164.60563200466 BP Diastolic BP Location Tested BP Systolic BP Type 68 100 Fetus Heart Rate Present A 140 Fetus Movement A Decreased Comments Decreased FM today, a few li ttle movements. NST nonreactive, no decels. BPP 6/8 for total of 610. Will send to [facility] for [...] Weight in lbs Pre/Post Dialysis Refused Weight 167.272176788557 BP Diastolic BP Location Tested BP Systolic [...] Weight in lbs Pre/Post Dialysis Refused Weight 162.022048401407 BP Diastolic BP Location Tested BP Systolic [...] Weight in lbs Pre/Post Dialysis Refused Weight 165.607297700973 BP Diastolic BP Location Tested BP Systolic [...] Weight in lbs Pre/Post Dialysis Refused Weight 167.756927153733 BP Diastolic BP Location Tested BP Systolic [...] Weight in lbs Pre/Post Dialysis Refused Weight 168.133151119114 BP Diastolic BP Location Tested BP Systolic [...] Weight in lbs Pre/Post Dialysis Refused Weight 153.008935199274 BP Diastolic BP Location Tested BP Systolic [...] Estim ated Date of Delivery false Thalassemia (Malay, Lao, Mediterranean, Or Background): MCV < 80 false Neural Tube Defect (Meningomyelocele, Spina Bifi da, Or Anencephaly) false Congenital Heart Defect false Down Syndrome false Bill-Sachs (eg, Congregation, Cajun, Persian-Evangeline) f alse Pauline Disease false Sickle Cell Disease Or Trait () false Hemophilia Or Other Blood Disorders false Muscular Dystrophy false Cystic Fibrosis false Karen's Chorea false Intellectual Disability/Autism false If Yes, [...]
--- OUTSIDE RECORDS SUMMARY | 2025-11-10 12:43 | XMS_ITS | Clinical Summary ---
Author Organization [facility] Address [address] [place] [address] Care Team Providers Care Monotype Machinist Name Role Phone Tory Plata APRN-[employer]ALE Unavailable Unavailable Nell Ray PA-C Primary Care Provider [phone] Source Comments [facility],non-owned Affiliates and Associated Physician Practices is amultiple site organization consisting of ambulatory clinics and hospital sitesin [place], [place], [place] and [place]. This disclosure is being madepursuant to the [...] on file Legal Sex Female 6:58 AM GIN CLERK Gender Identity Not on file Sexual Orientation [...] A M CDT Height 170.2 cm (5' 7) 08/06/2019 8:12 AM CDT Body Mass Index 22.26 08/06/2019 8:12 AM CDT Plan of Treatment Health Maintenance Due Date Last Done Comments HEPATITIS C SCREENING 03/14/2003 DTAP/TDAP/TD VACCINES (1 - Tdap) 2004 HEPATITIS B VACCINE (1 of 3 - 19+ 3-dose series) 2004 PNEUMOCOCCAL VACCINE (1 of 2 - PCV) 2004 HPV VACCINE (1 - 3-dose SCDM series) 2012 MAMMOGRAM 12/28/2017 12/28/2015 PAP with HPV 04/29/2022 04/29/2017 LIPID TESTING 10/22/2022 10/22/2017, 04/08/2016, 04/21/2014 DEPRESSION SCREENING 11/24/2024 COVID-19 VACCINE (1 - 2024-2 6 season) 2025 INFLUENZA VACCINE (#1) 2025 09/07/2017 ZOSTER VACCINE (1 of 2) [...] Comments LIPID PROFILE Routine 10/22/2017 8:32 AM GIN CLERK Essential hypertension Increased frequency of urination PAP LB CT+GC JUAN +HPV HR DNA Routine 04/29/2017 3:28 PM CDT Special screening examination for human papillomavirus (HPV) Routine gynecological examination MAMMO BILAT DIAGNOSTIC Routine 12/28/2015 9:57 AM GIN CLERK Lump or mass in breast from Last 3 Months or Most Recently Relevant to Health Maintenance Results * (ABNORMAL) LIPID PROFILE (10/22/2017 8:32 AM GIN CLERK) Cholesterol 206(H) <200 mg/dL 10/22/2017 1:49 PM [facility] Triglycerides 103 <150 mg/dL 10/22/2017 1:49 PM [facility] HDL Cholesterol 57 >40 mg/dL 7 1:49 PM [facility] Chol HDL Ratio 3.6 1.0 - 6.0 10/22/2017 1:49 PM [facility] LDL Calculated 128 65 - 130 mg/dL 10/22/2017 1:49 PM [facility] VLDL Calculated 21 10 - 40 mg/dL 10/22/2017 1:49 PM [facility] Blood BLOOD SPECIMEN / Unknown Venipuncture / Unknown 10/22/2017 8:32 AM [facility] 10/22/2017 8:32 AM [facility] - 10/22/2017 1:49 PM [facility] Lipid Profile Comment: CHOLESTEROL LEVEL..................CLINICAL INTERPRETATION LESS [...] LAB - CHEMISTRY ORDERABLES Fin al Result [facility] [address] [place] [address], [facility] * PAP LB CT+GC JUAN +HPV HR DNA (04/29/2017 3:28 PM CDT) Diagnosis [facility] INSURANCE BILL Comment:NEGATIVE FOR INTRAEP ITHELIAL LESION AND MALIGNANCY. Specimen Adequacy [facility] INSURANCE BILL Comment: Satisfactory for evaluation. Endocervical and/or squamous metaplastic cells (endocervical component) are present. Clinician Provided ICD10 [facility] INSURANCE BILL Comment: Z11.51 Z01.419 Performed by [facility] INSURANCE BILL Comment:Carmen Jackson, [facility] otechnologist (ASCP) Comment . [facility] INSURANCE BILL [...] 9:07 PM CDT Source.............Cervix LMP / Prev Treat...[id number]=[id number] Other..............Oral Contraceptives No. of containers..01 CYTYC Thin Prep Vial Resulting Agency Comment [facility] [address] DIOP [id number] Tory Plata LAST SCOURER-[employer]L MAKER SCALE LAB - PATHOLOGY/CYTOLOGY ORD ERABLES Final Result [facility] INSURANCE BILL [address] [place] [address] * TOM DIAGNOSTIC BILATERAL DIGITAL [id number] (12/28/2015 9:57 AM GIN CLERK) Anatomical Region Laterality Modality Bilateral Mammography 12/28/2015 11:1 4 AM GIN CLERK Impressions 12/28/2015 12:36 PM GIN CLERK 1. Three separate left breast masses most [...] should be taken. Narrative 12/28/2015 12:36 PM GIN CLERK DIGITAL BILATERAL SCREENING MAMMOGRAM WITH COMPUTER AIDED [...] solid mass with color flow. Tory Walshjan LAST SCOURER-[employer] MAKER SCALE MAMMO ORDERABLES Final Resul t from Last 3 Months or Most Recently Relevant to Health Maintenance Insurance [facility] [employer] [facility] [facility] [employer] Advance Directives * Full Code (Latest Code Status on File) Date Activated Date Inactivated Comments 11/10/2017 10:01 PM 11/12/2017 4:26 PM Care Teams Monotype Machinist Relationship Specialty Start Date End Date Nell Ray PA-C [address] [place] [address] PCP - General 08/13/19 Tory Plata APRN-[employer] Nurse Practitioner 04/16/13
--- OUTSIDE RECORDS SUMMARY | 2025-11-10 12:44 | XMS_ITS | Data Portability ---
Author Organization [facility] Address [address] [facility] [place] [address] Care Team Providers Care Entry Level Management Name Role Phone MARVAJESENIA Primary Care Provider Assessment No assessment recorded. Plan of Treatment Reminders Order Date Submit Date Provider Last Modified By Organization Details Last Modified Time Details Appointments None recorded. Lab CMP, serum or plasma 2024 025 CORRIE Henriquez, [address], [address], [place], [address], 5 22:09:32 lipid panel, serum or plasma 2024 025 CORRIE Henriquez, [address]22 [address]ne, [address], [place], [address], 5 10:24:19 CBC w/ auto diff 2024 025 CORRIE Henriquez, 2022 [address]ne, [address], [place], [address], 5 22:09:34 TSH + free T4, serum 2024 025 CORRIE Henriquez, 2022 [address]ne, [address], [place], [address], 5 08:26:14 HbA1c (hemoglobin A1c), blood 2024 025 CORRIE Henriquez, [address]22 [address]ne, [address], [place], [address], 5 08:26:15 influenza virus A + B + SARS-CoV-2 (COVID19) Ag panel, rapid IA, upper respiratory specimen 2023 024 [id number] In-Office Order, Internal Use Only DO Not Attach Compendium DO Not Attach Compendium, Do Not Delete/merge, [id number] 15:00:54 urinalysis, dipstick 2023 024 MOCCASIN In-Office Order, Internal Use Only DO Not Attach Compendium DO Not Attach Compendium, Do Not Delete/merge, [id number] 11:41:37 Referral None recorded. Procedures None recorded. Surgeries None recorded. Imaging XR, chest, 2 view 2023 024 [facility], [facility], [place], [address], 4 16:38:49 Medication Orders varenicline tartrate 0.5 mg tablet 2024 025 [facility], [address] [place], [address], 5 12:38:00 losartan 25 mg tablet 2024 025 [facility], [address] [place], [address], 5 12:38:04 pantoprazol e 20 mg tablet,no yed release 2024 025 [facility], [address] [place], [address], 5 12:32:53 sertraline 100 mg tablet 2024 025 [facility], [address] [place], [address], 5 10:19:50 hydroxyzine HCl 25 mg tablet 2024 025 [facility], [facility] [place], [address], 5 10:19:53 amlodipine 10 mg tablet 2024 025 [facility], [address] [place] [address], [address], 5 10:19:52 Zithromax Z-Marvin 250 mg tablet 2023 025 [facility], [address] [place] [address], [address], 5 10:21:04 benzonatate 100 mg capsule 2023 025 [facility] [address], [address] [place] [address], [address], 5 10:21:06 tretinoin 0.05 % topical cream 2023 [facility]24 [facility] [address] [place] [address], [address], 5 12:20:14 cyclobenzap rine 5 mg tablet [address] [facility] [address], [address] [place] [address], [address], 4 14:30:40 amlodipine 10 mg tablet 2023 024 [facility], [address] [place] [address], [address], 4 11:26:37 Patient TargetsNo targets recorded. Patient Instructions Encounter Date Encounter Id Patient Instructions Last Modified By Organization Details Last Modified Time 07/21/2025 [id number] Quitting Tobacco : Care Instructions kbarbero Not available 07/21/2025 12:37:40 Reason for Referral None Reported. Results Created Date Observation Date Name Description Value Unit Range Abnormal Flag Note LastModifiedBy Organization Detail LastModifiedTime 01/28/20 24 01/28/2024 urina lysis , dipst ick Leukocytes Negati ve Not Available In-Office Order Internal Use Only DO Not Attach Compendium DO Not Attach Compendium, Do Not Delete/merge, [facility] 01/28/2024 11:27:33 01/28/20 24 01/28/2024 urina lysis , dipst ick Nitrite negati ve Not Available In-Office Order Internal Use Only DO Not Attach Compendium DO Not Attach Compendium, Do Not Delete/merge, [facility] 01/28/2024 11:27:33 01/28/20 24 01/28/2024 urina lysis , dipst ick Urobilinogen .2 Not Available In-Of fice Order Internal Use Only DO Not Attach Compendium DO Not Attach Compendium, Do Not Delete/merge, [facility] 01/28/2024 11:27:33 01/28/20 24 01/28/2024 urina lysis , dipst ick Protein Negati ve Not Available In-Office Order Internal Use Only DO Not Attach Compendium DO Not Attach Compendium, Do Not Delete/merge, [facility] 01/28/2024 11:27:33 01/28/20 24 01/28/2024 urina lysis , dipst ick pH 5.0 Not Available In-Office Order Internal Use Only DO Not Attach Compendium DO Not Attach Compendium, Do Not Delete/merge, [facility] 01/28/2024 11:27:33 01/28/20 24 01/28/2024 urina lysis , dipst ick Blood Small Not Available In-Office Order Internal Use Only DO Not Attach Compendium DO Not Attach Compendium, Do Not Delete/merge, [facility] 01/28/2024 11:27:33 01/28/20 24 01/28/2024 urina lysis , dipst ick Specific Romayor 1.005 Not Available In-Off ice Order Internal Use Only DO Not Attach Compendium DO Not Attach Compendium, Do Not Delete/merge, [facility] 01/28/2024 11:27:33 01/28/20 24 01/28/2024 urina lysis , dipst ick Ketone Negati ve Not Available In-Office Order Internal Use Only DO Not Attach Compendium DO Not Attach Compendium, Do Not Delete/merge, [id number] 01/28/2024 11:27:33 01/28/20 24 01/28/2024 urina lysis [...] DO Not Attach Compendium, Do Not Delete/merge, [id number] 01/28/2024 11:27:33 11/01/20 24 11/01/2024 influ lucretia virus A + B + SARS- CoV-2 (COVI D19) Ag panel , rapid IA, upper respi rator y speci men Flu A negati ve Not Available In-Office Order Internal Use Only DO Not Attach Compendium DO Not Attach Compendium, Do Not Delete/merge, [id number] 11/01/2024 15:00:40 11/01/20 24 11/01/2024 influ lucretia virus A + B + SARS- CoV-2 (COVI D19) Ag panel , rapid IA, upper respi rator y speci men Flu B negati ve Not Available In-Office Order Internal Use Only DO Not Attach Compendium DO Not Attach Compendium, Do Not Delete/merge, [id number] 11/01/2024 15:00:40 11/01/20 24 11/01/2024 influ lucretia virus A + B + SARS- CoV-2 (COVI D19) Ag panel , rapid IA, upper respi rator y speci men Rapid SARS CoV 2 Ag, QL IA, respiratory specimen negati ve Not Available In-Office Order Internal Use Only DO Not Attach Compendium DO Not Attach Compendium, Do Not Delete/merge, [id number] 11/01/2024 15:00:40 12/09/19 25 12/09/2024 pap, IG + HR HPV Pap,thinprep ,HPV negati ve Not Available Not Available 15:03:21 01/14/20 25 01/14/2025 LIPID PANEL WITH LDL/H DL RATIO cholesterol, total 198 mg/dL 100-19 9 Not Available [facility] [address] [place] [address], [address], 01/14/2025 22:09:32 01/14/20 25 01/14/2025 LIPID PANEL WITH LDL/H DL RATIO triglyceride s 61 mg/dL 0-149 Not Available [facility] Department [address] [place], [address], 01/14/2025 22:09:32 01/14/20 25 01/14/2025 LIPID PANEL WITH LDL/H DL RATIO HDL cholesterol 63 mg/dL 40-999 Not Available [facility] Department [address] [place], [address], 01/14/2025 22:09:32 01/14/20 25 01/14/2025 LIPID PANEL WITH LDL/H DL RATIO VLDL cholesterol alina 12 mg/dL 5-40 Not Available [facility] Department [address] [place], [address], 01/14/2025 22:09:32 01/14/20 25 01/14/2025 LIPID PANEL WITH LDL/H DL RATIO LDL chol calc ([facility]) 132 mg/dL 0-99 above high normal Not Available [facility] Department [address] [place], [address], 01/14/2025 22:09:32 01/14/20 25 01/14/2025 LIPID PANEL WITH LDL/H DL RATIO LDL/HDL ratio 2.1 0-3.2 Not Available [facility] Department [address] [place] [address], [address], 01/14/2025 22:09:32 01/14/20 25 01/14/2025 COMP. METAB OLIC PANEL (14) glucose 69 mg/dL 70-99 below low normal Not Available [facility] [address] [place], [address], 01/14/2025 22:09:32 01/14/20 25 01/14/2025 COMP. METAB OLIC PANEL (14) BUN 8 mg/dL 6-20 Not Available [facility] Department [address] [place] [address], [address], 01/14/2025 22:09:32 01/14/20 25 01/14/2025 COMP. METAB OLIC PANEL (14) creatinine 0.62 mg/dL 0.76-1 .27 below low normal Not Available [facility] [address] [place], [address], 01/14/2025 22:09:32 01/14/20 25 01/14/2025 COMP. METAB OLIC PANEL (14) eGFR 116 >=60 Units for eGFR value s are mL/mi n/1.7 3 The eGFR Calcu latio n has not been valid ated for patie nts under the age of 18. If test resul ts are displ ayed for a patie nt under the age of 18, disre sienna that value . Not Available [facility] Department [address] [place], [address], 01/14/2025 22:09:32 01/14/20 25 01/14/2025 COMP. METAB OLIC PANEL (14) BUN/creatini ne ratio 13 9-23 Not Available [facility] Department [address] [place], [address], 01/14/2025 22:09:32 01/14/20 25 01/14/2025 COMP. METAB OLIC PANEL (14) sodium 141 mmol/ L 134-14 4 Not Available [facility] [address] [place], [address], 01/14/2025 22:09:32 01/14/20 25 01/14/2025 COMP. METAB OLIC PANEL (14) potassium 4.1 mmol/ L 3.5-5. 2 Not Available [facility] [address] [place], [address], 01/14/2025 22:09:32 01/14/20 25 01/14/2025 COMP. METAB OLIC PANEL (14) chloride 103 mmol/ L 96-106 Not Available [facility] [address] [place] [address], [address], 01/14/2025 22:09:32 01/14/20 25 01/14/2025 COMP. METAB OLIC PANEL (14) carbon dioxide, total 27 mmol/ L 20-29 Not Available [facility] [address] [place], [address], 01/14/2025 22:09:32 01/14/20 25 01/14/2025 COMP. METAB OLIC PANEL (14) calcium 9.2 mg/dL 8.7-10 .2 Not Available [facility] [address] [place], [address], 01/14/2025 22:09:32 01/14/20 25 01/14/2025 COMP. METAB OLIC PANEL (14) protein, total 6.8 g/dL 6.0-8. 5 Not Available [facility] [address] [place], [address], 01/14/2025 22:09:32 01/14/20 25 01/14/2025 COMP. METAB OLIC PANEL (14) albumin 4.2 g/dL 3.9-4. 9 Not Available [facility] [address] [place], [address], 01/14/2025 22:09:32 01/14/20 25 01/14/2025 COMP. METAB OLIC PANEL (14) globulin, total 2.6 g/dL 1.5-4. 5 Not Available [facility] [address] [place], [address], 01/14/2025 22:09:32 01/14/20 25 01/14/2025 COMP. METAB OLIC PANEL (14) A/G ratio 2.0 1.2-2. 2 Not Available [facility] [address] [place], [address], 01/14/2025 22:09:32 01/14/20 25 01/14/2025 COMP. METAB OLIC PANEL (14) bilirubin, total 0.3 mg/dL 0.0-1. 2 Not Available [facility] [address] [place], [address], 01/14/2025 22:09:32 01/14/20 25 01/14/2025 COMP. METAB OLIC PANEL (14) alkaline phosphatase 74 IU/L 44-121 Not Available [facility] Department [address] [place], [address], 01/14/2025 22:09:32 01/14/20 25 01/14/2025 COMP. METAB OLIC PANEL (14) AST (SGOT) 20 IU/L 0-40 Not Available [facility] Department [address] [place], [address], 01/14/2025 22:09:32 01/14/20 25 01/14/2025 COMP. METAB OLIC PANEL (14) ALT (SGPT) 9 IU/L 0-32 Not Available [facility] Department [address] [place], [address], 01/14/2025 22:09:32 01/14/20 25 01/14/2025 CBC WITH DIFFE RENTI AL/PL ATELE T WBC 11.2 x10e3 /uL 3.4-10 .8 above high normal Not Available [facility] [address] [place], [address], 01/14/2025 22:09:34 01/14/20 25 01/14/2025 CBC WITH DIFFE RENTI AL/PL ATELE T RBC 4.03 x10e6 /uL 3.77-5 .28 Not Available [facility] [address] [place], [address], 01/14/2025 22:09:34 01/14/20 25 01/14/2025 CBC WITH DIFFE RENTI AL/PL ATELE T hemoglobin 12.5 g/dL 11.1-1 5.9 Not Available [facility] [address] [place], [address], 01/14/2025 22:09:34 01/14/20 25 01/14/2025 CBC WITH DIFFE RENTI AL/PL ATELE T hematocrit 38.1 % 34.0-4 6.6 Not Available [facility] [address] [place], [address], 01/14/2025 22:09:34 01/14/20 25 01/14/2025 CBC WITH DIFFE RENTI AL/PL ATELE T MCV 95 fL 79-97 Not Available [facility] [address] [place], [address], 01/14/2025 22:09:34 01/14/20 25 01/14/2025 CBC WITH DIFFE RENTI AL/PL ATELE T MCH 31.0 pg 26.6-3 3.0 Not Available [facility] [address] [place], [address], 01/14/2025 22:09:34 01/14/20 25 01/14/2025 CBC WITH DIFFE RENTI AL/PL ATELE T MCHC 32.8 g/dL 31.5-3 5.7 Not Available [facility] [address] [place], [address], 01/14/2025 22:09:34 01/14/20 25 01/14/2025 CBC WITH DIFFE RENTI AL/PL ATELE T RDW 14.9 % 11.5-1 4.5 above high normal Not Available [facility] [address] [place], [address], 01/14/2025 22:09:34 01/14/20 25 01/14/2025 CBC WITH DIFFE RENTI AL/PL ATELE T platelets 336 x10e3 /uL 150-45 0 Not Available [facility] [address] [place], [address], 01/14/2025 22:09:34 01/14/20 25 01/14/2025 CBC WITH DIFFE RENTI AL/PL ATELE T neutrophils 74 % notest b. Not Available [facility] [address] [place], [address], 01/14/2025 22:09:34 01/14/20 25 01/14/2025 CBC WITH DIFFE RENTI AL/PL ATELE T lymphs 18 % notest b. Not Available [facility] [address] [place], [address], 01/14/2025 22:09:34 01/14/20 25 01/14/2025 CBC WITH DIFFE RENTI AL/PL ATELE T monocytes 6 % notest b. Not Available [facility] [address] [place], [address], 01/14/2025 22:09:34 01/14/20 25 01/14/2025 CBC WITH DIFFE RENTI AL/PL ATELE T eos 2 % notest b. Not Available [facility] [address] [place], [address], 01/14/2025 22:09:34 01/14/20 25 01/14/2025 CBC WITH DIFFE RENTI AL/PL ATELE T basos 1 % notest b. Not Available [facility] [address] [place], [address], 01/14/2025 22:09:34 01/14/20 25 01/14/2025 CBC WITH DIFFE RENTI AL/PL ATELE T neutrophils (absolute) 8.2 x10e3 /uL 1.4-7. 0 above high normal Not Available [facility] [address] [place], [address], 01/14/2025 22:09:34 01/14/20 25 01/14/2025 CBC WITH DIFFE RENTI AL/PL ATELE T lymphs (absolute) 2.0 x10e3 /uL 0.7-3. 1 Not Available [facility] [address] [place], [address], 01/14/2025 22:09:34 01/14/20 25 01/14/2025 CBC WITH DIFFE RENTI AL/PL ATELE T monocytes(ab solute) 0.6 x10e3 /uL 0.1-0. 9 Not Available [facility] [address] [place], [address], 01/14/2025 22:09:34 01/14/20 25 01/14/2025 CBC WITH DIFFE RENTI AL/PL ATELE T eos (absolute) 0.2 x10e3 /uL 0.0-0. 4 Not Available [facility] [address] [place], [address], 01/14/2025 22:09:34 01/14/20 25 01/14/2025 CBC WITH DIFFE RENTI AL/PL ATELE T baso (absolute) 0.1 x10e3 /uL 0.0-0. 2 Not Available [facility] [address] [place], [address], 01/14/2025 22:09:34 01/14/20 25 01/14/2025 CBC WITH DIFFE RENTI AL/PL ATELE T immature granulocytes 0.4 % notest b. Not Available [facility] [address] [place], [address], 01/14/2025 22:09:34 01/14/20 25 01/14/2025 CBC WITH DIFFE RENTI AL/PL ATELE T immature grans (abs) 0.1 x10e3 /uL 0.0-0. 1 Not Available [facility] [address] [place], [address], 01/14/2025 22:09:34 01/14/20 25 01/14/2025 CBC WITH DIFFE RENTI AL/PL ATELE T NRBC 0 % 0-0 Not Available [facility] [address] [place], [address], 01/14/2025 22:09:34 01/14/20 25 01/15/2025 TSH+F REE T4 TSH 0.789 uIU/m L 0.450- 4.500 Not Available [facility] [address] [facility], [place], [address], 01/15/2025 08:26:14 01/14/20 25 01/15/2025 TSH+F REE T4 T4,free(dire ct) 0.93 NG/dL 0.82-1 .77 Not Available [facility] [address] [facility], [place], [address], 01/15/2025 08:26:14 01/14/20 25 01/15/2025 HEMOG LOBIN A1C hemoglobin A1C 5.9 % 4.8-5. 6 above high normal Predi abete s: 5.7 - 6.4 Diabe drea: >6.4 Glyce carmine contr ol for adult s with diabe drea: <7.0 Not Available [facility]) [address], [place], [address], 01/15/2025 08:26:15 01/24/20 24 01/23/2024 CT, abdom en + pelvi s, w/ contr ast No observ ation record ed. [address], [place], [address], 01/26/2024 16:47:03 11/02/20 24 11/02/2024 XR, chest , 2 view No observ ation record ed. [address], [place], [address], 11/02/2024 16:44:35 01/14/20 25 12/24/2024 MAMMO , diagn ostic , unila teral No observ ation record ed. [address], [place], [address], 01/25/2025 09:16:29 03/23/20 25 03/22/2025 MAMMO , diagn ostic , bilat eral No observ ation record ed. [address], [place], [address], 03/23/2025 14:30:49 Result Notes None recorded. Problems Name Problem SNOMED Code Status Onset Date Resolution Date Notes Provider Name and Address Organization Details Recorded Time Mixed anxiety and depressive disorder 324800212 Active 2018 PAM GANN Attn: Emil olivo,[address] [facility], [place], [address], [place] [facility] 9 16:48:32 Essential hypertension 37718161 Active 2018 PAM RG Attn: Emil olivo,[address] [facility], [place], [address], [place] [facility] 3 12:56:28 Major depressive disorder 875973365 Active 2022 PAM RG Attn: Emil olivo,[address] [facility], [place], [address], [place] [facility] 3 12:56:40 Generalized anxiety disorder 49327714 Active 2022 PAM RG Attn: Emil olivo,[address] [facility], [place], [address], [facility] - [facility] 3 12:56:42 Smoker 43761075 Active 2022 PAM RG Attn: Emil olivo,[address] [facility], [place], [address], [facility] - [facility] 3 12:56:44 Family history of malignant neoplasm of breast in first degree relative 866490702 Active 2022 PAM RG Attn: Emil olivo,[address] [facility], [place], [address], [facility] - [facility] 3 12:56:38 Cannabis dependence 20030586 Active 2022 PAM RG Attn: Emil olivo,[address] [facility], [place], [address], [facility] - [facility] 3 22:02:01 Problem Notes None recorded. Procedures Surgical History Date Name Laterality Status Provider Name and Address Organization Details Recorded Time 1 section completed Jessica Hall [facility] 01/03/2022 14:20:20 1 Date of Last Pap Smear completed PAM RG Attn: Accounting,[address] [place], [address], [facility] 05/13/2023 10:11:21 Imaging Results None recorded. Procedure Notes None [...] Available Not Available ibuprofen 800 mg tablet 07/21 completed Not Available Not Available Not Available hydrocodone [...] TABLETS BY MOUTH ONCE DAILY AT BEDTIME 2024 active Not Available Not Available Not Avai lable tretinoin 0.05 % topical cream APPLY CREAM TOPICALLY ONCE DAILY AT BEDTIME FOR ACNE 07/21 completed Not Available Not Available Not Available amoxicillin 500 mg tablet 01/14 completed Not Available Not Available Not Available pantoprazol e 20 mg tablet,no yed release TAKE 1 TABLET BY MOUTH ONCE DAILY IN THE MORNING active Not Available Not Available No t Available dicyclomine 20 mg tablet TAKE 1 [...] completed Not Available Not Available Not Available losartan 25 mg tablet TAKE 1 TABLET BY MOUTH ONCE DAILY IN THE MORNING FOR HIGH BLOOD PRESSURE active Not Available Not Available No t Available buspirone 7.5 mg tablet TAKE 1 [...] Available Not Available Not Available amoxicillin 875 mg-rojas m clavulanate 125 mg tablet Take 1 tablet every 12 hours by oral route. 01/03 completed Not Available Not Available Not Available cyclobenzap rine 5 mg tablet Take 1 tablet twice a day by oral route as needed for 14 days. 04/21 completed Not Available Not Available Not Available varenicline tartrate 0.5 mg tablet TAKE ONE TABLET BY MOUTH ONCE DAILY FOR 3 DAYS, THEN TAKE ONE TABLET BY MOUTH TWICE DAILY FOR 30 DAYS active Not Available Not Available No t Available ID NOW COVID-19 Test Kit TEST DIRECTED TODAY 07/24 completed Not Available Not Available Not Available Vitals Date Recorded Systolic And Diastolic Provider Name and Address Organization Details Last Updated DateTime 01/14/2025 160/100 mm[Hg] PAM RG Attn: Accounting,[address] [place], [address], [facility] 01/14/2025 10:23:23 Date Recorded Body height Body mass index (BMI) Body weight Oxygen saturation Heart rate Respiratory rate Systolic And Diastolic Provider Name and Address Organization Details Last Updated DateTime 5 172.72 cm 18.4 kg/m2 60420.6 8 g 96 % 79 /min 18 /min 159/94 mm[Hg] Charlene Healy [place] - [facility] 5 09:55:15 Date Recorded Systolic And Diastolic Provider Name and Address Organization Details Last Updated DateTime 01/28/2024 126/80 mm[Hg] PAM RG Attn: Accounting,[address] [place], [address], [place] [facility] 01/28/2024 11:33:21 Date Recorded Body height Body mass index (BMI) Body weight Oxygen saturation Heart rate Respiratory rate Systolic And Diastolic Provider Name and Address Organization Details Last Updated DateTime 4 172.72 cm 19.3 kg/m2 08134.2 3 g 97 % 89 /min 16 /min 140/92 mm[Hg] Charlene Healy MA [place] - [facility] 4 11:18:48 Date Recorded Systolic And Diastolic Provider Name and Address Organization Details Last Updated DateTime 04/21/2024 120/80 mm[Hg] PAM RG Attn: Accounting,[address] [place], [address], [facility] 04/21/2024 17:00:43 Date Recorded Body height Body mass index (BMI) Body weight Oxygen saturation Heart rate Respiratory rate Systolic And Diastolic Provider Name and Address Organization Details Last Updated DateTime 4 172.72 cm 19.2 kg/m2 38324.6 4 g 96 % 85 /min 16 /min 132/91 mm[Hg] Charlene Healy MA [facility] 4 12:33:45 Date Recorded Systolic And Diastolic Provider Name and Address Organization Details Last Updated DateTime 07/21/2025 150/90 mm[Hg] PAM RG Attn: Accounting,[address] [place], [address], [facility] 07/21/2025 12:38:09 Date Recorded Body height Body mass index (BMI) Body weight Oxygen saturation Heart rate Respiratory rate Systolic And Diastolic Systolic And Diastolic Provider Name and Address Organization Details Last Updated DateTime 5 172.72 cm 18.8 kg/m2 53571.6 6 g 100 % 75 /min 16 /min 178/128 mm[Hg] 166/105 mm[Hg] Mariely yL MA [facility] 5 12:17:33 Date Recorded Body height Body mass index (BMI) Body weight Oxygen saturation Heart rate Respiratory rate Body temperature Systolic And Diastolic Provider Name and Address Organization Details Last Updated DateTime 4 172.72 cm 18.1 kg/m2 50674.1 9 g 95 % 109 /min 17 /min 98.8 [degF] 129/96 mm[Hg] Mariely Ly MA [facility] 4 14:37:04 Social History Question Answer Notes LastModified by Organizat ion Details LastModified Time Tobacco Smoking Status Current Every Day Smoker Kelly hernández [facility] 10/19/2019 16:36:20 Do You Have An Advance Directive? No Information not available 01/19/2020 Are You Blind Or Do You Have Difficulty Seeing? No [email or web address] Information not available 01/03/2022 What Is Your Level Of Caffeine Consumption? Moderate [email or web address] Information not available 01/03/2022 In The 14 Days Before Symptom Onset, Have You Had Close Contact With A Laboratory-confi rmed COVID-19 While That Case Was Ill? No Information not available 01/03/2022 In The 14 Days Before Symptom Onset, Have You Had Close Contact With A Person Who Is Under Investigation For COVID-19 While That Person Was Ill? No [email or web address] Information not available 01/03/2022 Have You Been To An Area Known To Be High Risk For COVID-19? No [email or web address] Information not available 01/03/2022 Are You Deaf Or Do You Have Serious Difficulty Hearing? No [email or web address] Information not available 01/03/2022 What Type Of Diet Are You Following? REGULAR Information not available 01/19/2020 Are There Any Guns Present In Your Home? No Information not available 03/12/2022 Hard Of Hearing Or Deaf In One Or Both Ears? No Information not available 01/19/2020 Legally Blind In One Or Both Eyes? No Information not available 01/19/2020 Live Alone Or With Others? With Others Information not available 01/19/2020 What Was The Date Of Your Most Recent Tobacco Screening? 07/21/2025 [email or web address] Information not available 07/21/2025 How Many Children Do You Have? 2 Information not available 01/19/2020 Do You Use Your Seat Belt Or Car Seat Routinely? Yes [email or web address] Information not available 01/03/2022 Do You Have Smoke And Carbon Monoxide Detectors In Your Home? Yes Information not available 03/12/2022 Are You Passively Exposed To Smoke? Yes Information not available 01/19/2020 How Much Tobacco Do You Smoke? 1 PPD 5 Or 6 Cigarettes A Day Information not available 07/24/2022 General Stress Level Medium Information not available 01/19/2020 Do You Use Sunscreen Routinely? No Information not available 03/12/2022 On What Date Was Tobacco Cessation Counseling Provided? 01/14/2025 [email or web address] Information not available 01/14/2025 How Many Years Have You Smoked Tobacco? 14 Information not available 10/19/2019 Sex: Female Functional Status Question Answer Note LastModified by Organizat ion Details LastModified Time Do you use any illicit or recreational drugs? No [email or web address] Information not available 01/03/2022 Do you or have you ever used any other forms of tobacco or nicotine? No [email or web address] Information not available 01/03/2022 What is your level of alcohol consumption? None Information not available 01/19/2020 Do you or have you ever used smokeless tobacco? Never used smokeless tobacco Information not available 01/19/2020 Are you currently employed? Yes [email or web address] Information not available 01/03/2022 Are you able to care for yourself independently? 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 Never used electronic cigarettes Information not available 01/19/2020 What is your exercise level? Moderate Information not available 01/19/2020 Mental Status Question Answer Note LastModified by Organization D etails LastModified Time Do you feel stressed (tense, restless, nervous, or anxious, or unable to sleep at night)? [id number] [email or web address] Information not available 01/03/2022 Family History Relationship Description Onset Age of [...] N Thyroid Problems N GI Problems N Depression Y COPD N Blood Clots N Skin Problems N Anemia Y Heart Attack ([place]) N Anxiety Disorder Y Diabetes N Muscle, Joint, or Bone Problems N Seizures/Epilepsy N Acid Reflux (GERD) Y Cancer N Stroke N Asthma N Allergies Y ADHD N Substance Abuse N High Cholesterol N Hepatitis N Liver Disease N Schizophrenia N Headaches Y Osteoporosis N Heart Failure N Gynecological History Statement/Question Response Flow Heavy [...] 1 Living 3 Ectopics 0 Total 3 Immunizations Vaccine Type Date Status Note Provider Nam e and Address Organization Details Recorded Time Hep B, adolescent or pediatric 9 completed Not Available [facility] 07/21/2025 12:07:33 Hep B, adolescent or pediatric 9 completed Not Available [facility] 07/21/2025 12:07:33 Td (adult), 2 Lf tetanus toxoid, preservative free, adsorbed 0 completed Not Available [facility] 07/21/[facility]25 12:07:33 Hep B, adolescent or pediatric 0 completed Not Available [facility] 07/21/2025 12:07:33 influenza, unspecified formulation 7 completed Not Available [facility] 07/21/2025 12:07:33 COVID-19, mRNA, LNP-S, PF, 30 mcg/0.3 mL dose 1 completed Not Available [facility] 07/21/2025 12:07:33 COVID-19, mRNA, LNP-S, PF, 30 mcg/0.3 mL dose 1 completed Not Available [facility] 07/21/2025 12:07:33 Tdap 1 completed Not Available [facility] 07/21/2025 12:07:33 COVID-19, mRNA, LNP-S, PF, 30 mcg/0.3 mL dose, german-sucrose 2 completed Not Available [facility] 07/21/2025 12:07:33 Past Encounters Encounter ID Performer Location Encounter Start Date Encounter Closed Date Diagnosis/Indication Diagnosis SNOMED-CT Code Diagnosis ICD10 Code Diagnosis IMO Codes Diagnosis Note [id number] PAM GANN [facility] [address] [place] [address] 10/19/2019 16:10:28 10/22/2019 14:19:46 Mixed anxiety and depressive disorder 347110038 F41.8 patient on zoloft and would like to continue on this. she is happy at current dose. Symptoms of worry and depression currently under control. Essential hypertension 92956791 I10 patient happy on labetalol, no side [...] Advised goal for BP is <140/90 Prediabetes 457511084 R7 3.03 Hypercholesterolemia 136 13469 E78.00 checking lipid panel Anemia 649347569 D64.9 patient has history of anemia. checking cbc [id number] Rebeca Mariee MD [facility] [address] [place] [address] 12/16/2019 15:16:55 12/20/2019 10:48:10 Acute sinusitis 38156013 J01.90 Pityriasis rosea 0275556 4 L42 will observe; should resolve spontaneou sly. [id number] Rebeca Mariee MD [facility] [address] [place] [address] 01/19/2020 12:02:56 01/24/2020 08:56:55 Essential hypertension 58232421 I10 Mass of chest wall 54611 4000 R22.2 Mixed anxi ety and depressive disorder 396983081 F41.8 [id number] Anish langford MD [facility] [address] [place] [address] 01/03/2022 14:14:02 01/04/2022 07:20:31 Temporomandibular eqxgl-ajiq-xxgdnervde n syndrome 450265741 M26.629 x4 monthschro tristen teeth grindingd enies tooth painPEx- nl movement of TMJ bilaterall y, non-TTPdis cussed TMJ dysfunctio n and treatment with ptdo not attribute kick to jaw cause of chronic jaw paincan trial muscle relaxer for TMJ muscle spasmshort course of steroidsma y need to be fitted for mouth guard if no relief with medication sgave Dentist contacts Generalize d anxiety disorder 48023517 F41.1 VIVI 20- severe anxietychr onic, constant, everydayre lief with buspar in the pastno relief with zoloftpt would like to have anxiety more under control before taking anxiety medication offered hydroxyzin e PRN and she is amendablet rial buspar low dose BID, advised pt of ADRDenies SI/HIf/u in 1 mo Depression screening 171 407813 Z13.31 PHQ 8 [id number] Anish langford MD [facility] [address] [place] [address] 03/12/2022 15:35:12 03/13/2022 10:52:02 Generalized anxiety disorder 89868935 F41.1 03/12/22: no improvemen t with buspar [...] SI/HIf/u in 1 mo Depression screening 171 445241 Z13.31 PHQ 26depressi on previously controlled on zoloftat previous visit, pt wanted to stop zoloft and trial anxiety medsno relief with anxiety medsc/o worsening depression states she is stressed out, all over the place, can't get my mind rightadmi ts to suicidal ideations of driving car off the road, no plans, denies HI-re-star t zoloft 100 mg -Go to ER or call 911 for crisis (e.g., suicidal behaviors, suicidal ideations, intent or plan emerge). Additional ly, patient has suicide hotline #. - f/u in 2 wks- counseling referral Elevated blood-pressure reading without diagnosis of hypertension 011125423 R03.0 BP today 152/102, 150/100pre vious visit controlled was on labetalol during pregnancyf /u in 2 wks for repeat BP check [id number] Anish langford MD [facility] [address] [place] [address] 07/24/2022 15:16:56 07/24/2022 16:04:18 Depression screening 418686090 Z13.31 07/24/22:PH Q 16mild improvemen t with depression pt states I'm not there yettaking 200 mg of zoloft made her feel weirdtrial 150 mgf/u if no improvemen t with 150, pt reluctant to try new medication sdenies SI/HI 03/08/22:PH Q 26depressi on previously controlled on zoloftat previous visit, pt wanted to stop zoloft and trial anxiety medsno relief with anxiety medsc/o worsening depression states she is stressed out, all over the place, can't get my mind rightadmi ts to suicidal ideations of driving car off the road, no plans, denies HI-re-star t zoloft 100 mg-Go to ER or call 911 for crisis (e.g., suicidal behaviors, suicidal ideations, intent or plan emerge). Additional ly, patient has suicide hotline #.- f/u in 2 wks- counseling referral Generalize d anxiety disorder 75700168 F41.1 07/24/22:wo uld like to try hydroxyzin [...] Elevated blood-pressure reading without diagnosis of hypertension 287780107 R03.0 07/24/22:BP 138/82 03/12/22:BP today 152/102, 150/100pre vious visit controlled was on labetalol during pregnancyf /u in 2 wks for repeat BP check Candidiasis of mouth 797 73216 B37.0 starting drinking juices since she had COVID 2 wks agoc/o burning sensation to tonguePEx- white coating to tonguetria l nystatin rinse [id number] Anish langford MD [facility] [address] [place] [address] 04/10/2023 12:17:46 04/10/2023 13:02:43 Generalized anxiety disorder 54792741 F41.1 04/10/23:co ntrolledre fill 07/24/22:mekhi lynn like to try hydroxyzin e to take [...] of ADRDenies SI/HIf/u in 1 mo Smoker 76022536 F17.200 smokes 1 ppdnot amendable to quitting at this time Unintentio nal weight loss 954616765 R63.4 >5% weight loss in 6-12 [id number] lbs in 2 months per patienta/w night sweats, decreased appetiteCX R 4 days ago normalno other concerning sxPEx- nlcould be due to malnutriti oncheck labsrecord weight for 1 mof/u in 1 mo if normal, can order HIV, Hepatitis, stool hemoccult, ESR/CRP Essential hypertension 90751351 I10 04/09/23:BP 140/80, 150/90BP at [place] 157/96re-s tart amlodipine 10 mgadvised to check BP at home, goal BP <130/80, f/u with BP log in 1 wkf/u in 1 mo 07/24/22:BP 138/82 03/12/22:BP today 152/102, 150/100pre vious visit controlled was on labetalol during pregnancyf /u in 2 wks for repeat BP check Family his tory of malignant neoplasm of breast in first degree relative 443346404 Z80.3 sister diagnosed with stage 4 breast cancer last year, age 46ordered Mammo Major depr essive disorder 772703569 F32.9 04/09/23:PH Q 3controlle drefill today 07/24/22:PH Q 16mild improvemen t with depression pt states I'm not there yettaking 200 mg of zoloft made her feel weirdtrial 150 mgf/u if no improvemen t with 150, pt reluctant to try new medication sdenies SI/HI 03/08/22:PH Q 26depressi on previously controlled on zoloftat previous visit, pt wanted to stop zoloft and trial anxiety medsno relief with anxiety medsc/o worsening depression states she is stressed out, all over the place, can't get my mind rightadmi ts to suicidal ideations of driving car off the road, no plans, denies HI-re-star t zoloft 100 mg-Go to ER or call 911 for crisis (e.g., suicidal behaviors, suicidal ideations, intent or plan emerge). Additional ly, patient has suicide hotline #.- f/u in 2 wks- counseling referral Rib pain [id number] R07.8 1 noticed R sided lump 1 wk agoCXR at [place] normalno h/o rib fracturesP Ex- 1 cm x 1 cm bony projection to R 8th rib, mildly TTPreassur ed pt, CXR normalmost likely noticed nodule due to weight losswill continue to monitor [id number] Anish langford MD [facility] [address] [facility] [place] [address] 05/13/2023 10:02:35 05/13/2023 10:41:56 Unintentional weight loss 016962070 R63.4 05/13/23:ga ined 4 lbs in the past monthstuf fing herself but she feels goodre-acrhie ck CBC, CMP, lipid, add on HIV, hepatitis, ESR/CRP 04/10/23:>5 % weight loss in 6-12 [id number] lbs in 2 months per patienta/w night sweats, decreased appetiteCX R 4 days ago normalno other concerning sxPEx- nlcould be due to malnutriti oncheck labsrecord weight for 1 mof/u in 1 mo if normal, can order HIV, Hepatitis, stool hemoccult, ESR/CRP Essential hypertension 87927224 I10 05/13/23:BP 134/90did not take amlodipine yet today 04/09/23:BP 140/80, 150/90BP at [place] 157/96re-s tart amlodipine 10 mgadvised to check BP at home, goal BP <130/80, f/u with BP log in 1 wkf/u in 1 mo 07/24/22:BP 138/82 03/12/22:BP today 152/102, 150/100pre vious visit controlled was on labetalol during pregnancyf /u in 2 wks for repeat BP check Family his tory of malignant neoplasm of breast in first degree relative 114678296 Z80.3 05/13/23:ma mmogram nl 04/09/23:si ster diagnosed with stage 4 breast cancer last year, age 46ordered Mammo Major depr essive disorder 339682255 F32.9 05/13/23:PH Q 0 04/09/23:PH Q 3controlle drefill today 07/24/22:PH Q 16mild improvemen t with depression pt states I'm not there yettaking 200 mg of zoloft made her feel weirdtrial 150 mgf/u if no improvemen t with 150, pt reluctant to try new medication sdenies SI/HI 03/08/22:PH Q 26depressi on previously controlled on zoloftat previous visit, pt wanted to stop zoloft and trial anxiety medsno relief with anxiety medsc/o worsening depression states she is stressed out, all over the place, can't get my mind rightadmi ts to suicidal ideations of driving car off the road, no plans, denies HI-re-star t zoloft 100 mg-Go to ER or call 911 for crisis (e.g., suicidal behaviors, suicidal ideations, intent or plan emerge). Additional ly, patient has suicide hotline #.- f/u in 2 wks- counseling referral Smoker 06369920 F17.200 smokes 1 ppdnot amendable to quitting at this time [id number] Anish langford MD [facility] [address] [place] [address] 09/17/2023 12:48:04 09/17/2023 16:02:48 Essential hypertension 71719054 I10 09/17/23:B P 172/115did not take BP meds this morning 05/13/23:BP 134/90did not take amlodipine yet today 04/09/23:BP 140/80, 150/90BP at [place] 157/96re-s tart amlodipine 10 mgadvised to check [...] not improve seek immediate re-evaluat ion COVID-19 292448928 U07.1 diagnosed 10 days agopt is vaccinated [...] down food or liquids. Depression screening 171 890778 Z13.31 09/17/23:P HQ 0 07/24/22:PH Q 16mild improvemen t with depression pt states I'm not there yettaking 200 mg of zoloft made her feel weirdtrial 150 mgf/u if no improvemen t with 150, pt reluctant to try new medication sdenies SI/HI 03/08/22:PH Q 26depressi on previously controlled on zoloftat previous visit, pt wanted to stop zoloft and trial anxiety medsno relief with anxiety medsc/o worsening depression states she is stressed out, all over the place, can't get my mind rightadmi ts to suicidal ideations of driving car off the road, no plans, denies HI-re-star t zoloft 100 mg-Go to ER or call 911 for crisis (e.g., suicidal behaviors, suicidal ideations, intent or plan emerge). Additional ly, patient has suicide hotline #.- f/u in 2 wks- counseling referral [phone] Anish langford MD [facility] [address] [place] [address] 09/22/2023 15:05:12 09/23/2023 12:58:01 COVID-19 293215287 U07.1 09/22/23:i mprovement in diarrhea, cough and [...] keep down food or liquids. Essential hypertension 65338755 I10 09/22/23:B P 155/103did not take BP [...] for repeat BP check Depression screening 171 454046 Z13.31 09/17/23:P HQ 0 07/24/22:PH Q 16mild improvemen t with depression pt states I'm not there yettaking 200 mg of zoloft made her feel weirdtrial 150 mgf/u if no improvemen t with 150, pt reluctant to try new medication sdenies SI/HI 03/08/22:PH Q 26depressi on previously controlled on zoloftat previous visit, pt wanted to stop zoloft and trial anxiety medsno relief with anxiety medsc/o worsening depression states she is stressed out, all over the place, can't get my mind rightadmi ts to suicidal ideations of driving car off the road, no plans, denies HI-re-star t zoloft 100 mg-Go to ER or call 911 for crisis (e.g., suicidal behaviors, suicidal ideations, intent or plan emerge). Additional ly, patient has suicide hotline #.- f/u in 2 wks- counseling referral Cannabis dependence [id number] F12.20 uses marijuana vape 3-4x/day for the past 2 yrsc/o nausea and decreased appetite x3 monthsmost likely due to cannabis userec'd pt decreased cannabis to see if sx improve [id number] Anish langford MD [facility] [address] [place] [address] 01/28/2024 11:14:02 01/28/2024 11:45:57 Essential hypertension 41222104 I10 01/27/24: BP 140/92, 126/80took BP med this morning 09/22/23:B P 155/103did not take BP meds yet 09/17/23:B P 172/115did not take BP meds this morning 05/13/23:BP 134/90did not take amlodipine yet today 04/09/23:BP 140/80, 150/90BP at [place] 157/96re-s tart amlodipine 10 mgadvised to check BP at home, goal BP <130/80, f/u with BP log in 1 wkf/u in 1 mo 07/24/22:BP 138/82 03/12/22:BP today 152/102, 150/100pre vious visit controlled was on labetalol during pregnancyf /u in 2 wks for repeat BP check Abdominal pain 48769095 R10.9 x4 dayslower abd- cramping, achy, burning sensationc hronic nauseano other sxwent to [place] ED 01/23/24: CT abd pelvis normalpt is eating wellimprov ement in sx with dicyclomin ec/o R flank painPEx- mild R CVATurine dip nl, pt had vaginal spotting 4 days ago (small blood on dip)reassu red ptf/u with any new or worsening sx Spasm of back muscles 20 6144754 M62.830 x2 daysR sided upper back painno trauma or injurystat es that it feels tighthas been using heating padurine dip nltrial low dose flexeril x14 days [id number] Anish langford MD [facility] [address] [place] [address] 04/21/2024 12:30:19 04/21/2024 12:45:07 Cystic acne 27132707 L70.0 Open comedone 353369316 L70.0 x6 monthstrie d OTC treatments w/o reliefPEx- 3 mm open comedones to bilateral cheeks, nose, and foreheadtr ial tretinoin daily at bed time (sent under cystic acne for insurance to cover), rec'd cetaphil face wash and cera ve lotion for dry skin [id number] Cheyenne Gómez MD [facility] [address] [place] [address] 11/01/2024 14:06:43 11/04/2024 10:36:14 Upper respiratory infection 27711049 J06.9 -Temp normal, however, pt is sweaty and clammy on exam. Lung sounds decreased with mild wheezing in lower law.-CO VID, flu (-)-Rx azithromyc in and benzonatat e-Chest xray ordered-re commend continued OTC medication s. Encouraged adequate fluid intake and rest.-F/u if symptoms are not improving [id number] Jose Sierra MD [facility] [address] [place] [address] 01/14/2025 09:49:43 01/14/2025 10:25:31 Essential hypertension 72243768 I10 01/14/25: BP 159/94, 160/100out of BP [...] repeat BP check Major depr essive disorder 534046692 F32.9 01/14/25: PHQ 5refill zoloft, requesting hydroxyzin e refill due to increased stress/anx iety 05/13/23:PH Q 0 04/09/23:PH Q 3controlle drefill today 07/24/22:PH Q 16mild improvemen t with depression pt states I'm not there yettaking 200 mg of zoloft made her feel weirdtrial 150 mgf/u if no improvemen t with 150, pt reluctant to try new medication sdenies SI/HI 03/08/22:PH Q 26depressi on previously controlled on zoloftat previous visit, pt wanted to stop zoloft and trial anxiety medsno relief with anxiety medsc/o worsening depression states she is stressed out, all over the place, can't get my mind rightadmi ts to suicidal ideations of driving car off the road, no plans, denies HI-re-star t zoloft 100 mg-Go to ER or call 911 for crisis (e.g., suicidal behaviors, suicidal ideations, intent or plan emerge). Additional ly, patient has suicide hotline #.- f/u in 2 wks- counseling referral Adult heal th examination 454641918 Z00.00 routine labs Mass of left breast 1224 662401 2912759 N63.20 12/24/24: multiple new left breast masses likely correspond ing to simple and complicate d cystic masses seen on US, likely benign, rec'd 6 mo f/u diagnostic left mammogram and left breast US, BI-RADS category 3- probably benign findings per patient, [facility] and left VM to discuss results [id number] Jose Sierra MD [facility] [address] [place] [address] 07/21/2025 12:06:30 07/21/2025 12:34:26 Gastroesophageal reflux disease without esophagitis 314929109 K21.9 834843 x3 wksupper abd pain and burning after eatingno improvemen t with OTC medsPEx- mild epigastric TTPtrial pantoprazo le for nausea and acid reflux Smoker 62969182 F17.200 smokes 1 ppdtried chantix in the past with success, would like to re-start Essential hypertension 58716450 I10 07/21/25: BP 150-170s/9 0-100stook amlodipine 2 hours ago, asymptomat icadd losartan 25advised to check BP at home, goal BP <120/70, f/u with BP log in 1 wk 01/14/25: BP 159/94, 160/100out of BP meds, sent refills 01/27/24: BP 140/92, 126/80took BP med this morning 09/22/23:B P 155/103did not take BP meds yet 09/17/23:B P 172/115did not take BP meds this morning 05/13/23:BP 134/90did not take amlodipine yet today 04/09/23:BP 140/80, 150/90BP at [place] 157/96re-s tart amlodipine 10 mgadvised to check BP at home, goal BP <130/80, f/u with BP log in 1 wkf/u in 1 mo 07/24/22:BP 138/82 03/12/22:BP today 152/102, 150/100pre vious visit controlled was on labetalol during pregnancyf /u in 2 wks for repeat BP check Depression screening 171 855846 Z13.31 [id number] 07/21/25: PHQ 6 09/17/23:P HQ 0 07/24/22:PH Q 16mild improvemen t with depression pt states I'm not there yettaking 200 mg of zoloft made her feel weirdtrial 150 mgf/u if no improvemen t with 150, pt reluctant to try new medication sdenies SI/HI 03/08/22:PH Q 26depressi on previously controlled on zoloftat previous visit, pt wanted to stop zoloft and trial anxiety medsno relief with anxiety medsc/o worsening depression states she is stressed out, all over the place, can't get my mind rightadmi ts to suicidal ideations of driving car off the road, no plans, denies HI-re-star t zoloft 100 mg-Go to ER or call 911 for crisis (e.g., suicidal behaviors, suicidal ideations, intent or plan emerge). Additional ly, patient has suicide hotline #.- f/u in 2 wks- counseling referral Constipation [id number] K5 9.00 [id number] x3 wkssmall, hard BM yesterdayt rial daily miralax and increase fluid intake Health Concerns Section Related Observation LastModified by Organization Detai ls LastModified Time None Recorded Concern Status LastModified by Organization Details LastModified Time None Recorded Advance Directives Directive N: Payers Insurance Date Sequence Insurance Name Policy Number Policy Ennis Covered Member ID Ennis Member ID Guarantor Name 01/03/2022 1 [facility] PRIOR TO 05/24/2021 (MEDICAID REPLACEMENT - HMO) Macarena Rios [id number] Macarena Rios 07/18/2025 1 [facility] ON OR AFTER 05/24/21 (MEDICAID REPLACEMENT - HMO) Macarena Rios [id number] Macarena Rios Notes Date Note Type Note Provider Name and Address Organization Details Recorded Time 01/28/2024 text/html ROS as noted in the HPI Pt presents with abd pain f/u. Reports [...] increased her fluid intake. PAM RG Attn: Accounting, [address] , [place], [address], [facility] 01/30/2024 14:56:36 04/21/2024 text/html ROS as noted in the HPI Pt presents with black heads x6 months. [...] dry out her face. PAM RG Attn: Accounting, [address] [facility], [place], [address], [facility] 04/21/2024 17:01:27 11/01/2024 text/html ROS as noted in the HPI 39 yo F presents for ear pain [...] feverish. Denies chest pain. PAM BILLINGS Attn: Accounting, [address] [facility], [place], [address], [place] [facility] 11/01/2024 18:35:27 01/14/2025 text/html ROS as noted in the HPI Pt presents for med refills. States that she is following with specialist at [facility] for masses in my L breast. Endorses to have increased anxiety due to results of mammogram. Pt's sister was diagnosed with breast cancer 4 yrs ago. PAM RG Attn: Accounting, [address] [facility], [place], [address], [place] [facility] 01/14/2025 13:57:27 07/21/2025 text/html ROS as noted in the HPI Patient presents with GI symptoms. Complains of upper abdominal pain and burning after she eats onset a couple of weeks ago. She took OTC acid reflux medication w/o relief. Also complains of nausea in the morning, intermittent constipation, and feeling bloated. She started MiraLax a couple of days ago and had a small, hard bowel movement yesterday. Patient has a good appetite and admits she could increase her water intake. She has been cutting back on the marijuana use, only using a couple of times a week. LMP 07/15/25. Denies possible . PAM RG Attn: Accounting[address] [place], [id number], [facility] 07/21/2025 12:44:12 OBGyn Episode No OBEpisode recorded.
== END 2025-11-10 11:29 | disposition home or self-care (01) ==
LOC: ANHFOHIMG 11:28
PROVIDERS: PCP Physician Assistant; Visit Provider Surgery
DX: R92.8 Other abnormal and inconclusive findings on diagnostic imaging of breast (principal); N63.25 Unspecified lump in the left breast, overlapping quadrants; N63.24 Unspecified lump in the left breast, lower inner quadrant; R92.333 Mammographic heterogeneous density, bilateral breasts
CPT/HCPCS: 76642; 77062; 77066; G0279